=== PATIENT | male | born 1950 ===

== ENCOUNTER 2022-11-12 15:10 | Inpatient (IN) | payer MEDICARE, BC, SELFPAY ==
--- NOTE | ~2022-11-12 | CT_ITS ---
EXAMINATION: CT HEAD WITHOUT CONTRAST CLINICAL INFORMATION: Fall. Head injury. Patient on aspirin. COMPARISON: 11/12/2022 TECHNIQUE: Contiguous axial imaging was performed from the skull base to vertex without intravenous administration of contrast. This CT examination was performed using dose optimization techniques as appropriate, variously including the following: *Automated exposure control *Adjustment of mA and/or kV according to patient size (this includes techniques or standardized protocols for targeted exams where dose is matched to indication/reason for exam; i.e. extremities or head) *Use of iterative reconstruction technique DLP: 768 mGy-cm FINDINGS: There is cerebral atrophy with enlargement of the lateral and third ventricles. There is mild cerebellar atrophy with mild enlargement of the 4th ventricle. The cortical sulci and cerebellar folia are widened appropriately. There is mild bilateral periventricular and central white matter diminished attenuation. Left temporal encephalomalacia is again seen. There is no acute territorial defect, hemorrhage or midline shift. The extra-axial spaces are unremarkable. The extra-axial spaces are unremarkable. Calvarium: Intact. Maxillofacial Sinuses and Mastoids: Clear as visualized. There is cerumen within the ear canals. CT/CT head/brain wo IV con IMPRESSION: Cerebral atrophy and mild periventricular and central white matter diminished attenuation which is nonspecific but likely represent microvascular disease. No acute intracranial abnormality.
--- NOTE | ~2022-11-12 | XR_ITS ---
EXAMINATION: XR CHEST CLINICAL INFORMATION: Reason for Exam intermittent hypoxia, abn mediastinum on prior cxr COMPARISON: Chest radiograph 12/31/2022 TECHNIQUE: One view of the chest FINDINGS: Lines and tubes: None. Clear lungs. No pleural effusion. No pneumothorax. Ectatic thoracic aorta. Normal cardiac silhouette. XR/XR chest 1V IMPRESSION: 1. Ectatic thoracic aorta. 2. Clear lungs.
--- NOTE | ~2022-11-12 | MR_ITS ---
MRI OF THE BRAIN WITHOUT IV CONTRAST INDICATION: Question normal pressure hydrocephalus. Fall. COMPARISON: Head CT 11/12/2022. TECHNIQUE: Multiplanar multisequence MR imaging of the brain was obtained without IV contrast. FINDINGS: There is severe lateral and third ventriculomegaly that is disproportionate to sulcal prominence with an associated narrowed callosal angle of 48 degrees, findings highly suggestive of normal pressure hydrocephalus. There is no extra-axial surface collection, or herniation. The major flow voids at the skull base are preserved. There is global cerebral volume loss and there is a chronic infarct within the left temporal lobe. Background chronic microangiopathy. There is no acute infarct on diffusion-weighted imaging. There is no intracranial hemorrhage on the gradient recalled echo acquisition. There is chronic siderosis within the right frontal lobe and the left temporal lobe. The midline structures are normal. The cerebellar tonsils are normally positioned. The cerebellum and brainstem are normal. The craniocervical junction is normal. Osseous marrow signal intensity is homogenous. The visualized soft tissues are unremarkable. 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 Background chronic microangiopathy. 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
--- NOTE | ~2022-11-12 | XR_ITS ---
EXAMINATION: XR ABDOMEN KUB CLINICAL INDICATION: Constipation COMPARISON: None available. TECHNIQUE: AP view of the abdomen. FINDINGS: The bowel gas pattern is unremarkable with no evidence of ileus or obstruction. Gas and stool seen throughout the colon. There is some air in nondilated small bowel. No unusual soft tissue calcifications are noted. The spine shows degenerative changes.. XR/XR KUB IMPRESSION: Unremarkable examination. No evidence of bowel obstruction.
--- NOTE | ~2022-11-12 | XR_ITS ---
EXAMINATION: XR ABDOMEN KUB CLINICAL INDICATION: Rule out foreign bodies or MRI. COMPARISON: None available. TECHNIQUE: AP view of the abdomen. FINDINGS: The bowel gas pattern is normal with no evidence of ileus or obstruction. No unusual soft tissue calcifications are noted. There is degenerative marginal spurring seen at multiple levels within the lumbar spine. Sacroiliac joints unremarkable. No metallic radiopaque foreign bodies identified. Degenerative spurring about the greater trochanters seen bilaterally. XR/XR KUB IMPRESSION: No metallic radiopaque foreign bodies identified within the abdomen.
--- NOTE | ~2022-11-12 | CT_ITS ---
EXAMINATION: CT ANGIOGRAM CHEST CLINICAL INFORMATION: Chest x-ray with ectatic thoracic aorta COMPARISON: Previous chest x-ray December 31 and 01/01/2023 TECHNIQUE: Multiple axial images were obtained through the chest after the administration of 70 mL of Omnipaque 350 intravenous contrast. Extensive vascular post-processing including two-dimensional and three-dimensional reformatted images were created and reviewed on an independent workstation. This CT examination was performed using dose optimization techniques as appropriate, variously including the following: *Automated exposure control *Adjustment of mA and/or kV according to patient size (this includes techniques or standardized protocols for targeted exams where dose is matched to indication/reason for exam; i.e. extremities or head) *Use of iterative reconstruction technique DLP: 219 mGy-cm FINDINGS: The thoracic aorta is upper normal in size. The ascending thoracic aorta measures 4 cm. Aortic arch measures 3 cm. The descending thoracic aorta measures 2.7 centimeters. No evidence of aneurysm or dissection. The great vessel origins are patent and normal in caliber. Normal heart size. No pericardial effusion. Very mild coronary artery calcification. Small mediastinal lymph nodes. Largest lymph node is a right paratracheal lymph node measuring 1 cm in short axis that is upper normal in size. No hilar adenopathy. Visualized thyroid gland is normal. Heterogeneous mosaic attenuation the lungs probably representing hypoventilatory changes or air-trapping. The lungs are otherwise clear. No endobronchial or endotracheal lesion. No chest wall mass or enlarged axillary lymph nodes. Images through the upper abdomen are unremarkable. Degenerative changes of the spine. CT/CT angio chest aorta IMPRESSION: Upper normal-size thoracic aorta. No aneurysm or dissection. Fleischner guidelines were followed.
--- NOTE | ~2022-11-12 | US_ITS ---
EXAMINATION: US VENOUS ULTRASOUND WITH DOPPLER LOWER EXTREMITY, BILATERAL CLINICAL INFORMATION: Hypoxia COMPARISON: None available. TECHNIQUE: Ultrasound of the deep veins is performed from the hip to the calf with compression sonography and color and pulse Doppler assessment. Spectral analysis with color-flow imaging is performed. Exam is limited due to uncooperative patient. FINDINGS: RIGHT: There is normal venous compression and respiratory variation and augmented flow. The visualized common femoral vein, superficial femoral vein, profunda femoral vein, popliteal vein and anterior tibial veins shows no evidence of deep venous thrombosis. Hernial veins not well visualized. There is no significant popliteal fossa cyst. LEFT: There is normal venous compression and respiratory variation and augmented flow. The visualized common femoral vein, superficial femoral vein, and profunda femoral vein shows no evidence of deep venous thrombosis. Popliteal vein not well visualized. Calf veins not well visualized. There is no significant popliteal fossa cyst. US/US venous duplex LE BI IMPRESSION: Limited exam. No DVT demonstrated in the bilateral lower extremity. Calf veins and left popliteal vein not well visualized.
--- NOTE | ~2022-11-12 | XR_ITS ---
EXAMINATION: XR CHEST CLINICAL INFORMATION: Rule out foreign body for MRI. COMPARISON: None available. TECHNIQUE: 2 views of the chest were obtained. FINDINGS: No significant abnormality is noted involving the heart, lungs, mediastinum, bony thorax or soft tissues. No metallic radiopaque foreign bodies identified. XR/XR chest 2V IMPRESSION: No acute parenchymal disease. No radiopaque foreign bodies.
--- NOTE | ~2022-11-12 | CT_ITS ---
EXAMINATION: CT HEAD WITHOUT CONTRAST CLINICAL INFORMATION: Headache status-post fall. COMPARISON: None available. TECHNIQUE: Contiguous axial imaging was performed from the skull base to vertex without intravenous administration of contrast. Multiplanar reformatted images are submitted. This CT examination was performed using dose optimization techniques as appropriate, variously including the following: *Automated exposure control *Adjustment of mA and/or kV according to patient size (this includes techniques or standardized protocols for targeted exams where dose is matched to indication/reason for exam; i.e. extremities or head) *Use of iterative reconstruction technique DLP: 770 mGy-cm FINDINGS: There is no acute intracranial hemorrhage or evidence of territorial infarction. No abnormal mass effect or midline shift is seen. Melo to white matter differentiation is well preserved. There is no abnormal attenuation within the brain parenchyma. There is moderate ventriculomegaly, somewhat disproportionate to the mild extent of sulcal widening. The Marvin index is 0.45. The third and fourth ventricles appear patent. No extra-axial fluid collections are identified. The calvarium and scalp soft tissues are normal. The middle ear cavity and mastoid air cells are clear. The visualized paranasal sinuses are clear. CT/CT head/brain wo IV con IMPRESSION: 1. No acute intracranial pathology. 2. There is ventriculomegaly disproportionate to the extent of sulcal widening. This can be seen in the setting of normal pressure hydrocephalus. Recommend clinical correlation. Consider MRI evaluation if clinically appropriate.
--- NOTE | ~2022-11-12 | XR_ITS ---
EXAMINATION: XR CHEST CLINICAL INFORMATION: Reason for Exam intermittent hypoxia COMPARISON: Chest radiograph 11/13/2022 TECHNIQUE: One view of the chest FINDINGS: Lines and tubes: None. Low lung volumes with streaky bibasilar opacities which may reflect atelectasis. No pleural effusion. No pneumothorax. Superior mediastinum appears widened new from recent prior however this may be exaggerated by technique. XR/XR chest 1V IMPRESSION: * Superior mediastinum appears widened new from recent prior however this may be exaggerated by technique. Recommend repeat PA and lateral radiographs however if there is there is clinical concern for emergent mediastinal pathology, CT chest could be obtained. * Low lung volumes with streaky bibasilar opacities which may reflect atelectasis.
[2022-11-12 16:42] VITALS: BMI 30.2
[2022-11-12 16:45] VITALS: BP 137/79; PULSE 78; RESP 18; TEMP 36.7; O2SAT 97
[2022-11-12 17:27] VITALS: BP 119/71; PULSE 106; RESP 18; TEMP 36.5; O2SAT 96
[2022-11-12 18:00] VITALS: BP 125/67; PULSE 76; RESP 16; TEMP 36.3; O2SAT 97
--- NOTE | 2022-11-12 18:00 | PC.NURSE ---
At 1726 it was reported to this technical writer that Polo stood up and lost his balance and stumbled backwards onto his buttocks and hit his head on the closed kitchenette door. This incident was witnessed by several staff members but not this technical writer. There was no LOC and Polo is baseline alert and oriented to self; no other mental status changes noted. VSS, see vital signs section. I'm fine, I just fell yesterday! Polo was assessed by JONATHAN Reyes and Laura Lou NP notified via [facility] at 1728. Sales Estimator Brooke notified by charge nurse Leona at 1807 of fall. Will follow post fall protocol per hospital policy.
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
[2022-11-12 18:35] VITALS: BP 125/67; PULSE 76
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
[2022-11-12] MEDS: Atorvastatin Calcium 40 MG TABLET PO (21:33)
[2022-11-12] MEDS: hydrOXYzine HCL 25 MG TABLET PO (21:33)
[2022-11-12] MEDS: lamoTRIgine 100 MG TABLET PO (21:34)
[2022-11-12] MEDS: Tamsulosin HCL 0.4 MG CAPSULE PO (21:35)
[2022-11-12] MEDS: traZODone HCL 50 MG TABLET PO (21:35)
[2022-11-12] MEDS: QUEtiapine Fumarate 100 MG TABLET PO (21:35)
[2022-11-13 08:34] LABS: Alanine Aminotransferase 20 U/L (0-40); Albumin Level 3.2 g/dL (3.5-5.0); Alkaline Phosphatase 59 U/L (39-117); Anion Gap 14 (12-20); Aspartate Amino Transferase 20 U/L (5-37); Bilirubin Total 0.7 mg/dL (0.0-1.0); Blood Urea Nitrogen 14 mg/dL (9-16); Calcium 8.4 mg/dL (8.4-10.2); Carbon Dioxide 22 mmol/L (22-29); Chloride 107 mmol/L (96-108); Cholesterol 129 mg/dL; Creatinine Clr Calc Pharmacy 102.6; Estimated Glomerular Filt Rate > 60; Glucose Fasting 86 mg/dL (60-99); HDL Cholesterol 42 mg/dL; LDL Cholesterol Calculated 74 mg/dl; Sodium 139 mmol/L (135-145); Total Protein 5.6 g/dL (6.5-8.0); Triglycerides 65 mg/dL
[2022-11-13 09:44] VITALS: BP 82/52; PULSE 84; RESP 16; TEMP 36.8; O2SAT 97
[2022-11-13] MEDS: Divalproex Sodium ER 500 MG TAB.ER.24H 1500 MG PO (09:49)
[2022-11-13] MEDS: Thiamine HCL 100 MG TABLET PO (09:49)
[2022-11-13] MEDS: lamoTRIgine 100 MG TABLET PO ×2 (09:49→20:35)
[2022-11-13] MEDS: Escitalopram Oxalate 5 MG TABLET PO (09:49)
[2022-11-13 10:58] VITALS: BP 106/70
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
[2022-11-13 15:55] VITALS: BMI 31.0
[2022-11-13 18:00] VITALS: BP 121/62; PULSE 84; RESP 16; TEMP 36.1; O2SAT 98
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
[2022-11-13] MEDS: Atorvastatin Calcium 40 MG TABLET PO (20:34)
[2022-11-13] MEDS: hydrOXYzine HCL 25 MG TABLET PO (20:34)
[2022-11-13] MEDS: Tamsulosin HCL 0.4 MG CAPSULE PO (20:35)
[2022-11-13] MEDS: QUEtiapine Fumarate 100 MG TABLET PO (20:35)
[2022-11-13] MEDS: traZODone HCL 50 MG TABLET PO (20:36)
[2022-11-14 10:01] VITALS: BP 126/59; PULSE 84; RESP 16; TEMP 36.3; O2SAT 96
[2022-11-14] MEDS: Escitalopram Oxalate 5 MG TABLET PO (10:02)
[2022-11-14] MEDS: Aspirin Enteric Coated 81 MG TABLET.DR PO (10:02)
[2022-11-14] MEDS: Divalproex Sodium ER 500 MG TAB.ER.24H 1500 MG PO (10:02)
[2022-11-14] MEDS: Thiamine HCL 100 MG TABLET PO (10:02)
[2022-11-14] MEDS: lamoTRIgine 100 MG TABLET PO ×2 (10:02→20:18)
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
[2022-11-14 18:00] VITALS: BP 109/61; PULSE 77; RESP 18; TEMP 36.1; O2SAT 96
[2022-11-14] MEDS: QUEtiapine Fumarate 100 MG TABLET PO (20:18)
[2022-11-14] MEDS: Atorvastatin Calcium 40 MG TABLET PO (20:18)
[2022-11-14] MEDS: traZODone HCL 50 MG TABLET PO (20:18)
[2022-11-14] MEDS: Tamsulosin HCL 0.4 MG CAPSULE PO (20:18)
[2022-11-15 06:00] VITALS: BP 110/62; PULSE 69; RESP 16; TEMP 36.6; O2SAT 96
[2022-11-15] MEDS: Divalproex Sodium ER 500 MG TAB.ER.24H 1500 MG PO (09:00)
[2022-11-15] MEDS: Thiamine HCL 100 MG TABLET PO (09:01)
[2022-11-15] MEDS: lamoTRIgine 100 MG TABLET PO ×2 (09:01→20:02)
[2022-11-15] MEDS: Aspirin Enteric Coated 81 MG TABLET.DR PO (09:01)
[2022-11-15] MEDS: Escitalopram Oxalate 5 MG TABLET PO (09:01)
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
[2022-11-15 19:35] VITALS: BP 127/77; PULSE 61; RESP 16; TEMP 36.2; O2SAT 99
[2022-11-15] MEDS: QUEtiapine Fumarate 100 MG TABLET PO (20:02)
[2022-11-15] MEDS: Tamsulosin HCL 0.4 MG CAPSULE PO (20:02)
[2022-11-15] MEDS: Atorvastatin Calcium 40 MG TABLET PO (20:02)
[2022-11-15] MEDS: traZODone HCL 50 MG TABLET PO (20:02)
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
[2022-11-16 08:10] VITALS: BP 118/62; PULSE 68; RESP 16; TEMP 36.4; O2SAT 97
[2022-11-16] MEDS: Escitalopram Oxalate 5 MG TABLET PO (08:11)
[2022-11-16] MEDS: lamoTRIgine 100 MG TABLET PO ×2 (08:12→20:36)
[2022-11-16] MEDS: Aspirin Enteric Coated 81 MG TABLET.DR PO (08:12)
[2022-11-16] MEDS: Divalproex Sodium ER 500 MG TAB.ER.24H 1500 MG PO (08:12)
[2022-11-16] MEDS: Thiamine HCL 100 MG TABLET PO (08:12)
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
[2022-11-16 18:00] VITALS: BP 126/70; PULSE 64; RESP 16; TEMP 36.6; O2SAT 96
[2022-11-16] MEDS: Tamsulosin HCL 0.4 MG CAPSULE PO (20:35)
[2022-11-16] MEDS: hydrOXYzine HCL 25 MG TABLET PO (20:35)
[2022-11-16] MEDS: QUEtiapine Fumarate 100 MG TABLET PO (20:36)
[2022-11-16] MEDS: Atorvastatin Calcium 40 MG TABLET PO (20:36)
[2022-11-16] MEDS: traZODone HCL 50 MG TABLET PO (20:44)
[2022-11-17 06:00] VITALS: BP 103/57; PULSE 80; RESP 16; O2SAT 98
[2022-11-17] MEDS: Thiamine HCL 100 MG TABLET PO (09:09)
[2022-11-17] MEDS: Escitalopram Oxalate 5 MG TABLET PO (09:09)
[2022-11-17] MEDS: Aspirin Enteric Coated 81 MG TABLET.DR PO (09:09)
[2022-11-17] MEDS: lamoTRIgine 100 MG TABLET PO ×2 (09:09→20:45)
[2022-11-17] MEDS: Divalproex Sodium ER 500 MG TAB.ER.24H 1500 MG PO (09:09)
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
--- NOTE | 2022-11-17 13:08 | PM.NEUROCN ---
History of Present Illness Data of Consult Service Date: 11/17/22 Primary Care Provider: Unknown Physician HPI Reason for consult: Dementia 71 years old man [place] [facility] was brought to emergency room with significant mental symptoms including agitation hallucinations and confusion. He had a CT scan of brain and MRI done, both revealing abnormalities prompting this consultation. When I saw him he was in a lock-down unit asking me to let him go. He said that he was from [place] and wanted to go back. Review of Systems Review of Systems: No evidence of any seizure-like episode. [facility] Social History Social History Household Members: None Housing: [facility] Do you presently have visiting nurse or other home services: No Unable to assess alcohol history related to: Unable to respond Patient Tobacco Use Status: Former Tobacco user Quit Date: unable to answer due to mental status Tobacco use type: Cigarette Smoked in Last 30 Days: No Use of substances other than those prescribed or required for medical reasons: No Currently Displaying Signs/Symptoms of Drug Intoxication Withdrawal: No Have you been hit, kicked, punched, or otherwise hurt by someone within the past year? If so, by whom?: No Do you feel safe in your current relationship?: No Current Relationship Is there a partner from a previous relationship who is making you feel unsafe now?: No Are you made to feel afraid or neglected: No Spiritual Healthcare Practices: n/a [employer] Healthcare Practices: Islam Cultural Healthcare Practices: n/a Advance Directives: No Advance Directives Information Provided: No Current/Past Psychiatric Disorders: Conduct disorder, Mood disorder and Substance abuse Qiu Symptoms: Anxiety and Impulsivity Change in Treatment: Discharged from [facility] Access to Firearms: No Do you have thoughts of harming others: None Do you have a plan to hurt others: No Plan Recently lost weight without trying: No Eating poorly because of decreased appetite: No Nutrition Risks: Dental problems Poor oral hygiene: No service: Yes Sexual orientation: Straight/Heterosexual Meds Allergies Allergy/AdvReac Type Severity Reaction Status Date / Time No Known Allergies Allergy Verified 11/12/22 15:27 Active Medications: Current Medications Acetaminophen (Acetaminophen 325 Mg Tablet) 650 mg PO Q6H PRN PRN Reason: Headache/Pain Mild Scale (1-3) Al Hydroxide/Mg Hydroxide (Magnesium Hydrox/Alum Hydrox 30 Ml Oral.Susp) 30 ml PO Q6H PRN PRN Reason: Heartburn/Nausea Aspirin (Aspirin Enteric Coated 81 Mg Tablet.Dr) 81 mg PO DAILY [facility] Last Admin: 11/17/22 09:09 Dose: 81 mg Atorvastatin Calcium (Atorvastatin Calcium 40 Mg Tablet) 40 mg PO BEDTIME [facility] Last Admin: 11/16/22 20:36 Dose: 40 mg Divalproex Sodium (Divalproex Sodium Er 500 Mg Tab.Er.24h) 1,500 mg PO DAILY [facility] Last Admin: 11/17/22 09:09 Dose: 1,500 mg Escitalopram Oxalate (Escitalopram Oxalate 5 Mg Tablet) 5 mg PO DAILY [facility] Last Admin: 11/17/22 09:09 Dose: 5 mg Hydroxyzine HCl (Hydroxyzine Hcl 25 Mg Tablet) 25 mg PO Q6H PRN PRN Reason: Anxiety Last Admin: 11/16/22 20:35 Dose: 25 mg Lamotrigine (Lamotrigine 100 Mg Tablet) 100 mg PO BID [facility] Last Admin: 11/17/22 09:09 Dose: 100 mg Magnesium Hydroxide (Milk Of Magnesia 30 Ml Oral.Susp) 30 ml PO DAILY PRN PRN Reason: Constipation Quetiapine Fumarate (Quetiapine Fumarate 100 Mg Tablet) 100 mg PO BEDTIME [facility] Last Admin: 11/16/22 20:36 Dose: 100 mg Tamsulosin HCl (Tamsulosin Hcl 0.4 Mg Capsule) 0.4 mg PO BEDTIME [facility] Last Admin: 11/16/22 20:35 Dose: 0.4 mg Thiamine HCl (Thiamine Hcl 100 Mg Tablet) 100 mg PO DAILY [facility] Last Admin: 11/17/22 09:09 Dose: 100 mg Trazodone HCl (Trazodone Hcl 50 Mg Tablet) 50 mg PO BEDTIME PRN PRN Reason: Insomnia Last Admin: 11/16/22 20:44 Dose: 50 mg Home Medications Medication Instructions Recorded Confirmed Last Taken Type aspirin 81 mg capsule,delayed 81 mg PO DAILY 11/12/22 11/12/22 Unknown History release atorvastatin 40 mg tablet 40 mg PO BEDTIME 11/12/22 11/12/22 Unknown History divalproex 500 mg tablet,extended 1,500 mg PO DAILY 11/12/22 11/12/22 Unknown History release 24 hr escitalopram oxalate 5 mg tablet 5 mg PO DAILY 11/12/22 11/12/22 Unknown History lamotrigine 100 mg tablet 100 mg PO BID 11/12/22 11/12/22 Unknown History (Lamictal) quetiapine 100 mg tablet 100 mg PO BEDTIME 11/12/22 11/12/22 Unknown History tamsulosin 0.4 mg capsule 0.4 mg PO BEDTIME 11/12/22 11/12/22 Unknown History thiamine HCl (vitamin B1) 100 mg 100 mg PO DAILY 11/12/22 11/12/22 Unknown History tablet Physical Exam Vital Signs: Vital Signs: Last Vital Signs Temp 97.8 F 11/16/22 18:00 Pulse 80 11/17/22 06:00 Resp 16 11/17/22 06:00 BP 103/57 L 11/17/22 06:00 Pulse Ox 98 11/17/22 06:00 O2 Del Method Room Air 11/17/22 06:00 BMI result Body Mass Index 31.0 Neuro: Other: He is alert and awake with normal spontaneity of speech fluency comprehension and anxious affect. He knew that he was in a hospital but could not name it. He was not in any distress. He was following simple commands. Face was symmetrical. Visual kwon are full. Gaze was full. There was no significant bradykinesia or tremor. Deep tendon reflexes were trace to absent. Holding my hands he was able to get up and walked in a cautious gait with no sign of magnet is a more parkinsonism. Speech was normal. Results Labs 11/13/22 07:52 Labs: CT scan of brain and MRI of brain were reviewed. Both reveals significant cerebral atrophy, central more than peripheral, with somewhat suggestion of ventriculomegaly and a chronic left insular infarct. Assessment and Plan (1) Neurodegenerative cognitive impairment: Status: Acute 71 years old man who probably has degenerative dementia, moderate to severe, with significant behavioral component. Precise previous history is not available. 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 This type of infarct could be cardioembolic or from carotid artery. Because of significant underlying dementia, he would not be a candidate for any surgical intervention and for that reason I do not think exploring carotid artery stenosis is a reasonable idea. Continue his baseline medications. His examination is not suggestive of normal-pressure hydrocephalus despite his imaging revealing some ventriculomegaly. This type of patient typically require combination of medicines including some antipsychotics and mood stabilizers to manage day behavioral symptoms. He is also at relatively high risk for seizure disorder but also has been taking lamotrigine 100 mg twice a day, which would cover this condition even if he suffered from it. Now that his mental status has improved compared to his emergency room arrival, I do not think an EEG would be useful. Time Spent With Patient Time: Total time managing care of this patient today ____ minutes. Procedures Date of Service Date of Service: 11/17/22
[2022-11-17 18:00] VITALS: BP 112/59; PULSE 59; RESP 18; TEMP 36.6; O2SAT 94
[2022-11-17] MEDS: Tamsulosin HCL 0.4 MG CAPSULE PO (20:45)
[2022-11-17] MEDS: QUEtiapine Fumarate 100 MG TABLET PO (20:45)
[2022-11-17] MEDS: traZODone HCL 50 MG TABLET PO (20:46)
[2022-11-17] MEDS: Atorvastatin Calcium 40 MG TABLET PO (20:46)
[2022-11-18 08:10] LABS: MANUAL DIFF FLAG NO
[2022-11-18 08:16] LABS: Basophils Percent Auto 0.8 % (0-2); Eosinophils Absolute Auto 0.2 X10*3/uL (0.0-0.4); Eosinophils Percent Auto 4.4 % (0-4); Hematocrit 39.9 % (42.0-52.0); Hemoglobin 13.4 g/dl (14.0-18.0); Imm Gran Abs Auto 0.06 X10*3/uL (0.00-0.03); Imm Gran Pct Auto 1.2 % (0.0-0.4); Lymphocytes Absolute Auto 1.4 X10*3/uL (1.2-4.9); Lymphocytes Percent Auto 28.1 % (20-40); Mean Corpuscular HGB Conc 33.6 g/dl (31.0-36.0); Mean Corpuscular Hemoglobin 32.4 pg (27.0-33.0); Mean Corpuscular Volume 96.4 fL (80.0-98.0); Mean Platelet Volume 9.6 fL (9.4-12.4); Monocytes Absolute Auto 0.7 X10*3/uL (0.1-1.2); Monocytes Percent Auto 12.9 % (2-11); Neutrophils Absolute Auto 2.7 x10*3/uL (2.0-8.3); Neutrophils Percent Auto 52.6 % (45-73); Platelet Count 193 X10*3/uL (160-400); Red Blood Count 4.14 X10*6/uL (4.60-5.80); Red Cell Distribution Width 14.5 % (11.0-16.0); White Blood Count 5.1 X10*3/uL (4.8-10.8)
[2022-11-18 08:31] LABS: Valproate 44.3 mcg/mL (50.0-100.0)
[2022-11-18 09:21] VITALS: BP 112/64; PULSE 75; RESP 16; TEMP 36.1; O2SAT 98
[2022-11-18] MEDS: Aspirin Enteric Coated 81 MG TABLET.DR PO (09:22)
[2022-11-18] MEDS: Divalproex Sodium ER 500 MG TAB.ER.24H 1500 MG PO (09:22)
[2022-11-18] MEDS: Thiamine HCL 100 MG TABLET PO (09:22)
[2022-11-18] MEDS: Escitalopram Oxalate 5 MG TABLET PO (09:22)
[2022-11-18] MEDS: lamoTRIgine 100 MG TABLET PO ×2 (09:22→20:50)
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
[2022-11-18] MEDS: QUEtiapine Fumarate 50 MG TABLET PO (17:44)
[2022-11-18 18:00] VITALS: BP 149/80; PULSE 59; RESP 18; TEMP 36.3; O2SAT 100
[2022-11-18] MEDS: Tamsulosin HCL 0.4 MG CAPSULE PO (20:49)
[2022-11-18] MEDS: QUEtiapine Fumarate 100 MG TABLET PO (20:49)
[2022-11-18] MEDS: traZODone HCL 50 MG TABLET PO (20:50)
[2022-11-18] MEDS: Atorvastatin Calcium 40 MG TABLET PO (20:50)
[2022-11-18] MEDS: hydrOXYzine HCL 25 MG TABLET PO (20:50)
[2022-11-19 08:30] VITALS: BP 106/76; PULSE 89; RESP 18; TEMP 36.1; O2SAT 97
[2022-11-19] MEDS: QUEtiapine Fumarate 50 MG TABLET PO ×2 (08:57→17:28)
[2022-11-19] MEDS: Thiamine HCL 100 MG TABLET PO (08:58)
[2022-11-19] MEDS: Escitalopram Oxalate 5 MG TABLET PO (08:58)
[2022-11-19] MEDS: Aspirin Enteric Coated 81 MG TABLET.DR PO (08:58)
[2022-11-19] MEDS: Divalproex Sodium ER 500 MG TAB.ER.24H 1500 MG PO (08:58)
[2022-11-19] MEDS: lamoTRIgine 100 MG TABLET PO ×2 (08:58→20:13)
--- NOTE | 2022-11-19 13:38 | P.PNPSI_ITS ---
Subjective Subjective Date of Service: 11/19/22 Reason For Visit: DEMENTIA Subjective Notes: Conditional Voluntary Interim History: The nursing staff reported the patient is on one-to-one for safety. He had been medication and meal compliant he had been freed in the morning but in the evening he is a little agitated. On interview the patient remains pleasantly confused nonsensical at times but easily redirectable. Mental Status Exam Mental Status Exam Patient Appearance: Well Grooomed and Appropriate Patient Orientation: Person and Situation Level of Consciousness: Awake and Appropriate Patient Behavior: Guarded and Passive Mood Description: Calm Affect Description: Constricted Patient Cognition Impaired: Yes Ability to Follow Directions: Good Speech Pattern: Clear Hallucinations: None Delusions: Not Present Thought Process: Linear Thought Content: positive for [place]um[place] Judgement: Fair Diagnostics Vital Signs (24Hr): Vital Signs - 24 hr 11/18/22 18:00 Temperature 97.4 F Pulse Rate 59 Respiratory Rate 18 Blood Pressure 149/80 H Pulse Oximetry 100 Oxygen Delivery Method Room Air BMI result Body Mass Index 31.0 Labs 11/18/22 08:03 11/13/22 07:52 Labs: Laboratory Results - last 48 hr 11/18/22 11/18/22 11/18/22 08:03 08:03 08:03 WBC 5.1 RBC 4.14 L Hgb 13.4 L Hct 39.9 L MCV 96.4 MCH 32.4 MCHC 33.6 RDW 14.5 Plt Count 193 MPV 9.6 Immature Gran % (Auto) 1.2 H Neut % (Auto) 52.6 Lymph % (Auto) 28.1 [place] % (Auto) 12.9 H Eos % (Auto) 4.4 H Baso % (Auto) 0.8 Lymph # (Auto) 1.4 [place] # (Auto) 0.7 Eos # (Auto) 0.2 Baso # (Auto) 0.0 Abs Immat Gran (auto) 0.06 H Absolute Neuts (auto) 2.7 Absolute Nucleated RBC 0.000 Nucleated RBC % (auto) 0.0 Valproic Acid 44.3 L Lamotrigine Cancelled Imaging Radiology Impressions: ITS Impressions Head CT 11/12/22 19:17 IMPRESSION: 1. No acute intracranial pathology. 2. There is ventriculomegaly disproportionate to the extent of sulcal widening. This can be seen in the setting of normal pressure hydrocephalus. Recommend clinical correlation. Consider MRI evaluation if clinically appropriate. Chest X-Ray 11/13/22 14:13 IMPRESSION: No acute parenchymal disease. No radiopaque foreign bodies. KUB X-Ray 11/13/22 14:13 IMPRESSION: No metallic radiopaque foreign bodies identified within the abdomen. 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 Background chronic microangiopathy. 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 Medications Medications Current Medications Acetaminophen (Acetaminophen 325 Mg Tablet) 650 mg PO Q6H PRN PRN Reason: Headache/Pain Mild Scale (1-3) Al Hydroxide/Mg Hydroxide (Magnesium Hydrox/Alum Hydrox 30 Ml Oral.Susp) 30 ml PO Q6H PRN PRN Reason: Heartburn/Nausea Aspirin (Aspirin Enteric Coated 81 Mg Tablet.Dr) 81 mg PO DAILY [facility] Last Admin: 11/19/22 08:58 Dose: 81 mg Atorvastatin Calcium (Atorvastatin Calcium 40 Mg Tablet) 40 mg PO BEDTIME [facility] Last Admin: 11/18/22 20:50 Dose: 40 mg Divalproex Sodium (Divalproex Sodium Er 500 Mg Tab.Er.24h) 1,500 mg PO DAILY [facility] Last Admin: 11/19/22 08:58 Dose: 1,500 mg Escitalopram Oxalate (Escitalopram Oxalate 5 Mg Tablet) 5 mg PO DAILY [facility] Last Admin: 11/19/22 08:58 Dose: 5 mg Hydroxyzine HCl (Hydroxyzine Hcl 25 Mg Tablet) 25 mg PO Q6H PRN PRN Reason: Anxiety Last Admin: 11/18/22 20:50 Dose: 25 mg Lamotrigine (Lamotrigine 100 Mg Tablet) 100 mg PO BID [facility] Last Admin: 11/19/22 08:58 Dose: 100 mg Magnesium Hydroxide (Milk Of Magnesia 30 Ml Oral.Susp) 30 ml PO DAILY PRN PRN Reason: Constipation Quetiapine Fumarate (Quetiapine Fumarate 100 Mg Tablet) 100 mg PO BEDTIME [facility] Last Admin: 11/18/22 20:49 Dose: 100 mg Quetiapine Fumarate (Quetiapine Fumarate 50 Mg Tablet) 50 mg PO BID@0800,1700 [facility] Last Admin: 11/19/22 08:57 Dose: 50 mg Tamsulosin HCl (Tamsulosin Hcl 0.4 Mg Capsule) 0.4 mg PO BEDTIME [facility] Last Admin: 11/18/22 20:49 Dose: 0.4 mg Thiamine HCl (Thiamine Hcl 100 Mg Tablet) 100 mg PO DAILY [facility] Last Admin: 11/19/22 08:58 Dose: 100 mg Trazodone HCl (Trazodone Hcl 50 Mg Tablet) 50 mg PO BEDTIME PRN PRN Reason: Insomnia Last Admin: 11/18/22 20:50 Dose: 50 mg Allergies Allergies Allergy/AdvReac Type Severity Reaction Status Date / Time No Known Allergies Allergy Verified 11/12/22 15:27 Assessment & Plan Assessment & Plan (1) Neurodegenerative cognitive impairment: Status: Acute Code(s): G31.9 - Degenerative disease of nervous system, unspecified Assessment and Plan: 71 years old man who probably has degenerative dementia, moderate to severe, with significant behavioral component. Precise previous history is not availa ble. 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 This type of infarct could be cardioembolic or from carotid artery. Because of significant underlying dementia, he would not be a candidate for any surgical intervention and for that reason I do not think exploring carotid artery stenosis is a reasonable idea. Continue his baseline medications. His examination is not suggestive of normal-pressure hydrocephalus despite his imaging revealing some ventriculomegaly. This type of patient typically require combination of medicines including some antipsychotics and mood stabilizers to manage day behavioral symptoms. He is also at relatively high risk for seizure disorder but also has been taking lamotrigine 100 mg twice a day, which would cover this condition even if he suffered from it. Now that his mental status has improved compared to his emergency room arrival, I do not think an EEG would be useful. Plan Plan 1. Continue with regular medications. 2. Neurologist reported that at this moment he does not have normal-pressure hydrocephalus. 3. Since the patient had being more irritable and labile we are increasing Seroquel up to 50 mg p.o. b.i.d. and 100 mg p.o. q.h.s.. 4. Reassessment with results. 5. Depakote level and comprehensive metabolic panel for November 20 a.m. Reason for continued inpatient stay Substantial Risk for: inability to function, rapid decompensation and med/psych decompensation Time Spent With Patient Time: Total time managing care of this patient today __20__ minutes.
[2022-11-19 18:00] VITALS: BP 111/73; PULSE 78; RESP 18; TEMP 36; O2SAT 95
[2022-11-19] MEDS: QUEtiapine Fumarate 100 MG TABLET PO (20:13)
[2022-11-19] MEDS: Tamsulosin HCL 0.4 MG CAPSULE PO (20:13)
[2022-11-19] MEDS: Atorvastatin Calcium 40 MG TABLET PO (20:13)
[2022-11-20 05:13] LABS: Alanine Aminotransferase 16 U/L (0-40); Albumin Level 3.2 g/dL (3.5-5.0); Alkaline Phosphatase 68 U/L (39-117); Anion Gap 16 (12-20); Aspartate Amino Transferase 15 U/L (5-37); Bilirubin Total 0.6 mg/dL (0.0-1.0); Blood Urea Nitrogen 20 mg/dL (9-16); Calcium 8.7 mg/dL (8.4-10.2); Carbon Dioxide 22 mmol/L (22-29); Chloride 108 mmol/L (96-108); Creatinine Clr Calc Pharmacy 101.5; Estimated Glomerular Filt Rate > 60; Glucose Fasting 85 mg/dL (60-99); Potassium 4.4 mmol/L (3.3-5.1); Sodium 142 mmol/L (135-145); Total Protein 5.7 g/dL (6.5-8.0)
[2022-11-20 09:05] VITALS: BP 108/60; PULSE 85; RESP 18; TEMP 36.3; O2SAT 95
[2022-11-20] MEDS: Divalproex Sodium ER 500 MG TAB.ER.24H 1500 MG PO (09:09)
[2022-11-20] MEDS: Aspirin Enteric Coated 81 MG TABLET.DR PO (09:10)
[2022-11-20] MEDS: Escitalopram Oxalate 5 MG TABLET PO (09:10)
[2022-11-20] MEDS: Thiamine HCL 100 MG TABLET PO (09:10)
[2022-11-20] MEDS: lamoTRIgine 100 MG TABLET PO ×2 (09:10→20:07)
[2022-11-20] MEDS: QUEtiapine Fumarate 50 MG TABLET PO ×2 (09:10→17:23)
--- NOTE | 2022-11-20 12:51 | HO.PSYCHPN ---
Subjective Subjective Date of Service: 11/20/22 Reason For Visit: DEMENTIA Subjective Notes: Conditional Voluntary Interim History: The nursing staff reported that sometimes his inappropriate and irritable but easily redirectable. He slept well last night. Today his Depakote level came back on 50 and all his other blood per came without major changes. The criminal justice social worker reported that apparently his family meeting cleared the financial problems with the halfway and they are not holding a bed. On interview the patient is pleasantly confused easily redirectable. Mental Status Exam Mental Status Exam Patient Appearance: Appropriate Patient Orientation: Person and Situation Level of Consciousness: Awake and Appropriate Patient Behavior: Guarded and Passive Mood Description: Withdrawn Affect Description: Constricted Patient Cognition Impaired: Yes Ability to Follow Directions: Good Speech Pattern: Clear Hallucinations: None Delusions: Not Present Thought Process: Linear Thought Content: positive for [place] and positive for Circumstantial Judgement: Fair Diagnostics Vital Signs (24Hr): Vital Signs - 24 hr 11/19/22 18:00 11/20/22 09:05 Temperature 96.8 F 97.3 F Pulse Rate 78 85 Respiratory Rate 18 18 Blood Pressure 111/73 108/60 Pulse Oximetry 95 95 Oxygen Delivery Method Room Air Room Air BMI result Body Mass Index 31.0 Labs 11/18/22 08:03 11/20/22 04:51 Labs: Laboratory Results - last 48 hr 11/20/22 11/20/22 04:51 04:51 Sodium 142 Potassium 4.4 Chloride 108 Carbon Dioxide 22 Anion Gap 16 BUN 20 H Creatinine 0.88 Estim Creat Clear Calc 101.5 Estimated GFR > 60 Fasting Glucose 85 Calcium 8.7 Total Bilirubin 0.6 AST 15 ALT 16 Alkaline Phosphatase 68 Total Protein 5.7 L Albumin 3.2 L Valproic Acid 50.0 Imaging Radiology Impressions: ITS Impressions Head CT 11/12/22 19:17 IMPRESSION: 1. No acute intracranial pathology. 2. There is ventriculomegaly disproportionate to the extent of sulcal widening. This can be seen in the setting of normal pressure hydrocephalus. Recommend clinical correlation. Consider MRI evaluation if clinically appropriate. Chest X-Ray 11/13/22 14:13 IMPRESSION: No acute parenchymal disease. No radiopaque foreign bodies. KUB X-Ray 11/13/22 14:13 IMPRESSION: No metallic radiopaque foreign bodies identified within the abdomen. 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 Background chronic microangiopathy. 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 Medications Medications Current Medications Acetaminophen (Acetaminophen 325 Mg Tablet) 650 mg PO Q6H PRN PRN Reason: Headache/Pain Mild Scale (1-3) Al Hydroxide/Mg Hydroxide (Magnesium Hydrox/Alum Hydrox 30 Ml Oral.Susp) 30 ml PO Q6H PRN PRN Reason: Heartburn/Nausea Aspirin (Aspirin Enteric Coated 81 Mg Tablet.Dr) 81 mg PO DAILY [facility] Last Admin: 11/20/22 09:10 Dose: 81 mg Atorvastatin Calcium (Atorvastatin Calcium 40 Mg Tablet) 40 mg PO BEDTIME [facility] Last Admin: 11/19/22 20:13 Dose: 40 mg Divalproex Sodium (Divalproex Sodium Er 500 Mg Tab.Er.24h) 1,500 mg PO DAILY [facility] Last Admin: 11/20/22 09:09 Dose: 1,500 mg Escitalopram Oxalate (Escitalopram Oxalate 5 Mg Tablet) 5 mg PO DAILY [facility] Last Admin: 11/20/22 09:10 Dose: 5 mg Hydroxyzine HCl (Hydroxyzine Hcl 25 Mg Tablet) 25 mg PO Q6H PRN PRN Reason: Anxiety Last Admin: 11/18/22 20:50 Dose: 25 mg Lamotrigine (Lamotrigine 100 Mg Tablet) 100 mg PO BID [facility] Last Admin: 11/20/22 09:10 Dose: 100 mg Magnesium Hydroxide (Milk Of Magnesia 30 Ml Oral.Susp) 30 ml PO DAILY PRN PRN Reason: Constipation Quetiapine Fumarate (Quetiapine Fumarate 100 Mg Tablet) 100 mg PO BEDTIME [facility] Last Admin: 11/19/22 20:13 Dose: 100 mg Quetiapine Fumarate (Quetiapine Fumarate 50 Mg Tablet) 50 mg PO BID@0800,1700 [facility] Last Admin: 11/20/22 09:10 Dose: 50 mg Tamsulosin HCl (Tamsulosin Hcl 0.4 Mg Capsule) 0.4 mg PO BEDTIME [facility] Last Admin: 11/19/22 20:13 Dose: 0.4 mg Thiamine HCl (Thiamine Hcl 100 Mg Tablet) 100 mg PO DAILY [facility] Last Admin: 11/20/22 09:10 Dose: 100 mg Trazodone HCl (Trazodone Hcl 50 Mg Tablet) 50 mg PO BEDTIME PRN PRN Reason: Insomnia Last Admin: 11/18/22 20:50 Dose: 50 mg Allergies Allergies Allergy/AdvReac Type Severity Reaction Status Date / Time No Known Allergies Allergy Verified 11/12/22 15:27 Assessment & Plan Assessment & Plan (1) Neurodegenerative cognitive impairment: Status: Acute Code(s): G31.9 - Degenerative disease of nervous system, unspecified Assessment and Plan: 71 years old man who probably has degenerative dementia, moderate to severe, with significant behavioral component. Precise previous history is not available. 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 This type of infarct could be cardioembolic or from carotid artery. Because of significant underlying dementia, he would not be a candidate for any surgical intervention and for that reason I do not think exploring carotid artery stenosis is a reasonable idea. Continue his baseline medications. His examination is not suggestive of normal-pressure hydrocephalus despite his imaging revealing some ventriculomegaly. This type of patient typically require combination of medicines including some antipsychotics and mood stabilizers to manage day behavioral symptoms. He is also at relatively high risk for seizure disorder but also has been taking lamotrigine 100 mg twice a day, which would cover this condition even if he suffered from it. Now that his mental status has improved compared to his emergency room arrival, I do not think an EEG would be useful. Plan Plan 1. Continue with regular medications. 2. Neurologist reported that at this moment he does not have normal-pressure hydrocephalus. 3. Since the patient had being more irritable and labile we are increasing Seroquel up to 50 mg p.o. b.i.d. and 100 mg p.o. q.h.s.. 4. Reassessment with results. 5. Depakote level and comprehensive metabolic panel for November 20 a.m. the blood work came back within normal limits and a therapeutic level of Depakote. Reason for continued inpatient stay Substantial Risk for: inability to function, rapid decompensation and med/psych decompensation Time Spent With Patient Time: Total time managing care of this patient today __20__ minutes.
[2022-11-20 18:00] VITALS: BP 102/65; PULSE 65; RESP 18; TEMP 36; O2SAT 96
[2022-11-20] MEDS: Tamsulosin HCL 0.4 MG CAPSULE PO (20:06)
[2022-11-20] MEDS: Atorvastatin Calcium 40 MG TABLET PO (20:06)
[2022-11-20] MEDS: QUEtiapine Fumarate 100 MG TABLET PO (20:07)
[2022-11-20] MEDS: traZODone HCL 50 MG TABLET PO (20:07)
[2022-11-21 09:30] VITALS: BP 133/76; PULSE 64; RESP 18; TEMP 36.1; O2SAT 96
[2022-11-21] MEDS: Escitalopram Oxalate 5 MG TABLET PO (09:34)
[2022-11-21] MEDS: lamoTRIgine 100 MG TABLET PO ×2 (09:34→20:15)
[2022-11-21] MEDS: Thiamine HCL 100 MG TABLET PO (09:34)
[2022-11-21] MEDS: QUEtiapine Fumarate 50 MG TABLET PO ×2 (09:34→17:04)
[2022-11-21] MEDS: Divalproex Sodium ER 500 MG TAB.ER.24H 1500 MG PO (09:35)
[2022-11-21] MEDS: Aspirin Enteric Coated 81 MG TABLET.DR PO (09:35)
--- NOTE | 2022-11-21 13:12 | P.PNPSI_ITS ---
Subjective Subjective Date of Service: 11/21/22 Reason For Visit: DEMENTIA Subjective Notes: Conditional Voluntary Interim History: The nursing staff reported the patient had been compliant with medications pleasant on approach. The social service liaison reported the company dancer is working on his state so he can not cover the cost of the halfway facility. On interview the patient denies new symptoms, waiting for placement. Mental Status Exam Mental Status Exam Patient Appearance: Well Grooomed and Appropriate Patient Orientation: Person and Situation Level of Consciousness: Awake and Appropriate Patient Behavior: Guarded and Passive Mood Description: Withdrawn Affect Description: Calm Patient Cognition Impaired: Yes Ability to Follow Directions: Good Speech Pattern: Clear Hallucinations: None Delusions: Not Present Thought Process: Distracted and Slowed Thinking Thought Content: positive for [place] and positive for Circumstantial Judgement: Fair Diagnostics Vital Signs (24Hr): Vital Signs - 24 hr 11/20/22 18:00 11/21/22 09:30 Temperature 96.8 F 97 F Pulse Rate 65 64 Respiratory Rate 18 18 Blood Pressure 102/65 133/76 Pulse Oximetry 96 96 Oxygen Delivery Method Room Air Room Air BMI result Body Mass Index 31.0 Labs 11/18/22 08:03 11/20/22 04:51 Labs: Laboratory Results - last 48 hr 11/20/22 11/20/22 04:51 04:51 Sodium 142 Potassium 4.4 Chloride 108 Carbon Dioxide 22 Anion Gap 16 BUN 20 H Creatinine 0.88 Estim Creat Clear Calc 101.5 Estimated GFR > 60 Fasting Glucose 85 Calcium 8.7 Total Bilirubin 0.6 AST 15 ALT 16 Alkaline Phosphatase 68 Total Protein 5.7 L Albumin 3.2 L Valproic Acid 50.0 Imaging Radiology Impressions: ITS Impressions Head CT 11/12/22 19:17 IMPRESSION: 1. No acute intracranial pathology. 2. There is ventriculomegaly disproportionate to the extent of sulcal widening. This can be seen in the setting of normal pressure hydrocephalus. Recommend clinical correlation. Consider MRI evaluation if clinically appropriate. Chest X-Ray 11/13/22 14:13 IMPRESSION: No acute parenchymal disease. No radiopaque foreign bodies. KUB X-Ray 11/13/22 14:13 IMPRESSION: No metallic radiopaque foreign bodies identified within the abdomen. 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 Background chronic microangiopathy. 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 Medications Medications Current Medications Acetaminophen (Acetaminophen 325 Mg Tablet) 650 mg PO Q6H PRN PRN Reason: Headache/Pain Mild Scale (1-3) Al Hydroxide/Mg Hydroxide (Magnesium Hydrox/Alum Hydrox 30 Ml Oral.Susp) 30 ml PO Q6H PRN PRN Reason: Heartburn/Nausea Aspirin (Aspirin Enteric Coated 81 Mg Tablet.Dr) 81 mg PO DAILY [facility] Last Admin: 11/21/22 09:35 Dose: 81 mg Atorvastatin Calcium (Atorvastatin Calcium 40 Mg Tablet) 40 mg PO BEDTIME [facility] Last Admin: 11/20/22 20:06 Dose: 40 mg Divalproex Sodium (Divalproex Sodium Er 500 Mg Tab.Er.24h) 1,500 mg PO DAILY [facility] Last Admin: 11/21/22 09:35 Dose: 1,500 mg Escitalopram Oxalate (Escitalopram Oxalate 5 Mg Tablet) 5 mg PO DAILY [facility] Last Admin: 11/21/22 09:34 Dose: 5 mg Hydroxyzine HCl (Hydroxyzine Hcl 25 Mg Tablet) 25 mg PO Q6H PRN PRN Reason: Anxiety Last Admin: 11/18/22 20:50 Dose: 25 mg Lamotrigine (Lamotrigine 100 Mg Tablet) 100 mg PO BID [facility] Last Admin: 11/21/22 09:34 Dose: 100 mg Magnesium Hydroxide (Milk Of Magnesia 30 Ml Oral.Susp) 30 ml PO DAILY PRN PRN Reason: Constipation Quetiapine Fumarate (Quetiapine Fumarate 100 Mg Tablet) 100 mg PO BEDTIME [facility] Last Admin: 11/20/22 20:07 Dose: 100 mg Quetiapine Fumarate (Quetiapine Fumarate 50 Mg Tablet) 50 mg PO BID@0800,1700 [facility] Last Admin: 11/21/22 09:34 Dose: 50 mg Tamsulosin HCl (Tamsulosin Hcl 0.4 Mg Capsule) 0.4 mg PO BEDTIME [facility] Last Admin: 11/20/22 20:06 Dose: 0.4 mg Thiamine HCl (Thiamine Hcl 100 Mg Tablet) 100 mg PO DAILY [facility] Last Admin: 11/21/22 09:34 Dose: 100 mg Trazodone HCl (Trazodone Hcl 50 Mg Tablet) 50 mg PO BEDTIME PRN PRN Reason: Insomnia Last Admin: 11/20/22 20:07 Dose: 50 mg Allergies Allergies Allergy/AdvReac Type Severity Reaction Status Date / Time No Known Allergies Allergy Verified 11/12/22 15:27 Assessment & Plan Assessment & Plan (1) Neurodegenerative cognitive impairment: Status: Acute Code(s): G31.9 - Degenerative disease of nervous system, unspecified Assessment and Plan: 71 years old man who probably has degenerative dementia, moderate to severe, with significant behavioral component. Precise previous history is not available. 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 This type of infarct could be cardioembolic or from carotid artery. Because of significant underlying dementia, he would not be a candidate for any surgical intervention and for that reason I do not think exploring carotid artery stenosis is a reasonable idea. Continue his baseline medications. His examination is not suggestive of normal-pressure hydrocephalus despite his imaging revealing some ventriculomegaly. This type of patient typically require combination of medicines including some antipsychotics and mood stabilizers to manage day behavioral symptoms. He is also at relatively high risk for seizure disorder but also has been taking lamotrigine 100 mg twice a day, which would cover this condition even if he suffered from it. Now that his mental status has improved compared to his emergency room arrival, I do not think an EEG would be useful. Plan Plan 1. Continue with regular medications. 2. Neurologist reported that at this moment he does not have normal-pressure hydrocephalus. 3. Since the patient had being more irritable and labile we are increasing Seroquel up to 50 mg p.o. b.i.d. and 100 mg p.o. q.h.s.. 4. Reassessment with results. 5. Depakote level and comprehensive metabolic panel for November 20 a.m. the blood work came back within normal limits and a therapeutic level of Depakote. Reason for continued inpatient stay Substantial Risk for: inability to function, rapid decompensation and med/psych decompensation Time Spent With Patient Time: Total time managing care of this patient today __20__ minutes.
[2022-11-21 18:00] VITALS: BP 106/57; PULSE 59; RESP 16; TEMP 36.2; O2SAT 95
[2022-11-21] MEDS: hydrOXYzine HCL 25 MG TABLET PO (20:14)
[2022-11-21] MEDS: QUEtiapine Fumarate 100 MG TABLET PO (20:14)
[2022-11-21] MEDS: Atorvastatin Calcium 40 MG TABLET PO (20:14)
[2022-11-21] MEDS: traZODone HCL 50 MG TABLET PO (20:15)
[2022-11-21] MEDS: Tamsulosin HCL 0.4 MG CAPSULE PO (20:15)
[2022-11-22 08:15] VITALS: BP 113/56; PULSE 77; RESP 20; TEMP 36.2; O2SAT 97
[2022-11-22] MEDS: Aspirin Enteric Coated 81 MG TABLET.DR PO (08:18)
[2022-11-22] MEDS: Divalproex Sodium ER 500 MG TAB.ER.24H 1500 MG PO (08:18)
[2022-11-22] MEDS: QUEtiapine Fumarate 50 MG TABLET PO ×2 (08:19→17:12)
[2022-11-22] MEDS: Thiamine HCL 100 MG TABLET PO (08:19)
[2022-11-22] MEDS: lamoTRIgine 100 MG TABLET PO ×2 (08:19→20:11)
[2022-11-22] MEDS: Escitalopram Oxalate 5 MG TABLET PO (08:19)
[2022-11-22 18:00] VITALS: BP 104/64; PULSE 62; RESP 18; TEMP 36.1; O2SAT 96
--- NOTE | 2022-11-22 18:12 | P.PNPSI_ITS ---
Subjective Subjective Date of Service: 11/22/22 Reason For Visit: DEMENTIA Interim History: Pt seen,discussed with the team. One to one remains in place. No current reports of chest wall discomfort, which team report pt identified on 11/21 as a sx. Pt is calm, alert, attentive to environment, spontaneously responds, denies current distress. Team observing falls precautions with pt as well. Medication Compliance: Yes Side effects from medications: No Attending Groups: Intermittent Review of Systems Acute medical concerns: No Medical Review of Systems: unchanged Mental Status Exam Mental Status Exam Narrative: Alert, calm, attentive to milieu, responsive. No current distress noted. Patient Appearance: Appropriate Patient Orientation: Person Level of Consciousness: Alert Patient Behavior: Appropriate, Talkative and Good Eye Contact Mood Description: Calm Affect Description: Calm Patient Cognition Impaired: Yes Ability to Follow Directions: Fair Speech Pattern: Spontaneous Speech and Long Pauses Memory Description: Remote Impaired, Immediate Impaired, Episodic Impaired and Recent Impaired Hallucinations: None Delusions: Not Present Thought Process: Confusion Thought Content: positive for Slowed Thinking Judgement: Poor Diagnostics Vital Signs (24Hr): Vital Signs - 24 hr 11/22/22 08:15 Temperature 97.2 F Pulse Rate 77 Respiratory Rate 20 Blood Pressure 113/56 L Pulse Oximetry 97 Oxygen Delivery Method Room Air BMI result Body Mass Index 31.0 Labs 11/18/22 08:03 11/20/22 04:51 Imaging Radiology Impressions: ITS Impressions Head CT 11/12/22 19:17 IMPRESSION: 1. No acute intracranial pathology. 2. There is ventriculomegaly disproportionate to the extent of sulcal widening. This can be seen in the setting of normal pressure hydrocephalus. Recommend clinical correlation. Consider MRI evaluation if clinically appropriate. Chest X-Ray 11/13/22 14:13 IMPRESSION: No acute parenchymal disease. No radiopaque foreign bodies. KUB X-Ray 11/13/22 14:13 IMPRESSION: No metallic radiopaque foreign bodies identified within the abdomen. 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 Background chronic microangiopathy. 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 Medications Medications Current Medications Acetaminophen (Acetaminophen 325 Mg Tablet) 650 mg PO Q6H PRN PRN Reason: Headache/Pain Mild Scale (1-3) Al Hydroxide/Mg Hydroxide (Magnesium Hydrox/Alum Hydrox 30 Ml Oral.Susp) 30 ml PO Q6H PRN PRN Reason: Heartburn/Nausea Aspirin (Aspirin Enteric Coated 81 Mg Tablet.Dr) 81 mg PO DAILY [facility] Last Admin: 11/22/22 08:18 Dose: 81 mg Atorvastatin Calcium (Atorvastatin Calcium 40 Mg Tablet) 40 mg PO BEDTIME [facility] Last Admin: 11/21/22 20:14 Dose: 40 mg Divalproex Sodium (Divalproex Sodium Er 500 Mg Tab.Er.24h) 1,500 mg PO DAILY [facility] Last Admin: 11/22/22 08:18 Dose: 1,500 mg Escitalopram Oxalate (Escitalopram Oxalate 5 Mg Tablet) 5 mg PO DAILY [facility] Last Admin: 11/22/22 08:19 Dose: 5 mg Hydroxyzine HCl (Hydroxyzine Hcl 25 Mg Tablet) 25 mg PO Q6H PRN PRN Reason: Anxiety Last Admin: 11/21/22 20:14 Dose: 25 mg Lamotrigine (Lamotrigine 100 Mg Tablet) 100 mg PO BID [facility] Last Admin: 11/22/22 08:19 Dose: 100 mg Magnesium Hydroxide (Milk Of Magnesia 30 Ml Oral.Susp) 30 ml PO DAILY PRN PRN Reason: Constipation Quetiapine Fumarate (Quetiapine Fumarate 100 Mg Tablet) 100 mg PO BEDTIME [facility] Last Admin: 11/21/22 20:14 Dose: 100 mg Quetiapine Fumarate (Quetiapine Fumarate 50 Mg Tablet) 50 mg PO BID@0800,1700 [facility] Last Admin: 11/22/22 17:12 Dose: 50 mg Tamsulosin HCl (Tamsulosin Hcl 0.4 Mg Capsule) 0.4 mg PO BEDTIME [facility] Last Admin: 11/21/22 20:15 Dose: 0.4 mg Thiamine HCl (Thiamine Hcl 100 Mg Tablet) 100 mg PO DAILY [facility] Last Admin: 11/22/22 08:19 Dose: 100 mg Trazodone HCl (Trazodone Hcl 50 Mg Tablet) 50 mg PO BEDTIME PRN PRN Reason: Insomnia Last Admin: 11/21/22 20:15 Dose: 50 mg Allergies Allergies Allergy/AdvReac Type Severity Reaction Status Date / Time No Known Allergies Allergy Verified 11/12/22 15:27 Assessment & Plan Assessment & Plan (1) Neurodegenerative cognitive impairment: Status: Acute Code(s): G31.9 - Degenerative disease of nervous system, unspecified Assessment and Plan: 71 years old man who probably has degenerative dementia, moderate to severe, with significant behavioral component. Precise previous history is not available. 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 This type of infarct could be cardioembolic or from carotid artery. Because of significant underlying dementia, he would not be a candidate for any surgical intervention and for that reason I do not think exploring carotid artery stenosis is a reasonable idea. Continue his baseline medications. His examination is not suggestive of normal-pressure hydrocephalus despite his imaging revealing some ventriculomegaly. This type of patient typically require combination of medicines including some antipsychotics and mood stabilizers to manage day behavioral symptoms. He is also at relatively high risk for seizure disorder but also has been taking lamotrigine 100 mg twice a day, which would cover this condition even if he suffered from it. Now that his mental status has improved compared to his emergency room arrival, I do not think an EEG would be useful. Plan Plan 1. Continue with regular medications. 2. Neurologist reported that at this moment he does not have normal-pressure hydrocephalus. 3. Since the patient had being more irritable and labile we are increasing Seroquel up to 50 mg p.o. b.i.d. and 100 mg p.o. q.h.s.. 4. Reassessment with results. 5. Depakote level and comprehensive metabolic panel for November 20 a.m. the blood work came back within normal limits and a therapeutic level of Depakote. 11/22/22 Continue current regime and plan of care Informed Consent: does not understand Reason for continued inpatient stay Substantial Risk for: rapid decompensation Time Spent With Patient Time: Total time managing care of this patient today ____ minutes.
[2022-11-22] MEDS: traZODone HCL 50 MG TABLET PO (20:11)
[2022-11-22] MEDS: Tamsulosin HCL 0.4 MG CAPSULE PO (20:11)
[2022-11-22] MEDS: Atorvastatin Calcium 40 MG TABLET PO (20:11)
[2022-11-22] MEDS: QUEtiapine Fumarate 100 MG TABLET PO (20:11)
[2022-11-22] MEDS: hydrOXYzine HCL 25 MG TABLET PO (20:12)
[2022-11-23 08:20] VITALS: BP 120/71; PULSE 77; RESP 20; TEMP 35.8; O2SAT 95
[2022-11-23] MEDS: Divalproex Sodium ER 500 MG TAB.ER.24H 1500 MG PO (08:21)
[2022-11-23] MEDS: Escitalopram Oxalate 5 MG TABLET PO (08:22)
[2022-11-23] MEDS: Aspirin Enteric Coated 81 MG TABLET.DR PO (08:24)
[2022-11-23] MEDS: QUEtiapine Fumarate 50 MG TABLET PO ×2 (08:25→17:28)
[2022-11-23] MEDS: lamoTRIgine 100 MG TABLET PO ×2 (08:26→20:37)
[2022-11-23] MEDS: Thiamine HCL 100 MG TABLET PO (08:26)
--- NOTE | 2022-11-23 13:48 | P.PNPSI_ITS ---
Subjective Subjective Date of Service: 11/23/22 Reason For Visit: DEMENTIA Interim History: Pt seen, review with team who report pt is sleeping and eating adequately and taking medications. He remains on one to one. He is pleasant, offers no symptoms of concern and demonstrates STM impairment when meeting. Team reports no seizure activity noted. Medication Compliance: Yes Side effects from medications: No Attending Groups: Yes Review of Systems Acute medical concerns: No Medical Review of Systems: unchanged Mental Status Exam Mental Status Exam Narrative: Alert, calm, attentive to milieu, responsive. No current distress noted. Patient Appearance: Appropriate Patient Orientation: Person Level of Consciousness: Alert Patient Behavior: Appropriate, Talkative and Good Eye Contact Mood Description: Calm Affect Description: Calm Patient Cognition Impaired: Yes Ability to Follow Directions: Fair Speech Pattern: Spontaneous Speech and Long Pauses Memory Description: Remote Impaired, Immediate Impaired, Episodic Impaired and Recent Impaired Hallucinations: None Delusions: Not Present Thought Process: Confusion Thought Content: positive for Slowed Thinking Judgement: Poor Diagnostics Vital Signs (24Hr): Vital Signs - 24 hr 11/22/22 18:00 11/23/22 08:20 Temperature 96.9 F 96.5 F L Pulse Rate 62 77 Respiratory Rate 18 20 Blood Pressure 104/64 120/71 Pulse Oximetry 96 95 Oxygen Delivery Method Room Air Room Air BMI result Body Mass Index 31.0 Labs 11/18/22 08:03 11/20/22 04:51 Imaging Radiology Impressions: ITS Impressions Head CT 11/12/22 19:17 IMPRESSION: 1. No acute intracranial pathology. 2. There is ventriculomegaly disproportionate to the extent of sulcal widening. This can be seen in the setting of normal pressure hydrocephalus. Recommend clinical correlation. Consider MRI evaluation if clinically appropriate. Chest X-Ray 11/13/22 14:13 IMPRESSION: No acute parenchymal disease. No radiopaque foreign bodies. KUB X-Ray 11/13/22 14:13 IMPRESSION: No metallic radiopaque foreign bodies identified within the abdomen. 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 Background chronic microangiopathy. 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 Medications Medications Current Medications Acetaminophen (Acetaminophen 325 Mg Tablet) 650 mg PO Q6H PRN PRN Reason: Headache/Pain Mild Scale (1-3) Al Hydroxide/Mg Hydroxide (Magnesium Hydrox/Alum Hydrox 30 Ml Oral.Susp) 30 ml PO Q6H PRN PRN Reason: Heartburn/Nausea Aspirin (Aspirin Enteric Coated 81 Mg Tablet.Dr) 81 mg PO DAILY [facility] Last Admin: 11/23/22 08:24 Dose: 81 mg Atorvastatin Calcium (Atorvastatin Calcium 40 Mg Tablet) 40 mg PO BEDTIME [facility] Last Admin: 11/22/22 20:11 Dose: 40 mg Divalproex Sodium (Divalproex Sodium Er 500 Mg Tab.Er.24h) 1,500 mg PO DAILY [facility] Last Admin: 11/23/22 08:21 Dose: 1,500 mg Escitalopram Oxalate (Escitalopram Oxalate 5 Mg Tablet) 5 mg PO DAILY [facility] Last Admin: 11/23/22 08:22 Dose: 5 mg Hydroxyzine HCl (Hydroxyzine Hcl 25 Mg Tablet) 25 mg PO Q6H PRN PRN Reason: Anxiety Last Admin: 11/22/22 20:12 Dose: 25 mg Lamotrigine (Lamotrigine 100 Mg Tablet) 100 mg PO BID [facility] Last Admin: 11/23/22 08:26 Dose: 100 mg Magnesium Hydroxide (Milk Of Magnesia 30 Ml Oral.Susp) 30 ml PO DAILY PRN PRN Reason: Constipation Quetiapine Fumarate (Quetiapine Fumarate 100 Mg Tablet) 100 mg PO BEDTIME [facility] Last Admin: 11/22/22 20:11 Dose: 100 mg Quetiapine Fumarate (Quetiapine Fumarate 50 Mg Tablet) 50 mg PO BID@0800,1700 [facility] Last Admin: 11/23/22 08:25 Dose: 50 mg Tamsulosin HCl (Tamsulosin Hcl 0.4 Mg Capsule) 0.4 mg PO BEDTIME [facility] Last Admin: 11/22/22 20:11 Dose: 0.4 mg Thiamine HCl (Thiamine Hcl 100 Mg Tablet) 100 mg PO DAILY [facility] Last Admin: 11/23/22 08:26 Dose: 100 mg Trazodone HCl (Trazodone Hcl 50 Mg Tablet) 50 mg PO BEDTIME PRN PRN Reason: Insomnia Last Admin: 11/22/22 20:11 Dose: 50 mg Allergies Allergies Allergy/AdvReac Type Severity Reaction Status Date / Time No Known Allergies Allergy Verified 11/12/22 15:27 Assessment & Plan Assessment & Plan (1) Neurodegenerative cognitive impairment: Status: Acute Code(s): G31.9 - Degenerative disease of nervous system, unspecified Assessment and Plan: 71 years old man who probably has degenerative dementia, moderate to severe, with significant behavioral component. Precise previous history is not available. 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 This type of infarct could be cardioembolic or from carotid artery. Because of significant underlying dementia, he would not be a candidate for any surgical intervention and for that reason I do not think exploring carotid artery stenosis is a reasonable idea. Continue his baseline medications. His examination is not suggestive of normal-pressure hydrocephalus despite his imaging revealing some ventriculomegaly. This type of patient typically require combination of medicines including some antipsychotics and mood stabilizers to manage day behavioral symptoms. He is also at relatively high risk for seizure disorder but also has been taking lamotrigine 100 mg twice a day, which would cover this condition even if he suffered from it. Now that his mental status has improved compared to his emergency room arrival, I do not think an EEG would be useful. Plan Plan 1. Continue with regular medications. 2. Neurologist reported that at this moment he does not have normal-pressure hyd rocephalus. 3. Since the patient had being more irritable and labile we are increasing Seroquel up to 50 mg p.o. b.i.d. and 100 mg p.o. q.h.s.. 4. Reassessment with results. 5. Depakote level and comprehensive metabolic panel for November 20 a.m. the blood work came back within normal limits and a therapeutic level of Depakote. 11/22/22 Continue current regime and plan of care 11/23/22 Continue current regime and plan of care. Informed Consent: does not understand Reason for continued inpatient stay Substantial Risk for: rapid decompensation Time Spent With Patient Time: Total time managing care of this patient today ____ minutes.
[2022-11-23 18:00] VITALS: BP 104/58; PULSE 64; RESP 16; TEMP 35.9; O2SAT 93
[2022-11-23] MEDS: Atorvastatin Calcium 40 MG TABLET PO (20:37)
[2022-11-23] MEDS: Tamsulosin HCL 0.4 MG CAPSULE PO (20:37)
[2022-11-23] MEDS: traZODone HCL 50 MG TABLET PO (20:37)
[2022-11-23] MEDS: QUEtiapine Fumarate 100 MG TABLET PO (20:37)
[2022-11-24 07:59] VITALS: BP 114/70; PULSE 69; RESP 18; TEMP 36.3; O2SAT 97
[2022-11-24] MEDS: Aspirin Enteric Coated 81 MG TABLET.DR PO (08:03)
[2022-11-24] MEDS: lamoTRIgine 100 MG TABLET PO ×2 (08:03→20:36)
[2022-11-24] MEDS: Escitalopram Oxalate 5 MG TABLET PO (08:03)
[2022-11-24] MEDS: Thiamine HCL 100 MG TABLET PO (08:03)
[2022-11-24] MEDS: QUEtiapine Fumarate 50 MG TABLET PO ×2 (08:03→18:10)
[2022-11-24] MEDS: Divalproex Sodium ER 500 MG TAB.ER.24H 1500 MG PO (08:03)
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
[2022-11-24 18:00] VITALS: BP 117/70; PULSE 77; RESP 16; TEMP 35.8; O2SAT 97
[2022-11-24] MEDS: Atorvastatin Calcium 40 MG TABLET PO (20:35)
[2022-11-24] MEDS: traZODone HCL 50 MG TABLET PO (20:36)
[2022-11-24] MEDS: Tamsulosin HCL 0.4 MG CAPSULE PO (20:36)
[2022-11-24] MEDS: QUEtiapine Fumarate 100 MG TABLET PO (20:36)
[2022-11-25 08:22] VITALS: BP 107/69; PULSE 71; RESP 18; TEMP 36.2; O2SAT 97
[2022-11-25] MEDS: QUEtiapine Fumarate 50 MG TABLET PO ×2 (08:25→16:54)
[2022-11-25] MEDS: Aspirin Enteric Coated 81 MG TABLET.DR PO (08:25)
[2022-11-25] MEDS: Divalproex Sodium ER 500 MG TAB.ER.24H 1500 MG PO (08:25)
[2022-11-25] MEDS: Thiamine HCL 100 MG TABLET PO (08:25)
[2022-11-25] MEDS: lamoTRIgine 100 MG TABLET PO ×2 (08:25→21:19)
[2022-11-25] MEDS: Escitalopram Oxalate 5 MG TABLET PO (08:25)
--- NOTE | 2022-11-25 13:47 | HO.PSYCHPN ---
Subjective Subjective Date of Service: 11/25/22 Reason For Visit: DEMENTIA Subjective Notes: Conditional Voluntary Interim History: The nursing staff reported the patient slept most of the night he had been pleasant and cooperative. The day before yesterday he was agitated and push the staff member but he cannot remember. On interview the patient is pleasantly confused easily redirectable. Mental Status Exam Mental Status Exam Patient Appearance: Appropriate Patient Orientation: Person and Situation Level of Consciousness: Awake and Appropriate Patient Behavior: Guarded and Passive Mood Description: Calm Affect Description: Constricted Patient Cognition Impaired: Yes Ability to Follow Directions: Good Speech Pattern: Clear Hallucinations: None Delusions: Not Present Thought Process: Slowed Thinking Thought Content: positive for [place], positive for Poverty of Content and positive for Thought Blocking Judgement: Fair Diagnostics Vital Signs (24Hr): Vital Signs - 24 hr 11/24/22 18:00 11/25/22 08:22 Temperature 96.5 F L 97.1 F Pulse Rate 77 71 Respiratory Rate 16 18 Blood Pressure 117/70 107/69 Pulse Oximetry 97 97 Oxygen Delivery Method Room Air Room Air BMI result Body Mass Index 31.0 Labs 11/18/22 08:03 11/20/22 04:51 Imaging Radiology Impressions: ITS Impressions Head CT 11/12/22 19:17 IMPRESSION: 1. No acute intracranial pathology. 2. There is ventriculomegaly disproportionate to the extent of sulcal widening. This can be seen in the setting of normal pressure hydrocephalus. Recommend clinical correlation. Consider MRI evaluation if clinically appropriate. Chest X-Ray 11/13/22 14:13 IMPRESSION: No acute parenchymal disease. No radiopaque foreign bodies. KUB X-Ray 11/13/22 14:13 IMPRESSION: No metallic radiopaque foreign bodies identified within the abdomen. 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 Background chronic microangiopathy. 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 Medications Medications Current Medications Acetaminophen (Acetaminophen 325 Mg Tablet) 650 mg PO Q6H PRN PRN Reason: Headache/Pain Mild Scale (1-3) Al Hydroxide/Mg Hydroxide (Magnesium Hydrox/Alum Hydrox 30 Ml Oral.Susp) 30 ml PO Q6H PRN PRN Reason: Heartburn/Nausea Aspirin (Aspirin Enteric Coated 81 Mg Tablet.Dr) 81 mg PO DAILY [facility] Last Admin: 11/25/22 08:25 Dose: 81 mg Atorvastatin Calcium (Atorvastatin Calcium 40 Mg Tablet) 40 mg PO BEDTIME [facility] Last Admin: 11/24/22 20:35 Dose: 40 mg Divalproex Sodium (Divalproex Sodium Er 500 Mg Tab.Er.24h) 1,500 mg PO DAILY [facility] Last Admin: 11/25/22 08:25 Dose: 1,500 mg Escitalopram Oxalate (Escitalopram Oxalate 5 Mg Tablet) 5 mg PO DAILY [facility] Last Admin: 11/25/22 08:25 Dose: 5 mg Hydroxyzine HCl (Hydroxyzine Hcl 25 Mg Tablet) 25 mg PO Q6H PRN PRN Reason: Anxiety Last Admin: 11/22/22 20:12 Dose: 25 mg Lamotrigine (Lamotrigine 100 Mg Tablet) 100 mg PO BID [facility] Last Admin: 11/25/22 08:25 Dose: 100 mg Magnesium Hydroxide (Milk Of Magnesia 30 Ml Oral.Susp) 30 ml PO DAILY PRN PRN Reason: Constipation Quetiapine Fumarate (Quetiapine Fumarate 100 Mg Tablet) 100 mg PO BEDTIME [facility] Last Admin: 11/24/22 20:36 Dose: 100 mg Quetiapine Fumarate (Quetiapine Fumarate 50 Mg Tablet) 50 mg PO BID@0800,1700 [facility] Last Admin: 11/25/22 08:25 Dose: 50 mg Tamsulosin HCl (Tamsulosin Hcl 0.4 Mg Capsule) 0.4 mg PO BEDTIME [facility] Last Admin: 11/24/22 20:36 Dose: 0.4 mg Thiamine HCl (Thiamine Hcl 100 Mg Tablet) 100 mg PO DAILY [facility] Last Admin: 11/25/22 08:25 Dose: 100 mg Trazodone HCl (Trazodone Hcl 50 Mg Tablet) 50 mg PO BEDTIME PRN PRN Reason: Insomnia Last Admin: 11/24/22 20:36 Dose: 50 mg Allergies Allergies Allergy/AdvReac Type Severity Reaction Status Date / Time No Known Allergies Allergy Verified 11/12/22 15:27 Assessment & Plan Assessment & Plan (1) Neurodegenerative cognitive impairment: Status: Acute Code(s): G31.9 - Degenerative disease of nervous system, unspecified Assessment and Plan: 71 years old man who probably has degenerative dementia, moderate to severe, with significant behavioral component. Precise previous history is not available. 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 This type of infarct could be cardioembolic or from carotid artery. Because of significant underlying dementia, he would not be a candidate for any surgical intervention and for that reason I do not think exploring carotid artery stenosis is a reasonable idea. Continue his baseline medications. His examination is not suggestive of normal-pressure hydrocephalus despite his imaging revealing some ventriculomegaly. This type of patient typically require combination of medicines including some antipsychotics and mood stabilizers to manage day behavioral symptoms. He is also at relatively high risk for seizure disorder but also has been taking lamotrigine 100 mg twice a day, which would cover this condition even if he suffered from it. Now that his mental status has improved compared to his emergency room arrival, I do not think an EEG would be useful. Plan Plan 1. Continue with regular medications. 2. Neurologist reported that at this moment he does not have normal-pressure hydrocephalus. 3. Since the patient had being more irritable and labile we are increasing Seroquel up to 50 mg p.o. b.i.d. and 100 mg p.o. q.h.s.. 4. Reassessment with results. 5. Depakote level and comprehensive metabolic panel for November 20 a.m. the blood work came back within normal limits and a therapeutic level of Depakote. 6. Waiting for placement Reason for continued inpatient stay Substantial Risk for: inability to function, rapid decompensation and med/psych decompensation Time Spent With Patient Time: Total time managing care of this patient today __20__ minutes.
[2022-11-25 18:00] VITALS: BP 98/59; PULSE 78; TEMP 36; O2SAT 94
[2022-11-25] MEDS: Tamsulosin HCL 0.4 MG CAPSULE PO (21:19)
[2022-11-25] MEDS: Atorvastatin Calcium 40 MG TABLET PO (21:19)
[2022-11-25] MEDS: QUEtiapine Fumarate 100 MG TABLET PO (21:19)
[2022-11-26 07:30] VITALS: BP 108/68; PULSE 69; RESP 16; TEMP 36.5; O2SAT 97
[2022-11-26] MEDS: Aspirin Enteric Coated 81 MG TABLET.DR PO (09:04)
[2022-11-26] MEDS: Divalproex Sodium ER 500 MG TAB.ER.24H 1500 MG PO (09:04)
[2022-11-26] MEDS: Thiamine HCL 100 MG TABLET PO (09:04)
[2022-11-26] MEDS: QUEtiapine Fumarate 50 MG TABLET PO ×2 (09:04→16:35)
[2022-11-26] MEDS: lamoTRIgine 100 MG TABLET PO ×2 (09:04→21:28)
[2022-11-26] MEDS: Escitalopram Oxalate 5 MG TABLET PO (09:04)
--- NOTE | 2022-11-26 11:22 | P.PNPSI_ITS ---
Subjective Subjective Date of Service: 11/26/22 Reason For Visit: DEMENTIA Subjective Notes: Conditional Voluntary Interim History: The nursing staff reported the patient had been medication compliant visible in the unit and less agitated. He slept well last night. The director social service reported that they were trying to apply for fci facility in the [facility] area. On interview the patient denies new symptoms pleasantly confused and easily redirectable at this moment. Mental Status Exam Mental Status Exam Patient Appearance: Appropriate Patient Orientation: Person and Situation Level of Consciousness: Awake and Appropriate Patient Behavior: Passive Mood Description: Calm Affect Description: Constricted Patient Cognition Impaired: Yes Ability to Follow Directions: Good Speech Pattern: Clear Hallucinations: None Delusions: Not Present Thought Process: Evasive Thought Content: positive for [place] Judgement: Fair Diagnostics Vital Signs (24Hr): Vital Signs - 24 hr 11/25/22 18:00 11/26/22 07:30 Temperature 96.8 F 97.7 F Pulse Rate 78 69 Respiratory Rate 16 Blood Pressure 98/59 L 108/68 Pulse Oximetry 94 97 Oxygen Delivery Method Room Air Room Air BMI result Body Mass Index 31.0 Labs 11/18/22 08:03 11/20/22 04:51 Imaging Radiology Impressions: ITS Impressions Head CT 11/12/22 19:17 IMPRESSION: 1. No acute intracranial pathology. 2. There is ventriculomegaly disproportionate to the extent of sulcal widening. This can be seen in the setting of normal pressure hydrocephalus. Recommend clinical correlation. Consider MRI evaluation if clinically appropriate. Chest X-Ray 11/13/22 14:13 IMPRESSION: No acute parenchymal disease. No radiopaque foreign bodies. KUB X-Ray 11/13/22 14:13 IMPRESSION: No metallic radiopaque foreign bodies identified within the abdomen. 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 Background chronic microangiopathy. 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 Medications Medications Current Medications Acetaminophen (Acetaminophen 325 Mg Tablet) 650 mg PO Q6H PRN PRN Reason: Headache/Pain Mild Scale (1-3) Al Hydroxide/Mg Hydroxide (Magnesium Hydrox/Alum Hydrox 30 Ml Oral.Susp) 30 ml PO Q6H PRN PRN Reason: Heartburn/Nausea Aspirin (Aspirin Enteric Coated 81 Mg Tablet.Dr) 81 mg PO DAILY [facility] Last Admin: 11/26/22 09:04 Dose: 81 mg Atorvastatin Calcium (Atorvastatin Calcium 40 Mg Tablet) 40 mg PO BEDTIME [facility] Last Admin: 11/25/22 21:19 Dose: 40 mg Divalproex Sodium (Divalproex Sodium Er 500 Mg Tab.Er.24h) 1,500 mg PO DAILY [facility] Last Admin: 11/26/22 09:04 Dose: 1,500 mg Escitalopram Oxalate (Escitalopram Oxalate 5 Mg Tablet) 5 mg PO DAILY [facility] Last Admin: 11/26/22 09:04 Dose: 5 mg Hydroxyzine HCl (Hydroxyzine Hcl 25 Mg Tablet) 25 mg PO Q6H PRN PRN Reason: Anxiety Last Admin: 11/22/22 20:12 Dose: 25 mg Lamotrigine (Lamotrigine 100 Mg Tablet) 100 mg PO BID [facility] Last Admin: 11/26/22 09:04 Dose: 100 mg Magnesium Hydroxide (Milk Of Magnesia 30 Ml Oral.Susp) 30 ml PO DAILY PRN PRN Reason: Constipation Quetiapine Fumarate (Quetiapine Fumarate 100 Mg Tablet) 100 mg PO BEDTIME [facility] Last Admin: 11/25/22 21:19 Dose: 100 mg Quetiapine Fumarate (Quetiapine Fumarate 50 Mg Tablet) 50 mg PO BID@0800,1700 [facility] Last Admin: 11/26/22 09:04 Dose: 50 mg Tamsulosin HCl (Tamsulosin Hcl 0.4 Mg Capsule) 0.4 mg PO BEDTIME [facility] Last Admin: 11/25/22 21:19 Dose: 0.4 mg Thiamine HCl (Thiamine Hcl 100 Mg Tablet) 100 mg PO DAILY [facility] Last Admin: 11/26/22 09:04 Dose: 100 mg Trazodone HCl (Trazodone Hcl 50 Mg Tablet) 50 mg PO BEDTIME PRN PRN Reason: Insomnia Last Admin: 11/24/22 20:36 Dose: 50 mg Allergies Allergies Allergy/AdvReac Type Severity Reaction Status Date / Time No Known Allergies Allergy Verified 11/12/22 15:27 Assessment & Plan Assessment & Plan (1) Neurodegenerative cognitive impairment: Status: Acute Code(s): G31.9 - Degenerative disease of nervous system, unspecified Assessment and Plan: 71 years old man who probably has degenerative dementia, moderate to severe, with significant behavioral component. Precise previous history is not available. He also has a left middle cerebral artery area embolic looking i nfarct. This type of infarct could be cardioembolic or from carotid artery. Because of significant underlying dementia, he would not be a candidate for any surgical intervention and for that reason I do not think exploring carotid artery stenosis is a reasonable idea. Continue his baseline medications. His examination is not suggestive of normal-pressure hydrocephalus despite his imaging revealing some ventriculomegaly. This type of patient typically require combination of medicines including some antipsychotics and mood stabilizers to manage day behavioral symptoms. He is also at relatively high risk for seizure disorder but also has been taking lamotrigine 100 mg twice a day, which would cover this condition even if he suffered from it. Now that his mental status has improved compared to his emergency room arrival, I do not think an EEG would be useful. Plan Plan 1. Continue with regular medications. 2. Neurologist reported that at this moment he does not have normal-pressure hydrocephalus. 3. Since the patient had being more irritable and labile we are increasing Seroquel up to 50 mg p.o. b.i.d. and 100 mg p.o. q.h.s.. 4. Reassessment with results. 5. Depakote level and comprehensive metabolic panel for November 20 a.m. the blood work came back within normal limits and a therapeutic level of Depakote. 6. Waiting for placement Reason for continued inpatient stay Substantial Risk for: inability to function, rapid decompensation and med/psych decompensation Time Spent With Patient Time: Total time managing care of this patient today __20__ minutes.
[2022-11-26 21:25] VITALS: BP 133/97; PULSE 63; RESP 16; TEMP 36.6; O2SAT 99
[2022-11-26] MEDS: Tamsulosin HCL 0.4 MG CAPSULE PO (21:28)
[2022-11-26] MEDS: QUEtiapine Fumarate 100 MG TABLET PO (21:28)
[2022-11-26] MEDS: Atorvastatin Calcium 40 MG TABLET PO (21:28)
[2022-11-27 07:00] VITALS: BMI 31.5
[2022-11-27 08:25] VITALS: BP 116/72; PULSE 88; RESP 16; TEMP 36.4; O2SAT 97
[2022-11-27] MEDS: Aspirin Enteric Coated 81 MG TABLET.DR PO (08:26)
[2022-11-27] MEDS: Thiamine HCL 100 MG TABLET PO (08:26)
[2022-11-27] MEDS: Escitalopram Oxalate 5 MG TABLET PO (08:26)
[2022-11-27] MEDS: Divalproex Sodium ER 500 MG TAB.ER.24H 1500 MG PO (08:26)
[2022-11-27] MEDS: QUEtiapine Fumarate 50 MG TABLET PO ×2 (08:26→17:47)
[2022-11-27] MEDS: lamoTRIgine 100 MG TABLET PO ×2 (08:26→20:34)
--- NOTE | 2022-11-27 13:18 | HO.PSYCHPN ---
Subjective Subjective Date of Service: 11/27/22 Reason For Visit: DEMENTIA Subjective Notes: Conditional Voluntary Interim History: The nursing staff reported the patient had been common, cooperative pleasant compliant with medications and meals. Later on in the evening he was a little frustrated that he reported he was feeling suicidal. The social science manager reported that the [facility] facility has review his application. Today on interview the patient cannot remember that he reported suicidal ideation but he agreed to increase Lexapro to 10 mg p.o. to target dysphoria. Mental Status Exam Mental Status Exam Patient Appearance: Well Grooomed and Appropriate Patient Orientation: Person and Situation Level of Consciousness: Awake and Appropriate Patient Behavior: Guarded and Passive Mood Description: Calm Affect Description: Constricted Patient Cognition Impaired: Yes Ability to Follow Directions: Good Speech Pattern: Clear Hallucinations: None Delusions: Not Present Thought Process: Illogical, Distracted and Slowed Thinking Thought Content: positive for [place] and positive for Circumstantial Judgement: Fair Diagnostics Vital Signs (24Hr): Vital Signs - 24 hr 11/26/22 21:25 11/27/22 08:25 Temperature 97.8 F 97.5 F Pulse Rate 63 88 Respiratory Rate 16 16 Blood Pressure 133/97 H 116/72 Pulse Oximetry 99 97 Oxygen Delivery Method Room Air Room Air BMI result Body Mass Index 31.0 Labs 11/18/22 08:03 11/20/22 04:51 Imaging Radiology Impressions: ITS Impressions Head CT 11/12/22 19:17 IMPRESSION: 1. No acute intracranial pathology. 2. There is ventriculomegaly disproportionate to the extent of sulcal widening. This can be seen in the setting of normal pressure hydrocephalus. Recommend clinical correlation. Consider MRI evaluation if clinically appropriate. Chest X-Ray 11/13/22 14:13 IMPRESSION: No acute parenchymal disease. No radiopaque foreign bodies. KUB X-Ray 11/13/22 14:13 IMPRESSION: No metallic radiopaque foreign bodies identified within the abdomen. 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 Background chronic microangiopathy. 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 Medications Medications Current Medications Acetaminophen (Acetaminophen 325 Mg Tablet) 650 mg PO Q6H PRN PRN Reason: Headache/Pain Mild Scale (1-3) Al Hydroxide/Mg Hydroxide (Magnesium Hydrox/Alum Hydrox 30 Ml Oral.Susp) 30 ml PO Q6H PRN PRN Reason: Heartburn/Nausea Aspirin (Aspirin Enteric Coated 81 Mg Tablet.Dr) 81 mg PO DAILY [facility] Last Admin: 11/27/22 08:26 Dose: 81 mg Atorvastatin Calcium (Atorvastatin Calcium 40 Mg Tablet) 40 mg PO BEDTIME [facility] Last Admin: 11/26/22 21:28 Dose: 40 mg Divalproex Sodium (Divalproex Sodium Er 500 Mg Tab.Er.24h) 1,500 mg PO DAILY [facility] Last Admin: 11/27/22 08:26 Dose: 1,500 mg Escitalopram Oxalate (Escitalopram Oxalate 10 Mg Tablet) 10 mg PO DAILY [facility] Hydroxyzine HCl (Hydroxyzine Hcl 25 Mg Tablet) 25 mg PO Q6H PRN PRN Reason: Anxiety Last Admin: 11/22/22 20:12 Dose: 25 mg Lamotrigine (Lamotrigine 100 Mg Tablet) 100 mg PO BID [facility] Last Admin: 11/27/22 08:26 Dose: 100 mg Magnesium Hydroxide (Milk Of Magnesia 30 Ml Oral.Susp) 30 ml PO DAILY PRN PRN Reason: Constipation Quetiapine Fumarate (Quetiapine Fumarate 100 Mg Tablet) 100 mg PO BEDTIME [facility] Last Admin: 11/26/22 21:28 Dose: 100 mg Quetiapine Fumarate (Quetiapine Fumarate 50 Mg Tablet) 50 mg PO BID@0800,1700 [facility] Last Admin: 11/27/22 08:26 Dose: 50 mg Tamsulosin HCl (Tamsulosin Hcl 0.4 Mg Capsule) 0.4 mg PO BEDTIME [facility] Last Admin: 11/26/22 21:28 Dose: 0.4 mg Thiamine HCl (Thiamine Hcl 100 Mg Tablet) 100 mg PO DAILY [facility] Last Admin: 11/27/22 08:26 Dose: 100 mg Trazodone HCl (Trazodone Hcl 50 Mg Tablet) 50 mg PO BEDTIME PRN PRN Reason: Insomnia Last Admin: 11/24/22 20:36 Dose: 50 mg Allergies Allergies Allergy/AdvReac Type Severity Reaction Status Date / Time No Known Allergies Allergy Verified 11/12/22 15:27 Assessment & Plan Assessment & Plan (1) Neurodegenerative cognitive impairment: Status: Acute Code(s): G31.9 - Degenerative disease of nervous system, unspecified Assessment and Plan: 71 years old man who probably has degenerative dementia, moderate to severe, with significant behavioral component. Precise previous history is not available. 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 This type of infarct could be cardioembolic or from carotid artery. Because of significant underlying dementia, he would not be a candidate for any surgical intervention and for that reason I do not think exploring carotid artery stenosis is a reasonable idea. Continue his baseline medications. His examination is not suggestive of normal-pressure hydrocephalus despite his imaging revealing some ventriculomegaly. This type of patient typically require combination of medicines including some antipsychotics and mood stabilizers to manage day behavioral symptoms. He is also at relatively high risk for seizure disorder but also has been taking lamotrigine 100 mg twice a day, which would cover this condition even if he suffered from it. Now that his mental status has improved compared to his emergency room arrival, I do not think an EEG would be useful. Plan Plan 1. Continue with regular medications. 2. Neurologist reported that at this moment he does not have normal-pressure hydrocephalus. 3. Since the patient had being more irritable and labile we are increasing Seroquel up to 50 mg p.o. b.i.d. and 100 mg p.o. q.h.s.. 4. Reassessment with results. 5. Depakote level and comprehensive metabolic panel for November 20 a.m. the blood work came back within normal limits and a therapeutic level of Depakote. 6. Waiting for placement 7. Lexapro increased up to 10 mg p.o. on November 27. Reason for continued inpatient stay Substantial Risk for: inability to function, rapid decompensation and med/psych decompensation Time Spent With Patient Time: Total time managing care of this patient today __20__ minutes.
[2022-11-27] MEDS: hydrOXYzine HCL 25 MG TABLET PO (17:47)
[2022-11-27 19:35] VITALS: BP 109/62; PULSE 68; RESP 16; TEMP 36; O2SAT 94
[2022-11-27] MEDS: traZODone HCL 50 MG TABLET PO (20:34)
[2022-11-27] MEDS: Tamsulosin HCL 0.4 MG CAPSULE PO (20:34)
[2022-11-27] MEDS: Atorvastatin Calcium 40 MG TABLET PO (20:34)
[2022-11-27] MEDS: QUEtiapine Fumarate 100 MG TABLET PO (20:34)
[2022-11-28 08:05] VITALS: BP 101/61; PULSE 75; RESP 18; TEMP 36.2; O2SAT 95
[2022-11-28] MEDS: Divalproex Sodium ER 500 MG TAB.ER.24H 1500 MG PO (08:26)
[2022-11-28] MEDS: Escitalopram Oxalate 10 MG TABLET PO (08:27)
[2022-11-28] MEDS: Thiamine HCL 100 MG TABLET PO (08:27)
[2022-11-28] MEDS: QUEtiapine Fumarate 50 MG TABLET PO ×2 (08:27→17:12)
[2022-11-28] MEDS: lamoTRIgine 100 MG TABLET PO ×2 (08:27→20:55)
[2022-11-28] MEDS: Aspirin Enteric Coated 81 MG TABLET.DR PO (08:28)
--- NOTE | 2022-11-28 13:25 | HO.PSYCHPN ---
Subjective Subjective Date of Service: 11/28/22 Reason For Visit: DEMENTIA Subjective Notes: Conditional Voluntary Interim History: The nursing staff reported the patient slept well, we change his level of observation from one-to-one to [place]. The social services manager reported that the staff of senior care facility in his [place] reported that he will not have enough funds for transfer over there. On interview the patient is pleasantly confused Mental Status Exam Mental Status Exam Patient Appearance: Well Grooomed and Appropriate Patient Orientation: Person and Situation Level of Consciousness: Awake and Appropriate Patient Behavior: Guarded and Passive Mood Description: Withdrawn Affect Description: Constricted Patient Cognition Impaired: Yes Ability to Follow Directions: Good Speech Pattern: Clear Hallucinations: None Delusions: Not Present Thought Process: Illogical, Distracted and Slowed Thinking Thought Content: positive for [place], positive for [place] and positive for Thought Blocking Judgement: Fair Diagnostics Vital Signs (24Hr): Vital Signs - 24 hr 11/27/22 19:35 11/28/22 08:05 Temperature 96.8 F 97.1 F Pulse Rate 68 75 Respiratory Rate 16 18 Blood Pressure 109/62 101/61 Pulse Oximetry 94 95 Oxygen Delivery Method Room Air Room Air BMI result Body Mass Index 31.5 Labs 11/18/22 08:03 11/20/22 04:51 Imaging Radiology Impressions: ITS Impressions Head CT 11/12/22 19:17 IMPRESSION: 1. No acute intracranial pathology. 2. There is ventriculomegaly disproportionate to the extent of sulcal widening. This can be seen in the setting of normal pressure hydrocephalus. Recommend clinical correlation. Consider MRI evaluation if clinically appropriate. Chest X-Ray 11/13/22 14:13 IMPRESSION: No acute parenchymal disease. No radiopaque foreign bodies. KUB X-Ray 11/13/22 14:13 IMPRESSION: No metallic radiopaque foreign bodies identified within the abdomen. 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 Background chronic microangiopathy. 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 Medications Medications Current Medications Acetaminophen (Acetaminophen 325 Mg Tablet) 650 mg PO Q6H PRN PRN Reason: Headache/Pain Mild Scale (1-3) Al Hydroxide/Mg Hydroxide (Magnesium Hydrox/Alum Hydrox 30 Ml Oral.Susp) 30 ml PO Q6H PRN PRN Reason: Heartburn/Nausea Aspirin (Aspirin Enteric Coated 81 Mg Tablet.Dr) 81 mg PO DAILY [facility] Last Admin: 11/28/22 08:28 Dose: 81 mg Atorvastatin Calcium (Atorvastatin Calcium 40 Mg Tablet) 40 mg PO BEDTIME [facility] Last Admin: 11/27/22 20:34 Dose: 40 mg Divalproex Sodium (Divalproex Sodium Er 500 Mg Tab.Er.24h) 1,500 mg PO DAILY [facility] Last Admin: 11/28/22 08:26 Dose: 1,500 mg Escitalopram Oxalate (Escitalopram Oxalate 10 Mg Tablet) 10 mg PO DAILY [facility] Last Admin: 11/28/22 08:27 Dose: 10 mg Hydroxyzine HCl (Hydroxyzine Hcl 25 Mg Tablet) 25 mg PO Q6H PRN PRN Reason: Anxiety Last Admin: 11/27/22 17:47 Dose: 25 mg Lamotrigine (Lamotrigine 100 Mg Tablet) 100 mg PO BID [facility] Last Admin: 11/28/22 08:27 Dose: 100 mg Magnesium Hydroxide (Milk Of Magnesia 30 Ml Oral.Susp) 30 ml PO DAILY PRN PRN Reason: Constipation Quetiapine Fumarate (Quetiapine Fumarate 100 Mg Tablet) 100 mg PO BEDTIME [facility] Last Admin: 11/27/22 20:34 Dose: 100 mg Quetiapine Fumarate (Quetiapine Fumarate 50 Mg Tablet) 50 mg PO BID@0800,1700 [facility] Last Admin: 11/28/22 08:27 Dose: 50 mg Tamsulosin HCl (Tamsulosin Hcl 0.4 Mg Capsule) 0.4 mg PO BEDTIME [facility] Last Admin: 11/27/22 20:34 Dose: 0.4 mg Thiamine HCl (Thiamine Hcl 100 Mg Tablet) 100 mg PO DAILY [facility] Last Admin: 11/28/22 08:27 Dose: 100 mg Trazodone HCl (Trazodone Hcl 50 Mg Tablet) 50 mg PO BEDTIME PRN PRN Reason: Insomnia Last Admin: 11/27/22 20:34 Dose: 50 mg Allergies Allergies Allergy/AdvReac Type Severity Reaction Status Date / Time No Known Allergies Allergy Verified 11/12/22 15:27 Assessment & Plan Assessment & Plan (1) Neurodegenerative cognitive impairment: Status: Acute Code(s): G31.9 - Degenerative disease of nervous system, unspecified Assessment and Plan: 71 years old man who probably has degenerative dementia, moderate to severe, with significant behavioral component. Precise previous history is not available. 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 This type of infarct could be cardioembolic or from carotid artery. Because of significant underlying dementia, he would not be a candidate for any surgical intervention and for that reason I do not think exploring carotid artery stenosis is a reasonable idea. Continue his baseline medications. His examination is not suggestive of normal-pressure hydrocephalus despite his imaging revealing some ventriculomegaly. This type of patient typically require combination of medicines including some antipsychotics and mood stabilizers to manage day behavioral symptoms. He is also at relatively high risk for seizure disorder but also has been taking lamotrigine 100 mg twice a day, which would cover this condition even if he suffered from it. Now that his mental status has improved compared to his emergency room arrival, I do not think an EEG would be useful. Plan Plan 1. Continue with regular medications. 2. Neurologist reported that at this moment he does not have normal-pressure hydrocephalus. 3. Since the patient had being more irritable and labile we are increasing Seroquel up to 50 mg p.o. b.i.d. and 100 mg p.o. q.h.s.. 4. Reassessment with results. 5. Depakote level and comprehensive metabolic panel for November 20 a.m. the blood work came back within normal limits and a therapeutic level of Depakote. 6. Waiting for placement 7. Lexapro increased up to 10 mg p.o. on November 27. Reason for continued inpatient stay Substantial Risk for: inability to function, rapid decompensation and med/psych decompensation Time Spent With Patient Time: Total time managing care of this patient today __20__ minutes.
[2022-11-28] MEDS: hydrOXYzine HCL 25 MG TABLET PO (14:29)
--- NOTE | 2022-11-28 14:37 | PC.NURSE ---
Patient was trying to get up out of his wheelchair, when 1:1 tried to redirect him to sit for safety patient became dysregulated and upset. Patient pushed at clinical coordinator and stated loudly, Im leaving or i'm going to kill someone . Patient was able to be de-escalated verbally by staff, provider at patient side, pt medicated with PRN for anxiety per provider.
[2022-11-28 18:00] VITALS: BP 120/63; PULSE 68; RESP 16; TEMP 35.7; O2SAT 96
[2022-11-28] MEDS: QUEtiapine Fumarate 100 MG TABLET PO (20:54)
[2022-11-28] MEDS: Tamsulosin HCL 0.4 MG CAPSULE PO (20:55)
[2022-11-28] MEDS: traZODone HCL 50 MG TABLET PO (20:55)
[2022-11-28] MEDS: Atorvastatin Calcium 40 MG TABLET PO (20:55)
[2022-11-29 08:03] VITALS: BP 109/59; PULSE 75; RESP 20; TEMP 36.1; O2SAT 96
[2022-11-29] MEDS: Divalproex Sodium ER 500 MG TAB.ER.24H 1500 MG PO (08:05)
[2022-11-29] MEDS: Thiamine HCL 100 MG TABLET PO (08:05)
[2022-11-29] MEDS: QUEtiapine Fumarate 50 MG TABLET PO ×2 (08:05→15:56)
[2022-11-29] MEDS: cloNIDine HCL 0.1 MG TABLET PO ×3 (08:05→20:04)
[2022-11-29] MEDS: Escitalopram Oxalate 10 MG TABLET PO (08:05)
[2022-11-29] MEDS: Aspirin Enteric Coated 81 MG TABLET.DR PO (08:06)
[2022-11-29] MEDS: lamoTRIgine 100 MG TABLET PO ×2 (08:06→20:06)
--- NOTE | 2022-11-29 08:18 | HO.PSYCHPN ---
Subjective Subjective Date of Service: 11/29/22 Reason For Visit: DEMENTIA Subjective Notes: Conditional Voluntary Interim History: The nursing staff reported that yesterday afternoon when he was in the PACU he become very abusive and threatening. We need to removed all the patient's and later on he apologized. He slept well last night. On interview the patient is pleasantly confused, we decided to add a low dose of clonidine to target impulsivity. Mental Status Exam Mental Status Exam Patient Appearance: Well Grooomed and Appropriate Patient Orientation: Person Level of Consciousness: Awake Patient Behavior: Guarded and Passive Mood Description: Withdrawn Affect Description: Constricted Patient Cognition Impaired: Yes Ability to Follow Directions: Good Speech Pattern: Clear Hallucinations: None Delusions: Not Present Thought Process: Distracted and Slowed Thinking Thought Content: positive for [place] and positive for Circumstantial Judgement: Fair Diagnostics Vital Signs (24Hr): Vital Signs - 24 hr 11/28/22 18:00 11/29/22 08:03 Temperature 96.3 F L 96.9 F Pulse Rate 68 75 Respiratory Rate 16 20 Blood Pressure 120/63 109/59 L Pulse Oximetry 96 96 Oxygen Delivery Method Room Air Room Air BMI result Body Mass Index 31.5 Labs 11/18/22 08:03 11/20/22 04:51 Imaging Radiology Impressions: ITS Impressions Head CT 11/12/22 19:17 IMPRESSION: 1. No acute intracranial pathology. 2. There is ventriculomegaly disproportionate to the extent of sulcal widening. This can be seen in the setting of normal pressure hydrocephalus. Recommend clinical correlation. Consider MRI evaluation if clinically appropriate. Chest X-Ray 11/13/22 14:13 IMPRESSION: No acute parenchymal disease. No radiopaque foreign bodies. KUB X-Ray 11/13/22 14:13 IMPRESSION: No metallic radiopaque foreign bodies identified within the abdomen. 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 Background chronic microangiopathy. 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 Medications Medications Current Medications Acetaminophen (Acetaminophen 325 Mg Tablet) 650 mg PO Q6H PRN PRN Reason: Headache/Pain Mild Scale (1-3) Al Hydroxide/Mg Hydroxide (Magnesium Hydrox/Alum Hydrox 30 Ml Oral.Susp) 30 ml PO Q6H PRN PRN Reason: Heartburn/Nausea Aspirin (Aspirin Enteric Coated 81 Mg Tablet.Dr) 81 mg PO DAILY [facility] Last Admin: 11/29/22 08:06 Dose: 81 mg Atorvastatin Calcium (Atorvastatin Calcium 40 Mg Tablet) 40 mg PO BEDTIME [facility] Last Admin: 11/28/22 20:55 Dose: 40 mg Clonidine HCl (Clonidine Hcl 0.1 Mg Tablet) 0.1 mg PO TID [facility]; Protocol Last Admin: 11/29/22 08:05 Dose: 0.1 mg Divalproex Sodium (Divalproex Sodium Er 500 Mg Tab.Er.24h) 1,500 mg PO DAILY [facility] Last Admin: 11/29/22 08:05 Dose: 1,500 mg Escitalopram Oxalate (Escitalopram Oxalate 10 Mg Tablet) 10 mg PO DAILY [facility] Last Admin: 11/29/22 08:05 Dose: 10 mg Hydroxyzine HCl (Hydroxyzine Hcl 25 Mg Tablet) 25 mg PO Q6H PRN PRN Reason: Anxiety Last Admin: 11/28/22 14:29 Dose: 25 mg Lamotrigine (Lamotrigine 100 Mg Tablet) 100 mg PO BID [facility] Last Admin: 11/29/22 08:06 Dose: 100 mg Magnesium Hydroxide (Milk Of Magnesia 30 Ml Oral.Susp) 30 ml PO DAILY PRN PRN Reason: Constipation Quetiapine Fumarate (Quetiapine Fumarate 100 Mg Tablet) 100 mg PO BEDTIME [facility] Last Admin: 11/28/22 20:54 Dose: 100 mg Quetiapine Fumarate (Quetiapine Fumarate 50 Mg Tablet) 50 mg PO BID@0800,1700 [facility] Last Admin: 11/29/22 08:05 Dose: 50 mg Tamsulosin HCl (Tamsulosin Hcl 0.4 Mg Capsule) 0.4 mg PO BEDTIME [facility] Last Admin: 11/28/22 20:55 Dose: 0.4 mg Thiamine HCl (Thiamine Hcl 100 Mg Tablet) 100 mg PO DAILY [facility] Last Admin: 11/29/22 08:05 Dose: 100 mg Trazodone HCl (Trazodone Hcl 50 Mg Tablet) 50 mg PO BEDTIME PRN PRN Reason: Insomnia Last Admin: 08/11/23 20:55 Dose: 50 mg Allergies Allergies Allergy/AdvReac Type Severity Reaction Status Date / Time No Known Allergies Allergy Verified 11/12/22 15:27 Assessment & Plan Assessment & Plan (1) Neurodegenerative cognitive impairment: Status: Acute Code(s): G31.9 - Degenerative disease of nervous system, unspecified Assessment and Plan: 71 years old man who probably has degenerative dementia, moderate to severe, with significant behavioral component. Precise previous history is not available. 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 This type of infarct could be cardioembolic or from carotid artery. Because of significant underlying dementia, he would not be a candidate for any surgical intervention and for that reason I do not think exploring carotid artery stenosis is a reasonable idea. Continue his baseline medications. His examination is not suggestive of normal-pressure hydrocephalus despite his imaging revealing some ventriculomegaly. This type of patient typically require combination of medicines including some antipsychotics and mood stabilizers to manage day behavioral symptoms. He is also at relatively high risk for seizure disorder but also has been taking lamotrigine 100 mg twice a day, which would cover this condition even if he suffered from it. Now that his mental status has improved compared to his emergency room arrival, I do not think an EEG would be useful. Plan Plan 1. Continue with regular medications. 2. Neurologist reported that at this moment he does not have normal-pressure hydrocephalus. 3. Since the patient had being more irritable and labile we are increasing Seroquel up to 50 mg p.o. b.i.d. and 100 mg p.o. q.h.s.. 4. Reassessment with results. 5. Depakote level and comprehensive metabolic panel for November 20 a.m. the blood work came back within normal limits and a therapeutic level of Depakote. 6. Waiting for placement 7. Lexapro increased up to 10 mg p.o. on November 27. 8. Start clonidine 0.1 p.o. t.i.d. to target impulsivity. Reason for continued inpatient stay Substantial Risk for: inability to function, rapid decompensation and med/psych decompensation Time Spent With Patient Time: Total time managing care of this patient today __20__ minutes.
[2022-11-29 15:55] VITALS: BP 116/57; PULSE 69
[2022-11-29 18:00] VITALS: BP 116/59; PULSE 65; RESP 16; TEMP 35.8; O2SAT 98
[2022-11-29] MEDS: Tamsulosin HCL 0.4 MG CAPSULE PO (20:05)
[2022-11-29] MEDS: traZODone HCL 50 MG TABLET PO (20:05)
[2022-11-29] MEDS: Atorvastatin Calcium 40 MG TABLET PO (20:05)
[2022-11-29] MEDS: QUEtiapine Fumarate 100 MG TABLET PO (20:06)
[2022-11-30 07:49] VITALS: BP 111/56; PULSE 89; RESP 18; TEMP 36.4; O2SAT 96
[2022-11-30] MEDS: cloNIDine HCL 0.1 MG TABLET PO ×2 (07:53→20:31)
[2022-11-30] MEDS: Divalproex Sodium ER 500 MG TAB.ER.24H 1500 MG PO (07:53)
[2022-11-30] MEDS: QUEtiapine Fumarate 50 MG TABLET PO ×2 (07:53→15:52)
[2022-11-30] MEDS: Escitalopram Oxalate 10 MG TABLET PO (07:53)
[2022-11-30] MEDS: Aspirin Enteric Coated 81 MG TABLET.DR PO (07:53)
[2022-11-30] MEDS: lamoTRIgine 100 MG TABLET PO ×2 (07:53→20:24)
[2022-11-30] MEDS: Thiamine HCL 100 MG TABLET PO (07:54)
--- NOTE | 2022-11-30 10:05 | P.PNPSI_ITS ---
Subjective Subjective Date of Service: 11/30/22 Reason For Visit: DEMENTIA Subjective Notes: Conditional Voluntary Interim History: The nursing staff reported the patient had been compliant with medications he took p.r.n. trazodone at night. Still impulsive on one-to-one for safety. On interview the patient denies new symptoms pleasant, cooperative but unpredi ctable, no over-sedation with clonidine 0.1 p.o. t.i.d. Mental Status Exam Mental Status Exam Patient Appearance: Well Grooomed and Appropriate Patient Orientation: Person and Situation Level of Consciousness: Awake and Appropriate Patient Behavior: Guarded and Passive Mood Description: Withdrawn Affect Description: Constricted Patient Cognition Impaired: Yes Ability to Follow Directions: Good Speech Pattern: Clear Hallucinations: None Delusions: Not Present Thought Process: Linear Thought Content: positive for Circum[place] Judgement: Fair Diagnostics Vital Signs (24Hr): Vital Signs - 24 hr 11/29/22 15:55 11/29/22 18:00 11/30/22 07:49 Temperature 96.4 F L 97.5 F Pulse Rate 69 65 89 Respiratory Rate 16 18 Blood Pressure 116/57 L 116/59 L 111/56 L Pulse Oximetry 98 96 Oxygen Delivery Method Room Air Room Air BMI result Body Mass Index 31.5 Labs 11/18/22 08:03 11/20/22 04:51 Imaging Radiology Impressions: ITS Impressions Head CT 11/12/22 19:17 IMPRESSION: 1. No acute intracranial pathology. 2. There is ventriculomegaly disproportionate to the extent of sulcal widening. This can be seen in the setting of normal pressure hydrocephalus. Recommend clinical correlation. Consider MRI evaluation if clinically appropriate. Chest X-Ray 11/13/22 14:13 IMPRESSION: No acute parenchymal disease. No radiopaque foreign bodies. KUB X-Ray 11/13/22 14:13 IMPRESSION: No metallic radiopaque foreign bodies identified within the abdomen. 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 Background chronic microangiopathy. 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 Medications Medications Current Medications Acetaminophen (Acetaminophen 325 Mg Tablet) 650 mg PO Q6H PRN PRN Reason: Headache/Pain Mild Scale (1-3) Al Hydroxide/Mg Hydroxide (Magnesium Hydrox/Alum Hydrox 30 Ml Oral.Susp) 30 ml PO Q6H PRN PRN Reason: Heartburn/Nausea Aspirin (Aspirin Enteric Coated 81 Mg Tablet.) 81 mg PO DAILY [facility] Last Admin: 11/30/22 07:53 Dose: 81 mg Atorvastatin Calcium (Atorvastatin Calcium 40 Mg Tablet) 40 mg PO BEDTIME [facility] Last Admin: 11/29/22 20:05 Dose: 40 mg Clonidine HCl (Clonidine Hcl 0.1 Mg Tablet) 0.1 mg PO TID [facility]; Protocol Last Admin: 11/30/22 07:53 Dose: 0.1 mg Divalproex Sodium (Divalproex Sodium Er 500 Mg Tab.Er.24h) 1,500 mg PO DAILY [facility] Last Admin: 11/30/22 07:53 Dose: 1,500 mg Escitalopram Oxalate (Escitalopram Oxalate 10 Mg Tablet) 10 mg PO DAILY [facility] Last Admin: 11/30/22 07:53 Dose: 10 mg Hydroxyzine HCl (Hydroxyzine Hcl 25 Mg Tablet) 25 mg PO Q6H PRN PRN Reason: Anxiety Last Admin: 11/28/22 14:29 Dose: 25 mg Lamotrigine (Lamotrigine 100 Mg Tablet) 100 mg PO BID [facility] Last Admin: 11/30/22 07:53 Dose: 100 mg Magnesium Hydroxide (Milk Of Magnesia 30 Ml Oral.Susp) 30 ml PO DAILY PRN PRN Reason: Constipation Quetiapine Fumarate (Quetiapine Fumarate 100 Mg Tablet) 100 mg PO BEDTIME [facility] Last Admin: 11/29/22 20:06 Dose: 100 mg Quetiapine Fumarate (Quetiapine Fumarate 50 Mg Tablet) 50 mg PO BID@0800,1700 [facility] Last Admin: 11/30/22 07:53 Dose: 50 mg Tamsulosin HCl (Tamsulosin Hcl 0.4 Mg Capsule) 0.4 mg PO BEDTIME [facility] Last Admin: 11/29/22 20:05 Dose: 0.4 mg Thiamine HCl (Thiamine Hcl 100 Mg Tablet) 100 mg PO DAILY [facility] Last Admin: 11/30/22 07:54 Dose: 100 mg Trazodone HCl (Trazodone Hcl 50 Mg Tablet) 50 mg PO BEDTIME PRN PRN Reason: Insomnia Last Admin: 11/29/22 20:05 Dose: 50 mg Allergies Allergies Allergy/AdvReac Type Severity Reaction Status Date / Time No Known Allergies Allergy Verified 11/12/22 15:27 Assessment & Plan Assessment & Plan (1) Neurodegenerative cognitive impairment: Status: Acute Code(s): G31.9 - Degenerative disease of nervous system, unspecified Assessment and Plan: 71 years old man who probably has degenerative dementia, moderate to severe, with significant behavioral component. Precise previous history is not available. 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 This type of infarct could be cardioembolic or from carotid artery. Because of significant underlying dementia, he would not be a candidate for any surgical intervention and for that reason I do not think exploring carotid artery stenosis is a reasonable idea. Continue his baseline medications. His examination is not suggestive of normal-pressure hydrocephalus despite his imaging revealing some ventriculomegaly. This type of patient typically require combination of medicines including some antipsychotics and mood stabilizers to manage day behavioral symptoms. He is also at relatively high risk for seizure disorder but also has been taking lamotrigine 100 mg twice a day, which would cover this condition even if he suffered from it. Now that his mental status has improved compared to his emergency room arrival, I do not think an EEG would be useful. Plan Plan 1. Continue with regular medications. 2. Neurologist reported that at this moment he does not have normal-pressure hydrocephalus. 3. Since the patient had being more irritable and labile we are increasing Seroquel up to 50 mg p.o. b.i.d. and 100 mg p.o. q.h.s.. 4. Reassessment with results. 5. Depakote level and comprehensive metabolic panel for November 20 a.m. the blood work came back within normal limits and a therapeutic level of Depakote. 6. Waiting for placement 7. Lexapro increased up to 10 mg p.o. on November 27. 8. Start clonidine 0.1 p.o. t.i.d. to target impulsivity. Reason for continued inpatient stay Substantial Risk for: inability to function, rapid decompensation and med/psych decompensation Time Spent With Patient Time: Total time managing care of this patient today __20__ minutes.
[2022-11-30 14:54] VITALS: BP 90/58; PULSE 60
[2022-11-30 18:00] VITALS: BP 97/57; PULSE 66; RESP 18; TEMP 36.6; O2SAT 95
[2022-11-30] MEDS: Tamsulosin HCL 0.4 MG CAPSULE PO (20:24)
[2022-11-30] MEDS: hydrOXYzine HCL 25 MG TABLET PO (20:24)
[2022-11-30] MEDS: traZODone HCL 50 MG TABLET PO (20:24)
[2022-11-30] MEDS: QUEtiapine Fumarate 100 MG TABLET PO (20:24)
[2022-11-30] MEDS: Atorvastatin Calcium 40 MG TABLET PO (20:25)
[2022-11-30 22:00] VITALS: BP 121/71; PULSE 65
[2022-12-01 08:32] VITALS: BP 99/58; PULSE 62; RESP 16; TEMP 36.3; O2SAT 93
[2022-12-01] MEDS: lamoTRIgine 100 MG TABLET PO ×2 (08:35→20:13)
[2022-12-01] MEDS: Divalproex Sodium ER 500 MG TAB.ER.24H 1500 MG PO (08:35)
[2022-12-01] MEDS: Aspirin Enteric Coated 81 MG TABLET.DR PO (08:35)
[2022-12-01] MEDS: Escitalopram Oxalate 10 MG TABLET PO (08:35)
[2022-12-01] MEDS: Thiamine HCL 100 MG TABLET PO (08:35)
[2022-12-01] MEDS: QUEtiapine Fumarate 50 MG TABLET PO ×2 (08:35→16:35)
--- NOTE | 2022-12-01 14:19 | P.PNPSI_ITS ---
Subjective Subjective Date of Service: 12/01/22 Reason For Visit: DEMENTIA Subjective Notes: Conditional Voluntary Interim History: The nursing staff reported the patient had been confused impulsive but appropriate. His blood pressure has dropped since clonidine was started. The social media intern reported that we have trying to get a bed search and so far has been unsuccessful. On interview the patient denies new symptoms I explained him that his blood pressure was down so we are going to discontinue clonidine. Mental Status Exam Mental Status Exam Patient Appearance: Appropriate Patient Orientation: Person and Situation Level of Consciousness: Awake and Appropriate Patient Behavior: Guarded and Passive Mood Description: Calm Affect Description: Constricted Patient Cognition Impaired: Yes Ability to Follow Directions: Good Speech Pattern: Clear Hallucinations: None Delusions: Not Present Thought Process: Distracted and Slowed Thinking Thought Content: positive for [place] and positive for Perseveration Judgement: Fair Diagnostics Vital Signs (24Hr): Vital Signs - 24 hr 11/30/22 14:54 11/30/22 18:00 11/30/22 22:00 Temperature 97.9 F Pulse Rate 60 66 65 Respiratory Rate 18 Blood Pressure 90/58 L 97/57 L 121/71 Pulse Oximetry 95 Oxygen Delivery Method Room Air 12/01/22 08:32 Temperature 97.3 F Pulse Rate 62 Respiratory Rate 16 Blood Pressure 99/58 L Pulse Oximetry 93 Oxygen Delivery Method Room Air BMI result Body Mass Index 31.5 Labs 11/18/22 08:03 11/20/22 04:51 Imaging Radiology Impressions: ITS Impressions Head CT 11/12/22 19:17 IMPRESSION: 1. No acute intracranial pathology. 2. There is ventriculomegaly disproportionate to the extent of sulcal widening. This can be seen in the setting of normal pressure hydrocephalus. Recommend clinical correlation. Consider MRI evaluation if clinically appropriate. Chest X-Ray 11/13/22 14:13 IMPRESSION: No acute parenchymal disease. No radiopaque foreign bodies. KUB X-Ray 11/13/22 14:13 IMPRESSION: No metallic radiopaque foreign bodies identified within the abdomen. 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 Background chronic microangiopathy. 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 Medications Medications Current Medications Acetaminophen (Acetaminophen 325 Mg Tablet) 650 mg PO Q6H PRN PRN Reason: Headache/Pain Mild Scale (1-3) Al Hydroxide/Mg Hydroxide (Magnesium Hydrox/Alum Hydrox 30 Ml Oral.Susp) 30 ml PO Q6H PRN PRN Reason: Heartburn/Nausea Aspirin (Aspirin Enteric Coated 81 Mg Tablet.Dr) 81 mg PO DAILY [facility] Last Admin: 12/01/22 08:35 Dose: 81 mg Atorvastatin Calcium (Atorvastatin Calcium 40 Mg Tablet) 40 mg PO BEDTIME [facility] Last Admin: 11/30/22 20:25 Dose: 40 mg Divalproex Sodium (Divalproex Sodium Er 500 Mg Tab.Er.24h) 1,500 mg PO DAILY [facility] Last Admin: 12/01/22 08:35 Dose: 1,500 mg Escitalopram Oxalate (Escitalopram Oxalate 10 Mg Tablet) 10 mg PO DAILY [facility] Last Admin: 12/01/22 08:35 Dose: 10 mg Hydroxyzine HCl (Hydroxyzine Hcl 25 Mg Tablet) 25 mg PO Q6H PRN PRN Reason: Anxiety Last Admin: 11/30/22 20:24 Dose: 25 mg Lamotrigine (Lamotrigine 100 Mg Tablet) 100 mg PO BID [facility] Last Admin: 12/01/22 08:35 Dose: 100 mg Magnesium Hydroxide (Milk Of Magnesia 30 Ml Oral.Susp) 30 ml PO DAILY PRN PRN Reason: Constipation Quetiapine Fumarate (Quetiapine Fumarate 100 Mg Tablet) 100 mg PO BEDTIME [facility] Last Admin: 11/30/22 20:24 Dose: 100 mg Quetiapine Fumarate (Quetiapine Fumarate 50 Mg Tablet) 50 mg PO BID@0800,1700 [facility] Last Admin: 12/01/22 08:35 Dose: 50 mg Tamsulosin HCl (Tamsulosin Hcl 0.4 Mg Capsule) 0.4 mg PO BEDTIME [facility] Last Admin: 11/30/22 20:24 Dose: 0.4 mg Thiamine HCl (Thiamine Hcl 100 Mg Tablet) 100 mg PO DAILY [facility] Last Admin: 12/01/22 08:35 Dose: 100 mg Trazodone HCl (Trazodone Hcl 50 Mg Tablet) 50 mg PO BEDTIME PRN PRN Reason: Insomnia Last Admin: 11/30/22 20:24 Dose: 50 mg Allergies Allergies Allergy/AdvReac Type Severity Reaction Status Date / Time No Known Allergies Allergy Verified 11/12/22 15:27 Assessment & Plan Assessment & Plan (1) Neurodegenerative cognitive impairment: Status: Acute Code(s): G31.9 - Degenerative disease of nervous system, unspecified Assessment and Plan: 71 years old man who probably has degenerative dementia, moderate to severe, with significant behavioral component. Precise previous history is not available. 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 This type of infarct could be cardioembolic or from carotid artery. Because of significant underlying dementia, he would not be a candidate for any surgical intervention and for that reason I do not think exploring carotid artery stenosis is a reasonable idea. Continue his baseline medications. His examination is not suggestive of normal-pressure hydrocephalus despite his imaging revealing some ventriculomegaly. This type of patient typically require combination of medicines including some antipsychotics and mood stabilizers to manage day behavioral symptoms. He is also at relatively high risk for seizure disorder but also has been taking lamotrigine 100 mg twice a day, which would cover this condition even if he suffered from it. Now that his mental status has improved compared to his emergency room arrival, I do not think an EEG would be useful. Plan Plan 1. Continue with regular medications. 2. Neurologist reported that at this moment he does not have normal-pressure hydrocephalus. 3. Since the patient had being more irritable and labile we are increasing Seroquel up to 50 mg p.o. b.i.d. and 100 mg p.o. q.h.s.. 4. Reassessment with results. 5. Depakote level and comprehensive metabolic panel for November 20 [address] bl ood work came back within normal limits and a therapeutic level of Depakote. 6. Waiting for placement 7. Lexapro increased up to 10 mg p.o. on November 27. 8. Start clonidine 0.1 p.o. t.i.d. to target impulsivity. We have to discontinue that on December 01 due to hypotension. Reason for continued inpatient stay Substantial Risk for: inability to function, rapid decompensation and med/psych decompensation Time Spent With Patient Time: Total time managing care of this patient today _20___ minutes.
[2022-12-01 18:00] VITALS: BP 119/65; PULSE 64; RESP 18; TEMP 36.1; O2SAT 94
[2022-12-01] MEDS: traZODone HCL 50 MG TABLET PO (20:13)
[2022-12-01] MEDS: QUEtiapine Fumarate 100 MG TABLET PO (20:14)
[2022-12-01] MEDS: Atorvastatin Calcium 40 MG TABLET PO (20:14)
[2022-12-01] MEDS: Tamsulosin HCL 0.4 MG CAPSULE PO (20:14)
[2022-12-01] MEDS: hydrOXYzine HCL 25 MG TABLET PO (20:14)
[2022-12-02 07:50] VITALS: BP 126/70; PULSE 72; RESP 16; TEMP 36.9; O2SAT 94
[2022-12-02] MEDS: Aspirin Enteric Coated 81 MG TABLET.DR PO (07:51)
[2022-12-02] MEDS: Thiamine HCL 100 MG TABLET PO (07:52)
[2022-12-02] MEDS: Escitalopram Oxalate 10 MG TABLET PO (07:52)
[2022-12-02] MEDS: lamoTRIgine 100 MG TABLET PO (07:52)
[2022-12-02] MEDS: Divalproex Sodium ER 500 MG TAB.ER.24H 1500 MG PO (07:52)
[2022-12-02] MEDS: QUEtiapine Fumarate 50 MG TABLET PO ×2 (07:52→18:39)
--- NOTE | 2022-12-02 12:49 | P.PNPSI_ITS ---
Subjective Subjective Date of Service: 12/02/22 Reason For Visit: DEMENTIA Subjective Notes: Conditional Voluntary Interim History: The nursing staff reported the patient has complained of depression. He has been pleasant and cooperative but sexually inappropriate at times in the evening and he was redirected. The social group worker reported that a detention facility in [place] is willing to take him and they are following. On interview the patient reports depression, he agreed increase Lamictal up to 150 mg p.o. b.i.d.. We discussed with the team and we decided to restart the clonidine at a lower dose. He had been more irritable than usual. Mental Status Exam Mental Status Exam Patient Appearance: Appropriate Patient Orientation: Person and Situation Level of Consciousness: Awake and Appropriate Patient Behavior: Guarded and Passive Mood Description: Withdrawn Affect Description: Labile Patient Cognition Impaired: Yes Ability to Follow Directions: Good Speech Pattern: Clear Hallucinations: None Delusions: Not Present Thought Process: Distracted and Evasive Thought Content: positive for [place] and positive for Perseveration Judgement: Poor Diagnostics Vital Signs (24Hr): Vital Signs - 24 hr 12/01/22 18:00 12/02/22 07:50 Temperature 97 F 98.4 F Pulse Rate 64 72 Respiratory Rate 18 16 Blood Pressure 119/65 126/70 Pulse Oximetry 94 94 Oxygen Delivery Method Room Air Room Air BMI result Body Mass Index 31.5 Labs 11/18/22 08:03 11/20/22 04:51 Imaging Radiology Impressions: ITS Impressions Head CT 11/12/22 19:17 IMPRESSION: 1. No acute intracranial pathology. 2. There is ventriculomegaly disproportionate to the extent of sulcal widening. This can be seen in the setting of normal pressure hydrocephalus. Recommend clinical correlation. Consider MRI evaluation if clinically appropriate. Chest X-Ray 11/13/22 14:13 IMPRESSION: No acute parenchymal disease. No radiopaque foreign bodies. KUB X-Ray 11/13/22 14:13 IMPRESSION: No metallic radiopaque foreign bodies identified within the abdomen. 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 Background chronic microangiopathy. 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 Medications Medications Current Medications Acetaminophen (Acetaminophen 325 Mg Tablet) 650 mg PO Q6H PRN PRN Reason: Headache/Pain Mild Scale (1-3) Al Hydroxide/Mg Hydroxide (Magnesium Hydrox/Alum Hydrox 30 Ml Oral.Susp) 30 ml PO Q6H PRN PRN Reason: Heartburn/Nausea Aspirin (Aspirin Enteric Coated 81 Mg Tablet.Dr) 81 mg PO DAILY [facility] Last Admin: 12/02/22 07:51 Dose: 81 mg Atorvastatin Calcium (Atorvastatin Calcium 40 Mg Tablet) 40 mg PO BEDTIME [facility] Last Admin: 12/01/22 20:14 Dose: 40 mg Divalproex Sodium (Divalproex Sodium Er 500 Mg Tab.Er.24h) 1,500 mg PO DAILY [facility] Last Admin: 12/02/22 07:52 Dose: 1,500 mg Escitalopram Oxalate (Escitalopram Oxalate 10 Mg Tablet) 10 mg PO DAILY [facility] Last Admin: 12/02/22 07:52 Dose: 10 mg Hydroxyzine HCl (Hydroxyzine Hcl 25 Mg Tablet) 25 mg PO Q6H PRN PRN Reason: Anxiety Last Admin: 12/01/22 20:14 Dose: 25 mg Lamotrigine (Lamotrigine 25 Mg Tablet) 150 mg PO BID [facility] Magnesium Hydroxide (Milk Of Magnesia 30 Ml Oral.Susp) 30 ml PO DAILY PRN PRN Reason: Constipation Quetiapine Fumarate (Quetiapine Fumarate 100 Mg Tablet) 100 mg PO BEDTIME [facility] Last Admin: 12/01/22 20:14 Dose: 100 mg Quetiapine Fumarate (Quetiapine Fumarate 50 Mg Tablet) 50 mg PO BID@0800,1700 [facility] Last Admin: 12/02/22 07:52 Dose: 50 mg Tamsulosin HCl (Tamsulosin Hcl 0.4 Mg Capsule) 0.4 mg PO BEDTIME [facility] Last Admin: 12/01/22 20:14 Dose: 0.4 mg Thiamine HCl (Thiamine Hcl 100 Mg Tablet) 100 mg PO DAILY [facility] Last Admin: 12/02/22 07:52 Dose: 100 mg Trazodone HCl (Trazodone Hcl 50 Mg Tablet) 50 mg PO BEDTIME PRN PRN Reason: Insomnia Last Admin: 12/01/22 20:13 Dose: 50 mg Allergies Allergies Allergy/AdvReac Type Severity Reaction Status Date / Time No Known Allergies Allergy Verified 07/26/23 15:27 Assessment & Plan Assessment & Plan (1) Neurodegenerative cognitive impairment: Status: Acute Code(s): G31.9 - Degenerative disease of nervous system, unspecified Assessment and Plan: 71 years old man who probably has degenerative dementia, moderate to severe, with significant behavioral component. Precise previous history is not available. 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 This type of infarct could be cardioembolic or from carotid artery. Because of significant underlying dementia, he would not be a candidate for any surgical intervention and for that reason I do not think exploring carotid artery stenosis is a reasonable idea. Continue his baseline medications. His examination is not suggestive of normal-pressure hydrocephalus despite his imaging revealing some ventriculomegaly. This type of patient typically require combination of medicines including some antipsychotics and mood stabilizers to manage day behavioral symptoms. He is also at relatively high risk for seizure disorder but also has been taking lamotrigine 100 mg twice a day, which would co nhi this condition even if he suffered from it. Now that his mental status has improved compared to his emergency room arrival, I do not think an EEG would be useful. Plan Plan 1. Continue with regular medications. 2. Neurologist reported that at this moment he does not have normal-pressure hydrocephalus. 3. Since the patient had being more irritable and labile we are increasing Seroquel up to 50 mg p.o. b.i.d. and 100 mg p.o. q.h.s.. 4. Reassessment with results. 5. Depakote level and comprehensive metabolic panel for November 20 a.m. the blood work came back within normal limits and a therapeutic level of Depakote. 6. Waiting for placement 7. Lexapro increased up to 10 mg p.o. on November 27. 8. Start clonidine 0.1 p.o. t.i.d. to target impulsivity. We have to discontinue that on December 01 due to hypotension. Due to increased agitation we restarted clonidine 0.05 p.o. t.i.d. on December 02. 9. Lamictal was increased up to 150 mg p.o. b.i.d.. 10. Adding p.r.n. Zyprexa. Reason for continued inpatient stay Substantial Risk for: inability to function, rapid decompensation and med/psych decompensation Time Spent With Patient Time: Total time managing care of this patient today _20___ minutes.
[2022-12-02] MEDS: hydrOXYzine HCL 25 MG TABLET PO (13:49)
[2022-12-02] MEDS: OLANZapine 5 MG TABLET PO ×2 (14:49→18:39)
[2022-12-02 19:40] VITALS: BP 108/64; PULSE 68; RESP 17; TEMP 36; O2SAT 95
[2022-12-02] MEDS: Atorvastatin Calcium 40 MG TABLET PO (20:08)
[2022-12-02] MEDS: QUEtiapine Fumarate 100 MG TABLET PO (20:08)
[2022-12-02] MEDS: cloNIDine HCL 0.1 MG TABLET 0.05 MG PO (20:08)
[2022-12-02] MEDS: lamoTRIgine 25 MG TABLET 150 MG PO (20:08)
[2022-12-02] MEDS: Tamsulosin HCL 0.4 MG CAPSULE PO (20:08)
[2022-12-03 08:00] VITALS: BP 122/80; PULSE 62; RESP 18; TEMP 35.9; O2SAT 98
[2022-12-03] MEDS: Divalproex Sodium ER 500 MG TAB.ER.24H 1500 MG PO (08:48)
[2022-12-03] MEDS: lamoTRIgine 25 MG TABLET 150 MG PO ×2 (08:49→20:22)
[2022-12-03] MEDS: QUEtiapine Fumarate 50 MG TABLET PO ×2 (08:50→17:14)
[2022-12-03] MEDS: Thiamine HCL 100 MG TABLET PO (08:50)
[2022-12-03] MEDS: cloNIDine HCL 0.1 MG TABLET 0.05 MG PO ×3 (08:50→20:27)
[2022-12-03] MEDS: Escitalopram Oxalate 10 MG TABLET PO (08:50)
[2022-12-03] MEDS: Aspirin Enteric Coated 81 MG TABLET.DR PO (08:52)
--- NOTE | 2022-12-03 14:07 | HO.PSYCHPN ---
Subjective Subjective Date of Service: 12/03/22 Reason For Visit: DEMENTIA Subjective Notes: Conditional Voluntary Interim History: The nursing staff reported the patient was agitated twice and he reported feeling suicidal. He is on one-to-one for safety. The social insurance specialist reported that he has been review by to prison facilities at this moment. On interview the patient is pleasantly confused states that he is depressed but easily redirectable. Mental Status Exam Mental Status Exam Patient Appearance: Appropriate Patient Orientation: Person and Situation Level of Consciousness: Awake and Appropriate Patient Behavior: Guarded and Passive Mood Description: Withdrawn and Constricted Affect Description: Constricted Patient Cognition Impaired: Yes Ability to Follow Directions: Good Speech Pattern: Clear Hallucinations: None Delusions: Not Present Thought Process: Linear Thought Content: positive for [place] and positive for Circumstantial Judgement: Fair Diagnostics Vital Signs (24Hr): Vital Signs - 24 hr 12/02/22 19:40 12/03/22 08:00 Temperature 96.8 F 96.7 F L Pulse Rate 68 62 Respiratory Rate 17 18 Blood Pressure 108/64 122/80 Pulse Oximetry 95 98 Oxygen Delivery Method Room Air Room Air BMI result Body Mass Index 31.5 Labs 11/18/22 08:03 11/20/22 04:51 Imaging Radiology Impressions: ITS Impressions Head CT 11/12/22 19:17 IMPRESSION: 1. No acute intracranial pathology. 2. There is ventriculomegaly disproportionate to the extent of sulcal widening. This can be seen in the setting of normal pressure hydrocephalus. Recommend clinical correlation. Consider MRI evaluation if clinically appropriate. Chest X-Ray 11/13/22 14:13 IMPRESSION: No acute parenchymal disease. No radiopaque foreign bodies. KUB X-Ray 11/13/22 14:13 IMPRESSION: No metallic radiopaque foreign bodies identified within the abdomen. 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 Background chronic microangiopathy. 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 Medications Medications Current Medications Acetaminophen (Acetaminophen 325 Mg Tablet) 650 mg PO Q6H PRN PRN Reason: Headache/Pain Mild Scale (1-3) Al Hydroxide/Mg Hydroxide (Magnesium Hydrox/Alum Hydrox 30 Ml Oral.Susp) 30 ml PO Q6H PRN PRN Reason: Heartburn/Nausea Aspirin (Aspirin Enteric Coated 81 Mg Tablet.Dr) 81 mg PO DAILY [facility] Last Admin: 12/03/22 08:52 Dose: 81 mg Atorvastatin Calcium (Atorvastatin Calcium 40 Mg Tablet) 40 mg PO BEDTIME [facility] Last Admin: 12/02/22 20:08 Dose: 40 mg Clonidine HCl (Clonidine Hcl 0.1 Mg Tablet) 0.05 mg PO TID [facility]; Protocol Last Admin: 12/03/22 08:50 Dose: 0.05 mg Divalproex Sodium (Divalproex Sodium Er 500 Mg Tab.Er.24h) 1,500 mg PO DAILY [facility] Last Admin: 12/03/22 08:48 Dose: 1,500 mg Escitalopram Oxalate (Escitalopram Oxalate 10 Mg Tablet) 10 mg PO DAILY [facility] Last Admin: 12/03/22 08:50 Dose: 10 mg Hydroxyzine HCl (Hydroxyzine Hcl 25 Mg Tablet) 25 mg PO Q6H PRN PRN Reason: Anxiety Last Admin: 12/02/22 13:49 Dose: 25 mg Lamotrigine (Lamotrigine 25 Mg Tablet) 150 mg PO BID [facility] Last Admin: 12/03/22 08:49 Dose: 150 mg Magnesium Hydroxide (Milk Of Magnesia 30 Ml Oral.Susp) 30 ml PO DAILY PRN PRN Reason: Constipation Olanzapine (Olanzapine 5 Mg Tablet) 5 mg PO Q4H PRN PRN Reason: psychotic agitation Last Admin: 12/02/22 18:39 Dose: 5 mg Quetiapine Fumarate (Quetiapine Fumarate 100 Mg Tablet) 100 mg PO BEDTIME [facility] Last Admin: 12/02/22 20:08 Dose: 100 mg Quetiapine Fumarate (Quetiapine Fumarate 50 Mg Tablet) 50 mg PO BID@0800,1700 [facility] Last Admin: 12/03/22 08:50 Dose: 50 mg Tamsulosin HCl (Tamsulosin Hcl 0.4 Mg Capsule) 0.4 mg PO BEDTIME [facility] Last Admin: 12/02/22 20:08 Dose: 0.4 mg Thiamine HCl (Thiamine Hcl 100 Mg Tablet) 100 mg PO DAILY [facility] Last Admin: 12/03/22 08:50 Dose: 100 mg Trazodone HCl (Trazodone Hcl 50 Mg Tablet) 50 mg PO BEDTIME PRN PRN Reason: Insomnia Last Admin: 12/01/22 20:13 Dose: 50 mg Allergies Allergies Allergy/AdvReac Type Severity Reaction Status Date / Time No Known Allergies Allergy Verified 11/12/22 15:27 Assessment & Plan Assessment & Plan (1) Neurodegenerative cognitive impairment: Status: Acute Code(s): G31.9 - Degenerative disease of nervous system, unspecified Assessment and Plan: 71 years old man who probably has degenerative dementia, moderate to severe, with significant behavioral component. Precise previous history is not available. 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 This type of infarct could be cardioembolic or from carotid artery. Because of significant underlying dementia, he would not be a candidate for any surgical intervention and for that reason I do not think exploring carotid artery stenosis is a reasonable idea. Continue his baseline medications. His examination is not suggestive of normal-pressure hydrocephalus despite his imaging revealing some ventriculomegaly. This type of patient typically require combination of medicines including some antipsychotics and mood stabilizers to manage day behavioral symptoms. He is also at relatively high risk for seizure disorder but also has been taking lamotrigine 100 mg twice a day, which would cover this condition even if he suffered from it. Now that his mental status has improved compared to his emergency room arrival, I do not think an EEG would be useful. Plan Plan 1. Continue with regular medications. 2. Neurologist reported that at this moment he does not have normal-pressure hydrocephalus. 3. Since the patient had being more irritable and labile we are increasing Seroquel up to 50 mg p.o. b.i.d. and 100 mg p.o. q.h.s.. 4. Reassessment with results. 5. Depakote level and comprehensive metabolic panel for November 20 a.m. the blood work came back within normal limits and a therapeutic level of Depakote. 6. Waiting for placement 7. Lexapro increased up to 10 mg p.o. on November 27. 8. Start clonidine 0.1 p.o. t.i.d. to target impulsivity. We have to discontinue that on December 01 due to hypotension. Due to increased agitation we restarted clonidine 0.05 p.o. t.i.d. on December 02. 9. Lamictal was increased up to 150 mg p.o. b.i.d.. 10. Adding p.r.n. Zyprexa. Reason for continued inpatient stay Substantial Risk for: inability to function, rapid decompensation and med/psych decompensation Time Spent With Patient Time: Total time managing care of this patient today _20___ minutes.
[2022-12-03 14:36] VITALS: BP 92/56; PULSE 73
[2022-12-03 19:45] VITALS: BP 104/64; PULSE 64; RESP 18; TEMP 36; O2SAT 96
[2022-12-03] MEDS: Tamsulosin HCL 0.4 MG CAPSULE PO (20:23)
[2022-12-03] MEDS: Atorvastatin Calcium 40 MG TABLET PO (20:23)
[2022-12-03] MEDS: QUEtiapine Fumarate 100 MG TABLET PO (20:23)
[2022-12-04 07:00] VITALS: BMI 32.7
[2022-12-04 08:15] VITALS: BP 115/59; PULSE 78; RESP 16; TEMP 36.4; O2SAT 96
[2022-12-04] MEDS: Divalproex Sodium ER 500 MG TAB.ER.24H 1500 MG PO (08:17)
[2022-12-04] MEDS: Escitalopram Oxalate 10 MG TABLET PO (08:17)
[2022-12-04] MEDS: Thiamine HCL 100 MG TABLET PO (08:17)
[2022-12-04] MEDS: Aspirin Enteric Coated 81 MG TABLET.DR PO (08:17)
[2022-12-04] MEDS: lamoTRIgine 25 MG TABLET 150 MG PO ×2 (08:17→20:23)
[2022-12-04] MEDS: QUEtiapine Fumarate 50 MG TABLET PO ×2 (08:17→16:51)
[2022-12-04] MEDS: cloNIDine HCL 0.1 MG TABLET 0.05 MG PO ×3 (08:21→20:23)
--- NOTE | 2022-12-04 13:02 | P.PNPSI_ITS ---
Subjective Subjective Date of Service: 12/04/22 Reason For Visit: DEMENTIA Subjective Notes: Conditional Voluntary Interim History: Pt asks when is he leaving this place. He thinks he has been here for about 2 years. He does not know year. He thinks it is April. He reports he wants to live in [place] as this is where he reports he grew up. He denies any physical concerns. He denies SI/HI. No overt delusions. Per nursing, slept most of the night. His BP has been on the lower side 115/59, HR 78, not orthostatic. Pt incontinent and nursing reports foul smell- will order UA. Review of Systems Review of Systems No evidence of any seizure-like episode. Yes all other systems are reviewed and are negative Mental Status Exam Mental Status Exam Narrative: Alert, calm, attentive to milieu, responsive. No current distress noted. Patient Appearance: Appropriate Patient Orientation: Person and Situation Level of Consciousness: Awake and Appropriate Patient Behavior: Guarded and Passive Mood Description: Withdrawn and Constricted Affect Description: Constricted Patient Cognition Impaired: Yes Ability to Follow Directions: Good Speech Pattern: Clear Memory Description: Remote Impaired, Immediate Impaired, Episodic Impaired and Recent Impaired Diagnostics Vital Signs (24Hr): Vital Signs - 24 hr 12/03/22 14:36 12/03/22 19:45 12/04/22 08:15 Temperature 96.8 F 97.5 F Pulse Rate 73 64 78 Respiratory Rate 18 16 Blood Pressure 92/56 L 104/64 115/59 L Pulse Oximetry 96 96 Oxygen Delivery Method Room Air Room Air BMI result Body Mass Index 32.7 Labs 11/18/22 08:03 11/20/22 04:51 Imaging Radiology Impressions: ITS Impressions Head CT 11/12/22 19:17 IMPRESSION: 1. No acute intracranial pathology. 2. There is ventriculomegaly disproportionate to the extent of sulcal widening. This can be seen in the setting of normal pressure hydrocephalus. Recommend clinical correlation. Consider MRI evaluation if clinically appropriate. Chest X-Ray 11/13/22 14:13 IMPRESSION: No acute parenchymal disease. No radiopaque foreign bodies. KUB X-Ray 11/13/22 14:13 IMPRESSION: No metallic radiopaque foreign bodies identified within the abdomen. 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 Background chronic microangiopathy. 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 Medications Medications Current Medications Acetaminophen (Acetaminophen 325 Mg Tablet) 650 mg PO Q6H PRN PRN Reason: Headache/Pain Mild Scale (1-3) Al Hydroxide/Mg Hydroxide (Magnesium Hydrox/Alum Hydrox 30 Ml Oral.Susp) 30 ml PO Q6H PRN PRN Reason: Heartburn/Nausea Aspirin (Aspirin Enteric Coated 81 Mg Tablet.Dr) 81 mg PO DAILY [facility] Last Admin: 12/04/22 08:17 Dose: 81 mg Atorvastatin Calcium (Atorvastatin Calcium 40 Mg Tablet) 40 mg PO BEDTIME [facility] Last Admin: 12/03/22 20:23 Dose: 40 mg Clonidine HCl (Clonidine Hcl 0.1 Mg Tablet) 0.05 mg PO TID [facility]; Protocol Last Admin: 12/04/22 08:21 Dose: 0.05 mg Divalproex Sodium (Divalproex Sodium Er 500 Mg Tab.Er.24h) 1,500 mg PO DAILY [facility] Last Admin: 12/04/22 08:17 Dose: 1,500 mg Escitalopram Oxalate (Escitalopram Oxalate 10 Mg Tablet) 10 mg PO DAILY [facility] Last Admin: 12/04/22 08:17 Dose: 10 mg Hydroxyzine HCl (Hydroxyzine Hcl 25 Mg Tablet) 25 mg PO Q6H PRN PRN Reason: Anxiety Last Admin: 12/02/22 13:49 Dose: 25 mg Lamotrigine (Lamotrigine 25 Mg Tablet) 150 mg PO BID [facility] Last Admin: 12/04/22 08:17 Dose: 150 mg Magnesium Hydroxide (Milk Of Magnesia 30 Ml Oral.Susp) 30 ml PO DAILY PRN PRN Reason: Constipation Olanzapine (Olanzapine 5 Mg Tablet) 5 mg PO Q4H PRN PRN Reason: psychotic agitation Last Admin: 12/02/22 18:39 Dose: 5 mg Quetiapine Fumarate (Quetiapine Fumarate 100 Mg Tablet) 100 mg PO BEDTIME [facility] Last Admin: 12/03/22 20:23 Dose: 100 mg Quetiapine Fumarate (Quetiapine Fumarate 50 Mg Tablet) 50 mg PO BID@0800,1700 [facility] Last Admin: 12/04/22 08:17 Dose: 50 mg Tamsulosin HCl (Tamsulosin Hcl 0.4 Mg Capsule) 0.4 mg PO BEDTIME [facility] Last Admin: 12/03/22 20:23 Dose: 0.4 mg Thiamine HCl (Thiamine Hcl 100 Mg Tablet) 100 mg PO DAILY [facility] Last Admin: 12/04/22 08:17 Dose: 100 mg Trazodone HCl (Trazodone Hcl 50 Mg Tablet) 50 mg PO BEDTIME PRN PRN Reason: Insomnia Last Admin: 12/01/22 20:13 Dose: 50 mg Allergies Allergies Allergy/AdvReac Type Severity Reaction Status Date / Time No Known Allergies Allergy Verified 11/12/22 15:27 Assessment & Plan Assessment & Plan (1) Neurodegenerative cognitive impairment: Status: Acute Code(s): G31.9 - Degenerative disease of nervous system, unspecified Assessment and Plan: 71 years old man who probably has degenerative dementia, moderate to severe, with significant behavioral component. Precise previous history is not available. 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 This type of infarct could be cardioembolic or from carotid artery. Because of significant underlying dementia, he would not be a candidate for any surgical intervention and for that reason I do not think exploring carotid artery stenosis is a reasonable idea. Continue his baseline medications. His examination is not suggestive of normal-pressure hydrocephalus despite his imaging revealing some ventriculomegaly. This type of patient typically require combination of medicines including some antipsychotics and mood stabilizers to manage day behavioral symptoms. He is also at relatively high risk for seizure disorder but also has been taking lamotrigine 100 mg twice a day, which would cover this condition even if he suffered from it. Now that his mental status has improved compared to his emergency room arrival, I do not think an EEG would be useful. Plan Plan 1. Continue with regular medications. 2. Neurologist reported that at this moment he does not have normal-pressure hydrocephalus. 3. Since the patient had being more irritable and labile we are increasing Seroquel up to 50 mg p.o. b.i.d. and 100 mg p.o. q.h.s.. 4. Reassessment with results. 5. Depakote level and comprehensive metabolic panel for November 20 a.m. the blood work came back within normal limits and a therapeutic level of Depakote. 6. Waiting for placement 7. Lexapro increased up to 10 mg p.o. on November 27. 8. Start clonidine 0.1 p.o. t.i.d. to target impulsivity. We have to discontinue that on December 01 due to hypotension. Due to increased agitation we restarted clonidine 0.05 p.o. t.i.d. on December 02. 9. Lamictal was increased up to 150 mg p.o. b.i.d.. 10. Adding p.r.n. Zyprexa. 12/04 continue tx. order UA, foul smell although pt denies s/s but he is not reliable historian. Reason for continued inpatient stay Substantial Risk for: inability to function Time Spent With Patient Time: Total time managing care of this patient today ____ minutes.
[2022-12-04 13:56] LABS: Appearance Urine Clear; Color Urine Yellow; Glucose Urine UA Negative (Negative); Leukocyte Esterase Urine Negative (Negative); Nitrite Urine Negative (Negative); Urine Blood Negative (Negative); Urine Ketones Trace mg/dL (Negative); Urine Protein Negative (Neg-Trace)
[2022-12-04 16:55] VITALS: BP 110/67
[2022-12-04 18:00] VITALS: BP 96/56; PULSE 69; TEMP 35.9; O2SAT 96
[2022-12-04] MEDS: OLANZapine 5 MG TABLET PO (18:55)
[2022-12-04] MEDS: Tamsulosin HCL 0.4 MG CAPSULE PO (20:22)
[2022-12-04] MEDS: QUEtiapine Fumarate 100 MG TABLET PO (20:22)
[2022-12-04] MEDS: Atorvastatin Calcium 40 MG TABLET PO (20:23)
[2022-12-05 07:30] VITALS: BP 109/67; PULSE 95; RESP 18; TEMP 36.1; O2SAT 95
--- NOTE | 2022-12-05 08:16 | P.PNPSI_ITS ---
Subjective Subjective Date of Service: 12/05/22 Reason For Visit: DEMENTIA Subjective Notes: Conditional Voluntary Interim History: The nursing staff reported the patient slept well last night. Yesterday he was agitated dated and irritable at times sexually inappropriate with staff and security needed to be called but he was redirected. He took Zyprexa p.r.n. that help him. On interview the patient reports that he feels depressed, we are waiting for placement. I discussed the possibility of changing his antipsychotics. Mental Status Exam Mental Status Exam Patient Appearance: Well Grooomed and Appropriate Patient Orientation: Person and Situation Level of Consciousness: Awake and Appropriate Patient Behavior: Guarded and Passive Mood Description: Withdrawn Affect Description: Constricted Patient Cognition Impaired: Yes Ability to Follow Directions: Good Speech Pattern: Clear Hallucinations: None Delusions: Not Present Thought Process: Distracted and Slowed Thinking Thought Content: positive for [place] and positive for Poverty of Content Judgement: Poor Diagnostics Vital Signs (24Hr): Vital Signs - 24 hr 12/04/22 16:55 12/04/22 18:00 Temperature 96.7 F L Pulse Rate 69 Blood Pressure 110/67 96/56 L Pulse Oximetry 96 Oxygen Delivery Method Room Air BMI result Body Mass Index 32.7 Labs 11/18/22 08:03 11/20/22 04:51 Labs: Laboratory Results - last 48 hr 12/04/22 13:30 Urine Color Yellow Urine Appearance Clear Urine pH 7.0 Ur Specific [place] 1.020 Urine Protein Negative Urine Glucose (UA) Negative Urine Ketones Trace Urine Blood Negative Urine Nitrite Negative Ur Leukocyte Esterase Negative Imaging Radiology Impressions: ITS Impressions Head CT 11/12/22 19:17 IMPRESSION: 1. No acute intracranial pathology. 2. There is ventriculomegaly disproportionate to the extent of sulcal widening. This can be seen in the setting of normal pressure hydrocephalus. Recommend clinical correlation. Consider MRI evaluation if clinically appropriate. Chest X-Ray 11/13/22 14:13 IMPRESSION: No acute parenchymal disease. No radiopaque foreign bodies. KUB X-Ray 11/13/22 14:13 IMPRESSION: No metallic radiopaque foreign bodies identified within the abdomen. 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 Background chronic microangiopathy. 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 Medications Medications Current Medications Acetaminophen (Acetaminophen 325 Mg Tablet) 650 mg PO Q6H PRN PRN Reason: Headache/Pain Mild Scale (1-3) Al Hydroxide/Mg Hydroxide (Magnesium Hydrox/Alum Hydrox 30 Ml Oral.Susp) 30 ml PO Q6H PRN PRN Reason: Heartburn/Nausea Aspirin (Aspirin Enteric Coated 81 Mg Tablet.Dr) 81 mg PO DAILY [facility] Last Admin: 12/04/22 08:17 Dose: 81 mg Atorvastatin Calcium (Atorvastatin Calcium 40 Mg Tablet) 40 mg PO BEDTIME [facility] Last Admin: 12/04/22 20:23 Dose: 40 mg Clonidine HCl (Clonidine Hcl 0.1 Mg Tablet) 0.05 mg PO TID [facility]; Protocol Last Admin: 12/04/22 20:23 Dose: 0.05 mg Divalproex Sodium (Divalproex Sodium Er 500 Mg Tab.Er.24h) 1,500 mg PO DAILY [facility] Last Admin: 12/04/22 08:17 Dose: 1,500 mg Escitalopram Oxalate (Escitalopram Oxalate 10 Mg Tablet) 10 mg PO DAILY [facility] Last Admin: 12/04/22 08:17 Dose: 10 mg Hydroxyzine HCl (Hydroxyzine Hcl 25 Mg Tablet) 25 mg PO Q6H PRN PRN Reason: Anxiety Last Admin: 12/02/22 13:49 Dose: 25 mg Lamotrigine (Lamotrigine 25 Mg Tablet) 150 mg PO BID [facility] Last Admin: 12/04/22 20:23 Dose: 150 mg Magnesium Hydroxide (Milk Of Magnesia 30 Ml Oral.Susp) 30 ml PO DAILY PRN PRN Reason: Constipation Olanzapine (Olanzapine 5 Mg Tablet) 5 mg PO Q4H PRN PRN Reason: psychotic agitation Last Admin: 12/04/22 18:55 Dose: 5 mg Quetiapine Fumarate (Quetiapine Fumarate 100 Mg Tablet) 100 mg PO BEDTIME [facility] Last Admin: 12/04/22 20:22 Dose: 100 mg Quetiapine Fumarate (Quetiapine Fumarate 50 Mg Tablet) 50 mg PO BID@0800,1700 [facility] Last Admin: 12/04/22 16:51 Dose: 50 mg Tamsulosin HCl (Tamsulosin Hcl 0.4 Mg Capsule) 0.4 mg PO BEDTIME [facility] Last Admin: 12/04/22 20:22 Dose: 0.4 mg Thiamine HCl (Thiamine Hcl 100 Mg Tablet) 100 mg PO DAILY [facility] Last Admin: 12/04/22 08:17 Dose: 100 mg Trazodone HCl (Trazodone Hcl 50 Mg Tablet) 50 mg PO BEDTIME PRN PRN Reason: Insomnia Last Admin: 12/01/22 20:13 Dose: 50 mg Allergies Allergies Allergy/AdvReac Type Severity Reaction Status Date / Time No Known Allergies Allergy Verified 11/12/22 15:27 Assessment & Plan Assessment & Plan (1) Neurodegenerative cognitive impairment: Status: Acute Code(s): G31.9 - Degenerative disease of nervous system, unspecified Assessment and Plan: 71 years old man who probably has degenerative dementia, moderate to severe, with significant behavioral component. Precise previous history is not available. 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 This type of infarct could be cardioembolic or from carotid artery. Because of significant underlying dementia, he would not be a candidate for any surgical intervention and for that reason I do not think exploring carotid artery stenosis is a reasonable idea. Continue his baseline medications. His examination is not suggestive of normal-pressure hydrocephalus despite his imaging revealing some ventriculomegaly. This type of patient typically require combination of medicines including some antipsychotics and mood stabilizers to manage day behavioral symptoms. He is also at relatively high risk for seizure disorder but also has been taking lamotrigine 100 mg twice a day, which would cover this condition even if he suffered from it. Now that his mental status has improved compared to his emergency room arrival, I do not think an EEG would be useful. Plan Plan 1. Continue with regular medications. 2. Neurologist reported that at this moment he does not have normal-pressure hydrocephalus. 3. Since the patient had being more irritable and labile we are increasing Seroquel up to 50 mg p.o. b.i.d. and 100 mg p.o. q.h.s.. 4. Reassessment with results. 5. Depakote level and comprehensive metabolic panel for November 20 a.m. the blood work came back within normal limits and a therapeutic level of Depakote. 6. Waiting for placement 7. Lexapro increased up to 10 mg p.o. on November 27. 8. Start clonidine 0.1 p.o. t.i.d. to target impulsivity. We have to discont inue that on December 01 due to hypotension. Due to increased agitation we restarted clonidine 0.05 p.o. t.i.d. on December 02. 9. Lamictal was increased up to 150 mg p.o. b.i.d.. 10. Adding p.r.n. Zyprexa. 11. Follow-up with urinalysis ordered on December 04. Reason for continued inpatient stay Substantial Risk for: inability to function, rapid decompensation and med/psych decompensation Time Spent With Patient Time: Total time managing care of this patient today ____ minutes. 20
[2022-12-05] MEDS: lamoTRIgine 25 MG TABLET 150 MG PO ×2 (08:26→19:47)
[2022-12-05] MEDS: Aspirin Enteric Coated 81 MG TABLET.DR PO (08:27)
[2022-12-05] MEDS: cloNIDine HCL 0.1 MG TABLET 0.05 MG PO ×3 (08:27→19:47)
[2022-12-05] MEDS: Divalproex Sodium ER 500 MG TAB.ER.24H 1500 MG PO (08:28)
[2022-12-05] MEDS: Escitalopram Oxalate 10 MG TABLET PO (08:29)
[2022-12-05] MEDS: Thiamine HCL 100 MG TABLET PO (08:29)
[2022-12-05] MEDS: QUEtiapine Fumarate 50 MG TABLET PO ×2 (08:29→16:54)
[2022-12-05 18:00] VITALS: BP 113/55; PULSE 68; RESP 16; TEMP 36.9
[2022-12-05] MEDS: Tamsulosin HCL 0.4 MG CAPSULE PO (19:47)
[2022-12-05] MEDS: Atorvastatin Calcium 40 MG TABLET PO (19:47)
[2022-12-05] MEDS: QUEtiapine Fumarate 100 MG TABLET PO (19:47)
[2022-12-06 08:00] VITALS: BP 146/67; PULSE 79; RESP 16; TEMP 36.4; O2SAT 95
[2022-12-06] MEDS: Thiamine HCL 100 MG TABLET PO (08:46)
[2022-12-06] MEDS: cloNIDine HCL 0.1 MG TABLET 0.05 MG PO ×3 (08:46→20:43)
[2022-12-06] MEDS: lamoTRIgine 25 MG TABLET 150 MG PO ×2 (08:47→20:42)
[2022-12-06] MEDS: QUEtiapine Fumarate 50 MG TABLET PO ×2 (08:48→17:39)
[2022-12-06] MEDS: Escitalopram Oxalate 10 MG TABLET PO (08:48)
[2022-12-06] MEDS: Aspirin Enteric Coated 81 MG TABLET.DR PO (08:48)
[2022-12-06] MEDS: Divalproex Sodium ER 500 MG TAB.ER.24H 1500 MG PO (08:49)
--- NOTE | 2022-12-06 16:09 | P.PNPSI_ITS ---
Subjective Subjective Date of Service: 12/06/22 Reason For Visit: DEMENTIA Interim History: seated in wheelchair in milieu. pleasant, engaging. would like to discharge from the hospital, otherwise no questions or complaints. per staff, no issues. demented, sexually inappropriate. can lash out and attack sitters/staff. Mental Status Exam Mental Status Exam Patient Appearance: Well Grooomed and Appropriate Patient Orientation: Person and Situation Level of Consciousness: Awake and Appropriate Patient Behavior: Guarded and Passive Mood Description: Withdrawn Affect Description: Constricted Patient Cognition Impaired: Yes Ability to Follow Directions: Good Speech Pattern: Clear Hallucinations: None Delusions: Not Present Thought Process: Distracted and Slowed Thinking Thought Content: positive for [place] and positive for Poverty of Content Judgement: Poor Diagnostics Vital Signs (24Hr): Vital Signs - 24 hr 12/05/22 18:00 12/06/22 08:00 Temperature 98.4 F 97.6 F Pulse Rate 68 79 Respiratory Rate 16 16 Blood Pressure 113/55 L 146/67 H Pulse Oximetry 95 Oxygen Delivery Method Room Air Room Air BMI result Body Mass Index 32.7 Labs 11/18/22 08:03 11/20/22 04:51 Imaging Radiology Impressions: ITS Impressions Head CT 11/12/22 19:17 IMPRESSION: 1. No acute intracranial pathology. 2. There is ventriculomegaly disproportionate to the extent of sulcal widening. This can be seen in the setting of normal pressure hydrocephalus. Recommend clinical correlation. Consider MRI evaluation if clinically appropriate. Chest X-Ray 11/13/22 14:13 IMPRESSION: No acute parenchymal disease. No radiopaque foreign bodies. KUB X-Ray 11/13/22 14:13 IMPRESSION: No metallic radiopaque foreign bodies identified within the abdomen. 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 Background chronic microangiopathy. 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 Medications Medications Current Medications Acetaminophen (Acetaminophen 325 Mg Tablet) 650 mg PO Q6H PRN PRN Reason: Headache/Pain Mild Scale (1-3) Al Hydroxide/Mg Hydroxide (Magnesium Hydrox/Alum Hydrox 30 Ml Oral.Susp) 30 ml PO Q6H PRN PRN Reason: Heartburn/Nausea Aspirin (Aspirin Enteric Coated 81 Mg Tablet.Dr) 81 mg PO DAILY [facility] Last Admin: 12/06/22 08:48 Dose: 81 mg Atorvastatin Calcium (Atorvastatin Calcium 40 Mg Tablet) 40 mg PO BEDTIME [facility] Last Admin: 12/05/22 19:47 Dose: 40 mg Clonidine HCl (Clonidine Hcl 0.1 Mg Tablet) 0.05 mg PO TID [facility]; Protocol Last Admin: 12/06/22 15:06 Dose: 0.05 mg Divalproex Sodium (Divalproex Sodium Er 500 Mg Tab.Er.24h) 1,500 mg PO DAILY [facility] Last Admin: 12/06/22 08:49 Dose: 1,500 mg Escitalopram Oxalate (Escitalopram Oxalate 10 Mg Tablet) 10 mg PO DAILY [facility] Last Admin: 12/06/22 08:48 Dose: 10 mg Hydroxyzine HCl (Hydroxyzine Hcl 25 Mg Tablet) 25 mg PO Q6H PRN PRN Reason: Anxiety Last Admin: 12/02/22 13:49 Dose: 25 mg Lamotrigine (Lamotrigine 25 Mg Tablet) 150 mg PO BID [facility] Last Admin: 12/06/22 08:47 Dose: 150 mg Magnesium Hydroxide (Milk Of Magnesia 30 Ml Oral.Susp) 30 ml PO DAILY PRN PRN Reason: Constipation Olanzapine (Olanzapine 5 Mg Tablet) 5 mg PO Q4H PRN PRN Reason: psychotic agitation Last Admin: 12/04/22 18:55 Dose: 5 mg Quetiapine Fumarate (Quetiapine Fumarate 100 Mg Tablet) 100 mg PO BEDTIME [facility] Last Admin: 12/05/22 19:47 Dose: 100 mg Quetiapine Fumarate (Quetiapine Fumarate 50 Mg Tablet) 50 mg PO BID@0800,1700 [facility] Last Admin: 12/06/22 08:48 Dose: 50 mg Tamsulosin HCl (Tamsulosin Hcl 0.4 Mg Capsule) 0.4 mg PO BEDTIME [facility] Last Admin: 12/05/22 19:47 Dose: 0.4 mg Thiamine HCl (Thiamine Hcl 100 Mg Tablet) 100 mg PO DAILY [facility] Last Admin: 12/06/22 08:46 Dose: 100 mg Trazodone HCl (Trazodone Hcl 50 Mg Tablet) 50 mg PO BEDTIME PRN PRN Reason: Insomnia Last Admin: 12/01/22 20:13 Dose: 50 mg Allergies Allergies Allergy/AdvReac Type Severity Reaction Status Date / Time No Known Allergies Allergy Verified 11/12/22 15:27 Assessment & Plan Assessment & Plan (1) Neurodegenerative cognitive impairment: Status: Acute Code(s): G31.9 - Degenerative disease of nervous system, unspecified Assessment and Plan: 71 years old man who probably has degenerative dementia, moderate to severe, with significant behavioral component. Precise previous history is not available. 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 This type of infarct could be cardioembolic or from carotid artery. Because of significant underlying dementia, he would not be a candidate for any surgical intervention and for that reason I do not think exploring carotid artery stenosis is a reasonable idea. Continue his baseline medications. His e xamination is not suggestive of normal-pressure hydrocephalus despite his imaging revealing some ventriculomegaly. This type of patient typically require combination of medicines including some antipsychotics and mood stabilizers to manage day behavioral symptoms. He is also at relatively high risk for seizure disorder but also has been taking lamotrigine 100 mg twice a day, which would cover this condition even if he suffered from it. Now that his mental status has improved compared to his emergency room arrival, I do not think an EEG would be useful. Plan Plan 1. Continue with regular medications. 2. Neurologist reported that at this moment he does not have normal-pressure hydrocephalus. 3. Since the patient had being more irritable and labile we are increasing Seroquel up to 50 mg p.o. b.i.d. and 100 mg p.o. q.h.s.. 4. Reassessment with results. 5. Depakote level and comprehensive metabolic panel for November 20 a.m. the blood work came back within normal limits and a therapeutic level of Depakote. 6. Waiting for placement 7. Lexapro increased up to 10 mg p.o. on November 27. 8. Start clonidine 0.1 p.o. t.i.d. to target impulsivity. We have to discontinue that on December 01 due to hypotension. Due to increased agitation we restarted clonidine 0.05 p.o. t.i.d. on December 02. 9. Lamictal was increased up to 150 mg p.o. b.i.d.. 10. Adding p.r.n. Zyprexa. 11. Follow-up with urinalysis ordered on December 0412/06: stable, pleasant today. no requests or complaints. continue current mgmt. Reason for continued inpatient stay Substantial Risk for: inability to function and rapid decompensation Time Spent With Patient Time: Total time managing care of this patient today ____ minutes.
[2022-12-06] MEDS: OLANZapine 5 MG TABLET PO (16:14)
[2022-12-06] MEDS: hydrOXYzine HCL 25 MG TABLET PO (16:14)
[2022-12-06 18:00] VITALS: BP 112/65; PULSE 67; RESP 16; TEMP 36.1; O2SAT 97
[2022-12-06] MEDS: Atorvastatin Calcium 40 MG TABLET PO (20:42)
[2022-12-06] MEDS: Tamsulosin HCL 0.4 MG CAPSULE PO (20:42)
[2022-12-06] MEDS: QUEtiapine Fumarate 100 MG TABLET PO (20:42)
[2022-12-06] MEDS: traZODone HCL 50 MG TABLET PO (20:43)
--- NOTE | 2022-12-06 23:30 | PC.NURSE ---
Pt seen in [facility]. Assumed care 19:30. See assessments for full details. Handoff report given 23:00.
[2022-12-07 08:00] VITALS: BP 111/75; PULSE 77; RESP 18; TEMP 36.2; O2SAT 97
[2022-12-07] MEDS: QUEtiapine Fumarate 50 MG TABLET PO ×2 (08:39→16:54)
[2022-12-07] MEDS: Aspirin Enteric Coated 81 MG TABLET.DR PO (08:40)
[2022-12-07] MEDS: Escitalopram Oxalate 10 MG TABLET PO (08:40)
[2022-12-07] MEDS: cloNIDine HCL 0.1 MG TABLET 0.05 MG PO ×3 (08:40→20:34)
[2022-12-07] MEDS: Divalproex Sodium ER 500 MG TAB.ER.24H 1500 MG PO (08:40)
[2022-12-07] MEDS: Thiamine HCL 100 MG TABLET PO (08:41)
[2022-12-07] MEDS: lamoTRIgine 25 MG TABLET 150 MG PO ×2 (08:41→20:33)
--- NOTE | 2022-12-07 10:20 | HO.PSYCHPN ---
Subjective Subjective Date of Service: 12/07/22 Reason For Visit: DEMENTIA Interim History: seated in wheelchair in milieu watching gameshow on TV. calm, pleasant, cooperative. no requests or complaints. per staff, no issues overnight. slept well. Mental Status Exam Mental Status Exam Patient Appearance: Well Grooomed and Appropriate Patient Orientation: Person and Situation Level of Consciousness: Awake and Appropriate Patient Behavior: Guarded and Passive Mood Description: Withdrawn Affect Description: Constricted Patient Cognition Impaired: Yes Ability to Follow Directions: Good Speech Pattern: Clear Hallucinations: None Delusions: Not Present Thought Process: Distracted and Slowed Thinking Thought Content: positive for [place] and positive for Poverty of Content Judgement: Poor Diagnostics Vital Signs (24Hr): Vital Signs - 24 hr 12/06/22 18:00 12/07/22 08:00 Temperature 96.9 F 97.2 F Pulse Rate 67 77 Respiratory Rate 16 18 Blood Pressure 112/65 111/75 Pulse Oximetry 97 97 Oxygen Delivery Method Room Air Room Air BMI result Body Mass Index 32.7 Labs 11/18/22 08:03 11/20/22 04:51 Imaging Radiology Impressions: ITS Impressions Head CT 11/12/22 19:17 IMPRESSION: 1. No acute intracranial pathology. 2. There is ventriculomegaly disproportionate to the extent of sulcal widening. This can be seen in the setting of normal pressure hydrocephalus. Recommend clinical correlation. Consider MRI evaluation if clinically appropriate. Chest X-Ray 11/13/22 14:13 IMPRESSION: No acute parenchymal disease. No radiopaque foreign bodies. KUB X-Ray 11/13/22 14:13 IMPRESSION: No metallic radiopaque foreign bodies identified within the abdomen. 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 Background chronic microangiopathy. 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 Medications Medications Current Medications Acetaminophen (Acetaminophen 325 Mg Tablet) 650 mg PO Q6H PRN PRN Reason: Headache/Pain Mild Scale (1-3) Al Hydroxide/Mg Hydroxide (Magnesium Hydrox/Alum Hydrox 30 Ml Oral.Susp) 30 ml PO Q6H PRN PRN Reason: Heartburn/Nausea Aspirin (Aspirin Enteric Coated 81 Mg Tablet.Dr) 81 mg PO DAILY [facility] Last Admin: 12/07/22 08:40 Dose: 81 mg Atorvastatin Calcium (Atorvastatin Calcium 40 Mg Tablet) 40 mg PO BEDTIME [facility] Last Admin: 12/06/22 20:42 Dose: 40 mg Clonidine HCl (Clonidine Hcl 0.1 Mg Tablet) 0.05 mg PO TID [facility]; Protocol Last Admin: 12/07/22 08:40 Dose: 0.05 mg Divalproex Sodium (Divalproex Sodium Er 500 Mg Tab.Er.24h) 1,500 mg PO DAILY [facility] Last Admin: 12/07/22 08:40 Dose: 1,500 mg Escitalopram Oxalate (Escitalopram Oxalate 10 Mg Tablet) 10 mg PO DAILY [facility] Last Admin: 12/07/22 08:40 Dose: 10 mg Hydroxyzine HCl (Hydroxyzine Hcl 25 Mg Tablet) 25 mg PO Q6H PRN PRN Reason: Anxiety Last Admin: 12/06/22 16:14 Dose: 25 mg Lamotrigine (Lamotrigine 25 Mg Tablet) 150 mg PO BID [facility] Last Admin: 12/07/22 08:41 Dose: 150 mg Magnesium Hydroxide (Milk Of Magnesia 30 Ml Oral.Susp) 30 ml PO DAILY PRN PRN Reason: Constipation Olanzapine (Olanzapine 5 Mg Tablet) 5 mg PO Q4H PRN PRN Reason: psychotic agitation Last Admin: 12/06/22 16:14 Dose: 5 mg Quetiapine Fumarate (Quetiapine Fumarate 100 Mg Tablet) 100 mg PO BEDTIME [facility] Last Admin: 12/06/22 20:42 Dose: 100 mg Quetiapine Fumarate (Quetiapine Fumarate 50 Mg Tablet) 50 mg PO BID@0800,1700 [facility] Last Admin: 12/07/22 08:39 Dose: 50 mg Tamsulosin HCl (Tamsulosin Hcl 0.4 Mg Capsule) 0.4 mg PO BEDTIME [facility] Last Admin: 12/06/22 20:42 Dose: 0.4 mg Thiamine HCl (Thiamine Hcl 100 Mg Tablet) 100 mg PO DAILY [facility] Last Admin: 12/07/22 08:41 Dose: 100 mg Trazodone HCl (Trazodone Hcl 50 Mg Tablet) 50 mg PO BEDTIME PRN PRN Reason: Insomnia Last Admin: 12/06/22 20:43 Dose: 50 mg Allergies Allergies Allergy/AdvReac Type Severity Reaction Status Date / Time No Known Allergies Allergy Verified 11/12/22 15:27 Assessment & Plan Assessment & Plan (1) Neurodegenerative cognitive impairment: Status: Acute Code(s): G31.9 - Degenerative disease of nervous system, unspecified Assessment and Plan: 71 years old man who probably has degenerative dementia, moderate to severe, with significant behavioral component. Precise previous history is not available. 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 This type of infarct could be cardioembolic or from carotid artery. Because of significant underlying dementia, he would not be a candidate for any surgical intervention and for that reason I do not think exploring carotid artery stenosis is a reasonable idea. Continue his baseline medications. His examination is not suggestive of normal-pressure hydrocephalus despite his imaging revealing some ventriculomegaly. This type of patient typically require combination of medicines including some antipsychotics and mood stabilizers to manage day behavioral symptoms. He is also at relatively high risk for seizure disorder but also has been taking lamotrigine 100 mg twice a day, which would cover this condition even if he suffered from it. Now that his mental status has improved compared to his emergency room arrival, I do not think an EEG would be useful. Plan Plan 1. Continue with regular medications. 2. Neurologist reported that at this moment he does not have normal-pressure hydrocephalus. 3. Since the patient had being more irritable and labile we are increasing Seroquel up to 50 mg p.o. b.i.d. and 100 mg p.o. q.h.s.. 4. Reassessment with results. 5. Depakote level and comprehensive metabolic panel for November 20 a.m. the blood work came back within normal limits and a therapeutic level of Depakote. 6. Waiting for placement 7. Lexapro increased up to 10 mg p.o. on November 27. 8. Start clonidine 0.1 p.o. t.i.d. to target impulsivity. We have to discontinue that on December 01 due to hypotension. Due to increased agitation we restarted clonidine 0.05 p.o. t.i.d. on December 02. 9. Lamictal was increased up to 150 mg p.o. b.i.d.. 10. Adding p.r.n. Zyprexa. 11. Follow-up with urinalysis ordered on December 04. 12/06: stable, pleasant today. no requests or complaints. continue current mgmt. 12/07: as for yesterday. continue current mgmt. Reason for continued inpatient stay Substantial Risk for: inability to function and rapid decompensation Time Spent With Patient Time: Total time managing care of this patient today ____ minutes.
[2022-12-07 18:00] VITALS: BP 105/65; PULSE 62; RESP 16; TEMP 35.9; O2SAT 95
[2022-12-07] MEDS: Atorvastatin Calcium 40 MG TABLET PO (20:34)
[2022-12-07] MEDS: traZODone HCL 50 MG TABLET PO (20:34)
[2022-12-07] MEDS: QUEtiapine Fumarate 100 MG TABLET PO (20:36)
[2022-12-07] MEDS: Tamsulosin HCL 0.4 MG CAPSULE PO (20:36)
[2022-12-08 08:59] VITALS: BP 124/67; PULSE 80; RESP 16; TEMP 37; O2SAT 97
[2022-12-08] MEDS: lamoTRIgine 25 MG TABLET 150 MG PO ×2 (09:05→20:44)
[2022-12-08] MEDS: OLANZapine 5 MG TABLET PO ×2 (09:05→18:47)
[2022-12-08] MEDS: cloNIDine HCL 0.1 MG TABLET 0.05 MG PO ×3 (09:05→20:45)
[2022-12-08] MEDS: hydrOXYzine HCL 25 MG TABLET PO ×2 (09:05→15:38)
[2022-12-08] MEDS: Divalproex Sodium ER 500 MG TAB.ER.24H 1500 MG PO (09:06)
[2022-12-08] MEDS: Escitalopram Oxalate 10 MG TABLET PO (09:06)
[2022-12-08] MEDS: Thiamine HCL 100 MG TABLET PO (09:07)
[2022-12-08] MEDS: QUEtiapine Fumarate 50 MG TABLET PO ×2 (09:07→18:02)
[2022-12-08] MEDS: Aspirin Enteric Coated 81 MG TABLET.DR PO (09:07)
--- NOTE | 2022-12-08 11:44 | HO.PSYCHPN ---
Subjective Subjective Date of Service: 12/08/22 Reason For Visit: DEMENTIA Subjective Notes: Conditional Voluntary Interim History: The nursing staff reported the patient had been medication and meal compliant he had been on one-to-one due to his restlessness. We are changing today to constant observation. The psychotherapist social worker reported that their house is reviewing him but he needs to be financially cleared 1st. On interview the patient reported no new symptoms he wants to go to his home but he is very confused. Mental Status Exam Mental Status Exam Patient Appearance: Well Grooomed and Appropriate Patient Orientation: Person and Situation Level of Consciousness: Awake and Appropriate Patient Behavior: Guarded and Passive Mood Description: Withdrawn Affect Description: Constricted Patient Cognition Impaired: Yes Ability to Follow Directions: Good Speech Pattern: Clear Hallucinations: None Delusions: Not Present Thought Process: Linear Thought Content: positive for Circumstantial Judgement: Fair Diagnostics Vital Signs (24Hr): Vital Signs - 24 hr 12/07/22 18:00 12/08/22 08:59 Temperature 96.7 F L 98.6 F Pulse Rate 62 80 Respiratory Rate 16 16 Blood Pressure 105/65 124/67 Pulse Oximetry 95 97 Oxygen Delivery Method Room Air Room Air BMI result Body Mass Index 32.7 Labs 11/18/22 08:03 11/20/22 04:51 Imaging Radiology Impressions: ITS Impressions Head CT 11/12/22 19:17 IMPRESSION: 1. No acute intracranial pathology. 2. There is ventriculomegaly disproportionate to the extent of sulcal widening. This can be seen in the setting of normal pressure hydrocephalus. Recommend clinical correlation. Consider MRI evaluation if clinically appropriate. Chest X-Ray 11/13/22 14:13 IMPRESSION: No acute parenchymal disease. No radiopaque foreign bodies. KUB X-Ray 11/13/22 14:13 IMPRESSION: No metallic radiopaque foreign bodies identified within the abdomen. 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 Background chronic microangiopathy. 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 Medications Medications Current Medications Acetaminophen (Acetaminophen 325 Mg Tablet) 650 mg PO Q6H PRN PRN Reason: Headache/Pain Mild Scale (1-3) Al Hydroxide/Mg Hydroxide (Magnesium Hydrox/Alum Hydrox 30 Ml Oral.Susp) 30 ml PO Q6H PRN PRN Reason: Heartburn/Nausea Aspirin (Aspirin Enteric Coated 81 Mg Tablet.Dr) 81 mg PO DAILY [facility] Last Admin: 12/08/22 09:07 Dose: 81 mg Atorvastatin Calcium (Atorvastatin Calcium 40 Mg Tablet) 40 mg PO BEDTIME [facility] Last Admin: 12/07/22 20:34 Dose: 40 mg Clonidine HCl (Clonidine Hcl 0.1 Mg Tablet) 0.05 mg PO TID [facility]; Protocol Last Admin: 12/08/22 09:05 Dose: 0.05 mg Divalproex Sodium (Divalproex Sodium Er 500 Mg Tab.Er.24h) 1,500 mg PO DAILY [facility] Last Admin: 12/08/22 09:06 Dose: 1,500 mg Escitalopram Oxalate (Escitalopram Oxalate 10 Mg Tablet) 10 mg PO DAILY [facility] Last Admin: 12/08/22 09:06 Dose: 10 mg Hydroxyzine HCl (Hydroxyzine Hcl 25 Mg Tablet) 25 mg PO Q6H PRN PRN Reason: Anxiety Last Admin: 12/08/22 09:05 Dose: 25 mg Lamotrigine (Lamotrigine 25 Mg Tablet) 150 mg PO BID [facility] Last Admin: 12/08/22 09:05 Dose: 150 mg Magnesium Hydroxide (Milk Of Magnesia 30 Ml Oral.Susp) 30 ml PO DAILY PRN PRN Reason: Constipation Olanzapine (Olanzapine 5 Mg Tablet) 5 mg PO Q4H PRN PRN Reason: psychotic agitation Last Admin: 12/08/22 09:05 Dose: 5 mg Quetiapine Fumarate (Quetiapine Fumarate 100 Mg Tablet) 100 mg PO BEDTIME [facility] Last Admin: 12/07/22 20:36 Dose: 100 mg Quetiapine Fumarate (Quetiapine Fumarate 50 Mg Tablet) 50 mg PO BID@0800,1700 [facility] Last Admin: 12/08/22 09:07 Dose: 50 mg Tamsulosin HCl (Tamsulosin Hcl 0.4 Mg Capsule) 0.4 mg PO BEDTIME [facility] Last Admin: 12/07/22 20:36 Dose: 0.4 mg Thiamine HCl (Thiamine Hcl 100 Mg Tablet) 100 mg PO DAILY [facility] Last Admin: 12/08/22 09:07 Dose: 100 mg Trazodone HCl (Trazodone Hcl 50 Mg Tablet) 50 mg PO BEDTIME PRN PRN Reason: Insomnia Last Admin: 12/07/22 20:34 Dose: 50 mg Allergies Allergies Allergy/AdvReac Type Severity Reaction Status Date / Time No Known Allergies Allergy Verified 11/12/22 15:27 Assessment & Plan Assessment & Plan (1) Neurodegenerative cognitive impairment: Status: Acute Code(s): G31.9 - Degenerative disease of nervous system, unspecified Assessment and Plan: 71 years old man who probably has degenerative dementia, moderate to severe, with significant behavioral component. Precise previous history is not available. 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 This type of infarct could be cardioembolic or from carotid artery. Because of significant underlying dementia, he would not be a candidate for any surgical intervention and for that reason I do not think exploring carotid artery stenosis is a reasonable idea. Continue his baseline medications. His examination is not suggestive of normal-pressure hydrocephalus despite his imaging revealing some ventriculomegaly. This type of patient typically require combination of medicines including some antipsychotics and mood stabilizers to manage day behavioral symptoms. He is also at relatively high risk for seizure disorder but also has been taking lamotrigine 100 mg twice a day, which would cover this condition even if he suffered from it. Now that his mental status has improved compared to his emergency room arrival, I do not think an EEG would be useful. Plan Plan 1. Continue with regular medications. 2. Neurologist reported that at this moment he does not have normal-pressure hydrocephalus. 3. Since the patient had being more irritable and labile we are increasing Seroquel up to 50 mg p.o. b.i.d. and 100 mg p.o. q.h.s.. 4. Reassessment with results. 5. Depakote level and comprehensive metabolic panel for November 20 a.m. the blood work came back within normal limits and a therapeutic level of Depakote. 6. Waiting for placement 7. Lexapro increased up to 10 mg p.o. on November 27. 8. Start clonidine 0.1 p.o. t.i.d. to target impulsivity. We have to discontinue that on December 01 due to hypotension. Due to increased agitation we restarted clonidine 0.05 p.o. t.i.d. on December 02. 9. Lamictal was increased up to 150 mg p.o. b.i.d.. 10. Adding p.r.n. Zyprexa. 11. Follow-up with urinalysis ordered on December 04. No new symptoms Reason for continued inpatient stay Substantial Risk for: inability to function, rapid decompensation and med/psych decompensation Time Spent With Patient Time: Total time managing care of this patient today __20__ minutes.
[2022-12-08 18:00] VITALS: BP 101/56; PULSE 66; RESP 17; TEMP 36.3; O2SAT 95
[2022-12-08] MEDS: QUEtiapine Fumarate 100 MG TABLET PO (20:44)
[2022-12-08] MEDS: Tamsulosin HCL 0.4 MG CAPSULE PO (20:44)
[2022-12-08] MEDS: Atorvastatin Calcium 40 MG TABLET PO (20:45)
[2022-12-08] MEDS: traZODone HCL 50 MG TABLET PO (20:45)
[2022-12-09 08:00] VITALS: BP 118/82; PULSE 74; RESP 18; TEMP 36; O2SAT 96
[2022-12-09] MEDS: Thiamine HCL 100 MG TABLET PO (08:27)
[2022-12-09] MEDS: QUEtiapine Fumarate 50 MG TABLET PO ×2 (08:27→16:41)
[2022-12-09] MEDS: Divalproex Sodium ER 500 MG TAB.ER.24H 1500 MG PO (08:27)
[2022-12-09] MEDS: Aspirin Enteric Coated 81 MG TABLET.DR PO (08:27)
[2022-12-09] MEDS: Escitalopram Oxalate 10 MG TABLET PO (08:27)
[2022-12-09] MEDS: lamoTRIgine 25 MG TABLET 150 MG PO ×2 (08:27→20:48)
[2022-12-09] MEDS: cloNIDine HCL 0.1 MG TABLET 0.05 MG PO ×3 (08:28→20:49)
--- NOTE | 2022-12-09 13:30 | P.PNPSI_ITS ---
Subjective Subjective Date of Service: 12/09/22 Reason For Visit: DEMENTIA Subjective Notes: Conditional Voluntary Interim History: The nursing staff reported that yesterday he was intrusive in the morning but did receive p.r.n. with good results. Currently he is on constant observation he is doing fairly well. He is medication and meal compliant he went to sleep fairly last night. The forensic social worker reported that [facility] still wo rking on the financial clearance. On interview the patient denies new symptoms, pleasantly confused, easily redirectable. Waiting for placement. Mental Status Exam Mental Status Exam Patient Appearance: Well Grooomed and Appropriate Patient Orientation: Person and Situation Level of Consciousness: Awake and Appropriate Patient Behavior: Guarded and Passive Mood Description: Withdrawn Affect Description: Constricted Patient Cognition Impaired: Yes Ability to Follow Directions: Good Speech Pattern: Clear Hallucinations: None Delusions: Not Present Thought Process: Illogical and Distracted Thought Content: positive for [place] and positive for [place] Judgement: Fair Diagnostics Vital Signs (24Hr): Vital Signs - 24 hr 12/08/22 18:00 12/09/22 08:00 Temperature 97.3 F 96.8 F Pulse Rate 66 74 Respiratory Rate 17 18 Blood Pressure 101/56 L 118/82 Pulse Oximetry 95 96 Oxygen Delivery Method Room Air Room Air BMI result Body Mass Index 32.7 Labs 11/18/22 08:03 11/20/22 04:51 Imaging Radiology Impressions: ITS Impressions Head CT 11/12/22 19:17 IMPRESSION: 1. No acute intracranial pathology. 2. There is ventriculomegaly disproportionate to the extent of sulcal widening. This can be seen in the setting of normal pressure hydrocephalus. Recommend clinical correlation. Consider MRI evaluation if clinically appropriate. Chest X-Ray 11/13/22 14:13 IMPRESSION: No acute parenchymal disease. No radiopaque foreign bodies. KUB X-Ray 11/13/22 14:13 IMPRESSION: No metallic radiopaque foreign bodies identified within the abdomen. 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 Background chronic microangiopathy. 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 Medications Medications Current Medications Acetaminophen (Acetaminophen 325 Mg Tablet) 650 mg PO Q6H PRN PRN Reason: Headache/Pain Mild Scale (1-3) Al Hydroxide/Mg Hydroxide (Magnesium Hydrox/Alum Hydrox 30 Ml Oral.Susp) 30 ml PO Q6H PRN PRN Reason: Heartburn/Nausea Aspirin (Aspirin Enteric Coated 81 Mg Tablet.Dr) 81 mg PO DAILY [facility] Last Admin: 12/09/22 08:27 Dose: 81 mg Atorvastatin Calcium (Atorvastatin Calcium 40 Mg Tablet) 40 mg PO BEDTIME [facility] Last Admin: 12/08/22 20:45 Dose: 40 mg Clonidine HCl (Clonidine Hcl 0.1 Mg Tablet) 0.05 mg PO TID [facility]; Protocol Last Admin: 12/09/22 08:28 Dose: 0.05 mg Divalproex Sodium (Divalproex Sodium Er 500 Mg Tab.Er.24h) 1,500 mg PO DAILY [facility] Last Admin: 12/09/22 08:27 Dose: 1,500 mg Escitalopram Oxalate (Escitalopram Oxalate 10 Mg Tablet) 10 mg PO DAILY [facility] Last Admin: 12/09/22 08:27 Dose: 10 mg Hydroxyzine HCl (Hydroxyzine Hcl 25 Mg Tablet) 25 mg PO Q6H PRN PRN Reason: Anxiety Last Admin: 12/08/22 15:38 Dose: 25 mg Lamotrigine (Lamotrigine 25 Mg Tablet) 150 mg PO BID [facility] Last Admin: 12/09/22 08:27 Dose: 150 mg Magnesium Hydroxide (Milk Of Magnesia 30 Ml Oral.Susp) 30 ml PO DAILY PRN PRN Reason: Constipation Olanzapine (Olanzapine 5 Mg Tablet) 5 mg PO Q4H PRN PRN Reason: psychotic agitation Last Admin: 12/08/22 18:47 Dose: 5 mg Quetiapine Fumarate (Quetiapine Fumarate 100 Mg Tablet) 100 mg PO BEDTIME [facility] Last Admin: 12/08/22 20:44 Dose: 100 mg Quetiapine Fumarate (Quetiapine Fumarate 50 Mg Tablet) 50 mg PO BID@0800,1700 [facility] Last Admin: 12/09/22 08:27 Dose: 50 mg Tamsulosin HCl (Tamsulosin Hcl 0.4 Mg Capsule) 0.4 mg PO BEDTIME [facility] Last Admin: 12/08/22 20:44 Dose: 0.4 mg Thiamine HCl (Thiamine Hcl 100 Mg Tablet) 100 mg PO DAILY [facility] Last Admin: 12/09/22 08:27 Dose: 100 mg Trazodone HCl (Trazodone Hcl 50 Mg Tablet) 50 mg PO BEDTIME PRN PRN Reason: Insomnia Last Admin: 12/08/22 20:45 Dose: 50 mg Allergies Allergies Allergy/AdvReac Type Severity Reaction Status Date / Time No Known Allergies Allergy Verified 11/12/22 15:27 Assessment & Plan Assessment & Plan (1) Neurodegenerative cognitive impairment: Status: Acute Code(s): G31.9 - Degenerative disease of nervous system, unspecified Assessment and Plan: 71 years old man who probably has degenerative dementia, moderate to severe, with significant behavioral component. Precise previous history is not available. 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 This type of infarct could be cardioembolic or from carotid artery. Because of significant underlying dementia, he would not be a candidate for any surgical intervention and for that reason I do not think exploring carotid artery stenosis is a reasonable idea. Continue his baseline medications. His examination is not suggestive of normal-pressure hydrocephalus despite his imaging revealing some ventriculomegaly. This type of patient typically require combination of medicines including some antipsychotics and mood stabilizers to manage day behavioral symptoms. He is also at relatively high risk for seizure disorder but also has been taking lamotrigine 100 mg twice a day, which would cover this condition even if he suffered from it. Now that his mental status has improved compared to his emergency room arrival, I do not think an EEG would be useful. Plan Plan 1. Continue with regular medications. 2. Neurologist reported that at this moment he does not have normal-pressure hydrocephalus. 3. Since the patient had being more irritable and labile we are increasing Seroquel up to 50 mg p.o. b.i.d. and 100 mg p.o. q.h.s.. 4. Reassessment with results. 5. Depakote level and comprehensive metabolic panel for November 20 a.m. the blo od work came back within normal limits and a therapeutic level of Depakote. 6. Waiting for placement 7. Lexapro increased up to 10 mg p.o. on November 27. 8. Start clonidine 0.1 p.o. t.i.d. to target impulsivity. We have to discontinue that on December 01 due to hypotension. Due to increased agitation we restarted clonidine 0.05 p.o. t.i.d. on December 02. 9. Lamictal was increased up to 150 mg p.o. b.i.d.. 10. Adding p.r.n. Zyprexa. 11. Follow-up with urinalysis ordered on December 04. No new symptoms Reason for continued inpatient stay Substantial Risk for: inability to function, rapid decompensation and med/psych decompensation Time Spent With Patient Time: Total time managing care of this patient today __20__ minutes.
[2022-12-09 15:08] VITALS: BP 109/71; PULSE 65
[2022-12-09 16:21] VITALS: BP 131/66; PULSE 78; RESP 20; O2SAT 98
--- NOTE | 2022-12-09 16:29 | PM.EVENT ---
Event Note Date of Service: 12/09/22 Event Note: 71 year old male with history of CVA, subarachnoid hemorrhage, TBI, HLD, etoh dependence, and dementia [facility] with consult placed to hospitalist service for evaluation of fall. Per patient and nursing staff patient was in the bathroom holding on to the bar transferring from the toilet to wheelchair. He was being assisted by aid. Unfortuantely lost his footing, falling backward and hitting posterior scalp on the sink. There was no LOC. He is able to recall details of the fall and mentation is baseline per staff. He is alert and oriented to self and birthdate. He has no headache, visual changes, dizziness, unilateral weakness or paresthesias. There is no facial droop or slurred speech. Eyes are PERRLA and CN II-XII in tact. 5/5 strength BUE and BLE. No pronator drift. Given patient's age and aspirin use along with history of head trauma, will check Head ct. He other aburto not complaining of any pain and moving all extremities freely. Time Spent With Patient Time: Total time managing care of this patient today ____ minutes.
--- NOTE | 2022-12-09 17:03 | PC.NURSE ---
This insurance underwriter was alerted at 1609 that Polo fell. Upon assessment Polo was alert and oriented to self and place which is baseline. The 1:1 sitter explained that she was attempting to toilet Polo and he slipped and fell on his bottom and hit his head on the sink. There was no LOC or seizure activity observed. Vital signs were taken (78, 20, 131/66, 98%). Neuros intact. No observable sign of injury and Polo reported some pain to the back of his head; no observable injury to back of head. MD Ascencio notified and JONATHAN Myers came to assess. Polo was assisted onto the toilet by staff (2 rns) without incident. Stat head CT ordered and awaiting call from radiology. RN supervisor concrete pipe plant Brooke Knight notified via telephone at [phone]. Will continue post fall protocol per hospital policy.
[2022-12-09 18:00] VITALS: BP 127/73; PULSE 84; RESP 16; TEMP 36.3; O2SAT 97
[2022-12-09 20:00] VITALS: BP 104/56; PULSE 60; RESP 16; O2SAT 95
[2022-12-09] MEDS: hydrOXYzine HCL 25 MG TABLET PO (20:47)
[2022-12-09] MEDS: traZODone HCL 50 MG TABLET PO (20:48)
[2022-12-09] MEDS: Atorvastatin Calcium 40 MG TABLET PO (20:48)
[2022-12-09] MEDS: QUEtiapine Fumarate 100 MG TABLET PO (20:48)
[2022-12-09] MEDS: Tamsulosin HCL 0.4 MG CAPSULE PO (20:50)
[2022-12-10 08:45] VITALS: BP 113/60; PULSE 80; RESP 16; TEMP 36.6; O2SAT 95
[2022-12-10] MEDS: lamoTRIgine 25 MG TABLET 150 MG PO ×2 (08:56→20:58)
[2022-12-10] MEDS: Divalproex Sodium ER 500 MG TAB.ER.24H 1500 MG PO (08:56)
[2022-12-10] MEDS: cloNIDine HCL 0.1 MG TABLET 0.05 MG PO ×3 (08:57→20:57)
[2022-12-10] MEDS: QUEtiapine Fumarate 50 MG TABLET PO ×2 (08:57→16:44)
[2022-12-10] MEDS: Escitalopram Oxalate 10 MG TABLET PO (08:57)
[2022-12-10] MEDS: Aspirin Enteric Coated 81 MG TABLET.DR PO (08:58)
[2022-12-10] MEDS: Thiamine HCL 100 MG TABLET PO (08:59)
--- NOTE | 2022-12-10 14:45 | P.PNPSI_ITS ---
Subjective Subjective Date of Service: 12/10/22 Reason For Visit: DEMENTIA Subjective Notes: Conditional Voluntary Interim History: The nursing staff reported the patient fell in the bathroom yesterday afternoon and he had a CT scan and follow by Medicine. No changes in his mental status. The social director reported the [facility] is working on the findings part. On interview the patient denies new symptoms pleasantly confused easily redirectable. Mental Status Exam Mental Status Exam Patient Appearance: Well Grooomed and Appropriate Patient Orientation: Person and Situation Level of Consciousness: Awake and Appropriate Patient Behavior: Guarded and Passive Mood Description: Calm Affect Description: Constricted Patient Cognition Impaired: Yes Ability to Follow Directions: Good Speech Pattern: Clear Hallucinations: None Delusions: Not Present Thought Process: Distracted and Evasive Thought Content: positive for [place] and positive for [place] Content Judgement: Fair Diagnostics Vital Signs (24Hr): Vital Signs - 24 hr 12/09/22 15:08 12/09/22 16:21 12/09/22 18:00 Temperature 97.3 F Pulse Rate 65 78 84 Respiratory Rate 20 16 Blood Pressure 109/71 131/66 127/73 Pulse Oximetry 98 97 Oxygen Delivery Method Room Air Room Air 12/09/22 20:00 12/10/22 08:45 Temperature 97.8 F Pulse Rate 60 80 Respiratory Rate 16 16 Blood Pressure 104/56 L 113/60 Pulse Oximetry 95 95 Oxygen Delivery Method Room Air Room Air BMI result Body Mass Index 32.7 Labs 11/18/22 08:03 11/20/22 04:51 Imaging Radiology Impressions: ITS Impressions Head CT 11/12/22 19:17 IMPRESSION: 1. No acute intracranial pathology. 2. There is ventriculomegaly disproportionate to the extent of sulcal widening. This can be seen in the setting of normal pressure hydrocephalus. Recommend clinical correlation. Consider MRI evaluation if clinically appropriate. Chest X-Ray 11/13/22 14:13 IMPRESSION: No acute parenchymal disease. No radiopaque foreign bodies. KUB X-Ray 11/13/22 14:13 IMPRESSION: No metallic radiopaque foreign bodies identified within the abdomen. 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 Background chronic microangiopathy. 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 Head CT 12/09/22 17:32 IMPRESSION: Cerebral atrophy and mild periventricular and central white matter diminished attenuation which is nonspecific but likely represent microvascular disease. No acute intracranial abnormality. Medications Medications Current Medications Acetaminophen (Acetaminophen 325 Mg Tablet) 650 mg PO Q6H PRN PRN Reason: Headache/Pain Mild Scale (1-3) Al Hydroxide/Mg Hydroxide (Magnesium Hydrox/Alum Hydrox 30 Ml Oral.Susp) 30 ml PO Q6H PRN PRN Reason: Heartburn/Nausea Aspirin (Aspirin Enteric Coated 81 Mg Tablet.Dr) 81 mg PO DAILY [facility] Last Admin: 12/10/22 08:58 Dose: 81 mg Atorvastatin Calcium (Atorvastatin Calcium 40 Mg Tablet) 40 mg PO BEDTIME [facility] Last Admin: 12/09/22 20:48 Dose: 40 mg Clonidine HCl (Clonidine Hcl 0.1 Mg Tablet) 0.05 mg PO TID [facility]; Protocol Last Admin: 12/10/22 08:57 Dose: 0.05 mg Divalproex Sodium (Divalproex Sodium Er 500 Mg Tab.Er.24h) 1,500 mg PO DAILY [facility] Last Admin: 12/10/22 08:56 Dose: 1,500 mg Escitalopram Oxalate (Escitalopram Oxalate 10 Mg Tablet) 10 mg PO DAILY [facility] Last Admin: 12/10/22 08:57 Dose: 10 mg Hydroxyzine HCl (Hydroxyzine Hcl 25 Mg Tablet) 25 mg PO Q6H PRN PRN Reason: Anxiety Last Admin: 12/09/22 20:47 Dose: 25 mg Lamotrigine (Lamotrigine 25 Mg Tablet) 150 mg PO BID [facility] Last Admin: 12/10/22 08:56 Dose: 150 mg Magnesium Hydroxide (Milk Of Magnesia 30 Ml Oral.Susp) 30 ml PO DAILY PRN PRN Reason: Constipation Olanzapine (Olanzapine 5 Mg Tablet) 5 mg PO Q4H PRN PRN Reason: psychotic agitation Last Admin: 12/08/22 18:47 Dose: 5 mg Quetiapine Fumarate (Quetiapine Fumarate 100 Mg Tablet) 100 mg PO BEDTIME [facility] Last Admin: 12/09/22 20:48 Dose: 100 mg Quetiapine Fumarate (Quetiapine Fumarate 50 Mg Tablet) 50 mg PO BID@0800,1700 [facility] Last Admin: 12/10/22 08:57 Dose: 50 mg Tamsulosin HCl (Tamsulosin Hcl 0.4 Mg Capsule) 0.4 mg PO BEDTIME [facility] Last Admin: 12/09/22 20:50 Dose: 0.4 mg Thiamine HCl (Thiamine Hcl 100 Mg Tablet) 100 mg PO DAILY [facility] Last Admin: 12/10/22 08:59 Dose: 100 mg Trazodone HCl (Trazodone Hcl 50 Mg Tablet) 50 mg PO BEDTIME PRN PRN Reason: Insomnia Last Admin: 12/09/22 20:48 Dose: 50 mg Allergies Allergies Allergy/AdvReac Type Severity Reaction Status Date / Time No Known Allergies Allergy Verified 11/12/22 15:27 Assessment & Plan Assessment & Plan (1) Neurodegenerative cognitive impairment: Status: Acute Code(s): G31.9 - Degenerative disease of nervous system, unspecified Assessment and Plan: 71 years old man who probably has degenerative dementia, moderate to severe, with significant behavioral component. Precise previous history is not available. 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 This type of infarct could be cardioembolic or from carotid artery. Because of significant underlying dementia, he would not be a candidate for any surgical intervention and for that reason I do not think exploring carotid artery stenosis is a reasonable idea. Continue his baseline medications. His examination is not suggestive of normal-pressure hydrocephalus despite his imaging revealing some ventriculomegaly. This type of patient typically require combination of medicines including some antipsychotics and mood stabilizers to manage day behavioral symptoms. He is also at relatively high risk for seizure disorder but also has been taking lamotrigine 100 mg twice a day, which would cover this condition even if he suffered from it. Now that his mental status has improved compared to his emergency room arrival, I do not think an EEG would be useful. Plan Plan 1. Continue with regular medications. 2. Neurologist reported that at this moment he does not have normal-pressure hydrocephalus. 3. Since the patient had being more irritable and labile we are increasing Seroquel up to 50 mg p.o. b.i.d. and 100 mg p.o. q.h.s.. 4. Reassessment with results. 5. Depakote level and comprehensive metabolic panel for November 20 a.m. the blo od work came back within normal limits and a therapeutic level of Depakote. 6. Waiting for placement 7. Lexapro increased up to 10 mg p.o. on November 27. 8. Start clonidine 0.1 p.o. t.i.d. to target impulsivity. We have to discontinue that on December 01 due to hypotension. Due to increased agitation we restarted clonidine 0.05 p.o. t.i.d. on December 02. 9. Lamictal was increased up to 150 mg p.o. b.i.d.. 10. Adding p.r.n. Zyprexa. 11. Follow-up with urinalysis ordered on December 04. No new symptoms Reason for continued inpatient stay Substantial Risk for: inability to function, rapid decompensation and med/psych decompensation Time Spent With Patient Time: Total time managing care of this patient today _20___ minutes.
[2022-12-10 20:05] VITALS: BP 108/69; PULSE 62; RESP 16; TEMP 36.2; O2SAT 95
[2022-12-10] MEDS: QUEtiapine Fumarate 100 MG TABLET PO (20:57)
[2022-12-10] MEDS: Tamsulosin HCL 0.4 MG CAPSULE PO (20:58)
[2022-12-10] MEDS: Atorvastatin Calcium 40 MG TABLET PO (20:59)
[2022-12-10] MEDS: traZODone HCL 50 MG TABLET PO (20:59)
[2022-12-11 08:17] VITALS: BP 131/74; PULSE 84; RESP 16; TEMP 36.1; O2SAT 94
[2022-12-11] MEDS: Divalproex Sodium ER 500 MG TAB.ER.24H 1500 MG PO (08:18)
[2022-12-11] MEDS: Aspirin Enteric Coated 81 MG TABLET.DR PO (08:18)
[2022-12-11] MEDS: Escitalopram Oxalate 10 MG TABLET PO (08:18)
[2022-12-11] MEDS: QUEtiapine Fumarate 50 MG TABLET PO ×2 (08:18→17:25)
[2022-12-11] MEDS: cloNIDine HCL 0.1 MG TABLET 0.05 MG PO ×3 (08:18→21:15)
[2022-12-11] MEDS: Thiamine HCL 100 MG TABLET PO (08:18)
[2022-12-11] MEDS: lamoTRIgine 25 MG TABLET 150 MG PO ×2 (08:18→21:16)
--- NOTE | 2022-12-11 13:50 | HO.PSYCHPN ---
Subjective Subjective Date of Service: 12/11/22 Reason For Visit: DEMENTIA Subjective Notes: Conditional Voluntary Interim History: The nursing staff reported the patient had been medication and meal compliant appropriate at times. The professor of social work reported the [employer] has seen him apparently he can pay probably only for 2 months. The Medicaid application has been already started and we will follow. On interview the patient denies new symptoms, pleasantly confused easily redirectable. Mental Status Exam Mental Status Exam Patient Appearance: Well Grooomed and Appropriate Patient Orientation: Person Level of Consciousness: Awake and Appropriate Patient Behavior: Passive Mood Description: Calm Affect Description: Constricted Patient Cognition Impaired: Yes Ability to Follow Directions: Good Speech Pattern: Clear Hallucinations: None Delusions: Not Present Thought Process: Distracted and Evasive Thought Content: positive for [place] and positive for Circumstantial Judgement: Fair Diagnostics Vital Signs (24Hr): Vital Signs - 24 hr 12/10/22 20:05 12/11/22 08:17 Temperature 97.1 F 97 F Pulse Rate 62 84 Respiratory Rate 16 16 Blood Pressure 108/69 131/74 Pulse Oximetry 95 94 Oxygen Delivery Method Room Air Room Air BMI result Body Mass Index 32.7 Labs 11/18/22 08:03 11/20/22 04:51 Imaging Radiology Impressions: ITS Impressions Head CT 11/12/22 19:17 IMPRESSION: 1. No acute intracranial pathology. 2. There is ventriculomegaly disproportionate to the extent of sulcal widening. This can be seen in the setting of normal pressure hydrocephalus. Recommend clinical correlation. Consider MRI evaluation if clinically appropriate. Chest X-Ray 11/13/22 14:13 IMPRESSION: No acute parenchymal disease. No radiopaque foreign bodies. KUB X-Ray 11/13/22 14:13 IMPRESSION: No metallic radiopaque foreign bodies identified within the abdomen. 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 Background chronic microangiopathy. 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 Head CT 12/09/22 17:32 IMPRESSION: Cerebral atrophy and mild periventricular and central white matter diminished attenuation which is nonspecific but likely represent microvascular disease. No acute intracranial abnormality. Medications Medications Current Medications Acetaminophen (Acetaminophen 325 Mg Tablet) 650 mg PO Q6H PRN PRN Reason: Headache/Pain Mild Scale (1-3) Al Hydroxide/Mg Hydroxide (Magnesium Hydrox/Alum Hydrox 30 Ml Oral.Susp) 30 ml PO Q6H PRN PRN Reason: Heartburn/Nausea Aspirin (Aspirin Enteric Coated 81 Mg Tablet.Dr) 81 mg PO DAILY [facility] Last Admin: 12/11/22 08:18 Dose: 81 mg Atorvastatin Calcium (Atorvastatin Calcium 40 Mg Tablet) 40 mg PO BEDTIME [facility] Last Admin: 12/10/22 20:59 Dose: 40 mg Clonidine HCl (Clonidine Hcl 0.1 Mg Tablet) 0.05 mg PO TID [facility]; Protocol Last Admin: 12/11/22 08:18 Dose: 0.05 mg Divalproex Sodium (Divalproex Sodium Er 500 Mg Tab.Er.24h) 1,500 mg PO DAILY [facility] Last Admin: 12/11/22 08:18 Dose: 1,500 mg Escitalopram Oxalate (Escitalopram Oxalate 10 Mg Tablet) 10 mg PO DAILY [facility] Last Admin: 12/11/22 08:18 Dose: 10 mg Hydroxyzine HCl (Hydroxyzine Hcl 25 Mg Tablet) 25 mg PO Q6H PRN PRN Reason: Anxiety Last Admin: 12/09/22 20:47 Dose: 25 mg Lamotrigine (Lamotrigine 25 Mg Tablet) 150 mg PO BID [facility] Last Admin: 12/11/22 08:18 Dose: 150 mg Magnesium Hydroxide (Milk Of Magnesia 30 Ml Oral.Susp) 30 ml PO DAILY PRN PRN Reason: Constipation Olanzapine (Olanzapine 5 Mg Tablet) 5 mg PO Q4H PRN PRN Reason: psychotic agitation Last Admin: 12/08/22 18:47 Dose: 5 mg Quetiapine Fumarate (Quetiapine Fumarate 100 Mg Tablet) 100 mg PO BEDTIME [facility] Last Admin: 12/10/22 20:57 Dose: 100 mg Quetiapine Fumarate (Quetiapine Fumarate 50 Mg Tablet) 50 mg PO BID@0800,1700 [facility] Last Admin: 12/11/22 08:18 Dose: 50 mg Tamsulosin HCl (Tamsulosin Hcl 0.4 Mg Capsule) 0.4 mg PO BEDTIME [facility] Last Admin: 12/10/22 20:58 Dose: 0.4 mg Thiamine HCl (Thiamine Hcl 100 Mg Tablet) 100 mg PO DAILY [facility] Last Admin: 12/11/22 08:18 Dose: 100 mg Trazodone HCl (Trazodone Hcl 50 Mg Tablet) 50 mg PO BEDTIME PRN PRN Reason: Insomnia Last Admin: 12/10/22 20:59 Dose: 50 mg Allergies Allergies Allergy/AdvReac Type Severity Reaction Status Date / Time No Known Allergies Allergy Verified 11/12/22 15:27 Assessment & Plan Assessment & Plan (1) Neurodegenerative cognitive impairment: Status: Acute Code(s): G31.9 - Degenerative disease of nervous system, unspecified Assessment and Plan: 71 years old man who probably has degenerative dementia, moderate to severe, with significant behavioral component. Precise previous history is not available. 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 This type of infarct could be cardioembolic or from carotid artery. Because of significant underlying dementia, he would not be a candidate for any surgical intervention and for that reason I do not think exploring carotid artery stenosis is a reasonable idea. Continue his baseline medications. His examination is not suggestive of normal-pressure hydrocephalus despite his imaging revealing some ventriculomegaly. This type of patient typically require combination of medicines including some antipsychotics and mood stabilizers to manage day behavioral symptoms. He is also at relatively high risk for seizure disorder but also has been taking lamotrigine 100 mg twice a day, which would cover this condition even if he suffered from it. Now that his mental status has improved compared to his emergency room arrival, I do not think an EEG would be useful. Plan Plan 1. Continue with regular medications. 2. Neurologist reported that at this moment he does not have normal-pressure hydrocephalus. 3. Since the patient had being more irritable and labile we are increasing Seroquel up to 50 mg p.o. b.i.d. and 100 mg p.o. q.h.s.. 4. Reassessment with results. 5. Depakote level and comprehensive metabolic panel for November 20 a.m. the blood work came back within normal limits and a therapeutic level of Depakote. 6. Waiting for placement 7. Lexapro increased up to 10 mg p.o. on November 27. 8. Start clonidine 0.1 p.o. t.i.d. to target impulsivity. We have to discontinue that on December 01 due to hypotension. Due to increased agitation we restarted clonidine 0.05 p.o. t.i.d. on December 02. 9. Lamictal was increased up to 150 mg p.o. b.i.d.. 10. Adding p.r.n. Zyprexa. 11. Follow-up with urinalysis ordered on December 04. No new symptoms Reason for continued inpatient stay Substantial Risk for: inability to function, rapid decompensation and med/psych decompensation Time Spent With Patient Time: Total time managing care of this patient today __20__ minutes.
[2022-12-11 14:19] VITALS: BP 126/73; PULSE 76; O2SAT 95
[2022-12-11 18:00] VITALS: BP 135/72; PULSE 61; TEMP 35.7; O2SAT 95
[2022-12-11] MEDS: QUEtiapine Fumarate 100 MG TABLET PO (21:14)
[2022-12-11] MEDS: Atorvastatin Calcium 40 MG TABLET PO (21:14)
[2022-12-11] MEDS: Tamsulosin HCL 0.4 MG CAPSULE PO (21:14)
[2022-12-11] MEDS: traZODone HCL 50 MG TABLET PO (21:16)
[2022-12-12 07:44] VITALS: BP 123/62; PULSE 72; RESP 16; TEMP 36.3; O2SAT 95
[2022-12-12] MEDS: cloNIDine HCL 0.1 MG TABLET 0.05 MG PO ×3 (08:19→20:30)
[2022-12-12] MEDS: lamoTRIgine 25 MG TABLET 150 MG PO ×2 (08:20→20:29)
[2022-12-12] MEDS: Divalproex Sodium ER 500 MG TAB.ER.24H 1500 MG PO (08:20)
[2022-12-12] MEDS: QUEtiapine Fumarate 50 MG TABLET PO ×2 (08:20→16:34)
[2022-12-12] MEDS: Escitalopram Oxalate 10 MG TABLET PO (08:20)
[2022-12-12] MEDS: Thiamine HCL 100 MG TABLET PO (08:20)
[2022-12-12] MEDS: Aspirin Enteric Coated 81 MG TABLET.DR PO (08:20)
[2022-12-12] MEDS: Acetaminophen 325 MG TABLET 650 MG PO (08:30)
[2022-12-12] MEDS: OLANZapine 5 MG TABLET PO (09:33)
--- NOTE | 2022-12-12 13:19 | HO.PSYCHPN ---
Subjective Subjective Date of Service: 12/12/22 Reason For Visit: DEMENTIA Subjective Notes: Conditional Voluntary Interim History: The nursing staff reported the patient had being complaining of pain while urinating. I order UA. The social media campaign manager reported that Ok Goel is checking on his financial statements. On interview the patient denies new symptoms pleasantly confused. Mental Status Exam Mental Status Exam Patient Appearance: Well Grooomed and Appropriate Patient Orientation: Person and Situation Level of Consciousness: Awake and Appropriate Patient Behavior: Guarded and Passive Mood Description: Calm Affect Description: Constricted Patient Cognition Impaired: Yes Ability to Follow Directions: Good Speech Pattern: Clear Hallucinations: None Delusions: Not Present Thought Process: Distracted and Evasive Thought Content: positive for [place] and positive for Poverty of Content Judgement: Fair Diagnostics Vital Signs (24Hr): Vital Signs - 24 hr 12/11/22 14:19 12/11/22 18:00 12/12/22 07:44 Temperature 96.3 F L 97.4 F Pulse Rate 76 61 72 Respiratory Rate 16 Blood Pressure 126/73 135/72 123/62 Pulse Oximetry 95 95 95 Oxygen Delivery Method Room Air Room Air Room Air BMI result Body Mass Index 32.7 Labs 11/18/22 08:03 11/20/22 04:51 Imaging Radiology Impressions: ITS Impressions Head CT 11/12/22 19:17 IMPRESSION: 1. No acute intracranial pathology. 2. There is ventriculomegaly disproportionate to the extent of sulcal widening. This can be seen in the setting of normal pressure hydrocephalus. Recommend clinical correlation. Consider MRI evaluation if clinically appropriate. Chest X-Ray 11/13/22 14:13 IMPRESSION: No acute parenchymal disease. No radiopaque foreign bodies. KUB X-Ray 11/13/22 14:13 IMPRESSION: No metallic radiopaque foreign bodies identified within the abdomen. 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 Background chronic microangiopathy. 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 Head CT 12/09/22 17:32 IMPRESSION: Cerebral atrophy and mild periventricular and central white matter diminished attenuation which is nonspecific but likely represent microvascular disease. No acute intracranial abnormality. Medications Medications Current Medications Acetaminophen (Acetaminophen 325 Mg Tablet) 650 mg PO Q6H PRN PRN Reason: Headache/Pain Mild Scale (1-3) Last Admin: 12/12/22 08:30 Dose: 650 mg Al Hydroxide/Mg Hydroxide (Magnesium Hydrox/Alum Hydrox 30 Ml Oral.Susp) 30 ml PO Q6H PRN PRN Reason: Heartburn/Nausea Aspirin (Aspirin Enteric Coated 81 Mg Tablet.Dr) 81 mg PO DAILY [facility] Last Admin: 12/12/22 08:20 Dose: 81 mg Atorvastatin Calcium (Atorvastatin Calcium 40 Mg Tablet) 40 mg PO BEDTIME [facility] Last Admin: 12/11/22 21:14 Dose: 40 mg Clonidine HCl (Clonidine Hcl 0.1 Mg Tablet) 0.05 mg PO TID [facility]; Protocol Last Admin: 12/12/22 08:19 Dose: 0.05 mg Divalproex Sodium (Divalproex Sodium Er 500 Mg Tab.Er.24h) 1,500 mg PO DAILY [facility] Last Admin: 12/12/22 08:20 Dose: 1,500 mg Escitalopram Oxalate (Escitalopram Oxalate 10 Mg Tablet) 10 mg PO DAILY [facility] Last Admin: 12/12/22 08:20 Dose: 10 mg Hydroxyzine HCl (Hydroxyzine Hcl 25 Mg Tablet) 25 mg PO Q6H PRN PRN Reason: Anxiety Last Admin: 12/09/22 20:47 Dose: 25 mg Lamotrigine (Lamotrigine 25 Mg Tablet) 150 mg PO BID [facility] Last Admin: 12/12/22 08:20 Dose: 150 mg Magnesium Hydroxide (Milk Of Magnesia 30 Ml Oral.Susp) 30 ml PO DAILY PRN PRN Reason: Constipation Olanzapine (Olanzapine 5 Mg Tablet) 5 mg PO Q4H PRN PRN Reason: psychotic agitation Last Admin: 12/12/22 09:33 Dose: 5 mg Quetiapine Fumarate (Quetiapine Fumarate 100 Mg Tablet) 100 mg PO BEDTIME [facility] Last Admin: 12/11/22 21:14 Dose: 100 mg Quetiapine Fumarate (Quetiapine Fumarate 50 Mg Tablet) 50 mg PO BID@0800,1700 [facility] Last Admin: 12/12/22 08:20 Dose: 50 mg Tamsulosin HCl (Tamsulosin Hcl 0.4 Mg Capsule) 0.4 mg PO BEDTIME [facility] Last Admin: 12/11/22 21:14 Dose: 0.4 mg Thiamine HCl (Thiamine Hcl 100 Mg Tablet) 100 mg PO DAILY [facility] Last Admin: 12/12/22 08:20 Dose: 100 mg Trazodone HCl (Trazodone Hcl 50 Mg Tablet) 50 mg PO BEDTIME PRN PRN Reason: Insomnia Last Admin: 12/11/22 21:16 Dose: 50 mg Allergies Allergies Allergy/AdvReac Type Severity Reaction Status Date / Time No Known Allergies Allergy Verified 11/12/22 15:27 Assessment & Plan Assessment & Plan (1) Neurodegenerative cognitive impairment: Status: Acute Code(s): G31.9 - Degenerative disease of nervous system, unspecified Assessment and Plan: 71 years old man who probably has degenerative dementia, moderate to severe, with significant behavioral component. Precise previous history is not available. 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 This type of infarct could be cardioembolic or from carotid artery. Because of significant underlying dementia, he would not be a candidate for any surgical intervention and for that reason I do not think exploring carotid artery stenosis is a reasonable idea. Continue his baseline medications. His examination is not suggestive of normal-pressure hydrocephalus despite his imaging revealing some ventriculomegaly. This type of patient typically require combination of medicines including some antipsychotics and mood stabilizers to manage day behavioral symptoms. He is also at relatively high risk for seizure disorder but also has been taking lamotrigine 100 mg twice a day, which would cover this condition even if he suffered from it. Now that his mental status has improved compared to his emergency room arrival, I do not think an EEG would be useful. Plan Plan 1. Continue with regular medications. 2. Neurologist reported that at this moment he does not have normal-pressure hydrocephalus. 3. Since the patient had being more irritable and labile we are increasing Seroquel up to 50 mg p.o. b.i.d. and 100 mg p.o. q.h.s.. 4. Reassessment with results. 5. Depakote level and comprehensive metabolic panel for November 20 a.m. the blood work came back within normal limits and a therapeutic level of Depakote. 6. Waiting for placement 7. Lexapro increased up to 10 mg p.o. on November 27. 8. Start clonidine 0.1 p.o. t.i.d. to target impulsivity. We have to discontinue that on December 01 due to hypotension. Due to increased agitation we restarted clonidine 0.05 p.o. t.i.d. on December 02. 9. Lamictal was increased up to 150 mg p.o. b.i.d.. 10. Adding p.r.n. Zyprexa. 11. Follow-up with urinalysis ordered on December 04. No new symptoms, we reordered another urinalysis on August 12 for pain on urination but apparently came back negative again. Reason for continued inpatient stay Substantial Risk for: inability to function, rapid decompensation and med/psych decompensation Time Spent With Patient Time: Total time managing care of this patient today ___20_ minutes.
[2022-12-12 14:49] LABS: Appearance Urine Clear; Color Urine Yellow; Glucose Urine UA Negative (Negative); Leukocyte Esterase Urine Negative (Negative); Nitrite Urine Negative (Negative); Urine Blood Negative (Negative); Urine Ketones Trace mg/dL (Negative); Urine Protein Negative (Neg-Trace)
[2022-12-12 14:52] LABS: Bacteria Urine None Seen (None Seen); Hyaline Casts Urine 0-2 /LPF (0-2); RBC Urine 0-2 /HPF (0-2); Squamous Epithelial Cell Urine 0-2 /HPF (0-2); WBC Urine 0-5 /HPF (0-5)
[2022-12-12 18:00] VITALS: BP 122/78; PULSE 69; RESP 18; TEMP 35.8; O2SAT 96
[2022-12-12] MEDS: traZODone HCL 50 MG TABLET PO (20:30)
[2022-12-12] MEDS: Atorvastatin Calcium 40 MG TABLET PO (20:31)
[2022-12-12] MEDS: Tamsulosin HCL 0.4 MG CAPSULE PO (20:31)
[2022-12-12] MEDS: QUEtiapine Fumarate 100 MG TABLET PO (20:31)
[2022-12-13 08:00] VITALS: BP 112/66; PULSE 74; RESP 18; TEMP 36.3; O2SAT 94
[2022-12-13] MEDS: lamoTRIgine 25 MG TABLET 150 MG PO ×2 (09:27→20:16)
[2022-12-13] MEDS: QUEtiapine Fumarate 50 MG TABLET PO ×2 (09:27→15:57)
[2022-12-13] MEDS: cloNIDine HCL 0.1 MG TABLET 0.05 MG PO ×3 (09:28→20:18)
[2022-12-13] MEDS: Divalproex Sodium ER 500 MG TAB.ER.24H 1500 MG PO (09:29)
[2022-12-13] MEDS: Thiamine HCL 100 MG TABLET PO (09:29)
[2022-12-13] MEDS: Aspirin Enteric Coated 81 MG TABLET.DR PO (09:29)
--- NOTE | 2022-12-13 10:48 | P.PNPSI_ITS ---
Subjective Subjective Date of Service: 12/13/22 Reason For Visit: DEMENTIA Interim History: The nursing staff reported he is doing well. Some impulsivity but better since admission. the patient reports I feel 100% better. He offers no complaints of pain. He is 2:1 assist out of the wheelchair. On interview the patient denies new symptoms pleasantly confused. Review of Systems Review of Systems No evidence of any seizure-like episode. Yes all other systems are reviewed and are negative Mental Status Exam Mental Status Exam Narrative: Alert, calm, attentive to milieu, responsive. No current distress noted. Patient Appearance: Well Grooomed and Appropriate Patient Orientation: Person and Situation Level of Consciousness: Awake and Appropriate Patient Behavior: Guarded and Passive Mood Description: Calm Affect Description: Constricted Patient Cognition Impaired: Yes Ability to Follow Directions: Good Speech Pattern: Clear Memory Description: Remote Impaired, Immediate Impaired, Episodic Impaired and Recent Impaired Diagnostics Vital Signs (24Hr): Vital Signs - 24 hr 12/12/22 18:00 12/13/22 08:00 Temperature 96.5 F L Pulse Rate 69 74 Respiratory Rate 18 18 Blood Pressure 122/78 112/66 Pulse Oximetry 96 94 Oxygen Delivery Method Room Air Room Air BMI result Body Mass Index 32.7 Labs 11/18/22 08:03 11/20/22 04:51 Labs: Laboratory Results - last 48 hr 12/12/22 14:10 Urine Color Yellow Urine Appearance Clear Urine pH 6.0 Ur Specific Herman 1.020 Urine Protein Negative Urine Glucose (UA) Negative Urine Ketones Trace Urine Blood Negative Urine Nitrite Negative Ur Leukocyte Esterase Negative Urine RBC 0-2 Urine WBC 0-5 Ur Squamous Epith Cells 0-2 Urine Bacteria None Seen Hyaline Casts 0-2 Imaging Radiology Impressions: ITS Impressions Head CT 11/12/22 19:17 IMPRESSION: 1. No acute intracranial pathology. 2. There is ventriculomegaly disproportionate to the extent of sulcal widening. This can be seen in the setting of normal pressure hydrocephalus. Recommend clinical correlation. Consider MRI evaluation if clinically appropriate. Chest X-Ray 11/13/22 14:13 IMPRESSION: No acute parenchymal disease. No radiopaque foreign bodies. KUB X-Ray 11/13/22 14:13 IMPRESSION: No metallic radiopaque foreign bodies identified within the abdomen. 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 Background chronic microangiopathy. 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 Head CT 12/09/22 17:32 IMPRESSION: Cerebral atrophy and mild periventricular and central white matter diminished attenuation which is nonspecific but likely represent microvascular disease. No acute intracranial abnormality. Medications Medications Current Medications Acetaminophen (Acetaminophen 325 Mg Tablet) 650 mg PO Q6H PRN PRN Reason: Headache/Pain Mild Scale (1-3) Last Admin: 12/12/22 08:30 Dose: 650 mg Al Hydroxide/Mg Hydroxide (Magnesium Hydrox/Alum Hydrox 30 Ml Oral.Susp) 30 ml PO Q6H PRN PRN Reason: Heartburn/Nausea Aspirin (Aspirin Enteric Coated 81 Mg Tablet.Dr) 81 mg PO DAILY [facility] Last Admin: 12/13/22 09:29 Dose: 81 mg Atorvastatin Calcium (Atorvastatin Calcium 40 Mg Tablet) 40 mg PO BEDTIME [facility] Last Admin: 12/12/22 20:31 Dose: 40 mg Clonidine HCl (Clonidine Hcl 0.1 Mg Tablet) 0.05 mg PO TID [facility]; Protocol Last Admin: 12/13/22 09:28 Dose: 0.05 mg Divalproex Sodium (Divalproex Sodium Er 500 Mg Tab.Er.24h) 1,500 mg PO DAILY [facility] Last Admin: 12/13/22 09:29 Dose: 1,500 mg Escitalopram Oxalate (Escitalopram Oxalate 10 Mg Tablet) 10 mg PO DAILY [facility] Last Admin: 12/12/22 08:20 Dose: 10 mg Hydroxyzine HCl (Hydroxyzine Hcl 25 Mg Tablet) 25 mg PO Q6H PRN PRN Reason: Anxiety Last Admin: 12/09/22 20:47 Dose: 25 mg Lamotrigine (Lamotrigine 25 Mg Tablet) 150 mg PO BID [facility] Last Admin: 12/13/22 09:27 Dose: 150 mg Magnesium Hydroxide (Milk Of Magnesia 30 Ml Oral.Susp) 30 ml PO DAILY PRN PRN Reason: Constipation Olanzapine (Olanzapine 5 Mg Tablet) 5 mg PO Q4H PRN PRN Reason: psychotic agitation Last Admin: 12/12/22 09:33 Dose: 5 mg Quetiapine Fumarate (Quetiapine Fumarate 100 Mg Tablet) 100 mg PO BEDTIME [facility] Last Admin: 12/12/22 20:31 Dose: 100 mg Quetiapine Fumarate (Quetiapine Fumarate 50 Mg Tablet) 50 mg PO BID@0800,1700 [facility] Last Admin: 12/13/22 09:27 Dose: 50 mg Tamsulosin HCl (Tamsulosin Hcl 0.4 Mg Capsule) 0.4 mg PO BEDTIME [facility] Last Admin: 12/12/22 20:31 Dose: 0.4 mg Thiamine HCl (Thiamine Hcl 100 Mg Tablet) 100 mg PO DAILY [facility] Last Admin: 12/13/22 09:29 Dose: 100 mg Trazodone HCl (Trazodone Hcl 50 Mg Tablet) 50 mg PO BEDTIME PRN PRN Reason: Insomnia Last Admin: 12/12/22 20:30 Dose: 50 mg Allergies Allergies Allergy/AdvReac Type Severity Reaction Status Date / Time No Known Allergies Allergy Verified 11/12/22 15:27 Assessment & Plan Assessment & Plan (1) Neurodegenerative cognitive impairment: Status: Acute Code(s): G31.9 - Degenerative disease of nervous system, unspecified Assessment and Plan: 71 years old man who probably has degenerative dementia, moderate to severe, with significant behavioral component. Precise previous history is not available. 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 This type of infarct could be cardioembolic or from carotid artery. Because of significant underlying dementia, he would not be a candidate for any surgical intervention and for that reason I do not think exploring carotid artery stenosis is a reasonable idea. Continue his baseline medications. His examination is not suggestive of normal-pressure hydrocephalus despite his imaging revealing some ventriculomegaly. This type of patient typically require combination of medicines including some antipsychotics and mood stabilizers to manage day behavioral symptoms. He is also at relatively high risk for seizure disorder but also has been taking lamotrigine 100 mg twice a day, which would cover this condition even if he suffered from it. Now that his mental status has improved compared to his emergency room arrival, I do not think an EEG would be useful. Plan Plan 1. Continue with regular medications. 2. Neurologist reported that at this moment he does not have normal-pressure hydrocephalus. 3. Since the patient had being more irritable and labile we are increasing Seroquel up to 50 mg p.o. b.i.d. and 100 mg p.o. q.h.s.. 4. Reassessment with results. 5. Depakote level and comprehensive metabolic panel for November 20 a.m. the blood work came back within normal limits and a therapeutic level of Depakote. 6. Waiting for placement 7. Lexapro increased up to 10 mg p.o. on November 27. 8. Start clonidine 0.1 p.o. t.i.d. to target impulsivity. We have to discontinue that on December 01 due to hypotension. Due to increased agitation we restarted clonidine 0.05 p.o. t.i.d. on December 02. 9. Lamictal was increased up to 150 mg p.o. b.i.d.. 10. Adding p.r.n. Zyprexa. 11. Follow-up with urinalysis ordered on December 04. No new symptoms, we reordered another urinalysis on August 12 for pain on urination but apparently came back negative again. 12/13: Continue current treatment plan. Reason for continued inpatient stay Substantial Risk for: inability to function, rapid decompensation and med/psych decompensation Time Spent With Patient Time: Total time managing care of this patient today ____ minutes.
[2022-12-13] MEDS: Escitalopram Oxalate 10 MG TABLET PO (14:49)
[2022-12-13 14:51] VITALS: BP 106/65; PULSE 63
[2022-12-13 18:00] VITALS: BP 96/61; PULSE 65; RESP 18; TEMP 36.8; O2SAT 93
[2022-12-13] MEDS: Tamsulosin HCL 0.4 MG CAPSULE PO (20:16)
[2022-12-13] MEDS: traZODone HCL 50 MG TABLET PO (20:17)
[2022-12-13] MEDS: Atorvastatin Calcium 40 MG TABLET PO (20:17)
[2022-12-13] MEDS: QUEtiapine Fumarate 100 MG TABLET PO (20:17)
[2022-12-14 08:00] VITALS: BP 103/60; PULSE 91; RESP 16; TEMP 36.5; O2SAT 97
[2022-12-14] MEDS: lamoTRIgine 25 MG TABLET 150 MG PO ×2 (08:56→20:35)
[2022-12-14] MEDS: Aspirin Enteric Coated 81 MG TABLET.DR PO (08:56)
[2022-12-14] MEDS: QUEtiapine Fumarate 50 MG TABLET PO ×2 (08:56→17:11)
[2022-12-14] MEDS: Divalproex Sodium ER 500 MG TAB.ER.24H 1500 MG PO (08:57)
[2022-12-14] MEDS: cloNIDine HCL 0.1 MG TABLET 0.05 MG PO ×3 (08:57→20:36)
[2022-12-14] MEDS: Escitalopram Oxalate 10 MG TABLET PO (08:57)
[2022-12-14] MEDS: Thiamine HCL 100 MG TABLET PO (08:57)
[2022-12-14] MEDS: hydrOXYzine HCL 25 MG TABLET PO (10:29)
[2022-12-14] MEDS: OLANZapine 5 MG TABLET PO (10:29)
--- NOTE | 2022-12-14 13:58 | HO.PSYCHPN ---
Subjective Subjective Date of Service: 12/14/22 Reason For Visit: DEMENTIA Interim History: The nursing staff reported he is doing well. Some impulsivity but better since admission. the patient reports I feel fine. Nothing bothers me. I feel 100% fine. He offers no complaints of pain. He is 2:1 assist out of the wheelchair. On interview the patient denies new symptoms pleasantly confused. Review of Systems Review of Systems No evidence of any seizure-like episode. Yes all other systems are reviewed and are negative Mental Status Exam Mental Status Exam Narrative: Alert, calm, attentive to milieu, responsive. No current distress noted. Patient Appearance: Well Grooomed and Appropriate Patient Orientation: Person and Situation Level of Consciousness: Awake and Appropriate Patient Behavior: Guarded and Passive Mood Description: Calm Affect Description: Constricted Patient Cognition Impaired: Yes Ability to Follow Directions: Good Speech Pattern: Clear Memory Description: Remote Impaired, Immediate Impaired, Episodic Impaired and Recent Impaired Diagnostics Vital Signs (24Hr): Vital Signs - 24 hr 12/13/22 14:51 12/13/22 18:00 12/14/22 08:00 Temperature 98.2 F 97.7 F Pulse Rate 63 65 91 Respiratory Rate 18 16 Blood Pressure 106/65 96/61 103/60 Pulse Oximetry 93 97 Oxygen Delivery Method Room Air Room Air BMI result Body Mass Index 32.7 Labs 11/18/22 08:03 11/20/22 04:51 Labs: Laboratory Results - last 48 hr 12/12/22 14:10 Urine Color Yellow Urine Appearance Clear Urine pH 6.0 Ur Specific Ramsay 1.020 Urine Protein Negative Urine Glucose (UA) Negative Urine Ketones Trace Urine Blood Negative Urine Nitrite Negative Ur Leukocyte Esterase Negative Urine RBC 0-2 Urine WBC 0-5 Ur Squamous Epith Cells 0-2 Urine Bacteria None Seen Hyaline Casts 0-2 Imaging Radiology Impressions: ITS Impressions Head CT 11/12/22 19:17 IMPRESSION: 1. No acute intracranial pathology. 2. There is ventriculomegaly disproportionate to the extent of sulcal widening. This can be seen in the setting of normal pressure hydrocephalus. Recommend clinical correlation. Consider MRI evaluation if clinically appropriate. Chest X-Ray 11/13/22 14:13 IMPRESSION: No acute parenchymal disease. No radiopaque foreign bodies. KUB X-Ray 11/13/22 14:13 IMPRESSION: No metallic radiopaque foreign bodies identified within the abdomen. 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 Background chronic microangiopathy. 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 Head CT 12/09/22 17:32 IMPRESSION: Cerebral atrophy and mild periventricular and central white matter diminished attenuation which is nonspecific but likely represent microvascular disease. No acute intracranial abnormality. Medications Medications Current Medications Acetaminophen (Acetaminophen 325 Mg Tablet) 650 mg PO Q6H PRN PRN Reason: Headache/Pain Mild Scale (1-3) Last Admin: 12/12/22 08:30 Dose: 650 mg Al Hydroxide/Mg Hydroxide (Magnesium Hydrox/Alum Hydrox 30 Ml Oral.Susp) 30 ml PO Q6H PRN PRN Reason: Heartburn/Nausea Aspirin (Aspirin Enteric Coated 81 Mg Tablet.Dr) 81 mg PO DAILY [facility] Last Admin: 12/14/22 08:56 Dose: 81 mg Atorvastatin Calcium (Atorvastatin Calcium 40 Mg Tablet) 40 mg PO BEDTIME [facility] Last Admin: 12/13/22 20:17 Dose: 40 mg Clonidine HCl (Clonidine Hcl 0.1 Mg Tablet) 0.05 mg PO TID [facility]; Protocol Last Admin: 12/14/22 08:57 Dose: 0.05 mg Divalproex Sodium (Divalproex Sodium Er 500 Mg Tab.Er.24h) 1,500 mg PO DAILY [facility] Last Admin: 12/14/22 08:57 Dose: 1,500 mg Escitalopram Oxalate (Escitalopram Oxalate 10 Mg Tablet) 10 mg PO DAILY [facility] Last Admin: 12/14/22 08:57 Dose: 10 mg Hydroxyzine HCl (Hydroxyzine Hcl 25 Mg Tablet) 25 mg PO Q6H PRN PRN Reason: Anxiety Last Admin: 12/14/22 10:29 Dose: 25 mg Lamotrigine (Lamotrigine 25 Mg Tablet) 150 mg PO BID [facility] Last Admin: 12/14/22 08:56 Dose: 150 mg Magnesium Hydroxide (Milk Of Magnesia 30 Ml Oral.Susp) 30 ml PO DAILY PRN PRN Reason: Constipation Olanzapine (Olanzapine 5 Mg Tablet) 5 mg PO Q4H PRN PRN Reason: psychotic agitation Last Admin: 12/14/22 10:29 Dose: 5 mg Quetiapine Fumarate (Quetiapine Fumarate 100 Mg Tablet) 100 mg PO BEDTIME [facility] Last Admin: 12/13/22 20:17 Dose: 100 mg Quetiapine Fumarate (Quetiapine Fumarate 50 Mg Tablet) 50 mg PO BID@0800,1700 [facility] Last Admin: 12/14/22 08:56 Dose: 50 mg Tamsulosin HCl (Tamsulosin Hcl 0.4 Mg Capsule) 0.4 mg PO BEDTIME [facility] Last Admin: 12/13/22 20:16 Dose: 0.4 mg Thiamine HCl (Thiamine Hcl 100 Mg Tablet) 100 mg PO DAILY [facility] Last Admin: 12/14/22 08:57 Dose: 100 mg Trazodone HCl (Trazodone Hcl 50 Mg Tablet) 50 mg PO BEDTIME PRN PRN Reason: Insomnia Last Admin: 12/13/22 20:17 Dose: 50 mg Allergies Allergies Allergy/AdvReac Type Severity Reaction Status Date / Time No Known Allergies Allergy Verified 11/12/22 15:27 Assessment & Plan Assessment & Plan (1) Neurodegenerative cognitive impairment: Status: Acute Code(s): G31.9 - Degenerative disease of nervous system, unspecified Assessment and Plan: 71 years old man who probably has degenerative dementia, moderate to severe, with significant behavioral component. Precise previous history is not available. 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 This type of infarct could be cardioembolic or from carotid artery. Because of significant underlying dementia, he would not be a candidate for any surgical intervention and for that reason I do not think exploring carotid artery stenosis is a reasonable idea. Continue his baseline medications. His examination is not suggestive of normal-pressure hydrocephalus despite his imaging revealing some ventriculomegaly. This type of patient typically require combination of medicines including some antipsychotics and mood stabilizers to manage day behavioral symptoms. He is also at relatively high risk for seizure disorder but also has been taking lamotrigine 100 mg twice a day, which would cover this condition even if he suffered from it. Now that his mental status has improved compared to his emergency room arrival, I do not think an EEG would be useful. Plan Plan 1. Continue with regular medications. 2. Neurologist reported that at this moment he does not have normal-pressure hydrocephalus. 3. Since the patient had being more irritable and labile we are increasing Seroquel up to 50 mg p.o. b.i.d. and 100 mg p.o. q.h.s.. 4. Reassessment with results. 5. Depakote level and comprehensive metabolic panel for November 20 a.m. the blood work came back within normal limits and a therapeutic level of Depakote. 6. Waiting for placement 7. Lexapro increased up to 10 mg p.o. on November 27. 8. Start clonidine 0.1 p.o. t.i.d. to target impulsivity. We have to discontinue that on December 01 due to hypotension. Due to increased agitation we restarted clonidine 0.05 p.o. t.i.d. on December 02. 9. Lamictal was increased up to 150 mg p.o. b.i.d.. 10. Adding p.r.n. Zyprexa. 11. Follow-up with urinalysis ordered on December 04. No new symptoms, we reordered another urinalysis on August 12 for pain on urination but apparently came back negative again. 12/13: Continue current treatment plan. 12/14: Continue treatment plan. Reason for continued inpatient stay Substantial Risk for: inability to function, rapid decompensation and med/psych decompensation Time Spent With Patient Time: Total time managing care of this patient today ____ minutes.
[2022-12-14 17:22] VITALS: BP 121/64
[2022-12-14 19:40] VITALS: BP 124/71; PULSE 60; RESP 15; TEMP 36; O2SAT 97
[2022-12-14] MEDS: Tamsulosin HCL 0.4 MG CAPSULE PO (20:36)
[2022-12-14] MEDS: Atorvastatin Calcium 40 MG TABLET PO (20:36)
[2022-12-14] MEDS: traZODone HCL 50 MG TABLET PO (20:36)
[2022-12-14] MEDS: QUEtiapine Fumarate 100 MG TABLET PO (20:36)
[2022-12-15 08:15] VITALS: BP 109/63; PULSE 94; RESP 16; TEMP 36.2; O2SAT 96
[2022-12-15] MEDS: Escitalopram Oxalate 10 MG TABLET PO (08:17)
[2022-12-15] MEDS: Divalproex Sodium ER 500 MG TAB.ER.24H 1500 MG PO (08:17)
[2022-12-15] MEDS: lamoTRIgine 25 MG TABLET 150 MG PO ×2 (08:17→19:19)
[2022-12-15] MEDS: cloNIDine HCL 0.1 MG TABLET 0.05 MG PO ×2 (08:18→18:50)
[2022-12-15] MEDS: QUEtiapine Fumarate 50 MG TABLET PO ×2 (08:18→17:04)
[2022-12-15] MEDS: Aspirin Enteric Coated 81 MG TABLET.DR PO (08:18)
[2022-12-15] MEDS: Thiamine HCL 100 MG TABLET PO (08:18)
--- NOTE | 2022-12-15 16:27 | HO.PSYCHPN ---
Subjective Subjective Date of Service: 12/15/22 Reason For Visit: DEMENTIA Subjective Notes: Conditional Voluntary Interim History: Pt continues to present as not oriented to month, day or situation. He tells this chief writer he came to this unit this morming or last night, not sure. He reports awaiting placement- which is accurate. He denies SI/HI. No VH/AH. No overt delusional content noted or reported. Per nursing, pt slept 10hrs. His SBP on lower end 109. No physical concerns. Review of Systems Review of Systems No evidence of any seizure-like episode. Yes all other systems are reviewed and are negative Mental Status Exam Mental Status Exam Patient Appearance: Well Grooomed and Appropriate Patient Orientation: Person and Situation Level of Consciousness: Awake and Appropriate Patient Behavior: Guarded and Passive Mood Description: Calm Affect Description: Constricted Patient Cognition Impaired: Yes Ability to Follow Directions: Good Speech Pattern: Clear Memory Description: Remote Impaired, Immediate Impaired, Episodic Impaired and Recent Impaired Diagnostics Vital Signs (24Hr): Vital Signs - 24 hr 12/14/22 17:22 12/14/22 19:40 12/15/22 08:15 Temperature 96.8 F 97.1 F Pulse Rate 60 94 Respiratory Rate 15 16 Blood Pressure 121/64 124/71 109/63 Pulse Oximetry 97 96 Oxygen Delivery Method Room Air Room Air BMI result Body Mass Index 32.7 Labs 11/18/22 08:03 11/20/22 04:51 Imaging Radiology Impressions: ITS Impressions Head CT 11/12/22 19:17 IMPRESSION: 1. No acute intracranial pathology. 2. There is ventriculomegaly disproportionate to the extent of sulcal widening. This can be seen in the setting of normal pressure hydrocephalus. Recommend clinical correlation. Consider MRI evaluation if clinically appropriate. Chest X-Ray 11/13/22 14:13 IMPRESSION: No acute parenchymal disease. No radiopaque foreign bodies. KUB X-Ray 11/13/22 14:13 IMPRESSION: No metallic radiopaque foreign bodies identified within the abdomen. 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 Background chronic microangiopathy. 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 Head CT 12/09/22 17:32 IMPRESSION: Cerebral atrophy and mild periventricular and central white matter diminished attenuation which is nonspecific but likely represent microvascular disease. No acute intracranial abnormality. Medications Medications Current Medications Acetaminophen (Acetaminophen 325 Mg Tablet) 650 mg PO Q6H PRN PRN Reason: Headache/Pain Mild Scale (1-3) Last Admin: 12/12/22 08:30 Dose: 650 mg Al Hydroxide/Mg Hydroxide (Magnesium Hydrox/Alum Hydrox 30 Ml Oral.Susp) 30 ml PO Q6H PRN PRN Reason: Heartburn/Nausea Aspirin (Aspirin Enteric Coated 81 Mg Tablet.Dr) 81 mg PO DAILY [facility] Last Admin: 12/15/22 08:18 Dose: 81 mg Atorvastatin Calcium (Atorvastatin Calcium 40 Mg Tablet) 40 mg PO BEDTIME [facility] Last Admin: 12/14/22 20:36 Dose: 40 mg Clonidine HCl (Clonidine Hcl 0.1 Mg Tablet) 0.05 mg PO TID [facility]; Protocol Last Admin: 12/15/22 08:18 Dose: 0.05 mg Divalproex Sodium (Divalproex Sodium Er 500 Mg Tab.Er.24h) 1,500 mg PO DAILY [facility] Last Admin: 12/15/22 08:17 Dose: 1,500 mg Escitalopram Oxalate (Escitalopram Oxalate 10 Mg Tablet) 10 mg PO DAILY [facility] Last Admin: 12/15/22 08:17 Dose: 10 mg Hydroxyzine HCl (Hydroxyzine Hcl 25 Mg Tablet) 25 mg PO Q6H PRN PRN Reason: Anxiety Last Admin: 12/14/22 10:29 Dose: 25 mg Lamotrigine (Lamotrigine 25 Mg Tablet) 150 mg PO BID [facility] Last Admin: 12/15/22 08:17 Dose: 150 mg Magnesium Hydroxide (Milk Of Magnesia 30 Ml Oral.Susp) 30 ml PO DAILY PRN PRN Reason: Constipation Olanzapine (Olanzapine 5 Mg Tablet) 5 mg PO Q4H PRN PRN Reason: psychotic agitation Last Admin: 12/14/22 10:29 Dose: 5 mg Quetiapine Fumarate (Quetiapine Fumarate 100 Mg Tablet) 100 mg PO BEDTIME [facility] Last Admin: 12/14/22 20:36 Dose: 100 mg Quetiapine Fumarate (Quetiapine Fumarate 50 Mg Tablet) 50 mg PO BID@0800,1700 [facility] Last Admin: 12/15/22 08:18 Dose: 50 mg Tamsulosin HCl (Tamsulosin Hcl 0.4 Mg Capsule) 0.4 mg PO BEDTIME [facility] Last Admin: 12/14/22 20:36 Dose: 0.4 mg Thiamine HCl (Thiamine Hcl 100 Mg Tablet) 100 mg PO DAILY [facility] Last Admin: 12/15/22 08:18 Dose: 100 mg Trazodone HCl (Trazodone Hcl 50 Mg Tablet) 50 mg PO BEDTIME PRN PRN Reason: Insomnia Last Admin: 12/14/22 20:36 Dose: 50 mg Allergies Allergies Allergy/AdvReac Type Severity Reaction Status Date / Time No Known Allergies Allergy Verified 11/12/22 15:27 Assessment & Plan Assessment & Plan (1) Neurodegenerative cognitive impairment: Status: Acute Code(s): G31.9 - Degenerative disease of nervous system, unspecified Assessment and Plan: 71 years old man who probably has degenerative dementia, moderate to severe, with significant behavioral component. Precise previous history is not available. 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 This type of infarct could be cardioembolic or from carotid artery. Because of significant underlying dementia, he would not be a candidate for any surgical intervention and for that reason I do not think exploring carotid artery stenosis is a reasonable idea. Continue his baseline medications. His examination is not suggestive of normal-pressure hydrocephalus despite his imaging revealing some ventriculomegaly. This type of patient typically require combination of medicines including some antipsychotics and mood stabilizers to manage day behavioral symptoms. He is also at relatively high risk for seizure disorder but also has been taking lamotrigine 100 mg twice a day, which would cover this condition even if he suffered from it. Now that his mental status has improved compared to his emergency room arrival, I do not think an EEG would be useful. Plan Plan 1. Continue with regular medications. 2. Neurologist reported that at this moment he does not have normal-pressure hydrocephalus. 3. Since the patient had being more irritable and labile we are increasing Seroquel up to 50 mg p.o. b.i.d. and 100 mg p.o. q.h.s.. 4. Reassessment with results. 5. Depakote level and comprehensive metabolic panel for November 20 a.m. the blood work came back within normal limits and a therapeutic level of Depakote. 6. Waiting for placement 7. Lexapro increased up to 10 mg p.o. on November 27. 8. Start clonidine 0.1 p.o. t.i.d. to target impulsivity. We have to discontinue that on December 01 due to hypotension. Due to increased agitation we restarted clonidine 0.05 p.o. t.i.d. on December 02. 9. Lamictal was increased up to 150 mg p.o. b.i.d.. 10. Adding p.r.n. Zyprexa. 11. Follow-up with urinalysis ordered on December 04. No new symptoms, we reordered another urinalysis on August 12 for pain on urination but apparently came back negative again. 12/13: Continue current treatment plan. 12/14: Continue treatment plan. 12/15 continue tx. Reason for continued inpatient stay Substantial Risk for: inability to function Time Spent With Patient Time: Total time managing care of this patient today ____ minutes.
[2022-12-15] MEDS: OLANZapine 5 MG TABLET PO (17:56)
[2022-12-15 18:00] VITALS: BP 127/66; PULSE 77; TEMP 36.3; O2SAT 96
--- NOTE | 2022-12-15 18:05 | PC.NURSE ---
Refused 1500 Clonidine, slightly irritable.
[2022-12-15] MEDS: traZODone HCL 50 MG TABLET PO (18:50)
[2022-12-15] MEDS: QUEtiapine Fumarate 100 MG TABLET PO (19:26)
[2022-12-15] MEDS: Atorvastatin Calcium 40 MG TABLET PO (19:26)
[2022-12-15] MEDS: Tamsulosin HCL 0.4 MG CAPSULE PO (19:27)
[2022-12-16 08:06] VITALS: BP 126/58; PULSE 80; RESP 16; TEMP 36.8; O2SAT 95
[2022-12-16] MEDS: cloNIDine HCL 0.1 MG TABLET 0.05 MG PO ×3 (08:08→20:21)
[2022-12-16] MEDS: Thiamine HCL 100 MG TABLET PO (08:08)
[2022-12-16] MEDS: Escitalopram Oxalate 10 MG TABLET PO (08:08)
[2022-12-16] MEDS: QUEtiapine Fumarate 50 MG TABLET PO ×2 (08:08→16:49)
[2022-12-16] MEDS: lamoTRIgine 25 MG TABLET 150 MG PO ×2 (08:08→20:21)
[2022-12-16] MEDS: Aspirin Enteric Coated 81 MG TABLET.DR PO (08:08)
[2022-12-16] MEDS: Divalproex Sodium ER 500 MG TAB.ER.24H 1500 MG PO (08:08)
--- NOTE | 2022-12-16 16:32 | P.PNPSI_ITS ---
Subjective Subjective Date of Service: 12/16/22 Reason For Visit: DEMENTIA Interim History: Pt continues to present as pleasant. He tells this ticket writer he came today to the unit. He denies SI/HI. No overt hallucinations. At times poor boundaries with females but able to be redirected. Per nursing, pt slept 10hrs. His SBP on lower end 109. No physical concerns. Medication Compliance: Yes Review of Systems Review of Systems No evidence of any seizure-like episode. Yes all other systems are reviewed and are negative Mental Status Exam Mental Status Exam Patient Appearance: Well Grooomed and Appropriate Patient Orientation: Person and Situation Level of Consciousness: Awake and Appropriate Patient Behavior: Guarded and Passive Mood Description: Calm Affect Description: Constricted Patient Cognition Impaired: Yes Ability to Follow Directions: Good Speech Pattern: Clear Memory Description: Remote Impaired, Immediate Impaired, Episodic Impaired and Recent Impaired Diagnostics Vital Signs (24Hr): Vital Signs - 24 hr 12/15/22 18:00 12/16/22 08:06 Temperature 97.4 F 98.2 F Pulse Rate 77 80 Respiratory Rate 16 Blood Pressure 127/66 126/58 L Pulse Oximetry 96 95 Oxygen Delivery Method Room Air Room Air BMI result Body Mass Index 32.7 Labs 11/18/22 08:03 11/20/22 04:51 Imaging Radiology Impressions: ITS Impressions Head CT 11/12/22 19:17 IMPRESSION: 1. No acute intracranial pathology. 2. There is ventriculomegaly disproportionate to the extent of sulcal widening. This can be seen in the setting of normal pressure hydrocephalus. Recommend clinical correlation. Consider MRI evaluation if clinically appropriate. Chest X-Ray 11/13/22 14:13 IMPRESSION: No acute parenchymal disease. No radiopaque foreign bodies. KUB X-Ray 11/13/22 14:13 IMPRESSION: No metallic radiopaque foreign bodies identified within the abdomen. 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 Background chronic microangiopathy. 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 Head CT 12/09/22 17:32 IMPRESSION: Cerebral atrophy and mild periventricular and central white matter diminished attenuation which is nonspecific but likely represent microvascular disease. No acute intracranial abnormality. Medications Medications Current Medications Acetaminophen (Acetaminophen 325 Mg Tablet) 650 mg PO Q6H PRN PRN Reason: Headache/Pain Mild Scale (1-3) Last Admin: 12/12/22 08:30 Dose: 650 mg Al Hydroxide/Mg Hydroxide (Magnesium Hydrox/Alum Hydrox 30 Ml Oral.Susp) 30 ml PO Q6H PRN PRN Reason: Heartburn/Nausea Aspirin (Aspirin Enteric Coated 81 Mg Tablet.Dr) 81 mg PO DAILY [facility] Last Admin: 12/16/22 08:08 Dose: 81 mg Atorvastatin Calcium (Atorvastatin Calcium 40 Mg Tablet) 40 mg PO BEDTIME [facility] Last Admin: 12/15/22 19:26 Dose: 40 mg Clonidine HCl (Clonidine Hcl 0.1 Mg Tablet) 0.05 mg PO TID [facility]; Protocol Last Admin: 12/16/22 08:08 Dose: 0.05 mg Divalproex Sodium (Divalproex Sodium Er 500 Mg Tab.Er.24h) 1,500 mg PO DAILY [facility] Last Admin: 12/16/22 08:08 Dose: 1,500 mg Escitalopram Oxalate (Escitalopram Oxalate 10 Mg Tablet) 10 mg PO DAILY [facility] Last Admin: 12/16/22 08:08 Dose: 10 mg Hydroxyzine HCl (Hydroxyzine Hcl 25 Mg Tablet) 25 mg PO Q6H PRN PRN Reason: Anxiety Last Admin: 12/14/22 10:29 Dose: 25 mg Lamotrigine (Lamotrigine 25 Mg Tablet) 150 mg PO BID [facility] Last Admin: 12/16/22 08:08 Dose: 150 mg Magnesium Hydroxide (Milk Of Magnesia 30 Ml Oral.Susp) 30 ml PO DAILY PRN PRN Reason: Constipation Olanzapine (Olanzapine 5 Mg Tablet) 5 mg PO Q4H PRN PRN Reason: psychotic agitation Last Admin: 12/15/22 17:56 Dose: 5 mg Quetiapine Fumarate (Quetiapine Fumarate 100 Mg Tablet) 100 mg PO BEDTIME [facility] Last Admin: 12/15/22 19:26 Dose: 100 mg Quetiapine Fumarate (Quetiapine Fumarate 50 Mg Tablet) 50 mg PO BID@0800,1700 [facility] Last Admin: 12/16/22 08:08 Dose: 50 mg Tamsulosin HCl (Tamsulosin Hcl 0.4 Mg Capsule) 0.4 mg PO BEDTIME [facility] Last Admin: 12/15/22 19:27 Dose: 0.4 mg Thiamine HCl (Thiamine Hcl 100 Mg Tablet) 100 mg PO DAILY [facility] Last Admin: 12/16/22 08:08 Dose: 100 mg Trazodone HCl (Trazodone Hcl 50 Mg Tablet) 50 mg PO BEDTIME PRN PRN Reason: Insomnia Last Admin: 12/15/22 18:50 Dose: 50 mg Allergies Allergies Allergy/AdvReac Type Severity Reaction Status Date / Time No Known Allergies Allergy Verified 11/12/22 15:27 Assessment & Plan Assessment & Plan (1) Neurodegenerative cognitive impairment: Status: Acute Code(s): G31.9 - Degenerative disease of nervous system, unspecified Assessment and Plan: 71 years old man who probably has degenerative dementia, moderate to severe, with significant behavioral component. Precise previous history is not available. 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 This type of infarct could be cardioembolic or from carotid artery. Because of significant underlying dementia, he would not be a candidate for any surgical intervention and for that reason I do not think exploring carotid artery stenosis is a reasonable idea. Continue his baseline medications. His examination is not suggestive of normal-pressure hydrocephalus despite his imaging revealing some ventriculomegaly. This type of patient typically require combination of medicines including some antipsychotics and mood stabilizers to manage day behavioral symptoms. He is also at relatively high risk for seizure disorder but also has been taking lamotrigine 100 mg twice a day, which would cover this condition even if he suffered from it. Now that his mental status has improved compared to his emergency room arrival, I do not think an EEG would be useful. Plan Plan 1. Continue with regular medications. 2. Neurologist reported that at this moment he does not have normal-pressure hydrocephalus. 3. Since the patient had being more irritable and labile we are increasing Seroquel up to 50 mg p.o. b.i.d. and 100 mg p.o. q.h.s.. 4. Reassessment with results. 5. Depakote level and comprehensive metabolic panel for November 20 a.m. the blood work came back within normal limits and a therapeutic level of Depakote. 6. Waiting for placement 7. Lexapro increased up to 10 mg p.o. on November 27. 8. Start clonidine 0.1 p.o. t.i.d. to target impulsivity. We have to disconti nue that on December 01 due to hypotension. Due to increased agitation we restarted clonidine 0.05 p.o. t.i.d. on December 02. 9. Lamictal was increased up to 150 mg p.o. b.i.d.. 10. Adding p.r.n. Zyprexa. 11. Follow-up with urinalysis ordered on December 04. No new symptoms, we reordered another urinalysis on August 12 for pain on urination but apparently came back negative again. 12/13: Continue current treatment plan. 12/14: Continue treatment plan. 12/15 continue tx. 12/16 continue tx. Reason for continued inpatient stay Substantial Risk for: inability to function Time Spent With Patient Time: Total time managing care of this patient today ____ minutes.
[2022-12-16 16:42] VITALS: BP 128/77; PULSE 75
[2022-12-16 20:05] VITALS: BP 119/66; PULSE 73; RESP 18; TEMP 36.3; O2SAT 96
[2022-12-16] MEDS: Atorvastatin Calcium 40 MG TABLET PO (20:21)
[2022-12-16] MEDS: Tamsulosin HCL 0.4 MG CAPSULE PO (20:21)
[2022-12-16] MEDS: QUEtiapine Fumarate 100 MG TABLET PO (20:22)
[2022-12-17 08:09] VITALS: BP 120/73; PULSE 72; RESP 16; TEMP 37; O2SAT 96
[2022-12-17] MEDS: Divalproex Sodium ER 500 MG TAB.ER.24H 1500 MG PO (08:22)
[2022-12-17] MEDS: lamoTRIgine 25 MG TABLET 150 MG PO ×2 (08:22→21:11)
[2022-12-17] MEDS: Thiamine HCL 100 MG TABLET PO (08:23)
[2022-12-17] MEDS: QUEtiapine Fumarate 50 MG TABLET PO ×2 (08:23→18:07)
[2022-12-17] MEDS: cloNIDine HCL 0.1 MG TABLET 0.05 MG PO ×3 (08:23→21:10)
[2022-12-17] MEDS: Escitalopram Oxalate 10 MG TABLET PO (08:23)
[2022-12-17] MEDS: Aspirin Enteric Coated 81 MG TABLET.DR PO (08:23)
[2022-12-17] MEDS: hydrOXYzine HCL 25 MG TABLET PO ×2 (12:50→21:10)
[2022-12-17] MEDS: Milk of Magnesia 30 ML ORAL.SUSP PO (14:48)
[2022-12-17 18:00] VITALS: BP 118/61; PULSE 67; RESP 18; TEMP 36.3; O2SAT 95
[2022-12-17] MEDS: QUEtiapine Fumarate 100 MG TABLET PO (21:10)
[2022-12-17] MEDS: Tamsulosin HCL 0.4 MG CAPSULE PO (21:10)
[2022-12-17] MEDS: Atorvastatin Calcium 40 MG TABLET PO (21:10)
--- NOTE | 2022-12-17 21:41 | P.PNPSI_ITS ---
Subjective Subjective Date of Service: 12/17/22 Reason For Visit: DEMENTIA Subjective Notes: Conditional Voluntary Interim History: Pt with some increase hypersexualized behaviors and poor boundaries with females. He is pleasant on approach, does not remember meeting this repairer typewriter, does not know when he came here but relief to know that he is going to facility. Review of Systems Review of Systems No evidence of any seizure-like episode. Yes all other systems are reviewed and are negative Mental Status Exam Mental Status Exam Patient Appearance: Well Grooomed and Appropriate Patient Orientation: Person and Situation Level of Consciousness: Awake and Appropriate Patient Behavior: Guarded and Passive Mood Description: Calm Affect Description: Constricted Patient Cognition Impaired: Yes Ability to Follow Directions: Good Speech Pattern: Clear Memory Description: Remote Impaired, Immediate Impaired, Episodic Impaired and Recent Impaired Diagnostics Vital Signs (24Hr): Vital Signs - 24 hr 12/17/22 08:09 Temperature 98.6 F Pulse Rate 72 Respiratory Rate 16 Blood Pressure 120/73 Pulse Oximetry 96 Oxygen Delivery Method Room Air BMI result Body Mass Index 32.7 Labs 11/18/22 08:03 11/20/22 04:51 Imaging Radiology Impressions: ITS Impressions Head CT 11/12/22 19:17 IMPRESSION: 1. No acute intracranial pathology. 2. There is ventriculomegaly disproportionate to the extent of sulcal widening. This can be seen in the setting of normal pressure hydrocephalus. Recommend clinical correlation. Consider MRI evaluation if clinically appropriate. Chest X-Ray 11/13/22 14:13 IMPRESSION: No acute parenchymal disease. No radiopaque foreign bodies. KUB X-Ray 11/13/22 14:13 IMPRESSION: No metallic radiopaque foreign bodies identified within the abdomen. 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 Background chronic microangiopathy. 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 Head CT 12/09/22 17:32 IMPRESSION: Cerebral atrophy and mild periventricular and central white matter diminished attenuation which is nonspecific but likely represent microvascular disease. No acute intracranial abnormality. Medications Medications Current Medications Acetaminophen (Acetaminophen 325 Mg Tablet) 650 mg PO Q6H PRN PRN Reason: Headache/Pain Mild Scale (1-3) Last Admin: 12/12/22 08:30 Dose: 650 mg Al Hydroxide/Mg Hydroxide (Magnesium Hydrox/Alum Hydrox 30 Ml Oral.Susp) 30 ml PO Q6H PRN PRN Reason: Heartburn/Nausea Aspirin (Aspirin Enteric Coated 81 Mg Tablet.Dr) 81 mg PO DAILY [facility] Last Admin: 12/17/22 08:23 Dose: 81 mg Atorvastatin Calcium (Atorvastatin Calcium 40 Mg Tablet) 40 mg PO BEDTIME [facility] Last Admin: 12/17/22 21:10 Dose: 40 mg Clonidine HCl (Clonidine Hcl 0.1 Mg Tablet) 0.05 mg PO TID [facility]; Protocol Last Admin: 12/17/22 21:10 Dose: 0.05 mg Divalproex Sodium (Divalproex Sodium Er 500 Mg Tab.Er.24h) 1,500 mg PO DAILY [facility] Last Admin: 12/17/22 08:22 Dose: 1,500 mg Escitalopram Oxalate (Escitalopram Oxalate 10 Mg Tablet) 10 mg PO DAILY [facility] Last Admin: 12/17/22 08:23 Dose: 10 mg Hydroxyzine HCl (Hydroxyzine Hcl 25 Mg Tablet) 25 mg PO Q6H PRN PRN Reason: Anxiety Last Admin: 12/17/22 21:10 Dose: 25 mg Lamotrigine (Lamotrigine 25 Mg Tablet) 150 mg PO BID [facility] Last Admin: 12/17/22 21:11 Dose: 150 mg Magnesium Hydroxide (Milk Of Magnesia 30 Ml Oral.Susp) 30 ml PO DAILY PRN PRN Reason: Constipation Last Admin: 12/17/22 14:48 Dose: 30 ml Olanzapine (Olanzapine 5 Mg Tablet) 5 mg PO Q4H PRN PRN Reason: psychotic agitation Last Admin: 12/15/22 17:56 Dose: 5 mg Quetiapine Fumarate (Quetiapine Fumarate 100 Mg Tablet) 100 mg PO BEDTIME [facility] Last Admin: 12/17/22 21:10 Dose: 100 mg Quetiapine Fumarate (Quetiapine Fumarate 50 Mg Tablet) 50 mg PO BID@0800,1700 [facility] Last Admin: 12/17/22 18:07 Dose: 50 mg Tamsulosin HCl (Tamsulosin Hcl 0.4 Mg Capsule) 0.4 mg PO BEDTIME [facility] Last Admin: 12/17/22 21:10 Dose: 0.4 mg Thiamine HCl (Thiamine Hcl 100 Mg Tablet) 100 mg PO DAILY [facility] Last Admin: 12/17/22 08:23 Dose: 100 mg Trazodone HCl (Trazodone Hcl 50 Mg Tablet) 50 mg PO BEDTIME PRN PRN Reason: Insomnia Last Admin: 12/15/22 18:50 Dose: 50 mg Allergies Allergies Allergy/AdvReac Type Severity Reaction Status Date / Time No Known Allergies Allergy Verified 11/12/22 15:27 Assessment & Plan Assessment & Plan (1) Neurodegenerative cognitive impairment: Status: Acute Code(s): G31.9 - Degenerative disease of nervous system, unspecified Assessment and Plan: 71 years old man who probably has degenerative dementia, moderate to severe, with significant behavioral component. Precise previous history is not available. 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 This type of infarct could be cardioembolic or from carotid artery. Because of significant underlying dementia, he would not be a candidate for any surgical intervention and for that reason I do not think exploring carotid artery stenosis is a reasonable idea. Continue his baseline medications. His examination is not suggestive of normal-pressure hydrocephalus despite his imaging revealing some ventriculomegaly. This type of patient typically require combination of medicines including some antipsychotics and mood stabilizers to manage day behavioral symptoms. He is also at relatively high risk for seizure disorder but also has been taking lamotrigine 100 mg twice a day, which would cover this condition even if he suffered from it. Now that his mental status has improved compared to his emergency room arrival, I do not think an EEG would be useful. Plan Plan 1. Continue with regular medications. 2. Neurologist reported that at this moment he does not have normal-pressure hydrocephalus. 3. Since the patient had being more irritable and labile we are increasing Seroquel up to 50 mg p.o. b.i.d. and 100 mg p.o. q.h.s.. 4. Reassessment with results. 5. Depakote level and comprehensive metabolic panel for November 20 a.m. the blood work came back within normal limits and a therapeutic level of Depakote. 6. Waiting for placement 7. Lexapro increased up to 10 mg p.o. on November 27. 8. Start clonidine 0.1 p.o. t.i.d. to target impulsivity. We have to discontinue that on December 01 due to hypotension. Due to increased agitation we restarted clonidine 0.05 p.o. t.i.d. on December 02. 9. Lamictal was increased up to 150 mg p.o. b.i.d.. 10. Adding p.r.n. Zyprexa. 11. Follow-up with urinalysis ordered on December 04. No new symptoms, we reordered another urinalysis on August 12 for pain on urination but apparently came back negative again. 12/13: Continue current treatment plan. 12/14: Continue treatment plan. 12/15 continue tx. 12/16 continue tx. 12/17 will check depakote levels and adjust dose as needed due to ongoing sexualized behaviors. Reason for continued inpatient stay Substantial Risk for: inability to function Time Spent With Patient Time: Total time managing care of this patient today ____ minutes.
[2022-12-18 08:13] VITALS: BP 121/66; PULSE 90; RESP 18; TEMP 36.3; O2SAT 96
[2022-12-18] MEDS: Divalproex Sodium ER 500 MG TAB.ER.24H 1500 MG PO (08:30)
[2022-12-18] MEDS: cloNIDine HCL 0.1 MG TABLET 0.05 MG PO ×3 (08:30→20:39)
[2022-12-18] MEDS: Aspirin Enteric Coated 81 MG TABLET.DR PO (08:30)
[2022-12-18] MEDS: Escitalopram Oxalate 10 MG TABLET PO (08:30)
[2022-12-18] MEDS: lamoTRIgine 25 MG TABLET 150 MG PO ×2 (08:30→20:39)
[2022-12-18] MEDS: QUEtiapine Fumarate 50 MG TABLET PO ×2 (08:30→16:06)
[2022-12-18] MEDS: Thiamine HCL 100 MG TABLET PO (08:31)
[2022-12-18] MEDS: OLANZapine 5 MG TABLET PO (09:02)
[2022-12-18 11:12] VITALS: BMI 32.1
[2022-12-18 15:53] VITALS: BP 133/81; PULSE 68
[2022-12-18 18:00] VITALS: BP 125/80; PULSE 63; RESP 19; TEMP 35.7; O2SAT 97
--- NOTE | 2022-12-18 20:06 | P.PNPSI_ITS ---
Subjective Subjective Date of Service: 12/18/22 Reason For Visit: DEMENTIA Subjective Notes: Conditional Voluntary Interim History: Pt continues to present with some increase hypersexualized behaviors and poor boundaries with females but redirectable. He is pleasant on approach, does not remember meeting this keno writer/runner, does not know when he came here but relief to know that he is going to facility. Review of Systems Review of Systems No evidence of any seizure-like episode. Yes all other systems are reviewed and are negative Mental Status Exam Mental Status Exam Patient Appearance: Well Grooomed and Appropriate Patient Orientation: Person and Situation Level of Consciousness: Awake and Appropriate Patient Behavior: Guarded and Passive Mood Description: Calm Affect Description: Constricted Patient Cognition Impaired: Yes Ability to Follow Directions: Good Speech Pattern: Clear Memory Description: Remote Impaired, Immediate Impaired, Episodic Impaired and Recent Impaired Diagnostics Vital Signs (24Hr): Vital Signs - 24 hr 12/18/22 08:13 12/18/22 15:53 Temperature 97.4 F Pulse Rate 90 68 Respiratory Rate 18 Blood Pressure 121/66 133/81 Pulse Oximetry 96 Oxygen Delivery Method Room Air BMI result Body Mass Index 32.1 Labs 11/18/22 08:03 11/20/22 04:51 Imaging Radiology Impressions: ITS Impressions Head CT 11/12/22 19:17 IMPRESSION: 1. No acute intracranial pathology. 2. There is ventriculomegaly disproportionate to the extent of sulcal widening. This can be seen in the setting of normal pressure hydrocephalus. Recommend clinical correlation. Consider MRI evaluation if clinically appropriate. Chest X-Ray 11/13/22 14:13 IMPRESSION: No acute parenchymal disease. No radiopaque foreign bodies. KUB X-Ray 11/13/22 14:13 IMPRESSION: No metallic radiopaque foreign bodies identified within the abdomen. 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 Background chronic microangiopathy. 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 Head CT 12/09/22 17:32 IMPRESSION: Cerebral atrophy and mild periventricular and central white matter diminished attenuation which is nonspecific but likely represent microvascular disease. No acute intracranial abnormality. Medications Medications Current Medications Acetaminophen (Acetaminophen 325 Mg Tablet) 650 mg PO Q6H PRN PRN Reason: Headache/Pain Mild Scale (1-3) Last Admin: 12/12/22 08:30 Dose: 650 mg Al Hydroxide/Mg Hydroxide (Magnesium Hydrox/Alum Hydrox 30 Ml Oral.Susp) 30 ml PO Q6H PRN PRN Reason: Heartburn/Nausea Aspirin (Aspirin Enteric Coated 81 Mg Tablet.Dr) 81 mg PO DAILY [facility] Last Admin: 12/18/22 08:30 Dose: 81 mg Atorvastatin Calcium (Atorvastatin Calcium 40 Mg Tablet) 40 mg PO BEDTIME [facility] Last Admin: 12/17/22 21:10 Dose: 40 mg Clonidine HCl (Clonidine Hcl 0.1 Mg Tablet) 0.05 mg PO TID [facility]; Protocol Last Admin: 12/18/22 16:06 Dose: 0.05 mg Divalproex Sodium (Divalproex Sodium Er 500 Mg Tab.Er.24h) 1,500 mg PO DAILY [facility] Last Admin: 12/18/22 08:30 Dose: 1,500 mg Escitalopram Oxalate (Escitalopram Oxalate 10 Mg Tablet) 10 mg PO DAILY [facility] Last Admin: 12/18/22 08:30 Dose: 10 mg Hydroxyzine HCl (Hydroxyzine Hcl 25 Mg Tablet) 25 mg PO Q6H PRN PRN Reason: Anxiety Last Admin: 12/17/22 21:10 Dose: 25 mg Lamotrigine (Lamotrigine 25 Mg Tablet) 150 mg PO BID [facility] Last Admin: 12/18/22 08:30 Dose: 150 mg Magnesium Hydroxide (Milk Of Magnesia 30 Ml Oral.Susp) 30 ml PO DAILY PRN PRN Reason: Constipation Last Admin: 12/17/22 14:48 Dose: 30 ml Olanzapine (Olanzapine 5 Mg Tablet) 5 mg PO Q4H PRN PRN Reason: psychotic agitation Last Admin: 12/18/22 09:02 Dose: 5 mg Quetiapine Fumarate (Quetiapine Fumarate 100 Mg Tablet) 100 mg PO BEDTIME [facility] Last Admin: 12/17/22 21:10 Dose: 100 mg Quetiapine Fumarate (Quetiapine Fumarate 50 Mg Tablet) 50 mg PO BID@0800,1700 [facility] Last Admin: 12/18/22 16:06 Dose: 50 mg Tamsulosin HCl (Tamsulosin Hcl 0.4 Mg Capsule) 0.4 mg PO BEDTIME [facility] Last Admin: 12/17/22 21:10 Dose: 0.4 mg Thiamine HCl (Thiamine Hcl 100 Mg Tablet) 100 mg PO DAILY [facility] Last Admin: 12/18/22 08:31 Dose: 100 mg Trazodone HCl (Trazodone Hcl 50 Mg Tablet) 50 mg PO BEDTIME PRN PRN Reason: Insomnia Last Admin: 12/15/22 18:50 Dose: 50 mg Allergies Allergies Allergy/AdvReac Type Severity Reaction Status Date / Time No Known Allergies Allergy Verified 11/12/22 15:27 Assessment & Plan Assessment & Plan (1) Neurodegenerative cognitive impairment: Status: Acute Code(s): G31.9 - Degenerative disease of nervous system, unspecified Assessment and Plan: 71 years old man who probably has degenerative dementia, moderate to severe, with significant behavioral component. Precise previous history is not available. 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 This type of infarct could be cardioembolic or from carotid artery. Because of significant underlying dementia, he would not be a candidate for any surgical intervention and for that reason I do not think exploring carotid artery stenosis is a reasonable idea. Continue his baseline medications. His examination is not suggestive of normal-pressure hydrocephalus despite his imaging revealing some ventriculomegaly. This type of patient typically require combination of medicines including some antipsychotics and mood stabilizers to manage day behavioral symptoms. He is also at relatively high risk for seizure disorder but also has been taking lamotrigine 100 mg twice a day, which would cover this condition even if he suffered from it. Now that his mental status has improved compared to his emergency room arrival, I do not think an EEG would be useful. Plan Plan 1. Continue with regular medications. 2. Neurologist reported that at this moment he does not have normal-pressure hydrocephalus. 3. Since the patient had being more irritable and labile we are increasing Seroquel up to 50 mg p.o. b.i.d. and 100 mg p.o. q.h.s.. 4. Reassessment with results. 5. Depakote level and comprehensive metabolic panel for November 20 a.m. the blood work came back within normal limits and a therapeutic level of Depakote. 6. Waiting for placement 7. Lexapro increased up to 10 mg p.o. on November 27. 8. Start clonidine 0.1 p.o. t.i.d. to target impulsivity. We have to discontinue that on December 01 due to hypotension. Due to increased agitation we restarted clonidine 0.05 p.o. t.i.d. on December 02. 9. Lamictal was increased up to 150 mg p.o. b.i.d.. 10. Adding p.r.n. Zyprexa. 11. Follow-up with urinalysis ordered on December 04. No new symptoms, we reordered another urinalysis on August 12 for pain on urination but apparently came back negative again. 12/13: Continue current treatment plan. 12/14: Continue treatment plan. 12/15 continue tx. 12/16 continue tx. 12/17 will check depakote levels and adjust dose as needed due to ongoing sexualized behaviors. 12/18 continue tx. Reason for continued inpatient stay Substantial Risk for: inability to function Time Spent With Patient Time: Total time managing care of this patient today ____ minutes.
[2022-12-18] MEDS: traZODone HCL 50 MG TABLET PO (20:39)
[2022-12-18] MEDS: QUEtiapine Fumarate 100 MG TABLET PO (20:39)
[2022-12-18] MEDS: Atorvastatin Calcium 40 MG TABLET PO (20:39)
[2022-12-18] MEDS: Tamsulosin HCL 0.4 MG CAPSULE PO (20:40)
[2022-12-19 07:44] VITALS: BP 124/79; PULSE 74; RESP 18; TEMP 36.1; O2SAT 96
[2022-12-19] MEDS: Aspirin Enteric Coated 81 MG TABLET.DR PO (08:05)
[2022-12-19] MEDS: lamoTRIgine 25 MG TABLET 150 MG PO ×2 (08:08→20:09)
[2022-12-19] MEDS: QUEtiapine Fumarate 50 MG TABLET PO ×2 (08:09→16:41)
[2022-12-19] MEDS: Thiamine HCL 100 MG TABLET PO (08:09)
[2022-12-19] MEDS: OLANZapine 5 MG TABLET PO ×2 (08:09→15:03)
[2022-12-19] MEDS: Divalproex Sodium ER 500 MG TAB.ER.24H 1500 MG PO (08:09)
[2022-12-19] MEDS: Escitalopram Oxalate 10 MG TABLET PO (08:09)
[2022-12-19] MEDS: cloNIDine HCL 0.1 MG TABLET 0.05 MG PO ×3 (08:09→20:15)
[2022-12-19 14:59] VITALS: BP 119/68; PULSE 70
--- NOTE | 2022-12-19 15:23 | HO.PSYCHPN ---
Subjective Subjective Date of Service: 12/19/22 Reason For Visit: DEMENTIA Subjective Notes: Conditional Voluntary Healthcare Proxy: Yes Interim History: Pt calmer. He asks when is he leaving. He does not know month, date, not oriented to situation either. He denies SI/HI. No behavioral concerns. Takes medications as prescribed. Depakote level scheduled for 12/20. Pt slept through the night. VS stable. Medication Compliance: Yes Review of Systems Review of Systems No evidence of any seizure-like episode. Yes all other systems are reviewed and are negative Mental Status Exam Mental Status Exam Patient Appearance: Well Grooomed and Appropriate Patient Orientation: Person and Situation Level of Consciousness: Awake and Appropriate Patient Behavior: Guarded and Passive Mood Description: Calm Affect Description: Constricted Patient Cognition Impaired: Yes Ability to Follow Directions: Good Speech Pattern: Clear Memory Description: Remote Impaired, Immediate Impaired, Episodic Impaired and Recent Impaired Diagnostics Vital Signs (24Hr): Vital Signs - 24 hr 12/18/22 15:53 12/18/22 18:00 12/19/22 07:44 Temperature 96.3 F L 97.0 F Pulse Rate 68 63 74 Respiratory Rate 19 18 Blood Pressure 133/81 125/80 124/79 Pulse Oximetry 97 96 Oxygen Delivery Method Room Air Room Air 12/19/22 14:59 Temperature Pulse Rate 70 Respiratory Rate Blood Pressure 119/68 Pulse Oximetry Oxygen Delivery Method BMI result Body Mass Index 32.1 Labs 11/18/22 08:03 11/20/22 04:51 Imaging Radiology Impressions: ITS Impressions Head CT 11/12/22 19:17 IMPRESSION: 1. No acute intracranial pathology. 2. There is ventriculomegaly disproportionate to the extent of sulcal widening. This can be seen in the setting of normal pressure hydrocephalus. Recommend clinical correlation. Consider MRI evaluation if clinically appropriate. Chest X-Ray 11/13/22 14:13 IMPRESSION: No acute parenchymal disease. No radiopaque foreign bodies. KUB X-Ray 11/13/22 14:13 IMPRESSION: No metallic radiopaque foreign bodies identified within the abdomen. 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 Background chronic microangiopathy. 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 Head CT 12/09/22 17:32 IMPRESSION: Cerebral atrophy and mild periventricular and central white matter diminished attenuation which is nonspecific but likely represent microvascular disease. No acute intracranial abnormality. Medications Medications Current Medications Acetaminophen (Acetaminophen 325 Mg Tablet) 650 mg PO Q6H PRN PRN Reason: Headache/Pain Mild Scale (1-3) Last Admin: 12/12/22 08:30 Dose: 650 mg Al Hydroxide/Mg Hydroxide (Magnesium Hydrox/Alum Hydrox 30 Ml Oral.Susp) 30 ml PO Q6H PRN PRN Reason: Heartburn/Nausea Aspirin (Aspirin Enteric Coated 81 Mg Tablet.Dr) 81 mg PO DAILY [facility] Last Admin: 12/19/22 08:05 Dose: 81 mg Atorvastatin Calcium (Atorvastatin Calcium 40 Mg Tablet) 40 mg PO BEDTIME [facility] Last Admin: 12/18/22 20:39 Dose: 40 mg Clonidine HCl (Clonidine Hcl 0.1 Mg Tablet) 0.05 mg PO TID [facility]; Protocol Last Admin: 12/19/22 15:03 Dose: 0.05 mg Divalproex Sodium (Divalproex Sodium Er 500 Mg Tab.Er.24h) 1,500 mg PO DAILY [facility] Last Admin: 12/19/22 08:09 Dose: 1,500 mg Escitalopram Oxalate (Escitalopram Oxalate 10 Mg Tablet) 10 mg PO DAILY [facility] Last Admin: 12/19/22 08:09 Dose: 10 mg Hydroxyzine HCl (Hydroxyzine Hcl 25 Mg Tablet) 25 mg PO Q6H PRN PRN Reason: Anxiety Last Admin: 12/17/22 21:10 Dose: 25 mg Lamotrigine (Lamotrigine 25 Mg Tablet) 150 mg PO BID [facility] Last Admin: 12/19/22 08:08 Dose: 150 mg Magnesium Hydroxide (Milk Of Magnesia 30 Ml Oral.Susp) 30 ml PO DAILY PRN PRN Reason: Constipation Last Admin: 12/17/22 14:48 Dose: 30 ml Olanzapine (Olanzapine 5 Mg Tablet) 5 mg PO Q4H PRN PRN Reason: psychotic agitation Last Admin: 12/19/22 15:03 Dose: 5 mg Quetiapine Fumarate (Quetiapine Fumarate 100 Mg Tablet) 100 mg PO BEDTIME [facility] Last Admin: 08/31/23 20:39 Dose: 100 mg Quetiapine Fumarate (Quetiapine Fumarate 50 Mg Tablet) 50 mg PO BID@0800,1700 [facility] Last Admin: 12/19/22 08:09 Dose: 50 mg Tamsulosin HCl (Tamsulosin Hcl 0.4 Mg Capsule) 0.4 mg PO BEDTIME [facility] Last Admin: 12/18/22 20:40 Dose: 0.4 mg Thiamine HCl (Thiamine Hcl 100 Mg Tablet) 100 mg PO DAILY [facility] Last Admin: 12/19/22 08:09 Dose: 100 mg Trazodone HCl (Trazodone Hcl 50 Mg Tablet) 50 mg PO BEDTIME PRN PRN Reason: Insomnia Last Admin: 12/18/22 20:39 Dose: 50 mg Allergies Allergies Allergy/AdvReac Type Severity Reaction Status Date / Time No Known Allergies Allergy Verified 11/12/22 15:27 Assessment & Plan Assessment & Plan (1) Neurodegenerative cognitive impairment: Status: Acute Code(s): G31.9 - Degenerative disease of nervous system, unspecified Assessment and Plan: 71 years old man who probably has degenerative dementia, moderate to severe, with significant behavioral component. Precise previous history is not available. 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 This type of infarct could be cardioembolic or from carotid artery. Because of significant underlying dementia, he would not be a candidate for any surgical intervention and for that reason I do not think exploring carotid artery stenosis is a reasonable idea. Continue his baseline medications. His examination is not suggestive of normal-pressure hydrocephalus despite his imaging revealing some ventriculomegaly. This type of patient typically require combination of medicines including some antipsychotics and mood stabilizers to manage day behavioral symptoms. He is also at relatively high risk for seizure disorder but also has been taking lamotrigine 100 mg twice a day, which would cover this condition even if he suffered from it. Now that his mental status has improved compared to his emergency room arrival, I do not think an EEG would be useful. Plan Plan 1. Continue with regular medications. 2. Neurologist reported that at this moment he does not have normal-pressure hydrocephalus. 3. Since the patient had being more irritable and labile we are increasing Seroquel up to 50 mg p.o. b.i.d. and 100 mg p.o. q.h.s.. 4. Reassessment with results. 5. Depakote level and comprehensive metabolic panel for November 20 a.m. the blood work came back within normal limits and a therapeutic level of Depakote. 6. Waiting for placement 7. Lexapro increased up to 10 mg p.o. on November 27. 8. Start clonidine 0.1 p.o. t.i.d. to target impulsivity. We have to discontinue that on December 01 due to hypotension. Due to increased agitation we restarted clonidine 0.05 p.o. t.i.d. on December 02. 9. Lamictal was increased up to 150 mg p.o. b.i.d.. 10. Adding p.r.n. Zyprexa. 11. Follow-up with urinalysis ordered on December 04. No new symptoms, we reordered another urinalysis on August 12 for pain on urination but apparently came back negative again. 12/13: Continue current treatment plan. 12/14: Continue treatment plan. 12/15 continue tx. 12/16 continue tx. 12/17 will check depakote levels and adjust dose as needed due to ongoing sexualized behaviors. 12/18 continue tx. 12/19 continue tx. Reason for continued inpatient stay Substantial Risk for: inability to function Time Spent With Patient Time: Total time managing care of this patient today ____ minutes.
[2022-12-19 18:00] VITALS: BP 121/72; PULSE 74; RESP 16; TEMP 36.1; O2SAT 96
[2022-12-19] MEDS: traZODone HCL 50 MG TABLET PO (20:11)
[2022-12-19] MEDS: Tamsulosin HCL 0.4 MG CAPSULE PO (20:12)
[2022-12-19] MEDS: QUEtiapine Fumarate 100 MG TABLET PO (20:12)
[2022-12-19] MEDS: hydrOXYzine HCL 25 MG TABLET PO (20:12)
[2022-12-19] MEDS: Atorvastatin Calcium 40 MG TABLET PO (20:12)
[2022-12-20 08:05] VITALS: BP 134/66; PULSE 91; RESP 16; TEMP 36.8; O2SAT 98
[2022-12-20] MEDS: Thiamine HCL 100 MG TABLET PO (08:36)
[2022-12-20] MEDS: Aspirin Enteric Coated 81 MG TABLET.DR PO (08:36)
[2022-12-20] MEDS: lamoTRIgine 25 MG TABLET 150 MG PO ×2 (08:36→20:08)
[2022-12-20] MEDS: Divalproex Sodium ER 500 MG TAB.ER.24H 1500 MG PO (08:36)
[2022-12-20] MEDS: cloNIDine HCL 0.1 MG TABLET 0.05 MG PO ×3 (08:36→20:07)
[2022-12-20] MEDS: QUEtiapine Fumarate 50 MG TABLET PO ×2 (08:37→16:59)
[2022-12-20] MEDS: Escitalopram Oxalate 10 MG TABLET PO (08:37)
[2022-12-20 09:09] LABS: Valproate 41.2 mcg/mL (50.0-100.0)
--- NOTE | 2022-12-20 12:56 | HO.PSYCHPN ---
Subjective Subjective Date of Service: 12/20/22 Reason For Visit: DEMENTIA Subjective Notes: Conditional Voluntary Interim History: Patient was seen and discussed in rounds today. Records and plans were reviewed. He has been stable and is doing fairly well. Eating and sleeping adequately. He continues to be confused, at times derogatory toward staff. Some inappropriate sexual behaviors and comments. No complaints or side effects. No changes were made Review of Systems Review of Systems No evidence of any seizure-like episode. Yes all other systems are reviewed and are negative Mental Status Exam Mental Status Exam Patient Appearance: Well Grooomed and Appropriate Patient Orientation: Person and Situation Level of Consciousness: Awake and Appropriate Patient Behavior: Guarded and Passive Mood Description: Calm Affect Description: Constricted Patient Cognition Impaired: Yes Ability to Follow Directions: Good Speech Pattern: Clear Memory Description: Remote Impaired, Immediate Impaired, Episodic Impaired and Recent Impaired Diagnostics Vital Signs (24Hr): Vital Signs - 24 hr 12/19/22 14:59 12/19/22 18:00 12/20/22 08:05 Temperature 96.9 F 98.2 F Pulse Rate 70 74 91 Respiratory Rate 16 16 Blood Pressure 119/68 121/72 134/66 Pulse Oximetry 96 98 Oxygen Delivery Method Room Air Room Air BMI result Body Mass Index 32.1 Labs 11/18/22 08:03 11/20/22 04:51 Labs: Laboratory Results - last 48 hr 12/20/22 07:40 Valproic Acid 41.2 L Imaging Radiology Impressions: ITS Impressions Head CT 11/12/22 19:17 IMPRESSION: 1. No acute intracranial pathology. 2. There is ventriculomegaly disproportionate to the extent of sulcal widening. This can be seen in the setting of normal pressure hydrocephalus. Recommend clinical correlation. Consider MRI evaluation if clinically appropriate. Chest X-Ray 11/13/22 14:13 IMPRESSION: No acute parenchymal disease. No radiopaque foreign bodies. KUB X-Ray 11/13/22 14:13 IMPRESSION: No metallic radiopaque foreign bodies identified within the abdomen. 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 Background chronic microangiopathy. 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 Head CT 12/09/22 17:32 IMPRESSION: Cerebral atrophy and mild periventricular and central white matter diminished attenuation which is nonspecific but likely represent microvascular disease. No acute intracranial abnormality. Medications Medications Current Medications Acetaminophen (Acetaminophen 325 Mg Tablet) 650 mg PO Q6H PRN PRN Reason: Headache/Pain Mild Scale (1-3) Last Admin: 12/12/22 08:30 Dose: 650 mg Al Hydroxide/Mg Hydroxide (Magnesium Hydrox/Alum Hydrox 30 Ml Oral.Susp) 30 ml PO Q6H PRN PRN Reason: Heartburn/Nausea Aspirin (Aspirin Enteric Coated 81 Mg Tablet.Dr) [address] [facility] Last Admin: 12/20/22 08:36 Dose: 81 mg Atorvastatin Calcium (Atorvastatin Calcium 40 Mg Tablet) [address] [facility] Last Admin: 12/19/22 20:12 Dose: 40 mg Clonidine HCl (Clonidine Hcl 0.1 Mg Tablet) 0.[address] [facility]; Protocol Last Admin: 12/20/22 08:36 Dose: 0.05 mg Divalproex Sodium (Divalproex Sodium Er 500 Mg Tab.Er.24h) 1,[address] [facility] Last Admin: 12/20/22 08:36 Dose: 1,500 mg Escitalopram Oxalate (Escitalopram Oxalate 10 Mg Tablet) [address] [facility] Last Admin: 12/20/22 08:37 Dose: 10 mg Hydroxyzine HCl (Hydroxyzine Hcl 25 Mg Tablet) 25 mg PO Q6H PRN PRN Reason: Anxiety Last Admin: 12/19/22 20:12 Dose: 25 mg Lamotrigine (Lamotrigine 25 Mg Tablet) [address] [facility] Last Admin: 12/20/22 08:36 Dose: 150 mg Magnesium Hydroxide (Milk Of Magnesia 30 Ml Oral.Susp) 30 ml PO DAILY PRN PRN Reason: Constipation Last Admin: 12/17/22 14:48 Dose: 30 ml Olanzapine (Olanzapine 5 Mg Tablet) 5 mg PO Q4H PRN PRN Reason: psychotic agitation Last Admin: 12/19/22 15:03 Dose: 5 mg Quetiapine Fumarate (Quetiapine Fumarate 100 Mg Tablet) 100 mg PO BEDTIME [facility] Last Admin: 12/19/22 20:12 Dose: 100 mg Quetiapine Fumarate (Quetiapine Fumarate 50 Mg Tablet) 50 mg PO BID@0800,1700 [facility] Last Admin: 12/20/22 08:37 Dose: 50 mg Tamsulosin HCl (Tamsulosin Hcl 0.4 Mg Capsule) 0.[address] [facility] Last Admin: 12/19/22 20:12 Dose: 0.4 mg Thiamine HCl (Thiamine Hcl 100 Mg Tablet) [address] [facility] Last Admin: 12/20/22 08:36 Dose: 100 mg Trazodone HCl (Trazodone Hcl 50 Mg Tablet) 50 mg PO BEDTIME PRN PRN Reason: Insomnia Last Admin: 12/19/22 20:11 Dose: 50 mg Allergies Allergies Allergy/AdvReac Type Severity Reaction Status Date / Time No Known Allergies Allergy Verified 11/12/22 15:27 Assessment & Plan Assessment & Plan (1) Neurodegenerative cognitive impairment: Status: Acute Code(s): G31.9 - Degenerative disease of nervous system, unspecified Assessment and Plan: 71 years old man who probably has degenerative dementia, moderate to severe, with significant behavioral component. Precise previous history is not available. 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 This type of infarct could be cardioembolic or from carotid artery. Because of significant underlying dementia, he would not be a candidate for any surgical intervention and for that reason I do not think exploring carotid artery stenosis is a reasonable idea. Continue his baseline medications. His examination is not suggestive of normal-pressure hydrocephalus despite his imaging revealing some ventriculomegaly. This type of patient typically require combination of medicines including some antipsychotics and mood stabilizers to manage day behavioral symptoms. He is also at relatively high risk for seizure disorder but also has been taking lamotrigine 100 mg twice a day, which would cover this condition even if he suffered from it. Now that his mental status has improved compared to his emergency room arrival, I do not think an EEG would be useful. Plan Plan 1. Continue with regular medications. 2. Neurologist reported that at this moment he does not have normal-pressure hydrocephalus. 3. Since the patient had being more irritable and labile we are increasing Seroquel up to 50 mg p.o. b.i.d. and 100 mg p.o. q.h.s.. 4. Reassessment with results. 5. Depakote level and comprehensive metabolic panel for November 20 a.m. the blood work came back within normal limits and a therapeutic level of Depakote. 6. Waiting for placement 7. Lexapro increased up to 10 mg p.o. on November 27. 8. Start clonidine 0.1 p.o. t.i.d. to target impulsivity. We have to discontinue that on December 01 due to hypotension. Due to increased agitation we restarted clonidine 0.05 p.o. t.i.d. on December 02. 9. Lamictal was increased up to 150 mg p.o. b.i.d.. 10. Adding p.r.n. Zyprexa. 11. Follow-up with urinalysis ordered on December 04. No new symptoms, we reordered another urinalysis on August 12 for pain on urination but apparently came back negative again. 12/13: Continue current treatment plan. 12/14: Continue treatment plan. 12/15 continue tx. 12/16 continue tx. 12/17 will check depakote levels and adjust dose as needed due to ongoing sexualized behaviors. 12/18 continue tx. 12/19 continue tx. 12/20: Continue current plans and regimen Reason for continued inpatient stay Substantial Risk for: inability to function Time Spent With Patient Time: Total time managing care of this patient today ____ minutes.
[2022-12-20 18:00] VITALS: BP 106/58; PULSE 80; RESP 16; TEMP 36.1; O2SAT 92
--- NOTE | 2022-12-20 18:45 | PC.NURSE ---
pt agreed to take Zyprexa prn and accidently dropped it in the toilet,
[2022-12-20] MEDS: OLANZapine 5 MG TABLET PO (18:48)
[2022-12-20] MEDS: traZODone HCL 50 MG TABLET PO (20:09)
[2022-12-20] MEDS: QUEtiapine Fumarate 100 MG TABLET PO (20:09)
[2022-12-20] MEDS: Tamsulosin HCL 0.4 MG CAPSULE PO (20:09)
[2022-12-20] MEDS: hydrOXYzine HCL 25 MG TABLET PO (20:09)
[2022-12-20] MEDS: Atorvastatin Calcium 40 MG TABLET PO (20:10)
[2022-12-21 06:00] VITALS: BP 132/68; PULSE 94; RESP 18; TEMP 36.6; O2SAT 95
[2022-12-21] MEDS: Aspirin Enteric Coated 81 MG TABLET.DR PO (08:06)
[2022-12-21] MEDS: Escitalopram Oxalate 10 MG TABLET PO (08:07)
[2022-12-21] MEDS: cloNIDine HCL 0.1 MG TABLET 0.05 MG PO ×3 (08:07→20:20)
[2022-12-21] MEDS: Thiamine HCL 100 MG TABLET PO (08:07)
[2022-12-21] MEDS: lamoTRIgine 25 MG TABLET 150 MG PO ×2 (08:07→20:19)
[2022-12-21] MEDS: Divalproex Sodium ER 500 MG TAB.ER.24H 1500 MG PO (08:08)
[2022-12-21] MEDS: QUEtiapine Fumarate 50 MG TABLET PO ×2 (08:09→16:54)
--- NOTE | 2022-12-21 10:50 | HO.PSYCHPN ---
Subjective Subjective Date of Service: 12/21/22 Reason For Visit: DEMENTIA Subjective Notes: Conditional Voluntary Interim History: Patient was seen and discussed in rounds today. Records and plans were reviewed. He has been doing well and has been stable with continued disorganization and confusion. Compliant with treatment. No complaints or side effects. Eating and sleeping adequately. Made today Medication Compliance: Yes Side effects from medications: No Review of Systems Review of Systems No evidence of any seizure-like episode. Yes all other systems are reviewed and are negative Mental Status Exam Mental Status Exam Patient Appearance: Well Grooomed and Appropriate Patient Orientation: Person and Situation Level of Consciousness: Awake and Appropriate Patient Behavior: Guarded and Passive Mood Description: Calm Affect Description: Constricted Patient Cognition Impaired: Yes Ability to Follow Directions: Good Speech Pattern: Clear Memory Description: Remote Impaired, Immediate Impaired, Episodic Impaired and Recent Impaired Diagnostics Vital Signs (24Hr): Vital Signs - 24 hr 12/20/22 18:00 12/21/22 06:00 Temperature 97 F 97.9 F Pulse Rate 80 94 Respiratory Rate 16 18 Blood Pressure 106/58 L 132/68 Pulse Oximetry 92 95 Oxygen Delivery Method Room Air Room Air BMI result Body Mass Index 32.1 Labs 11/18/22 08:03 11/20/22 04:51 Labs: Laboratory Results - last 48 hr 12/20/22 07:40 Valproic Acid 41.2 L Imaging Radiology Impressions: ITS Impressions Head CT 11/12/22 19:17 IMPRESSION: 1. No acute intracranial pathology. 2. There is ventriculomegaly disproportionate to the extent of sulcal widening. This can be seen in the setting of normal pressure hydrocephalus. Recommend clinical correlation. Consider MRI evaluation if clinically appropriate. Chest X-Ray 11/13/22 14:13 IMPRESSION: No acute parenchymal disease. No radiopaque foreign bodies. KUB X-Ray 11/13/22 14:13 IMPRESSION: No metallic radiopaque foreign bodies identified within the abdomen. 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 Background chronic microangiopathy. 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 Head CT 12/09/22 17:32 IMPRESSION: Cerebral atrophy and mild periventricular and central white matter diminished attenuation which is nonspecific but likely represent microvascular disease. No acute intracranial abnormality. Medications Medications Current Medications Acetaminophen (Acetaminophen 325 Mg Tablet) 650 mg PO Q6H PRN PRN Reason: Headache/Pain Mild Scale (1-3) Last Admin: 12/12/22 08:30 Dose: 650 mg Al Hydroxide/Mg Hydroxide (Magnesium Hydrox/Alum Hydrox 30 Ml Oral.Susp) 30 ml PO Q6H PRN PRN Reason: Heartburn/Nausea Aspirin (Aspirin Enteric Coated 81 Mg Tablet.Dr) 81 mg PO DAILY [facility] Last Admin: 12/21/22 08:06 Dose: 81 mg Atorvastatin Calcium (Atorvastatin Calcium 40 Mg Tablet) 40 mg PO BEDTIME [facility] Last Admin: 12/20/22 20:10 Dose: 40 mg Clonidine HCl (Clonidine Hcl 0.1 Mg Tablet) 0.05 mg PO TID [facility]; Protocol Last Admin: 12/21/22 08:07 Dose: 0.05 mg Divalproex Sodium (Divalproex Sodium Er 500 Mg Tab.Er.24h) 1,500 mg PO DAILY [facility] Last Admin: 12/21/22 08:08 Dose: 1,500 mg Escitalopram Oxalate (Escitalopram Oxalate 10 Mg Tablet) 10 mg PO DAILY [facility] Last Admin: 12/21/22 08:07 Dose: 10 mg Hydroxyzine HCl (Hydroxyzine Hcl 25 Mg Tablet) 25 mg PO Q6H PRN PRN Reason: Anxiety Last Admin: 12/20/22 20:09 Dose: 25 mg Lamotrigine (Lamotrigine 25 Mg Tablet) 150 mg PO BID [facility] Last Admin: 12/21/22 08:07 Dose: 150 mg Magnesium Hydroxide (Milk Of Magnesia 30 Ml Oral.Susp) 30 ml PO DAILY PRN PRN Reason: Constipation Last Admin: 12/17/22 14:48 Dose: 30 ml Olanzapine (Olanzapine 5 Mg Tablet) 5 mg PO Q4H PRN PRN Reason: psychotic agitation Last Admin: 12/20/22 18:48 Dose: 5 mg Quetiapine Fumarate (Quetiapine Fumarate 100 Mg Tablet) 100 mg PO BEDTIME [facility] Last Admin: 12/20/22 20:09 Dose: 100 mg Quetiapine Fumarate (Quetiapine Fumarate 50 Mg Tablet) 50 mg PO BID@0800,1700 [facility] Last Admin: 12/21/22 08:09 Dose: 50 mg Tamsulosin HCl (Tamsulosin Hcl 0.4 Mg Capsule) 0.4 mg PO BEDTIME [facility] Last Admin: 12/20/22 20:09 Dose: 0.4 mg Thiamine HCl (Thiamine Hcl 100 Mg Tablet) 100 mg PO DAILY [facility] Last Admin: 12/21/22 08:07 Dose: 100 mg Trazodone HCl (Trazodone Hcl 50 Mg Tablet) 50 mg PO BEDTIME PRN PRN Reason: Insomnia Last Admin: 12/20/22 20:09 Dose: 50 mg Allergies Allergies Allergy/AdvReac Type Severity Reaction Status Date / Time No Known Allergies Allergy Verified 11/12/22 15:27 Assessment & Plan Assessment & Plan (1) Neurodegenerative cognitive impairment: Status: Acute Code(s): G31.9 - Degenerative disease of nervous system, unspecified Assessment and Plan: 71 years old man who probably has degenerative dementia, moderate to severe, with significant behavioral component. Precise previous history is not available. 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 This type of infarct could be cardioembolic or from carotid artery. Because of significant underlying dementia, he would not be a candidate for any surgical intervention and for that reason I do not think exploring carotid artery stenosis is a reasonable idea. Continue his baseline medications. His examination is not suggestive of normal-pressure hydrocephalus despite his imaging revealing some ventriculomegaly. This type of patient typically require combination of medicines including some antipsychotics and mood stabilizers to manage day behavioral symptoms. He is also at relatively high risk for seizure disorder but also has been taking lamotrigine 100 mg twice a day, which would cover this condition even if he suffered from it. Now that his mental status has improved compared to his emergency room arrival, I do not think an EEG would be useful. Plan Plan 1. Continue with regular medications. 2. Neurologist reported that at this moment he does not have normal-pressure hydrocephalus. 3. Since the patient had being more irritable and labile we are increasing Seroquel up to 50 mg p.o. b.i.d. and 100 mg p.o. q.h.s.. 4. Reassessment with results. 5. Depakote level and comprehensive metabolic panel for November 20 a.m. the blood work came back within normal limits and a therapeutic level of Depakote. 6. Waiting for placement 7. Lexapro increased up to 10 mg p.o. on November 27. 8. Start clonidine 0.1 p.o. t.i.d. to target impulsivity. We have to discontinue that on December 01 due to hypotension. Due to increased agitation we restarted clonidine 0.05 p.o. t.i.d. on December 02. 9. Lamictal was increased up to 150 mg p.o. b.i.d.. 10. Adding p.r.n. Zyprexa. 11. Follow-up with urinalysis ordered on December 04. No new symptoms, we reordered another urinalysis on August 12 for pain on urination but apparently came back negative again. 12/13: Continue current treatment plan. 12/14: Continue treatment plan. 12/15 continue tx. 12/16 continue tx. 12/17 will check depakote levels and adjust dose as needed due to ongoing sexualized behaviors. 12/18 continue tx. 12/19 continue tx. 12/20: Continue current plans and regimen 12/21: Continue current plans and regimen Reason for continued inpatient stay Substantial Risk for: inability to function Time Spent With Patient Time: Total time managing care of this patient today ____ minutes.
[2022-12-21] MEDS: OLANZapine 5 MG TABLET PO (12:39)
[2022-12-21 18:00] VITALS: BP 114/72; PULSE 64; RESP 16; TEMP 36.1; O2SAT 94
[2022-12-21] MEDS: Tamsulosin HCL 0.4 MG CAPSULE PO (20:19)
[2022-12-21] MEDS: Atorvastatin Calcium 40 MG TABLET PO (20:19)
[2022-12-21] MEDS: hydrOXYzine HCL 25 MG TABLET PO (20:19)
[2022-12-21] MEDS: traZODone HCL 50 MG TABLET PO (20:19)
[2022-12-21] MEDS: QUEtiapine Fumarate 100 MG TABLET PO (20:19)
[2022-12-22 08:00] VITALS: BP 117/68; PULSE 77; RESP 18; TEMP 36.8; O2SAT 96
[2022-12-22] MEDS: lamoTRIgine 25 MG TABLET 150 MG PO ×2 (08:11→20:11)
[2022-12-22] MEDS: Divalproex Sodium ER 500 MG TAB.ER.24H 1500 MG PO (08:12)
[2022-12-22] MEDS: Aspirin Enteric Coated 81 MG TABLET.DR PO (08:12)
[2022-12-22] MEDS: cloNIDine HCL 0.1 MG TABLET 0.05 MG PO ×3 (08:12→20:11)
[2022-12-22] MEDS: QUEtiapine Fumarate 50 MG TABLET PO ×2 (08:12→17:53)
[2022-12-22] MEDS: Escitalopram Oxalate 10 MG TABLET PO (08:12)
[2022-12-22] MEDS: Thiamine HCL 100 MG TABLET PO (08:12)
--- NOTE | 2022-12-22 09:53 | HO.PSYCHPN ---
Subjective Subjective Date of Service: 12/22/22 Reason For Visit: DEMENTIA Subjective Notes: Conditional Voluntary Interim History: Patient was seen and discussed in rounds today. Records and plans were reviewed. He has been confused and somewhat labile. Some impulsive behaviors reported. Still has 2+ pitting edema of lower extremities. For episodes of agitation p.r.n. Zyprexa continues to be very effective and helpful. No complaints or side effects. No changes were made Medication Compliance: Yes Side effects from medications: No Review of Systems Review of Systems Lower extremity edema Yes all other systems are reviewed and are negative Mental Status Exam Mental Status Exam Patient Appearance: Well Grooomed and Appropriate Patient Orientation: Person and Situation Level of Consciousness: Awake and Appropriate Patient Behavior: Guarded and Passive Mood Description: Calm Affect Description: Constricted Patient Cognition Impaired: Yes Ability to Follow Directions: Good Speech Pattern: Clear Memory Description: Remote Impaired, Immediate Impaired, Episodic Impaired and Recent Impaired Diagnostics Vital Signs (24Hr): Vital Signs - 24 hr 12/21/22 18:00 Temperature 97 F Pulse Rate 64 Respiratory Rate 16 Blood Pressure 114/72 Pulse Oximetry 94 Oxygen Delivery Method Room Air BMI result Body Mass Index 32.1 Labs 11/18/22 08:03 11/20/22 04:51 Imaging Radiology Impressions: ITS Impressions Head CT 11/12/22 19:17 IMPRESSION: 1. No acute intracranial pathology. 2. There is ventriculomegaly disproportionate to the extent of sulcal widening. This can be seen in the setting of normal pressure hydrocephalus. Recommend clinical correlation. Consider MRI evaluation if clinically appropriate. Chest X-Ray 11/13/22 14:13 IMPRESSION: No acute parenchymal disease. No radiopaque foreign bodies. KUB X-Ray 11/13/22 14:13 IMPRESSION: No metallic radiopaque foreign bodies identified within the abdomen. 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 Background chronic microangiopathy. 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 Head CT 12/09/22 17:32 IMPRESSION: Cerebral atrophy and mild periventricular and central white matter diminished attenuation which is nonspecific but likely represent microvascular disease. No acute intracranial abnormality. Medications Medications Current Medications Acetaminophen (Acetaminophen 325 Mg Tablet) 650 mg PO Q6H PRN PRN Reason: Headache/Pain Mild Scale (1-3) Last Admin: 12/12/22 08:30 Dose: 650 mg Al Hydroxide/Mg Hydroxide (Magnesium Hydrox/Alum Hydrox 30 Ml Oral.Susp) 30 ml PO Q6H PRN PRN Reason: Heartburn/Nausea Aspirin (Aspirin Enteric Coated 81 Mg Tablet.Dr) 81 mg PO DAILY [facility] Last Admin: 12/22/22 08:12 Dose: 81 mg Atorvastatin Calcium (Atorvastatin Calcium 40 Mg Tablet) 40 mg PO BEDTIME [facility] Last Admin: 12/21/22 20:19 Dose: 40 mg Clonidine HCl (Clonidine Hcl 0.1 Mg Tablet) 0.05 mg PO TID [facility]; Protocol Last Admin: 12/22/22 08:12 Dose: 0.05 mg Divalproex Sodium (Divalproex Sodium Er 500 Mg Tab.Er.24h) 1,500 mg PO DAILY [facility] Last Admin: 12/22/22 08:12 Dose: 1,500 mg Escitalopram Oxalate (Escitalopram Oxalate 10 Mg Tablet) 10 mg PO DAILY [facility] Last Admin: 12/22/22 08:12 Dose: 10 mg Hydroxyzine HCl (Hydroxyzine Hcl 25 Mg Tablet) 25 mg PO Q6H PRN PRN Reason: Anxiety Last Admin: 12/21/22 20:19 Dose: 25 mg Lamotrigine (Lamotrigine 25 Mg Tablet) 150 mg PO BID [facility] Last Admin: 12/22/22 08:11 Dose: 150 mg Magnesium Hydroxide (Milk Of Magnesia 30 Ml Oral.Susp) 30 ml PO DAILY PRN PRN Reason: Constipation Last Admin: 12/17/22 14:48 Dose: 30 ml Olanzapine (Olanzapine 5 Mg Tablet) 5 mg PO Q4H PRN PRN Reason: psychotic agitation Last Admin: 12/21/22 12:39 Dose: 5 mg Quetiapine Fumarate (Quetiapine Fumarate 100 Mg Tablet) 100 mg PO BEDTIME [facility] Last Admin: 12/21/22 20:19 Dose: 100 mg Quetiapine Fumarate (Quetiapine Fumarate 50 Mg Tablet) 50 mg PO BID@0800,1700 [facility] Last Admin: 12/22/22 08:12 Dose: 50 mg Tamsulosin HCl (Tamsulosin Hcl 0.4 Mg Capsule) 0.4 mg PO BEDTIME [facility] Last Admin: 12/21/22 20:19 Dose: 0.4 mg Thiamine HCl (Thiamine Hcl 100 Mg Tablet) 100 mg PO DAILY [facility] Last Admin: 12/22/22 08:12 Dose: 100 mg Trazodone HCl (Trazodone Hcl 50 Mg Tablet) 50 mg PO BEDTIME PRN PRN Reason: Insomnia Last Admin: 12/21/22 20:19 Dose: 50 mg Allergies Allergies Allergy/AdvReac Type Severity Reaction Status Date / Time No Known Allergies Allergy Verified 11/12/22 15:27 Assessment & Plan Assessment & Plan (1) Neurodegenerative cognitive impairment: Status: Acute Code(s): G31.9 - Degenerative disease of nervous system, unspecified Assessment and Plan: 71 years old man who probably has degenerative dementia, moderate to severe, with significant behavioral component. Precise previous history is not available. 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 This type of infarct could be cardioembolic or from carotid artery. Because of significant underlying dementia, he would not be a candidate for any surgical intervention and for that reason I do not think exploring carotid artery stenosis is a reasonable idea. Continue his baseline medications. His examination is not suggestive of normal-pressure hydrocephalus despite his imaging revealing some ventriculomegaly. This type of patient typically require combination of medicines including some antipsychotics and mood stabilizers to manage day behavioral symptoms. He is also at relatively high risk for seizure disorder but also has been taking lamotrigine 100 mg twice a day, which would cover this condition even if he suffered from it. Now that his mental status has improved compared to his emergency room arrival, I do not think an EEG would be useful. Plan Plan 1. Continue with regular medications. 2. Neurologist reported that at this moment he does not have normal-pressure hydrocephalus. 3. Since the patient had being more irritable and labile we are increasing Seroquel up to 50 mg p.o. b.i.d. and 100 mg p.o. q.h.s.. 4. Reassessment with results. 5. Depakote level and comprehensive metabolic panel for November 20 a.m. the blood work came back within normal limits and a therapeutic level of Depakote. 6. Waiting for placement 7. Lexapro increased up to 10 mg p.o. on November 27. 8. Start clonidine 0.1 p.o. t.i.d. to target impulsivity. We have to discontinue that on December 01 due to hypotension. Due to increased agitation we restarted clonidine 0.05 p.o. t.i.d. on December 02. 9. Lamictal was increased up to 150 mg p.o. b.i.d.. 10. Adding p.r.n. Zyprexa. 11. Follow-up with urinalysis ordered on December 04. No new symptoms, we reordered another urinalysis on August 12 for pain on urination but apparently came back negative again. 12/13: Continue current treatment plan. 12/14: Continue treatment plan. 12/15 continue tx. 12/16 continue tx. 12/17 will check depakote levels and adjust dose as needed due to ongoing sexualized behaviors. 12/18 continue tx. 12/19 continue tx. 12/20: Continue current plans and regimen 12/21: Continue current plans and regimen Reason for continued inpatient stay Substantial Risk for: inability to function Time Spent With Patient Time: Total time managing care of this patient today ____ minutes.
[2022-12-22] MEDS: OLANZapine 5 MG TABLET PO (13:31)
[2022-12-22 18:00] VITALS: BP 120/69; PULSE 70; RESP 18
[2022-12-22] MEDS: Atorvastatin Calcium 40 MG TABLET PO (20:11)
[2022-12-22] MEDS: QUEtiapine Fumarate 100 MG TABLET PO (20:11)
[2022-12-22] MEDS: Tamsulosin HCL 0.4 MG CAPSULE PO (20:11)
[2022-12-23 08:00] VITALS: BP 120/78; PULSE 88; RESP 18; TEMP 36.1; O2SAT 96
[2022-12-23] MEDS: Aspirin Enteric Coated 81 MG TABLET.DR PO (08:06)
[2022-12-23] MEDS: lamoTRIgine 25 MG TABLET 150 MG PO ×2 (08:06→20:39)
[2022-12-23] MEDS: Thiamine HCL 100 MG TABLET PO (08:06)
[2022-12-23] MEDS: Divalproex Sodium ER 500 MG TAB.ER.24H 1500 MG PO (08:07)
[2022-12-23] MEDS: Escitalopram Oxalate 10 MG TABLET PO (08:07)
[2022-12-23] MEDS: cloNIDine HCL 0.1 MG TABLET 0.05 MG PO ×3 (08:07→20:39)
[2022-12-23] MEDS: QUEtiapine Fumarate 50 MG TABLET PO ×2 (08:08→16:27)
--- NOTE | 2022-12-23 13:45 | HO.PSYCHPN ---
Subjective Subjective Date of Service: 12/23/22 Reason For Visit: DEMENTIA Subjective Notes: Conditional Voluntary Interim History: The nursing staff reported that sometimes he is agitated and sarcastic. He has been medication and meal compliant. The occupational therapist reported that there is problems trying to transferring from the wheelchair to his bed and sometimes he has poor self awareness of safety. On interview the patient denies new symptoms pleasantly confused, waiting for placement. Mental Status Exam Mental Status Exam Patient Appearance: Well Grooomed and Appropriate Patient Orientation: Person and Situation Level of Consciousness: Awake and Appropriate Patient Behavior: Guarded and Passive Mood Description: Withdrawn and Constricted Affect Description: Constricted Patient Cognition Impaired: Yes Ability to Follow Directions: Good Speech Pattern: Clear Hallucinations: None Delusions: Not Present Thought Process: Illogical, Distracted and Evasive Thought Content: positive for [place] and positive for Poverty of Content Judgement: Poor Diagnostics Vital Signs (24Hr): Vital Signs - 24 hr 12/22/22 18:00 12/23/22 08:00 Temperature 97.0 F Pulse Rate 70 88 Respiratory Rate 18 18 Blood Pressure 120/69 120/78 Pulse Oximetry 96 Oxygen Delivery Method Room Air Room Air BMI result Body Mass Index 32.1 Labs 11/18/22 08:03 11/20/22 04:51 Imaging Radiology Impressions: ITS Impressions Head CT 11/12/22 19:17 IMPRESSION: 1. No acute intracranial pathology. 2. There is ventriculomegaly disproportionate to the extent of sulcal widening. This can be seen in the setting of normal pressure hydrocephalus. Recommend clinical correlation. Consider MRI evaluation if clinically appropriate. Chest X-Ray 11/13/22 14:13 IMPRESSION: No acute parenchymal disease. No radiopaque foreign bodies. KUB X-Ray 11/13/22 14:13 IMPRESSION: No metallic radiopaque foreign bodies identified within the abdomen. 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 Background chronic microangiopathy. 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 Head CT 12/09/22 17:32 IMPRESSION: Cerebral atrophy and mild periventricular and central white matter diminished attenuation which is nonspecific but likely represent microvascular disease. No acute intracranial abnormality. Medications Medications Current Medications Acetaminophen (Acetaminophen 325 Mg Tablet) 650 mg PO Q6H PRN PRN Reason: Headache/Pain Mild Scale (1-3) Last Admin: 12/12/22 08:30 Dose: 650 mg Al Hydroxide/Mg Hydroxide (Magnesium Hydrox/Alum Hydrox 30 Ml Oral.Susp) 30 ml PO Q6H PRN PRN Reason: Heartburn/Nausea Aspirin (Aspirin Enteric Coated 81 Mg Tablet.Dr) 81 mg PO DAILY [facility] Last Admin: 12/23/22 08:06 Dose: 81 mg Atorvastatin Calcium (Atorvastatin Calcium 40 Mg Tablet) 40 mg PO BEDTIME [facility] Last Admin: 12/22/22 20:11 Dose: 40 mg Clonidine HCl (Clonidine Hcl 0.1 Mg Tablet) 0.05 mg PO TID [facility]; Protocol Last Admin: 12/23/22 08:07 Dose: 0.05 mg Divalproex Sodium (Divalproex Sodium Er 500 Mg Tab.Er.24h) 1,500 mg PO DAILY [facility] Last Admin: 12/23/22 08:07 Dose: 1,500 mg Escitalopram Oxalate (Escitalopram Oxalate 10 Mg Tablet) 10 mg PO DAILY [facility] Last Admin: 12/23/22 08:07 Dose: 10 mg Hydroxyzine HCl (Hydroxyzine Hcl 25 Mg Tablet) 25 mg PO Q6H PRN PRN Reason: Anxiety Last Admin: 12/21/22 20:19 Dose: 25 mg Lamotrigine (Lamotrigine 25 Mg Tablet) 150 mg PO BID [facility] Last Admin: 12/23/22 08:06 Dose: 150 mg Magnesium Hydroxide (Milk Of Magnesia 30 Ml Oral.Susp) 30 ml PO DAILY PRN PRN Reason: Constipation Last Admin: 12/17/22 14:48 Dose: 30 ml Olanzapine (Olanzapine 5 Mg Tablet) 5 mg PO Q4H PRN PRN Reason: psychotic agitation Last Admin: 12/22/22 13:31 Dose: 5 mg Quetiapine Fumarate (Quetiapine Fumarate 100 Mg Tablet) 100 mg PO BEDTIME [facility] Last Admin: 12/22/22 20:11 Dose: 100 mg Quetiapine Fumarate (Quetiapine Fumarate 50 Mg Tablet) 50 mg PO BID@0800,1700 [facility] Last Admin: 12/23/22 08:08 Dose: 50 mg Tamsulosin HCl (Tamsulosin Hcl 0.4 Mg Capsule) 0.4 mg PO BEDTIME [facility] Last Admin: 12/22/22 20:11 Dose: 0.4 mg Thiamine HCl (Thiamine Hcl 100 Mg Tablet) 100 mg PO DAILY [facility] Last Admin: 12/23/22 08:06 Dose: 100 mg Trazodone HCl (Trazodone Hcl 50 Mg Tablet) 50 mg PO BEDTIME PRN PRN Reason: Insomnia Last Admin: 12/21/22 20:19 Dose: 50 mg Allergies Allergies Allergy/AdvReac Type Severity Reaction Status Date / Time No Known Allergies Allergy Verified 11/12/22 15:27 Assessment & Plan Assessment & Plan (1) Neurodegenerative cognitive impairment: Status: Acute Code(s): G31.9 - Degenerative disease of nervous system, unspecified Assessment and Plan: 71 years old man who probably has degenerative dementia, moderate to severe, with significant behavioral component. Precise previous history is not available. 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 This type of infarct could be cardioembolic or from carotid artery. Because of significant underlying dementia, he would not be a candidate for any surgical intervention and for that reason I do not think exploring carotid artery stenosis is a reasonable idea. Continue his baseline medications. His examination is not suggestive of normal-pressure hydrocephalus despite his imaging revealing some ventriculomegaly. This type of patient typically require combination of medicines including some antipsychotics and mood stabilizers to manage day behavioral symptoms. He is also at relatively high risk for seizure disorder but also has been taking lamotrigine 100 mg twice a day, which would cover this condition even if he suffered from it. Now that his mental status has improved compared to his emergency room arrival, I do not think an EEG would be useful. Plan Plan 1. Continue with regular medications. 2. Neurologist reported that at this moment he does not have normal-pressure hydrocephalus. 3. Since the patient had being more irritable and labile we are increasing Seroquel up to 50 mg p.o. b.i.d. and 100 mg p.o. q.h.s.. 4. Reassessment with results. 5. Depakote level and comprehensive metabolic panel for November 20 a.m. the blood work came back within normal limits and a therapeutic level of Depakote. 6. Waiting for placement 7. Lexapro increased up to 10 mg p.o. on November 27. 8. Start clonidine 0.1 p.o. t.i.d. to target impulsivity. We have to discontinue that on December 01 due to hypotension. Due to increased agitation we restarted clonidine 0.05 p.o. t.i.d. on December 02. 9. Lamictal was increased up to 150 mg p.o. b.i.d.. 10. Adding p.r.n. Zyprexa. 11. Follow-up with urinalysis ordered on December 04. No new symptoms, we reordered another urinalysis on December 12 for pain on urination but apparently came back negative again. Reason for continued inpatient stay Substantial Risk for: inability to function, rapid decompensation and med/psych decompensation Time Spent With Patient Time: Total time managing care of this patient today __20__ minutes.
[2022-12-23] MEDS: OLANZapine 5 MG TABLET PO (15:41)
[2022-12-23 18:00] VITALS: BP 129/68; PULSE 67; RESP 16; TEMP 36.8; O2SAT 96
[2022-12-23] MEDS: hydrOXYzine HCL 25 MG TABLET PO (18:55)
[2022-12-23] MEDS: traZODone HCL 50 MG TABLET PO (20:39)
[2022-12-23] MEDS: Atorvastatin Calcium 40 MG TABLET PO (20:39)
[2022-12-23] MEDS: QUEtiapine Fumarate 100 MG TABLET PO (20:41)
[2022-12-23] MEDS: Tamsulosin HCL 0.4 MG CAPSULE PO (20:41)
[2022-12-24 06:00] VITALS: BP 155/116; PULSE 90; RESP 18; TEMP 36.2; O2SAT 96
[2022-12-24] MEDS: Aspirin Enteric Coated 81 MG TABLET.DR PO (08:14)
[2022-12-24] MEDS: Thiamine HCL 100 MG TABLET PO (08:14)
[2022-12-24] MEDS: Divalproex Sodium ER 500 MG TAB.ER.24H 1500 MG PO (08:14)
[2022-12-24] MEDS: cloNIDine HCL 0.1 MG TABLET 0.05 MG PO ×3 (08:14→20:16)
[2022-12-24] MEDS: QUEtiapine Fumarate 50 MG TABLET PO (08:15)
[2022-12-24] MEDS: Escitalopram Oxalate 10 MG TABLET PO (08:15)
[2022-12-24] MEDS: lamoTRIgine 100 MG TABLET 150 MG PO ×2 (08:38→20:15)
[2022-12-24 09:15] VITALS: BP 107/60; PULSE 95; RESP 18; TEMP 36.2; O2SAT 96
--- NOTE | 2022-12-24 11:15 | HO.PSYCHPN ---
Subjective Subjective Date of Service: 12/24/22 Reason For Visit: DEMENTIA Subjective Notes: Conditional Voluntary Interim History: The nursing staff reported that he was slightly agitated in the morning but in the afternoon he was aggressive towards staff. The social security specialist reported that the plication to [facility] has was already started. On interview the patient denies new symptoms but we discussed the possibility to increase Seroquel up to 75 p.o. b.i.d. and keep 100 mg p.o. q.h.s. for psychosis. Mental Status Exam Mental Status Exam Patient Appearance: Well Grooomed and Appropriate Patient Orientation: Person and Situation Level of Consciousness: Awake and Appropriate Patient Behavior: Guarded and Passive Mood Description: Withdrawn Affect Description: Constricted Patient Cognition Impaired: Yes Ability to Follow Directions: Good Speech Pattern: Clear Hallucinations: None Delusions: Paranoid Ideation Thought Process: Distracted and Evasive Thought Content: positive for [place] and positive for Poverty of Content Judgement: Fair Diagnostics Vital Signs (24Hr): Vital Signs - 24 hr 12/23/22 18:00 12/24/22 06:00 12/24/22 09:15 Temperature 98.3 F 97.2 F 97.2 F Pulse Rate 67 90 95 Respiratory Rate 16 18 18 Blood Pressure 129/68 155/116 H 107/60 Pulse Oximetry 96 96 96 Oxygen Delivery Method Room Air Room Air Room Air BMI result Body Mass Index 32.1 Labs 11/18/22 08:03 11/20/22 04:51 Imaging Radiology Impressions: ITS Impressions Head CT 11/12/22 19:17 IMPRESSION: 1. No acute intracranial pathology. 2. There is ventriculomegaly disproportionate to the extent of sulcal widening. This can be seen in the setting of normal pressure hydrocephalus. Recommend clinical correlation. Consider MRI evaluation if clinically appropriate. Chest X-Ray 11/13/22 14:13 IMPRESSION: No acute parenchymal disease. No radiopaque foreign bodies. KUB X-Ray 11/13/22 14:13 IMPRESSION: No metallic radiopaque foreign bodies identified within the abdomen. 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 Background chronic microangiopathy. 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 Head CT 12/09/22 17:32 IMPRESSION: Cerebral atrophy and mild periventricular and central white matter diminished attenuation which is nonspecific but likely represent microvascular disease. No acute intracranial abnormality. Medications Medications Current Medications Acetaminophen (Acetaminophen 325 Mg Tablet) 650 mg PO Q6H PRN PRN Reason: Headache/Pain Mild Scale (1-3) Last Admin: 12/12/22 08:30 Dose: 650 mg Al Hydroxide/Mg Hydroxide (Magnesium Hydrox/Alum Hydrox 30 Ml Oral.Susp) 30 ml PO Q6H PRN PRN Reason: Heartburn/Nausea Aspirin (Aspirin Enteric Coated 81 Mg Tablet.Dr) 81 mg PO DAILY [facility] Last Admin: 12/24/22 08:14 Dose: 81 mg Atorvastatin Calcium (Atorvastatin Calcium 40 Mg Tablet) 40 mg PO BEDTIME [facility] Last Admin: 12/23/22 20:39 Dose: 40 mg Clonidine HCl (Clonidine Hcl 0.1 Mg Tablet) 0.05 mg PO TID [facility]; Protocol Last Admin: 12/24/22 08:14 Dose: 0.05 mg Divalproex Sodium (Divalproex Sodium Er 500 Mg Tab.Er.24h) 1,500 mg PO DAILY [facility] Last Admin: 12/24/22 08:14 Dose: 1,500 mg Escitalopram Oxalate (Escitalopram Oxalate 10 Mg Tablet) 10 mg PO DAILY [facility] Last Admin: 12/24/22 08:15 Dose: 10 mg Hydroxyzine HCl (Hydroxyzine Hcl 25 Mg Tablet) 25 mg PO Q6H PRN PRN Reason: Anxiety Last Admin: 12/23/22 18:55 Dose: 25 mg Lamotrigine (Lamotrigine 100 Mg Tablet) 150 mg PO BID [facility] Last Admin: 12/24/22 08:38 Dose: 150 mg Magnesium Hydroxide (Milk Of Magnesia 30 Ml Oral.Susp) 30 ml PO DAILY PRN PRN Reason: Constipation Last Admin: 12/17/22 14:48 Dose: 30 ml Olanzapine (Olanzapine 5 Mg Tablet) 5 mg PO Q4H PRN PRN Reason: psychotic agitation Last Admin: 12/23/22 15:41 Dose: 5 mg Quetiapine Fumarate (Quetiapine Fumarate 100 Mg Tablet) 100 mg PO BEDTIME [facility] Last Admin: 12/23/22 20:41 Dose: 100 mg Quetiapine Fumarate (Quetiapine Fumarate 25 Mg Tablet) 75 mg PO BID@0800,1700 [facility] Tamsulosin HCl (Tamsulosin Hcl 0.4 Mg Capsule) 0.4 mg PO BEDTIME [facility] Last Admin: 12/23/22 20:41 Dose: 0.4 mg Thiamine HCl (Thiamine Hcl 100 Mg Tablet) 100 mg PO DAILY [facility] Last Admin: 12/24/22 08:14 Dose: 100 mg Trazodone HCl (Trazodone Hcl 50 Mg Tablet) 50 mg PO BEDTIME PRN PRN Reason: Insomnia Last Admin: 12/23/22 20:39 Dose: 50 mg Allergies Allergies Allergy/AdvReac Type Severity Reaction Status Date / Time No Known Allergies Allergy Verified 11/12/22 15:27 Assessment & Plan Assessment & Plan (1) Neurodegenerative cognitive impairment: Status: Acute Code(s): G31.9 - Degenerative disease of nervous system, unspecified Assessment and Plan: 71 years old man who probably has degenerative dementia, moderate to severe, with significant behavioral component. Precise previous history is not available. 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 This type of infarct could be cardioembolic or from carotid artery. Because of significant underlying dementia, he would not be a candidate for any surgical intervention and for that reason I do not think exploring carotid artery stenosis is a reasonable idea. Continue his baseline medications. His examination is not suggestive of normal-pressure hydrocephalus despite his imaging revealing some ventriculomegaly. This type of patient typically require combination of medicines including some antipsychotics and mood stabilizers to manage day behavioral symptoms. He is also at relatively high risk for seizure disorder but also has been taking lamotrigine 100 mg twice a day, which would cover this condition even if he suffered from it. Now that his mental status has improved compared to his emergency room arrival, I do not think an EEG would be useful. Plan Plan 1. Continue with regular medications. 2. Neurologist reported that at this moment he does not have normal-pressure hydrocephalus. 3. Since the patient had being more irritable and labile we are increasing Seroquel up to 50 mg p.o. b.i.d. and 100 mg p.o. q.h.s.. 4. Reassessment with results. 5. Depakote level and comprehensive metabolic panel for November 20 a.m. the blood work came back within normal limits and a therapeutic level of Depakote. 6. Waiting for placement 7. Lexapro increased up to 10 mg p.o. on November 27. 8. Start clonidine 0.1 p.o. t.i.d. to target impulsivity. We have to discontinue that on December 01 due to hypotension. Due to increased agitation we restarted clonidine 0.05 p.o. t.i.d. on December 02. 9. Lamictal was increased up to 150 mg p.o. b.i.d.. 10. Adding p.r.n. Zyprexa. 11. Follow-up with urinalysis ordered on December 04. No new symptoms, we reordered another urinalysis on December 12 for pain on urination but apparently came back negative again. Reason for continued inpatient stay Substantial Risk for: inability to function, rapid decompensation and med/psych decompensation Time Spent With Patient Time: Total time managing care of this patient today __20__ minutes.
[2022-12-24] MEDS: QUEtiapine Fumarate 25 MG TABLET 75 MG PO (16:19)
[2022-12-24 19:45] VITALS: BP 110/62; PULSE 71; RESP 16; TEMP 36.5; O2SAT 94
[2022-12-24] MEDS: Tamsulosin HCL 0.4 MG CAPSULE PO (20:16)
[2022-12-24] MEDS: QUEtiapine Fumarate 100 MG TABLET PO (20:16)
[2022-12-24] MEDS: traZODone HCL 50 MG TABLET PO (20:17)
[2022-12-24] MEDS: Atorvastatin Calcium 40 MG TABLET PO (20:17)
[2022-12-24] MEDS: hydrOXYzine HCL 25 MG TABLET PO (20:57)
[2022-12-24] MEDS: OLANZapine 5 MG TABLET PO (20:57)
[2022-12-25 08:04] VITALS: BP 118/67; PULSE 79; RESP 18; TEMP 36.4; O2SAT 95
[2022-12-25] MEDS: QUEtiapine Fumarate 25 MG TABLET 75 MG PO ×2 (08:08→16:39)
[2022-12-25] MEDS: cloNIDine HCL 0.1 MG TABLET 0.05 MG PO ×3 (08:09→21:05)
[2022-12-25] MEDS: Divalproex Sodium ER 500 MG TAB.ER.24H 1500 MG PO (08:11)
[2022-12-25] MEDS: Aspirin Enteric Coated 81 MG TABLET.DR PO (08:12)
[2022-12-25] MEDS: Escitalopram Oxalate 10 MG TABLET PO (08:12)
[2022-12-25] MEDS: Thiamine HCL 100 MG TABLET PO (08:12)
[2022-12-25] MEDS: lamoTRIgine 100 MG TABLET 150 MG PO ×2 (08:17→21:03)
[2022-12-25 09:40] VITALS: BP 108/67; PULSE 87; RESP 16; TEMP 36.4; O2SAT 97
[2022-12-25] MEDS: OLANZapine 10 MG VIAL IM (09:40)
[2022-12-25 10:00] VITALS: BP 110/65; PULSE 89; RESP 16; TEMP 36.6
[2022-12-25 10:15] VITALS: BP 93/60; PULSE 75; RESP 16; TEMP 36.6
[2022-12-25 10:30] VITALS: BP 107/58; PULSE 78; RESP 16; TEMP 36.4
--- NOTE | 2022-12-25 11:36 | PC.NURSE ---
Pt. upset because he is unable to safely stand to transfer and requires mechanical lift. Insisting he can walk to bathroom and became verbally aggressive to staff. Unable to understand explanations due to brain injury. Pt. offered diversional activities without effect. Pt. escorted to room for low stim and continued to verbally and physically escalate, striking at staff and throwing self out of WC. Dr. Ascencio ordered 10 mg olanzapine IM. Pt allowed administration and did not require to be restrained. Pt. vital signs remained stable. Within 15 minutes, pt. calm and relaxed. Lindsey Wade RN, Clinical Coordinater notified. Message left for sister/HCP Samantha Acosta to call unit for update.
--- NOTE | 2022-12-25 13:57 | HO.PSYCHPN ---
Subjective Subjective Date of Service: 12/25/22 Reason For Visit: DEMENTIA Subjective Notes: Conditional Voluntary Interim History: The nursing staff reported that yesterday the patient was less active in the afternoon but later on in the evening he was in appropriate angry frustrated with the need of transfer for safety with equipment. The social services aide reported the [facility] to has not cleared him financially yet. Today in the morning he was extremely agitated in the bathroom and he needed to be chemically restrain with Zyprexa 10 mg p.o. IM. He was sedated later on. Mental Status Exam Mental Status Exam Patient Appearance: Appropriate Patient Orientation: Person and Situation Level of Consciousness: Awake and Appropriate Patient Behavior: Guarded and Passive Mood Description: Withdrawn Affect Description: Constricted Patient Cognition Impaired: Yes Ability to Follow Directions: Fair Speech Pattern: Clear Hallucinations: None Delusions: Not Present Thought Process: Illogical and Distracted Thought Content: positive for [place], positive for [place] and positive for Poverty of Content Judgement: Poor Diagnostics Vital Signs (24Hr): Vital Signs - 24 hr 12/24/22 19:45 12/25/22 08:04 12/25/22 09:40 Temperature 97.7 F 97.5 F 97.6 F Pulse Rate 71 79 87 Respiratory Rate 16 18 16 Blood Pressure 110/62 118/67 108/67 Pulse Oximetry 94 95 97 Oxygen Delivery Method Room Air Room Air Room Air 12/25/22 10:00 12/25/22 10:15 12/25/22 10:30 Temperature 97.9 F 97.8 F 97.6 F Pulse Rate 89 75 78 Respiratory Rate 16 16 16 Blood Pressure 110/65 93/60 107/58 L Pulse Oximetry Oxygen Delivery Method BMI result Body Mass Index 32.1 Labs 11/18/22 08:03 11/20/22 04:51 Imaging Radiology Impressions: ITS Impressions Head CT 11/12/22 19:17 IMPRESSION: 1. No acute intracranial pathology. 2. There is ventriculomegaly disproportionate to the extent of sulcal widening. This can be seen in the setting of normal pressure hydrocephalus. Recommend clinical correlation. Consider MRI evaluation if clinically appropriate. Chest X-Ray 11/13/22 14:13 IMPRESSION: No acute parenchymal disease. No radiopaque foreign bodies. KUB X-Ray 11/13/22 14:13 IMPRESSION: No metallic radiopaque foreign bodies identified within the abdomen. 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 Background chronic microangiopathy. 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 Head CT 12/09/22 17:32 IMPRESSION: Cerebral atrophy and mild periventricular and central white matter diminished attenuation which is nonspecific but likely represent microvascular disease. No acute intracranial abnormality. Medications Medications Current Medications Acetaminophen (Acetaminophen 325 Mg Tablet) 650 mg PO Q6H PRN PRN Reason: Headache/Pain Mild Scale (1-3) Last Admin: 12/12/22 08:30 Dose: 650 mg Al Hydroxide/Mg Hydroxide (Magnesium Hydrox/Alum Hydrox 30 Ml Oral.Susp) 30 ml PO Q6H PRN PRN Reason: Heartburn/Nausea Aspirin (Aspirin Enteric Coated 81 Mg Tablet.Dr) 81 mg PO DAILY [facility] Last Admin: 12/25/22 08:12 Dose: 81 mg Atorvastatin Calcium (Atorvastatin Calcium 40 Mg Tablet) 40 mg PO BEDTIME [facility] Last Admin: 12/24/22 20:17 Dose: 40 mg Clonidine HCl (Clonidine Hcl 0.1 Mg Tablet) 0.05 mg PO TID [facility]; Protocol Last Admin: 12/25/22 08:09 Dose: 0.05 mg Divalproex Sodium (Divalproex Sodium Er 500 Mg Tab.Er.24h) 1,500 mg PO DAILY [facility] Last Admin: 12/25/22 08:11 Dose: 1,500 mg Escitalopram Oxalate (Escitalopram Oxalate 10 Mg Tablet) 10 mg PO DAILY [facility] Last Admin: 12/25/22 08:12 Dose: 10 mg Hydroxyzine HCl (Hydroxyzine Hcl 25 Mg Tablet) 25 mg PO Q6H PRN PRN Reason: Anxiety Last Admin: 12/24/22 20:57 Dose: 25 mg Lamotrigine (Lamotrigine 100 Mg Tablet) 150 mg PO BID [facility] Last Admin: 12/25/22 08:17 Dose: 150 mg Magnesium Hydroxide (Milk Of Magnesia 30 Ml Oral.Susp) 30 ml PO DAILY PRN PRN Reason: Constipation Last Admin: 12/17/22 14:48 Dose: 30 ml Olanzapine (Olanzapine 5 Mg Tablet) 5 mg PO Q4H PRN PRN Reason: psychotic agitation Last Admin: 12/24/22 20:57 Dose: 5 mg Quetiapine Fumarate (Quetiapine Fumarate 100 Mg Tablet) 100 mg PO BEDTIME [facility] Last Admin: 12/24/22 20:16 Dose: 100 mg Quetiapine Fumarate (Quetiapine Fumarate 25 Mg Tablet) 75 mg PO BID@0800,1700 [facility] Last Admin: 12/25/22 08:08 Dose: 75 mg Tamsulosin HCl (Tamsulosin Hcl 0.4 Mg Capsule) 0.4 mg PO BEDTIME [facility] Last Admin: 12/24/22 20:16 Dose: 0.4 mg Thiamine HCl (Thiamine Hcl 100 Mg Tablet) 100 mg PO DAILY [facility] Last Admin: 12/25/22 08:12 Dose: 100 mg Trazodone HCl (Trazodone Hcl 50 Mg Tablet) 50 mg PO BEDTIME PRN PRN Reason: Insomnia Last Admin: 12/24/22 20:17 Dose: 50 mg Allergies Allergies Allergy/AdvReac Type Severity Reaction Status Date / Time No Known Allergies Allergy Verified 11/12/22 15:27 Assessment & Plan Assessment & Plan (1) Neurodegenerative cognitive impairment: Status: Acute Code(s): G31.9 - Degenerative disease of nervous system, unspecified Assessment and Plan: 71 years old man who probably has degenerative dementia, moderate to severe, with significant behavioral component. Precise previous history is not available. 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 This type of infarct could be cardioembolic or from carotid artery. Because of significant underlying dementia, he would not be a candidate for any surgical intervention and for that reason I do not think exploring carotid artery stenosis is a reasonable idea. Continue his baseline medications. His examination is not suggestive of normal-pressure hydrocephalus despite his imaging revealing some ventriculomegaly. This type of patient typically require combination of medicines including some antipsychotics and mood stabilizers to manage day behavioral symptoms. He is also at relatively high risk for seizure disorder but also has been taking lamotrigine 100 mg twice a day, which would cover this condition even if he suffered from it. Now that his mental status has improved compared to his emergency room arrival, I do not think an EEG would be useful. Plan Plan 1. Continue with regular medications. 2. Neurologist reported that at this moment he does not have normal-pressure hydrocephalus. 3. Since the patient had being more irritable and labile we are increasing Seroquel up to 50 mg p.o. b.i.d. and 100 mg p.o. q.h.s.. 4. Reassessment with results. 5. Depakote level and comprehensive metabolic panel for November 20 a.m. the blood work came back within normal limits and a therapeutic level of Depakote. 6. Waiting for placement 7. Lexapro increased up to 10 mg p.o. on November 27. 8. Start clonidine 0.1 p.o. t.i.d. to target impulsivity. We have to discontinue that on December 01 due to hypotension. Due to increased agitation we restarted clonidine 0.05 p.o. t.i.d. on December 02. 9. Lamictal was increased up to 150 mg p.o. b.i.d.. 10. Adding p.r.n. Zyprexa. 11. Follow-up with urinalysis ordered on December 04. No new symptoms, we reordered another urinalysis on December 12 for pain on urination but apparently came back negative again. Reason for continued inpatient stay Substantial Risk for: inability to function, rapid decompensation and med/psych decompensation Time Spent With Patient Time: Total time managing care of this patient today ___20_ minutes.
--- NOTE | 2022-12-25 14:58 | PC.NURSE ---
Pt.'s sister, Samantha Acosta updated by phone about plan of care and medication restraint today when she called back at 1300.
[2022-12-25] MEDS: OLANZapine 5 MG TABLET PO (15:20)
[2022-12-25 18:00] VITALS: BP 118/76; PULSE 66; RESP 18; TEMP 36.2; O2SAT 95
[2022-12-25] MEDS: QUEtiapine Fumarate 100 MG TABLET PO (21:03)
[2022-12-25] MEDS: Atorvastatin Calcium 40 MG TABLET PO (21:03)
[2022-12-25] MEDS: Tamsulosin HCL 0.4 MG CAPSULE PO (21:04)
[2022-12-25] MEDS: traZODone HCL 50 MG TABLET PO (21:05)
[2022-12-25] MEDS: hydrOXYzine HCL 25 MG TABLET PO (21:05)
--- NOTE | 2022-12-26 07:22 | PC.NURSE ---
Skin abrasion 5 cm x 1 cm noted on patient L green during care, area cleansed with NS and covered with clean dressing. Will continue to monitor.
[2022-12-26 08:00] VITALS: BP 135/72; PULSE 69; RESP 16; TEMP 36.1; O2SAT 95
[2022-12-26] MEDS: OLANZapine 5 MG TABLET PO ×3 (08:04→20:59)
[2022-12-26] MEDS: Divalproex Sodium ER 500 MG TAB.ER.24H 1500 MG PO (08:04)
[2022-12-26] MEDS: Thiamine HCL 100 MG TABLET PO (08:04)
[2022-12-26] MEDS: QUEtiapine Fumarate 25 MG TABLET 75 MG PO ×2 (08:04→17:12)
[2022-12-26] MEDS: cloNIDine HCL 0.1 MG TABLET 0.05 MG PO ×3 (08:04→20:18)
[2022-12-26] MEDS: Aspirin Enteric Coated 81 MG TABLET.DR PO (08:04)
[2022-12-26] MEDS: lamoTRIgine 100 MG TABLET 150 MG PO ×2 (08:04→20:17)
[2022-12-26] MEDS: Escitalopram Oxalate 10 MG TABLET PO (08:04)
--- NOTE | 2022-12-26 10:36 | HO.PSYCHPN ---
Subjective Subjective Date of Service: 12/26/22 Reason For Visit: DEMENTIA Subjective Notes: Conditional Voluntary Interim History: The nursing staff reported that last night the patient was angry and irritable frustrated since he needs help to transferring from the wheelchair to his bed. The social services technician reported that her sister release and the documents to [facility]. On interview the patient denies new symptoms, pleasantly confused, waiting for placement. Mental Status Exam Mental Status Exam Patient Appearance: Well Grooomed and Appropriate Patient Orientation: Person and Situation Level of Consciousness: Awake and Appropriate Patient Behavior: Guarded and Passive Mood Description: Withdrawn Affect Description: Constricted Patient Cognition Impaired: Yes Ability to Follow Directions: Good Speech Pattern: Clear Hallucinations: None Thought Process: Distracted and Slowed Thinking Thought Content: positive for [place] and positive for Poverty of Content Judgement: Fair Diagnostics Vital Signs (24Hr): Vital Signs - 24 hr 12/25/22 18:00 12/26/22 08:00 Temperature 97.1 F 96.9 F Pulse Rate 66 69 Respiratory Rate 18 16 Blood Pressure 118/76 135/72 Pulse Oximetry 95 95 Oxygen Delivery Method Room Air Room Air BMI result Body Mass Index 32.1 Labs 11/18/22 08:03 11/20/22 04:51 Imaging Radiology Impressions: ITS Impressions Head CT 11/12/22 19:17 IMPRESSION: 1. No acute intracranial pathology. 2. There is ventriculomegaly disproportionate to the extent of sulcal widening. This can be seen in the setting of normal pressure hydrocephalus. Recommend clinical correlation. Consider MRI evaluation if clinically appropriate. Chest X-Ray 11/13/22 14:13 IMPRESSION: No acute parenchymal disease. No radiopaque foreign bodies. KUB X-Ray 11/13/22 14:13 IMPRESSION: No metallic radiopaque foreign bodies identified within the abdomen. 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 Background chronic microangiopathy. 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 Head CT 12/09/22 17:32 IMPRESSION: Cerebral atrophy and mild periventricular and central white matter diminished attenuation which is nonspecific but likely represent microvascular disease. No acute intracranial abnormality. Medications Medications Current Medications Acetaminophen (Acetaminophen 325 Mg Tablet) 650 mg PO Q6H PRN PRN Reason: Headache/Pain Mild Scale (1-3) Last Admin: 12/12/22 08:30 Dose: 650 mg Al Hydroxide/Mg Hydroxide (Magnesium Hydrox/Alum Hydrox 30 Ml Oral.Susp) 30 ml PO Q6H PRN PRN Reason: Heartburn/Nausea Aspirin (Aspirin Enteric Coated 81 Mg Tablet.Dr) 81 mg PO DAILY [facility] Last Admin: 12/26/22 08:04 Dose: 81 mg Atorvastatin Calcium (Atorvastatin Calcium 40 Mg Tablet) 40 mg PO BEDTIME [facility] Last Admin: 12/25/22 21:03 Dose: 40 mg Clonidine HCl (Clonidine Hcl 0.1 Mg Tablet) 0.05 mg PO TID [facility]; Protocol Last Admin: 12/26/22 08:04 Dose: 0.05 mg Divalproex Sodium (Divalproex Sodium Er 500 Mg Tab.Er.24h) 1,500 mg PO DAILY [facility] Last Admin: 12/26/22 08:04 Dose: 1,500 mg Escitalopram Oxalate (Escitalopram Oxalate 10 Mg Tablet) 10 mg PO DAILY [facility] Last Admin: 12/26/22 08:04 Dose: 10 mg Hydroxyzine HCl (Hydroxyzine Hcl 25 Mg Tablet) 25 mg PO Q6H PRN PRN Reason: Anxiety Last Admin: 12/25/22 21:05 Dose: 25 mg Lamotrigine (Lamotrigine 100 Mg Tablet) 150 mg PO BID [facility] Last Admin: 12/26/22 08:04 Dose: 150 mg Magnesium Hydroxide (Milk Of Magnesia 30 Ml Oral.Susp) 30 ml PO DAILY PRN PRN Reason: Constipation Last Admin: 12/17/22 14:48 Dose: 30 ml Olanzapine (Olanzapine 5 Mg Tablet) 5 mg PO Q4H PRN PRN Reason: psychotic agitation Last Admin: 12/26/22 08:04 Dose: 5 mg Quetiapine Fumarate (Quetiapine Fumarate 100 Mg Tablet) 100 mg PO BEDTIME [facility] Last Admin: 12/25/22 21:03 Dose: 100 mg Quetiapine Fumarate (Quetiapine Fumarate 25 Mg Tablet) 75 mg PO BID@0800,1700 [facility] Last Admin: 12/26/22 08:04 Dose: 75 mg Tamsulosin HCl (Tamsulosin Hcl 0.4 Mg Capsule) 0.4 mg PO BEDTIME [facility] Last Admin: 12/25/22 21:04 Dose: 0.4 mg Thiamine HCl (Thiamine Hcl 100 Mg Tablet) 100 mg PO DAILY [facility] Last Admin: 12/26/22 08:04 Dose: 100 mg Trazodone HCl (Trazodone Hcl 50 Mg Tablet) 50 mg PO BEDTIME PRN PRN Reason: Insomnia Last Admin: 12/25/22 21:05 Dose: 50 mg Allergies Allergies Allergy/AdvReac Type Severity Reaction Status Date / Time No Known Allergies Allergy Verified 11/12/22 15:27 Assessment & Plan Assessment & Plan (1) Neurodegenerative cognitive impairment: Status: Acute Code(s): G31.9 - Degenerative disease of nervous system, unspecified Assessment and Plan: 71 years old man who probably has degenerative dementia, moderate to severe, with significant behavioral component. Precise previous history is not available. 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 This type of infarct could be cardioembolic or from carotid artery. Because of significant underlying dementia, he would not be a candidate for any surgical intervention and for that reason I do not think exploring carotid artery stenosis is a reasonable idea. Continue his baseline medications. His examination is not suggestive of normal-pressure hydrocephalus despite his imaging revealing some ventriculomegaly. This type of patient typically require combination of medicines including some antipsychotics and mood stabilizers to manage day behavioral symptoms. He is also at relatively high risk for seizure disorder but also has been taking lamotrigine 100 mg twice a day, which would cover this condition even if he suffered from it. Now that his mental status has improved compared to his emergency room arrival, I do not think an EEG would be useful. Plan Plan 1. Continue with regular medications. 2. Neurologist reported that at this moment he does not have normal-pressure hydrocephalus. 3. Since the patient had being more irritable and labile we are increasing Seroquel up to 50 mg p.o. b.i.d. and 100 mg p.o. q.h.s.. 4. Reassessment with results. 5. Depakote level and comprehensive metabolic panel for November 20 a.m. the blood work came back within normal limits and a therapeutic level of Depakote. 6. Waiting for placement 7. Lexapro increased up to 10 mg p.o. on November 27. 8. Start clonidine 0.1 p.o. t.i.d. to target impulsivity. We have to discontinue that on December 01 due to hypotension. Due to increased agitation we restarted clonidine 0.05 p.o. t.i.d. on December 02. 9. Lamictal was increased up to 150 mg p.o. b.i.d.. 10. Adding p.r.n. Zyprexa. 11. Follow-up with urinalysis ordered on December 04. No new symptoms, we reordered another urinalysis on December 12 for pain on urination but apparently came back negative again. Reason for continued inpatient stay Substantial Risk for: inability to function, rapid decompensation and med/psych decompensation Time Spent With Patient Time: Total time managing care of this patient today __20__ minutes.
[2022-12-26 18:00] VITALS: BP 127/72; PULSE 81; RESP 18; TEMP 36.3; O2SAT 95
[2022-12-26] MEDS: hydrOXYzine HCL 25 MG TABLET PO (20:16)
[2022-12-26] MEDS: Atorvastatin Calcium 40 MG TABLET PO (20:16)
[2022-12-26] MEDS: QUEtiapine Fumarate 100 MG TABLET PO (20:16)
[2022-12-26] MEDS: traZODone HCL 50 MG TABLET PO (20:17)
[2022-12-26] MEDS: Tamsulosin HCL 0.4 MG CAPSULE PO (20:17)
[2022-12-27] MEDS: OLANZapine 5 MG TABLET PO ×3 (05:32→16:31)
[2022-12-27 07:58] VITALS: BP 130/64; PULSE 90; RESP 18; TEMP 36.2; O2SAT 93
[2022-12-27] MEDS: cloNIDine HCL 0.1 MG TABLET 0.05 MG PO ×3 (08:03→20:18)
[2022-12-27] MEDS: lamoTRIgine 100 MG TABLET 150 MG PO ×2 (08:04→20:17)
[2022-12-27] MEDS: Aspirin Enteric Coated 81 MG TABLET.DR PO (08:07)
[2022-12-27] MEDS: QUEtiapine Fumarate 25 MG TABLET 75 MG PO ×2 (08:07→16:31)
[2022-12-27] MEDS: Divalproex Sodium ER 500 MG TAB.ER.24H 1500 MG PO (08:08)
[2022-12-27] MEDS: Escitalopram Oxalate 10 MG TABLET PO (08:09)
[2022-12-27] MEDS: Thiamine HCL 100 MG TABLET PO (08:09)
--- NOTE | 2022-12-27 14:45 | P.PNPSI_ITS ---
Subjective Subjective Date of Service: 12/27/22 Reason For Visit: DEMENTIA Subjective Notes: Conditional Voluntary Interim History: Met with patient. Discussed with Nursing. Overall has had some agitation in the context of using mechanical lift or toileting. On close observation due to functional limitations high fall risk. 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 Pleasant and cooperative. 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 Reported feeling safe. Denies feeling depressed. Medication Compliance: Yes Side effects from medications: No Attending Groups: Yes Review of Systems Acute medical concerns: No Review of Systems Review of Systems unremarkable Mental Status Exam Mental Status Exam Narrative: pleasant. Engaged. In wheelchair has fall risk. Casually dressed. Fair hygiene. Cognition and speech consistent with establish dementia. No evidence of depression SI HI or psychosis. Diagnostics Vital Signs (24Hr): Vital Signs - 24 hr 12/26/22 18:00 12/27/22 07:58 Temperature 97.3 F 97.1 F Pulse Rate 81 90 Respiratory Rate 18 18 Blood Pressure 127/72 130/64 Pulse Oximetry 95 93 Oxygen Delivery Method Room Air Room Air BMI result Body Mass Index 32.1 Labs 11/18/22 08:03 11/20/22 04:51 Imaging Radiology Impressions: ITS Impressions Head CT 11/12/22 19:17 IMPRESSION: 1. No acute intracranial pathology. 2. There is ventriculomegaly disproportionate to the extent of sulcal widening. This can be seen in the setting of normal pressure hydrocephalus. Recommend clinical correlation. Consider MRI evaluation if clinically appropriate. Chest X-Ray 11/13/22 14:13 IMPRESSION: No acute parenchymal disease. No radiopaque foreign bodies. KUB X-Ray 11/13/22 14:13 IMPRESSION: No metallic radiopaque foreign bodies identified within the abdomen. 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 Background chronic microangiopathy. 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 Head CT 12/09/22 17:32 IMPRESSION: Cerebral atrophy and mild periventricular and central white matter diminished attenuation which is nonspecific but likely represent microvascular disease. No acute intracranial abnormality. Medications Medications Current Medications Acetaminophen (Acetaminophen 325 Mg Tablet) 650 mg PO Q6H PRN PRN Reason: Headache/Pain Mild Scale (1-3) Last Admin: 12/12/22 08:30 Dose: 650 mg Al Hydroxide/Mg Hydroxide (Magnesium Hydrox/Alum Hydrox 30 Ml Oral.Susp) 30 ml PO Q6H PRN PRN Reason: Heartburn/Nausea Aspirin (Aspirin Enteric Coated 81 Mg Tablet.Dr) 81 mg PO DAILY [facility] Last Admin: 12/27/22 08:07 Dose: 81 mg Atorvastatin Calcium (Atorvastatin Calcium 40 Mg Tablet) 40 mg PO BEDTIME [facility] Last Admin: 12/26/22 20:16 Dose: 40 mg Clonidine HCl (Clonidine Hcl 0.1 Mg Tablet) 0.05 mg PO TID [facility]; Protocol Last Admin: 12/27/22 08:03 Dose: 0.05 mg Divalproex Sodium (Divalproex Sodium Er 500 Mg Tab.Er.24h) 1,500 mg PO DAILY [facility] Last Admin: 12/27/22 08:08 Dose: 1,500 mg Escitalopram Oxalate (Escitalopram Oxalate 10 Mg Tablet) 10 mg PO DAILY [facility] Last Admin: 12/27/22 08:09 Dose: 10 mg Hydroxyzine HCl (Hydroxyzine Hcl 25 Mg Tablet) 25 mg PO Q6H PRN PRN Reason: Anxiety Last Admin: 12/26/22 20:16 Dose: 25 mg Lamotrigine (Lamotrigine 100 Mg Tablet) 150 mg PO BID [facility] Last Admin: 12/27/22 08:04 Dose: 150 mg Magnesium Hydroxide (Milk Of Magnesia 30 Ml Oral.Susp) 30 ml PO DAILY PRN PRN Reason: Constipation Last Admin: 12/17/22 14:48 Dose: 30 ml Olanzapine (Olanzapine 5 Mg Tablet) 5 mg PO Q4H PRN PRN Reason: psychotic agitation Last Admin: 12/27/22 11:03 Dose: 5 mg Quetiapine Fumarate (Quetiapine Fumarate 100 Mg Tablet) 100 mg PO BEDTIME [facility] Last Admin: 12/26/22 20:16 Dose: 100 mg Quetiapine Fumarate (Quetiapine Fumarate 25 Mg Tablet) 75 mg PO BID@0800,1700 [facility] Last Admin: 12/27/22 08:07 Dose: 75 mg Tamsulosin HCl (Tamsulosin Hcl 0.4 Mg Capsule) 0.4 mg PO BEDTIME [facility] Last Admin: 12/26/22 20:17 Dose: 0.4 mg Thiamine HCl (Thiamine Hcl 100 Mg Tablet) 100 mg PO DAILY [facility] Last Admin: 12/27/22 08:09 Dose: 100 mg Trazodone HCl (Trazodone Hcl 50 Mg Tablet) 50 mg PO BEDTIME PRN PRN Reason: Insomnia Last Admin: 12/26/22 20:17 Dose: 50 mg Allergies Allergies Allergy/AdvReac Type Severity Reaction Status Date / Time No Known Allergies Allergy Verified 11/12/22 15:27 Assessment & Plan Assessment & Plan (1) Neurodegenerative cognitive impairment: Status: Acute Code(s): G31.9 - Degenerative disease of nervous system, unspecified Assessment and Plan: 71 years old man who probably has degenerative dementia, moderate to severe, with significant behavioral component. Precise previous history is not available. 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 This type of infarct could be cardioembolic or from carotid artery. Because of significant underlying dementia, he would not be a candidate for any surgical intervention and for that reason I do not think exploring carotid artery stenosis is a reasonable idea. Continue his baseline medications. His examination is not suggestive of normal-pressure hydrocephalus despite his imaging revealing some ventriculomegaly. This type of patient typically require combination of medicines including some antipsychotics and mood stabilizers to manage day behavioral symptoms. He is also at relatively high risk for seizure disorder but also has been taking lamotrigine 100 mg twice a day, which would cover this condition even if he suffered from it. Now that his mental status has improved compared to his emergency room arrival, I do not think an EEG would be useful. Plan Plan 1. Continue with regular medications. 2. Neurologist reported that at this moment he does not have normal-pressure hydrocephalus. 3. Since the patient had being more irritable and labile we are increasing Seroquel up to 50 mg p.o. b.i.d. and 100 mg p.o. q.h.s.. 4. Reassessment with results. 5. Depakote level and comprehensive metabolic panel for [place] 3rd a.m. the blood work came back within normal limits and a therapeutic level of Depakote. 6. Waiting for placement 7. Lexapro increased up to 10 mg p.o. on November 27. 8. Start clonidine 0.1 p.o. t.i.d. to target impulsivity. We have to discontinue that on December 01 due to hypotension. Due to increased agitation we restarted clonidine 0.05 p.o. t.i.d. on December 02. 9. Lamictal was increased up to 150 mg p.o. b.i.d.. 10. Adding p.r.n. Zyprexa. 11. Follow-up with urinalysis ordered on December 04. No new symptoms, we reordered another urinalysis on December 12 for pain on urination but apparently came back negative again. 12/27/2022: No changes to current plan Reason for continued inpatient stay Substantial Risk for: inability to function Time Spent With Patient Time: Total time managing care of this patient today ____ minutes.
[2022-12-27 16:29] VITALS: BP 117/68
[2022-12-27 18:00] VITALS: BP 129/75; PULSE 81; RESP 18; TEMP 36.5; O2SAT 94
[2022-12-27] MEDS: traZODone HCL 50 MG TABLET PO (20:17)
[2022-12-27] MEDS: QUEtiapine Fumarate 200 MG TABLET PO (20:17)
[2022-12-27] MEDS: Tamsulosin HCL 0.4 MG CAPSULE PO (20:18)
[2022-12-27] MEDS: hydrOXYzine HCL 25 MG TABLET PO (20:18)
[2022-12-27] MEDS: Atorvastatin Calcium 40 MG TABLET PO (20:18)
[2022-12-28] MEDS: OLANZapine 5 MG TABLET PO ×3 (03:22→10:13)
[2022-12-28] MEDS: hydrOXYzine HCL 25 MG TABLET PO (03:23)
[2022-12-28 08:27] VITALS: BP 144/72; PULSE 102; RESP 16; TEMP 36.2; O2SAT 95
[2022-12-28] MEDS: Escitalopram Oxalate 10 MG TABLET PO (08:30)
[2022-12-28] MEDS: Divalproex Sodium ER 500 MG TAB.ER.24H 1500 MG PO (08:30)
[2022-12-28] MEDS: cloNIDine HCL 0.1 MG TABLET 0.05 MG PO ×3 (08:30→19:42)
[2022-12-28] MEDS: lamoTRIgine 100 MG TABLET 150 MG PO ×2 (08:31→19:40)
[2022-12-28] MEDS: Aspirin Enteric Coated 81 MG TABLET.DR PO (08:32)
[2022-12-28] MEDS: QUEtiapine Fumarate 100 MG TABLET PO ×2 (08:32→15:52)
[2022-12-28] MEDS: Thiamine HCL 100 MG TABLET PO (08:33)
--- NOTE | 2022-12-28 10:11 | P.PNPSI_ITS ---
Subjective Subjective Date of Service: 12/28/22 Reason For Visit: DEMENTIA Interim History: Met with patient. Discussed with Nursing. Overall has been very agitated. Required additional 1 time dose of olanzapine 10 mg last night which had minimal effect. This morning agitated and escalating verbally and also trying to hit staff. Unclear triggers. No longer appears related to simple toileting or self-care assistance. This morning continued to escalate, And gave Ativan 2 mg by mouth and total of olanzapine 10 mg by mouth. No benefit and continued to become aggressive and striking at staff, spitting, paranoid yelling for people to call the police. Also trying to get out of wheelchair and bed, despite being a very significant fall risk and no awareness of same. Medication restraint required and Thorazine IM 50 mg given. From an overall management perspective, we will discontinue trazodone and Lexapro in case they are causing more agitation and are clearly not benefiting. Depakote level on 12/20 was subtherapeutic with a dose of 1500 mg and will therefore increase total daily dose to 2000 mg and give 1 time dose of 500 mg today. Given p.r.n. needs of medications, will trial benzodiazepine for agitation. Will also increase Seroquel nighttime dose to 300 mg and hydroxyzine as needed to 50 mg. Medication Compliance: Yes Side effects from medications: No Attending Groups: No Review of Systems Acute medical concerns: No Review of Systems Review of Systems Yes Unobtainable due to mental status Mental Status Exam Mental Status Exam Narrative: yelling. Paranoid. Trying to hit staff. Diagnostics Vital Signs (24Hr): Vital Signs - 24 hr 12/27/22 16:29 12/27/22 18:00 12/28/22 08:27 Temperature 97.7 F 97.1 F Pulse Rate 81 102 H Respiratory Rate 18 16 Blood Pressure 117/68 129/75 144/72 H Pulse Oximetry 94 95 Oxygen Delivery Method Room Air Room Air BMI result Body Mass Index 32.1 Labs 11/18/22 08:03 11/20/22 04:51 Imaging Radiology Impressions: ITS Impressions Head CT 11/12/22 19:17 IMPRESSION: 1. No acute intracranial pathology. 2. There is ventriculomegaly disproportionate to the extent of sulcal widening. This can be seen in the setting of normal pressure hydrocephalus. Recommend clinical correlation. Consider MRI evaluation if clinically appropriate. Chest X-Ray 11/13/22 14:13 IMPRESSION: No acute parenchymal disease. No radiopaque foreign bodies. KUB X-Ray 11/13/22 14:13 IMPRESSION: No metallic radiopaque foreign bodies identified within the abdomen. 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 Background chronic microangiopathy. 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 Head CT 12/09/22 17:32 IMPRESSION: Cerebral atrophy and mild periventricular and central white matter diminished attenuation which is nonspecific but likely represent microvascular disease. No acute intracranial abnormality. Medications Medications Current Medications Acetaminophen (Acetaminophen 325 Mg Tablet) 650 mg PO Q6H PRN PRN Reason: Headache/Pain Mild Scale (1-3) Last Admin: 12/12/22 08:30 Dose: 650 mg Al Hydroxide/Mg Hydroxide (Magnesium Hydrox/Alum Hydrox 30 Ml Oral.Susp) 30 ml PO Q6H PRN PRN Reason: Heartburn/Nausea Aspirin (Aspirin Enteric Coated 81 Mg Tablet.Dr) 81 mg PO DAILY [facility] Last Admin: 12/28/22 08:32 Dose: 81 mg Atorvastatin Calcium (Atorvastatin Calcium 40 Mg Tablet) 40 mg PO BEDTIME [facility] Last Admin: 12/27/22 20:18 Dose: 40 mg Clonidine HCl (Clonidine Hcl 0.1 Mg Tablet) 0.05 mg PO TID [facility]; Protocol Last Admin: 12/28/22 08:30 Dose: 0.05 mg Divalproex Sodium (Divalproex Sodium Er 500 Mg Tab.Er.24h) 1,500 mg PO DAILY [facility] Last Admin: 12/28/22 08:30 Dose: 1,500 mg Hydroxyzine HCl (Hydroxyzine Hcl 50 Mg Tablet) 50 mg PO Q6H PRN PRN Reason: Anxiety Lamotrigine (Lamotrigine 100 Mg Tablet) 150 mg PO BID [facility] Last Admin: 12/28/22 08:31 Dose: 150 mg Lorazepam (Lorazepam 1 Mg Tablet) 2 mg PO ONCE ONE Stop: 12/28/22 10:08 Magnesium Hydroxide (Milk Of Magnesia 30 Ml Oral.Susp) 30 ml PO DAILY PRN PRN Reason: Constipation Last Admin: 12/17/22 14:48 Dose: 30 ml Olanzapine (Olanzapine 5 Mg Tablet) 5 mg PO Q4H PRN PRN Reason: psychotic agitation Last Admin: 12/28/22 09:11 Dose: 5 mg Olanzapine (Olanzapine 5 Mg Tablet) 5 mg PO ONCE ONE Stop: 12/28/22 10:08 Quetiapine Fumarate (Quetiapine Fumarate 100 Mg Tablet) 100 mg PO BID@0800,1700 [facility] Last Admin: 12/28/22 08:32 Dose: 100 mg Quetiapine Fumarate (Quetiapine Fumarate 300 Mg Tablet) 300 mg PO BEDTIME [facility] Tamsulosin HCl (Tamsulosin Hcl 0.4 Mg Capsule) 0.4 mg PO BEDTIME [facility] Last Admin: 12/27/22 20:18 Dose: 0.4 mg Thiamine HCl (Thiamine Hcl 100 Mg Tablet) 100 mg PO DAILY [facility] Last Admin: 12/28/22 08:33 Dose: 100 mg Allergies Allergies Allergy/AdvReac Type Severity Reaction Status Date / Time No Known Allergies Allergy Verified 11/12/22 15:27 Assessment & Plan Assessment & Plan (1) Neurodegenerative cognitive impairment: Status: Acute Code(s): G31.9 - Degenerative disease of nervous system, unspecified Assessment and Plan: 71 years old man who probably has degenerative dementia, moderate to severe, with significant behavioral component. Precise previous history is not available. 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 This type of infarct could be cardioembolic or from carotid artery. Because of significant underlying dementia, he would not be a candidate for any surgical intervention and for that reason I do not think exploring carotid artery stenosis is a reasonable idea. Continue his baseline medications. His examination is not suggestive of normal-pressure hydrocephalus despite his imaging revealing some ventriculomegaly. This type of patient typically require combination of medicines including some antipsychotics and mood stabilizers to manage day behavioral symptoms. He is also at relatively high risk for seizure disorder but also has been taking lamotrigine 100 mg twice a day, which would cover this condition even if he suffered from it. Now that his mental status has improved compared to his emergency room arrival, I do not think an EEG would be useful. Plan Plan 1. Continue with regular medications. 2. Neurologist reported that at this moment he does not have normal-pressure hydrocephalus. 3. Since the patient had being more irritable and labile we are increasing Seroquel up to 50 mg p.o. b.i.d. and 100 mg p.o. q.h.s.. 4. Reassessment with results. 5. Depakote level and comprehensive metabolic panel for November 20 a.m. the blood work came back within normal limits and a therapeutic level of Depakote. 6. Waiting for placement 7. Lexapro increased up to 10 mg p.o. on November 27. 8. Start clonidine 0.1 p.o. t.i.d. to target impulsivity. We have to discontinue that on December 01 due to hypotension. Due to increased agitation we restarted clonidine 0.05 p.o. t.i.d. on December 02. 9. Lamictal was increased up to 150 mg p.o. b.i.d.. 10. Adding p.r.n. Zyprexa. 11. Follow-up with urinalysis ordered on December 04. No new symptoms, we reordered another urinalysis on December 12 for pain on urination but apparently came back negative again. 12/27/2022: No changes to current plan 12/28/22: Medication restraint required and Thorazine IM 50 mg given. From an overall management perspective, we will discontinue trazodone and Lexapro in case they are causing more agitation and are clearly not benefiting. Depakote level on 12/20 was subtherapeutic with a dose of 1500 mg and will therefore increase total daily dose to 2000 mg and give 1 time dose of 500 mg today. Given p.r.n. needs of medications, will trial benzodiazepine for agitation. Will also increase Seroquel nighttime dose to 300 mg and hydroxyzine as needed to 50 mg. Reason for continued inpatient stay Substantial Risk for: harm to others and inability to function Time Spent With Patient Time: Total time managing care of this patient today ____ minutes.
[2022-12-28] MEDS: LORazepam 1 MG TABLET 2 MG PO (10:13)
--- NOTE | 2022-12-28 10:31 | PM.EVENT ---
Event Note Date of Service: 12/28/22 Event Note: Hitting and spitting. No response to Ativan and olanzapine PO and staff deescalation. Physical hold (1030am) IM meds (1040am) with security support. Released physical hold at 1045. Face to Face at 1047 and no evidence of physical injury. Time Spent With Patient Time: Total time managing care of this patient today ____ minutes.
--- NOTE | 2022-12-28 10:33 | MHC.PM.REST ---
Restraint Documentation Date of Service: 12/28/22 Time of Documentation: 10:54 Current Situation: After assessment of the patient, a review of the pertinent medical record and a discussion with nursing staff, I feel the patient requires a restrain intervention. Reaction To: physical aggression to staff Medical Condition: No evidence of injury or acute issues, examined at 1047 Behavioral State: agitated, trying to hit staff Continued Need: Physical hold (1030am) IM meds (1040am) with security support. Released physical hold at 1045. Face to Face at 1047 Time Spent With Patient Time: Total time managing care of this patient today ____ minutes.
[2022-12-28] MEDS: chlorproMAZINE HCl 25 MG/ML AMPUL 50 MG IM (10:40)
[2022-12-28] MEDS: Divalproex Sodium 500 MG TABLET.DR PO (10:43)
--- NOTE | 2022-12-28 12:27 | PC.NURSE ---
Pt. with escalating agitation shortly after breakfast, Calling his close observation staff derogatory names and striking at her. Given 5 mg olanzapine PO at 09:11 with no effect. Pt. offered food, drink, low stim in room, toileting, without effect. Attempting to stand from WC and striking out at staff attempting to steady him. MD on unit ordered one time lorazepam 2 mg, olanzapine 5 mg, and depakote 500 PO, which pt. accepted, but had no effect. Pt. continued to strike at staff attempting to keep him safe and placed himself on the floor. He asked for staff assist off of floor, and staff assisted him to roll onto a lift pad and began to mechanical lift him into bed. While being suspended in the lift, pt. began to thrash and shake the lift, yelling, I'm going to break this fucking thing! Lift to bed was completed as quickly as possible, and pt. continued to strike at any staff he could reach and began to spit at all staff present. ordered med restraint of 50 mg. thorazine IM. Pt. hold began with assist of security at 10:30 and spit mcmullen placed. IM thorazine administered R deltoid 10:40 and hold released at 10:45, at which time pt. was resting quietly. [employer] notified and message left for pt's sister/HCP to call unit for update.
--- NOTE | 2022-12-28 13:32 | PC.NURSE ---
Pt's sister/HCP Samantha Acosta returned call at 1300 and was provided update on med restraint.
--- NOTE | 2022-12-28 14:25 | PC.NURSE ---
Pt. with no recollection of earlier events. Unable to provide input for safety tool update.
[2022-12-28 18:00] VITALS: BP 141/80; PULSE 74; RESP 18; TEMP 36; O2SAT 96
[2022-12-28] MEDS: QUEtiapine Fumarate 300 MG TABLET PO (19:41)
[2022-12-28] MEDS: Tamsulosin HCL 0.4 MG CAPSULE PO (19:41)
[2022-12-28] MEDS: hydrOXYzine HCL 50 MG TABLET PO (19:42)
[2022-12-28] MEDS: Atorvastatin Calcium 40 MG TABLET PO (19:42)
[2022-12-29 09:00] VITALS: BP 136/82; PULSE 88; RESP 18; TEMP 36.6; O2SAT 96
[2022-12-29] MEDS: Divalproex Sodium ER 500 MG TAB.ER.24H 2000 MG PO (09:20)
[2022-12-29] MEDS: Aspirin Enteric Coated 81 MG TABLET.DR PO (09:21)
[2022-12-29] MEDS: Thiamine HCL 100 MG TABLET PO (09:21)
[2022-12-29] MEDS: lamoTRIgine 100 MG TABLET 150 MG PO ×2 (09:23→19:58)
[2022-12-29] MEDS: cloNIDine HCL 0.1 MG TABLET 0.05 MG PO ×3 (09:24→20:03)
[2022-12-29] MEDS: QUEtiapine Fumarate 100 MG TABLET PO (09:25)
--- NOTE | 2022-12-29 14:03 | HO.PSYCHPN ---
Subjective Subjective Date of Service: 12/29/22 Reason For Visit: DEMENTIA Subjective Notes: Conditional Voluntary Interim History: The nursing staff reported the patient had been very agitated he needed to be treated with an injectable last night. Over the weekend he Seroquel was increased up to 500 mg a day and his Depakote was increased. Yesterday he slept well last night and he was still sleeping early in the morning. The foster care social worker reported that he is going to be referred to [facility]. On interview the patient denies new symptoms he is pleasantly confused. Mental Status Exam Mental Status Exam Patient Appearance: Well Grooomed and Appropriate Patient Orientation: Person and Situation Level of Consciousness: Awake and Appropriate Patient Behavior: Guarded and Cooperative Mood Description: Withdrawn Affect Description: Constricted Patient Cognition Impaired: Yes Ability to Follow Directions: Good Speech Pattern: Clear Hallucinations: None Delusions: Not Present Thought Process: Linear Thought Content: positive for [place] and positive for Poverty of Content Judgement: Fair Diagnostics Vital Signs (24Hr): Vital Signs - 24 hr 12/28/22 18:00 12/29/22 09:00 Temperature 96.8 F 97.8 F Pulse Rate 74 88 Respiratory Rate 18 18 Blood Pressure 141/80 H 136/82 Pulse Oximetry 96 96 Oxygen Delivery Method Room Air Room Air BMI result Body Mass Index 32.1 Labs 11/18/22 08:03 11/20/22 04:51 Imaging Radiology Impressions: ITS Impressions Head CT 11/12/22 19:17 IMPRESSION: 1. No acute intracranial pathology. 2. There is ventriculomegaly disproportionate to the extent of sulcal widening. This can be seen in the setting of normal pressure hydrocephalus. Recommend clinical correlation. Consider MRI evaluation if clinically appropriate. Chest X-Ray 11/13/22 14:13 IMPRESSION: No acute parenchymal disease. No radiopaque foreign bodies. KUB X-Ray 11/13/22 14:13 IMPRESSION: No metallic radiopaque foreign bodies identified within the abdomen. 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 Background chronic microangiopathy. 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 Head CT 12/09/22 17:32 IMPRESSION: Cerebral atrophy and mild periventricular and central white matter diminished attenuation which is nonspecific but likely represent microvascular disease. No acute intracranial abnormality. Medications Medications Current Medications Acetaminophen (Acetaminophen 325 Mg Tablet) 650 mg PO Q6H PRN PRN Reason: Headache/Pain Mild Scale (1-3) Last Admin: 12/12/22 08:30 Dose: 650 mg Al Hydroxide/Mg Hydroxide (Magnesium Hydrox/Alum Hydrox 30 Ml Oral.Susp) 30 ml PO Q6H PRN PRN Reason: Heartburn/Nausea Aspirin (Aspirin Enteric Coated 81 Mg Tablet.Dr) 81 mg PO DAILY [facility] Last Admin: 12/29/22 09:21 Dose: 81 mg Atorvastatin Calcium (Atorvastatin Calcium 40 Mg Tablet) 40 mg PO BEDTIME [facility] Last Admin: 12/28/22 19:42 Dose: 40 mg Clonidine HCl (Clonidine Hcl 0.1 Mg Tablet) 0.05 mg PO TID [facility]; Protocol Last Admin: 12/29/22 09:24 Dose: 0.05 mg Divalproex Sodium (Divalproex Sodium Er 500 Mg Tab.Er.24h) 2,000 mg PO DAILY [facility] Last Admin: 12/29/22 09:20 Dose: 2,000 mg Hydroxyzine HCl (Hydroxyzine Hcl 50 Mg Tablet) 50 mg PO Q6H PRN PRN Reason: Anxiety Last Admin: 12/28/22 19:42 Dose: 50 mg Lamotrigine (Lamotrigine 100 Mg Tablet) 150 mg PO BID [facility] Last Admin: 12/29/22 09:23 Dose: 150 mg Magnesium Hydroxide (Milk Of Magnesia 30 Ml Oral.Susp) 30 ml PO DAILY PRN PRN Reason: Constipation Last Admin: 12/17/22 14:48 Dose: 30 ml Olanzapine (Olanzapine 5 Mg Tablet) 5 mg PO Q4H PRN PRN Reason: psychotic agitation Last Admin: 12/28/22 09:11 Dose: 5 mg Quetiapine Fumarate (Quetiapine Fumarate 100 Mg Tablet) 100 mg PO BID@0800,1700 [facility] Last Admin: 12/29/22 09:25 Dose: 100 mg Quetiapine Fumarate (Quetiapine Fumarate 300 Mg Tablet) 300 mg PO BEDTIME [facility] Last Admin: 12/28/22 19:41 Dose: 300 mg Tamsulosin HCl (Tamsulosin Hcl 0.4 Mg Capsule) 0.4 mg PO BEDTIME [facility] Last Admin: 12/28/22 19:41 Dose: 0.4 mg Thiamine HCl (Thiamine Hcl 100 Mg Tablet) 100 mg PO DAILY [facility] Last Admin: 12/29/22 09:21 Dose: 100 mg Allergies Allergies Allergy/AdvReac Type Severity Reaction Status Date / Time No Known Allergies Allergy Verified 11/12/22 15:27 Assessment & Plan Assessment & Plan (1) Neurodegenerative cognitive impairment: Status: Acute Code(s): G31.9 - Degenerative disease of nervous system, unspecified Assessment and Plan: 71 years old man who probably has degenerative dementia, moderate to severe, with significant behavioral component. Precise previous history is not available. 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 This type of infarct could be cardioembolic or from carotid artery. Because of significant underlying dementia, he would not be a candidate for any surgical intervention and for that reason I do not think exploring carotid artery stenosis is a reasonable idea. Continue his baseline medications. His examination is not suggestive of normal-pressure hydrocephalus despite his imaging revealing some ventriculomegaly. This type of patient typically require combination of medicines including some antipsychotics and mood stabilizers to manage day behavioral symptoms. He is also at relatively high risk for seizure disorder but also has been taking lamotrigine 100 mg twice a day, which would cover this condition even if he suffered from it. Now that his mental status has improved compared to his emergency room arrival, I do not think an EEG would be useful. Plan Plan 1. Continue with regular medications. 2. Neurologist reported that at this moment he does not have normal-pressure hydrocephalus. 3. Since the patient had being more irritable and labile we are increasing Seroquel up to 50 mg p.o. b.i.d. and 100 mg p.o. q.h.s.. 4. Reassessment with results. 5. Depakote level and comprehensive metabolic panel for November 20 a.m. the blood work came back within normal limits and a therapeutic level of Depakote. 6. Waiting for placement 7. Lexapro increased up to 10 mg p.o. on November 27. 8. Start clonidine 0.1 p.o. t.i.d. to target impulsivity. We have to discontinue that on December 01 due to hypotension. Due to increased agitation we restarted clonidine 0.05 p.o. t.i.d. on December 02. 9. Lamictal was increased up to 150 mg p.o. b.i.d.. 10. Adding p.r.n. Zyprexa. 11. Follow-up with urinalysis ordered on December 04. No new symptoms, we reordered another urinalysis on December 12 for pain on urination but apparently came back negative again. 12. Seroquel was increased up to 100 mg p.o. b.i.d. and 300 p.o. q.h.s. on 12 28 due to agitation. 13. Blood work for tomorrow December 30. We will recheck Depakote levels. Reason for continued inpatient stay Substantial Risk for: inability to function, rapid decompensation and med/psych decompensation Time Spent With Patient Time: Total time managing care of this patient today __20__ minutes.
[2022-12-29 18:00] VITALS: BP 148/71; PULSE 84; RESP 18; TEMP 36.6; O2SAT 96
[2022-12-29] MEDS: QUEtiapine Fumarate 300 MG TABLET PO (19:58)
[2022-12-29] MEDS: Atorvastatin Calcium 40 MG TABLET PO (20:01)
[2022-12-29] MEDS: Tamsulosin HCL 0.4 MG CAPSULE PO (20:01)
[2022-12-29 20:16] LABS: Appearance Urine Clear; Color Urine Yellow; Glucose Urine UA Negative (Negative); Leukocyte Esterase Urine Negative (Negative); Nitrite Urine Negative (Negative); PH 6.5 (5.0-9.0); Specific Gravity - Urine 1.025 (1.005-1.025); Urine Blood Negative (Negative); Urine Ketones Negative (Negative); Urine Protein Negative (Neg-Trace)
[2022-12-29 20:21] LABS: Bacteria Urine None Seen (None Seen); Hyaline Casts Urine 0-2 /LPF (0-2); Squamous Epithelial Cell Urine 0-2 /HPF (0-2); WBC Urine 0-5 /HPF (0-5)
[2022-12-29] MEDS: hydrOXYzine HCL 50 MG TABLET PO (22:44)
[2022-12-29] MEDS: OLANZapine 5 MG TABLET PO (22:44)
[2022-12-30 08:00] VITALS: BP 142/77; PULSE 88; RESP 18; TEMP 36.9; O2SAT 96
[2022-12-30 08:05] LABS: Estimated Average Glucose 100 mg/dL; Hemoglobin A1c % 5.1 % (<6.0)
[2022-12-30 08:07] LABS: Valproate 62.7 mcg/mL (50.0-100.0)
[2022-12-30 08:11] LABS: Alanine Aminotransferase 32 U/L (0-40); Albumin Level 3.7 g/dL (3.5-5.0); Alkaline Phosphatase 71 U/L (39-117); Anion Gap 12 (12-20); Aspartate Amino Transferase 41 U/L (5-37); Bilirubin Direct 0.3 mg/dL (0.0-0.5); Bilirubin Total 0.6 mg/dL (0.0-1.0); Blood Urea Nitrogen 18 mg/dL (9-16); Carbon Dioxide 27 mmol/L (22-29); Chloride 107 mmol/L (96-108); Cholesterol 141 mg/dL (<200); Creatinine Clr Calc Pharmacy 101.7; Estimated Glomerular Filt Rate > 60; Glucose Random 100 mg/dL (60-115); HDL Cholesterol 56 mg/dL (>40); LDL Cholesterol Calculated 75 mg/dL (<100); Potassium 4.2 mmol/L (3.3-5.1); Sodium 142 mmol/L (135-145); Total Protein 6.4 g/dL (6.5-8.0); Triglycerides 50 mg/dL (<150)
[2022-12-30] MEDS: Aspirin Enteric Coated 81 MG TABLET.DR PO (08:13)
[2022-12-30] MEDS: QUEtiapine Fumarate 100 MG TABLET PO ×2 (08:13→16:05)
[2022-12-30] MEDS: Thiamine HCL 100 MG TABLET PO (08:13)
[2022-12-30] MEDS: lamoTRIgine 100 MG TABLET 150 MG PO ×2 (08:13→19:38)
[2022-12-30] MEDS: Divalproex Sodium ER 500 MG TAB.ER.24H 2000 MG PO (08:13)
[2022-12-30] MEDS: cloNIDine HCL 0.1 MG TABLET 0.05 MG PO ×3 (08:14→19:40)
[2022-12-30 10:01] VITALS: BMI 31.6
--- NOTE | 2022-12-30 11:26 | P.PNPSI_ITS ---
Subjective Subjective Date of Service: 12/30/22 Reason For Visit: DEMENTIA Subjective Notes: Conditional Voluntary Interim History: The nursing staff reported the patient had been and coordinated with delayed responses confused and slightly age since Depakote and Seroquel were increased. He slept well most of the day. On interview the patient looks slightly sedated with mild tremors. We are going to lower Seroquel up to 200 mg p.o. q.h.s.. Mental Status Exam Mental Status Exam Patient Appearance: Appropriate Patient Orientation: Person and Situation Level of Consciousness: Awake and Restless Patient Behavior: Guarded and Passive Mood Description: Withdrawn Affect Description: Constricted Patient Cognition Impaired: Yes Ability to Follow Directions: Fair Speech Pattern: Slurred Hallucinations: None Delusions: Not Present Thought Process: Distracted and Evasive Thought Content: positive for [place] and positive for Circumstantial Judgement: Poor Diagnostics Vital Signs (24Hr): Vital Signs - 24 hr 12/29/22 18:00 12/30/22 08:00 Temperature 97.8 F 98.4 F Pulse Rate 84 88 Respiratory Rate 18 18 Blood Pressure 148/71 H 142/77 H Pulse Oximetry 96 96 Oxygen Delivery Method Room Air Room Air BMI result Body Mass Index 31.6 Labs 11/18/22 08:03 12/30/22 07:49 Labs: Laboratory Results - last 48 hr 12/29/22 12/30/22 19:45 07:49 Sodium 142 Potassium 4.2 Chloride 107 Carbon Dioxide 27 Anion Gap 12 BUN 18 H Creatinine 0.88 Estim Creat Clear Calc 101.7 Estimated GFR > 60 Random Glucose 100 Estimat Average Glucose 100 Hemoglobin A1c % 5.1 Calcium 9.0 Total Bilirubin 0.6 Direct Bilirubin 0.3 AST 41 H ALT 32 Alkaline Phosphatase 71 Total Protein 6.4 L Albumin 3.7 Triglycerides 50 Cholesterol 141 LDL Cholesterol, Calc 75 HDL Cholesterol 56 Urine Color Yellow Urine Appearance Clear Urine pH 6.5 Ur Specific [place] 1.025 Urine Protein Negative Urine Glucose (UA) Negative Urine Ketones Negative Urine Blood Negative Urine Nitrite Negative Ur Leukocyte Esterase Negative Urine RBC 3-5 H Urine WBC 0-5 Ur Squamous Epith Cells 0-2 Urine Bacteria None Seen Hyaline Casts 0-2 Valproic Acid 62.7 Imaging Radiology Impressions: ITS Impressions Head CT 11/12/22 19:17 IMPRESSION: 1. No acute intracranial pathology. 2. There is ventriculomegaly disproportionate to the extent of sulcal widening. This can be seen in the setting of normal pressure hydrocephalus. Recommend clinical correlation. Consider MRI evaluation if clinically appropriate. Chest X-Ray 11/13/22 14:13 IMPRESSION: No acute parenchymal disease. No radiopaque foreign bodies. KUB X-Ray 11/13/22 14:13 IMPRESSION: No metallic radiopaque foreign bodies identified within the abdomen. 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 Background chronic microangiopathy. 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 Head CT 12/09/22 17:32 IMPRESSION: Cerebral atrophy and mild periventricular and central white matter diminished attenuation which is nonspecific but likely represent microvascular disease. No acute intracranial abnormality. Medications Medications Current Medications Acetaminophen (Acetaminophen 325 Mg Tablet) 650 mg PO Q6H PRN PRN Reason: Headache/Pain Mild Scale (1-3) Last Admin: 12/12/22 08:30 Dose: 650 mg Al Hydroxide/Mg Hydroxide (Magnesium Hydrox/Alum Hydrox 30 Ml Oral.Susp) 30 ml PO Q6H PRN PRN Reason: Heartburn/Nausea Aspirin (Aspirin Enteric Coated 81 Mg Tablet.Dr) 81 mg PO DAILY [facility] Last Admin: 12/30/22 08:13 Dose: 81 mg Atorvastatin Calcium (Atorvastatin Calcium 40 Mg Tablet) 40 mg PO BEDTIME [facility] Last Admin: 12/29/22 20:01 Dose: 40 mg Clonidine HCl (Clonidine Hcl 0.1 Mg Tablet) 0.05 mg PO TID [facility]; Protocol Last Admin: 12/30/22 08:14 Dose: 0.05 mg Divalproex Sodium (Divalproex Sodium Er 500 Mg Tab.Er.24h) 2,000 mg PO DAILY [facility] Last Admin: 12/30/22 08:13 Dose: 2,000 mg Hydroxyzine HCl (Hydroxyzine Hcl 50 Mg Tablet) 50 mg PO Q6H PRN PRN Reason: Anxiety Last Admin: 12/29/22 22:44 Dose: 50 mg Lamotrigine (Lamotrigine 100 Mg Tablet) 150 mg PO BID [facility] Last Admin: 12/30/22 08:13 Dose: 150 mg Magnesium Hydroxide (Milk Of Magnesia 30 Ml Oral.Susp) 30 ml PO DAILY PRN PRN Reason: Constipation Last Admin: 12/17/22 14:48 Dose: 30 ml Olanzapine (Olanzapine 5 Mg Tablet) 5 mg PO Q4H PRN PRN Reason: psychotic agitation Last Admin: 12/29/22 22:44 Dose: 5 mg Quetiapine Fumarate (Quetiapine Fumarate 100 Mg Tablet) 100 mg PO BID@0800,1700 [facility] Last Admin: 12/30/22 08:13 Dose: 100 mg Quetiapine Fumarate (Quetiapine Fumarate 200 Mg Tablet) 200 mg PO BEDTIME [facility] Tamsulosin HCl (Tamsulosin Hcl 0.4 Mg Capsule) 0.4 mg PO BEDTIME [facility] Last Admin: 12/29/22 20:01 Dose: 0.4 mg Thiamine HCl (Thiamine Hcl 100 Mg Tablet) 100 mg PO DAILY [facility] Last Admin: 12/30/22 08:13 Dose: 100 mg Allergies Allergies Allergy/AdvReac Type Severity Reaction Status Date / Time No Known Allergies Allergy Verified 11/12/22 15:27 Assessment & Plan Assessment & Plan (1) Neurodegenerative cognitive impairment: Status: Acute Code(s): G31.9 - Degenerative disease of nervous system, unspecified Assessment and Plan: 71 years old man who probably has degenerative dementia, moderate to severe, with significant behavioral component. Precise previous history is not available. 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 This type of infarct could be cardioembolic or from carotid artery. Because of significant underlying dementia, he would not be a candidate for any surgical intervention and for that reason I do not think exploring carotid artery stenosis is a reasonable idea. Continue his baseline medications. His examination is not suggestive of normal-pressure hydrocephalus despite his imaging revealing some ventriculomegaly. This type of patient typically require combination of medicines including some antipsychotics and mood stabilizers to manage day behavioral symptoms. He is also at relatively high risk for seizure disorder but also has been taking lamotrigine 100 mg twice a day, which would cover this condition even if he suffered from it. Now that his mental status has improved compared to his emergency room arrival, I do not think an EEG would be useful. Plan Plan 1. Continue with regular medications. 2. Neurologist reported that at this moment he does not have normal-pressure hydrocephalus. 3. Since the patient had being more irritable and labile we are increasing Seroquel up to 50 mg p.o. b.i.d. and 100 mg p.o. q.h.s.. 4. Reassessment with results. 5. Depakote level and comprehensive metabolic panel for November 20 a.m. the blood work came back within normal limits and a therapeutic level of Depakote. 6. Waiting for placement 7. Lexapro increased up to 10 mg p.o. on November 27. 8. Start clonidine 0.1 p.o. t.i.d. to target impulsivity. We have to discontinue that on December 01 due to hypotension. Due to increased agitation we restarted clonidine 0.05 p.o. t.i.d. on December 02. 9. Lamictal was increased up to 150 mg p.o. b.i.d.. 10. Adding p.r.n. Zyprexa. 11. Follow-up with urinalysis ordered on December 04. No new symptoms, we reordered another urinalysis on December 12 for pain on urination but apparently came back negative again. 12. Seroquel was increased up to 100 mg p.o. b.i.d. and 300 p.o. q.h.s. on 12 28 due to agitation. We are lowering now Depakote up to 200 mg p.o. q.h.s. due to over-sedation on December 30. 13. Blood work for December 30 came back and Depakote now is on a therapeutic level. Reason for continued inpatient stay Substantial Risk for: inability to function, rapid decompensation and med/psych decompensation Time Spent With Patient Time: Total time managing care of this patient today __20__ minutes.
[2022-12-30 18:00] VITALS: BP 159/68; PULSE 95; RESP 18; TEMP 36.6; O2SAT 93
[2022-12-30] MEDS: OLANZapine 5 MG TABLET PO (18:56)
[2022-12-30] MEDS: Tamsulosin HCL 0.4 MG CAPSULE PO (19:38)
[2022-12-30] MEDS: Atorvastatin Calcium 40 MG TABLET PO (19:41)
[2022-12-30] MEDS: QUEtiapine Fumarate 200 MG TABLET PO (19:41)
[2022-12-30] MEDS: hydrOXYzine HCL 50 MG TABLET PO (19:41)
[2022-12-30] MEDS: LORazepam 1 MG TABLET 2 MG PO (21:30)
--- NOTE | 2022-12-31 00:46 | PC.NURSE ---
2114 Pt. awake and agitated. he is thrashing in the bed and flailing his arms about. he is yelling. his conversation is jumbled and difficult to discern. he is not re-directable and quite agitated. dr deleon contacted and the previous documentation reviewed. the pt is asking for medicine to help him calm down and is receptive to anxiolytic administration. plan- ativan 2 mg po now
[2022-12-31 08:30] VITALS: BP 136/68; PULSE 99; RESP 16; TEMP 36.3; O2SAT 91
--- NOTE | 2022-12-31 08:42 | PC.NURSE ---
Patients oxygen sat level currently 91%, Preceptor Vielka Thakur notified Dr. Ascencio via [employer]
[2022-12-31] MEDS: Aspirin Enteric Coated 81 MG TABLET.DR PO (08:48)
[2022-12-31] MEDS: cloNIDine HCL 0.1 MG TABLET 0.05 MG PO ×2 (08:49→20:44)
[2022-12-31] MEDS: Thiamine HCL 100 MG TABLET PO (08:49)
[2022-12-31] MEDS: lamoTRIgine 100 MG TABLET 150 MG PO ×2 (08:54→20:45)
[2022-12-31 10:44] VITALS: PULSE 94; O2SAT 94
--- NOTE | 2022-12-31 10:45 | PC.NURSE ---
Preceptor Vielka Thakur took patients oxygen sat which is now 94%, she reached back out to Dr. Ascencio via [employer] and was instructed to provide scheduled morning dose of Seroquel.
[2022-12-31] MEDS: QUEtiapine Fumarate 25 MG TABLET 75 MG PO (10:50)
[2022-12-31] MEDS: hydrOXYzine HCL 50 MG TABLET PO (10:51)
[2022-12-31] MEDS: OLANZapine ODT 10 MG TAB.RAPDIS TRANSLINGU (11:20)
[2022-12-31] MEDS: OLANZapine ODT 10 MG TAB.RAPDIS 20 MG TRANSLINGU (13:33)
--- NOTE | 2022-12-31 13:58 | HO.PSYCHPN ---
Subjective Subjective Date of Service: 12/31/22 Reason For Visit: DEMENTIA Subjective Notes: Conditional Voluntary Interim History: The nursing staff reported that he was over-sedated, he slept 6 hours last night and he needed to be fed. He was sluggish. Today in the morning later on he was very agitated and angry and we needed to giving Zydis 5 mg and later on another 10. The patient has episodes of agitation with disorganized behavior. We decided to lower his Seroquel to 75 p.o. b.i.d. and keep 200 at night Mental Status Exam Mental Status Exam Patient Appearance: Unkempt Patient Orientation: Person Level of Consciousness: Awake, Disoriented and Restless Patient Behavior: Guarded and Passive Mood Description: Hostile and Angry Affect Description: Labile Patient Cognition Impaired: Yes Ability to Follow Directions: Poor Speech Pattern: Stuttering and Loud Hallucinations: None Delusions: Paranoid Ideation and Ideas of Reference Thought Process: Incoherent, Illogical and Distracted Thought Content: positive for Thought Blocking, positive for Incoherent and positive for Disorganized Judgement: Poor Diagnostics Vital Signs (24Hr): Vital Signs - 24 hr 12/30/22 18:00 12/31/22 08:30 12/31/22 10:44 Temperature 97.9 F 97.3 F Pulse Rate 95 99 94 Respiratory Rate 18 16 Blood Pressure 159/68 H 136/68 Pulse Oximetry 93 91 L 94 Oxygen Delivery Method Room Air Room Air Room Air BMI result Body Mass Index 31.6 Labs 11/18/22 08:03 12/30/22 07:49 Labs: Laboratory Results - last 48 hr 12/29/22 12/30/22 19:45 07:49 Sodium 142 Potassium 4.2 Chloride 107 Carbon Dioxide 27 Anion Gap 12 BUN 18 H Creatinine 0.88 Estim Creat Clear Calc 101.7 Estimated GFR > 60 Random Glucose 100 Estimat Average Glucose 100 Hemoglobin A1c % 5.1 Calcium 9.0 Total Bilirubin 0.6 Direct Bilirubin 0.3 AST 41 H ALT 32 Alkaline Phosphatase 71 Total Protein 6.4 L Albumin 3.7 Triglycerides 50 Cholesterol 141 LDL Cholesterol, Calc 75 HDL Cholesterol 56 Urine Color Yellow Urine Appearance Clear Urine pH 6.5 Ur Specific [place] 1.025 Urine Protein Negative Urine Glucose (UA) Negative Urine Ketones Negative Urine Blood Negative Urine Nitrite Negative Ur Leukocyte Esterase Negative Urine RBC 3-5 H Urine WBC 0-5 Ur Squamous Epith Cells 0-2 Urine Bacteria None Seen Hyaline Casts 0-2 Valproic Acid 62.7 Imaging Radiology Impressions: ITS Impressions Head CT 11/12/22 19:17 IMPRESSION: 1. No acute intracranial pathology. 2. There is ventriculomegaly disproportionate to the extent of sulcal widening. This can be seen in the setting of normal pressure hydrocephalus. Recommend clinical correlation. Consider MRI evaluation if clinically appropriate. Chest X-Ray 11/13/22 14:13 IMPRESSION: No acute parenchymal disease. No radiopaque foreign bodies. KUB X-Ray 11/13/22 14:13 IMPRESSION: No metallic radiopaque foreign bodies identified within the abdomen. 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 Background chronic microangiopathy. 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 Head CT 12/09/22 17:32 IMPRESSION: Cerebral atrophy and mild periventricular and central white matter diminished attenuation which is nonspecific but likely represent microvascular disease. No acute intracranial abnormality. Medications Medications Current Medications Acetaminophen (Acetaminophen 325 Mg Tablet) 650 mg PO Q6H PRN PRN Reason: Headache/Pain Mild Scale (1-3) Last Admin: 12/12/22 08:30 Dose: 650 mg Al Hydroxide/Mg Hydroxide (Magnesium Hydrox/Alum Hydrox 30 Ml Oral.Susp) 30 ml PO Q6H PRN PRN Reason: Heartburn/Nausea Aspirin (Aspirin Enteric Coated 81 Mg Tablet.Dr) 81 mg PO DAILY [facility] Last Admin: 12/31/22 08:48 Dose: 81 mg Atorvastatin Calcium (Atorvastatin Calcium 40 Mg Tablet) 40 mg PO BEDTIME [facility] Last Admin: 12/30/22 19:41 Dose: 40 mg Clonidine HCl (Clonidine Hcl 0.1 Mg Tablet) 0.05 mg PO TID [facility]; Protocol Last Admin: 12/31/22 08:49 Dose: 0.05 mg Divalproex Sodium (Divalproex Sodium Er 500 Mg Tab.Er.24h) 2,000 mg PO BEDTIME [facility] Hydroxyzine HCl (Hydroxyzine Hcl 50 Mg Tablet) 50 mg PO Q6H PRN PRN Reason: Anxiety Last Admin: 12/31/22 10:51 Dose: 50 mg Lamotrigine (Lamotrigine 100 Mg Tablet) 150 mg PO BID [facility] Last Admin: 12/31/22 08:54 Dose: 150 mg Magnesium Hydroxide (Milk Of Magnesia 30 Ml Oral.Susp) 30 ml PO DAILY PRN PRN Reason: Constipation Last Admin: 12/17/22 14:48 Dose: 30 ml Olanzapine (Olanzapine 5 Mg Tablet) 5 mg PO Q4H PRN PRN Reason: psychotic agitation Last Admin: 12/30/22 18:56 Dose: 5 mg Quetiapine Fumarate (Quetiapine Fumarate 200 Mg Tablet) 200 mg PO BEDTIME [facility] Last Admin: 12/30/22 19:41 Dose: 200 mg Quetiapine Fumarate (Quetiapine Fumarate 25 Mg Tablet) 75 mg PO BID@0800,1700 [facility] Last Admin: 12/31/22 10:50 Dose: 75 mg Tamsulosin HCl (Tamsulosin Hcl 0.4 Mg Capsule) 0.4 mg PO BEDTIME [facility] Last Admin: 12/30/22 19:38 Dose: 0.4 mg Thiamine HCl (Thiamine Hcl 100 Mg Tablet) 100 mg PO DAILY [facility] Last Admin: 12/31/22 08:49 Dose: 100 mg Allergies Allergies Allergy/AdvReac Type Severity Reaction Status Date / Time No Known Allergies Allergy Verified 11/12/22 15:27 Assessment & Plan Assessment & Plan (1) Neurodegenerative cognitive impairment: Status: Acute Code(s): G31.9 - Degenerative disease of nervous system, unspecified Assessment and Plan: 71 years old man who probably has degenerative dementia, moderate to severe, with significant behavioral component. Precise previous history is not available. 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 This type of infarct could be cardioembolic or from carotid artery. Because of significant underlying dementia, he would not be a candidate for any surgical intervention and for that reason I do not think exploring carotid artery stenosis is a reasonable idea. Continue his baseline medications. His examination is not suggestive of normal-pressure hydrocephalus despite his imaging revealing some ventriculomegaly. This type of patient typically require combination of medicines including some antipsychotics and mood stabilizers to manage day behavioral symptoms. He is also at relatively high risk for seizure disorder but also has been taking lamotrigine 100 mg twice a day, which would cover this condition even if he suffered from it. Now that his mental status has improved compared to his emergency room arrival, I do not think an EEG would be useful. Plan Plan 1. Continue with regular medications. 2. Neurologist reported that at this moment he does not have normal-pressure hydrocephalus. 3. Since the patient had being more irritable and labile we are increasing Seroquel up to 50 mg p.o. b.i.d. and 100 mg p.o. q.h.s.. 4. Reassessment with results. 5. Depakote level and comprehensive metabolic panel for November 20 a.m. the blood work came back within normal limits and a therapeutic level of Depakote. 6. Waiting for placement 7. Lexapro increased up to 10 mg p.o. on November 27. 8. Start clonidine 0.1 p.o. t.i.d. to target impulsivity. We have to discontinue that on December 01 due to hypotension. Due to increased agitation we restarted clonidine 0.05 p.o. t.i.d. on December 02. 9. Lamictal was increased up to 150 mg p.o. b.i.d.. 10. Adding p.r.n. Zyprexa. 11. Follow-up with urinalysis ordered on December 04. No new symptoms, we reordered another urinalysis on December 12 for pain on urination but apparently came back negative again. 12. Seroquel was increased up to 100 mg p.o. b.i.d. and 300 p.o. q.h.s. on 12 28 due to agitation. We are lowering now Depakote up to 200 mg p.o. q.h.s. due to over-sedation on December 30. 13. Blood work for December 30 came back and Depakote now is on a therapeutic level. Reason for continued inpatient stay Substantial Risk for: harm to others, inability to function, rapid decompensation and med/psych decompensation Time Spent With Patient Time: Total time managing care of this patient today __20__ minutes.
[2022-12-31 14:33] VITALS: BP 145/80; PULSE 86; RESP 15; TEMP 36.2; O2SAT 95
[2022-12-31 14:41] LABS: Glucose, Whole Blood 85 mg/dL (60-115)
--- NOTE | 2022-12-31 15:38 | PC.NURSE ---
This nurse went assessed pt.'s O2 sat, which was fluctuating between 84%-95% at 1430. At that point a whole set of VS were taken which were as follows: 97.6, pulse 86, 145/80, 15. This nurse sent a tiger tecxt to Dr. Ascencio and requested a hospitalist consult due to O2 sat. A hospitalist consult was placed as routine. This nurse sent another tiger text to JONATHAN Myers-hospitalist, and requested that she come fabrice as the original consult was placed as routine. Corrie responded to my request and came at that point. She stated that she will be ordering a chest x-ray, after her assessment of the patient.
--- NOTE | 2022-12-31 16:01 | PM.EVENT ---
Event Note Date of Service: 12/31/22 Event Note: 72-year-old male with history of seizure disorder, TBI, neuro degenerative cognitive impairment admitted to geriatric psychiatry consult placed to hospital service due to intermittent hypoxia. Per nursing report, patient has been desatting to 84% intermittently, but quickly rebounds to 92-97% without intervention. She states multiple machines have been utilized with proper placement of oximeter on finger. He has been noted to have apneic episodes with some snoring respirations. No fevers, vitals otherwise stable. He has no upper respiratory complaints. Per nursing report, patient has been confused and aggitated since this weekend and has required the use of IM medications for aggitation. This morning seroquel and depakote held without improvement in mentation. As a result, seroquel was resumed, but depakote will now be scheduled pm. Due to ongoing agitation, was given 20 mg olanzapine and then an additional 10 mg of olanzapine. On exam, heart is regular rate rhythm, no murmurs, lungs clear to auscultation bilaterally with out any respiratory distress or increased work of breathing. Oximetry holding in the low 90s on my exam without any desaturation. Patient is confused oriented to self only but this has been his baseline for the last few days. Will check chest x-ray and p.r.n. order for oxygen to maintain oximetry greater than 92%. Advised to ensure that the probe is correctly on the finger and readjust if it is reading low to ensure accuracy. Given patient has been bed bound times several days without DVT prophylaxis, will check b/l venous duplex though suspicion for DVT is low given absence of calf tenderness or swelling and overall stability of vital signs. Will continue following for results Time Spent With Patient Time: Total time managing care of this patient today ____ minutes.
[2022-12-31] MEDS: LORazepam 1 MG TABLET 2 MG PO (16:46)
[2022-12-31 18:13] VITALS: O2SAT 94
[2022-12-31 19:46] VITALS: BP 137/74; PULSE 88; RESP 19; TEMP 36.3; O2SAT 94
[2022-12-31] MEDS: Tamsulosin HCL 0.4 MG CAPSULE PO (20:56)
[2022-12-31] MEDS: Divalproex Sodium ER 500 MG TAB.ER.24H 2000 MG PO (20:57)
[2022-12-31] MEDS: QUEtiapine Fumarate 200 MG TABLET PO (20:59)
[2022-12-31] MEDS: Atorvastatin Calcium 40 MG TABLET PO (21:00)
[2023-01-01 09:50] VITALS: BP 151/87; PULSE 94; RESP 16; TEMP 36.7; O2SAT 96
[2023-01-01] MEDS: lamoTRIgine 100 MG TABLET 150 MG PO ×2 (09:51→20:37)
[2023-01-01] MEDS: Aspirin Enteric Coated 81 MG TABLET.DR PO (09:51)
[2023-01-01] MEDS: Thiamine HCL 100 MG TABLET PO (09:53)
[2023-01-01 09:55] VITALS: BMI 29.0
[2023-01-01] MEDS: cloNIDine HCL 0.1 MG TABLET 0.05 MG PO ×3 (09:56→20:39)
[2023-01-01] MEDS: QUEtiapine Fumarate 25 MG TABLET 75 MG PO ×2 (09:57→17:39)
--- NOTE | 2023-01-01 10:33 | PC.NURSE ---
Upon waking, pt c/o superapubic discomfort. He also stated that he was unable to urinate. This nurse palpated suprapubic area and felt that the bladder was full. Straight cath order placed. The procedure was completed without issues or concerns and 500ml of urine was removed. During procedure, pt also urinated a small amount on his own.
--- NOTE | 2023-01-01 10:58 | HO.PSYCHPN ---
Subjective Subjective Date of Service: 01/01/23 Reason For Visit: DEMENTIA Subjective Notes: Conditional Voluntary Interim History: The nursing staff reported the patient had been episodes that he was extremely agitated and he needed several p.r.n. medication. The medical staff saw him and suggested a chest x-ray but still his for agitated to cooperate for a chest x-ray. On interview the patient was slightly sedated, heel walking with verbal stimulus stated that he was doing fine. We decided to change the Depakote spread during the day to lower impulsivity. Mental Status Exam Mental Status Exam Patient Appearance: Unkempt Patient Orientation: Person and Situation Level of Consciousness: Awake, Follows Commands and Lethargic Patient Behavior: Guarded Mood Description: Labile Affect Description: Constricted Patient Cognition Impaired: Yes Ability to Follow Directions: Fair Speech Pattern: Clear Hallucinations: None Delusions: Not Present Thought Process: Incoherent, Illogical and Distracted Thought Content: positive for [place] and positive for Perseveration Judgement: Poor Diagnostics Vital Signs (24Hr): Vital Signs - 24 hr 12/31/22 14:33 12/31/22 18:13 12/31/22 19:46 Temperature 97.2 F 97.4 F Pulse Rate 86 88 Respiratory Rate 15 19 Blood Pressure 145/80 H 137/74 Pulse Oximetry 95 94 94 Oxygen Delivery Method Room Air Room Air Room Air 01/01/23 09:50 Temperature 98.1 F Pulse Rate 94 Respiratory Rate 16 Blood Pressure 151/87 H Pulse Oximetry 96 Oxygen Delivery Method Room Air BMI result Body Mass Index 29.0 Labs 11/18/22 08:03 12/30/22 07:49 Labs: Laboratory Results - last 48 hr 12/31/22 14:37 POC Glucose 85 Imaging Radiology Impressions: ITS Impressions Head CT 11/12/22 19:17 IMPRESSION: 1. No acute intracranial pathology. 2. There is ventriculomegaly disproportionate to the extent of sulcal widening. This can be seen in the setting of normal pressure hydrocephalus. Recommend clinical correlation. Consider MRI evaluation if clinically appropriate. Chest X-Ray 11/13/22 14:13 IMPRESSION: No acute parenchymal disease. No radiopaque foreign bodies. KUB X-Ray 11/13/22 14:13 IMPRESSION: No metallic radiopaque foreign bodies identified within the abdomen. 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 Background chronic microangiopathy. 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 Head CT 12/09/22 17:32 IMPRESSION: Cerebral atrophy and mild periventricular and central white matter diminished attenuation which is nonspecific but likely represent microvascular disease. No acute intracranial abnormality. Chest X-Ray 12/31/22 16:47 IMPRESSION: * Superior mediastinum appears widened new from recent prior however this may be exaggerated by technique. Recommend repeat PA and lateral radiographs however if there is there is clinical concern for emergent mediastinal pathology, CT chest could be obtained. * Low lung volumes with streaky bibasilar opacities which may reflect atelectasis. Venous Duplex 12/31/22 17:15 IMPRESSION: Limited exam. No DVT demonstrated in the bilateral lower extremity. Calf veins and left popliteal vein not well visualized. Medications Medications Current Medications Acetaminophen (Acetaminophen 325 Mg Tablet) 650 mg PO Q6H PRN PRN Reason: Headache/Pain Mild Scale (1-3) Last Admin: 12/12/22 08:30 Dose: 650 mg Al Hydroxide/Mg Hydroxide (Magnesium Hydrox/Alum Hydrox 30 Ml Oral.Susp) 30 ml PO Q6H PRN PRN Reason: Heartburn/Nausea Aspirin (Aspirin Enteric Coated 81 Mg Tablet.) 81 mg PO DAILY [facility] Last Admin: 01/01/23 09:51 Dose: 81 mg Atorvastatin Calcium (Atorvastatin Calcium 40 Mg Tablet) 40 mg PO BEDTIME [facility] Last Admin: 12/31/22 21:00 Dose: 40 mg Clonidine HCl (Clonidine Hcl 0.1 Mg Tablet) 0.05 mg PO TID [facility]; Protocol Last Admin: 01/01/23 09:56 Dose: 0.05 mg Divalproex Sodium (Divalproex Sodium Sprinkles 125 Mg Cap.) 500 mg PO BID@0800,1500 [facility] Divalproex Sodium (Divalproex Sodium Sprinkles 125 Mg Cap.) 1,000 mg PO BEDTIME [facility] Hydroxyzine HCl (Hydroxyzine Hcl 50 Mg Tablet) 50 mg PO Q6H PRN PRN Reason: Anxiety Last Admin: 12/31/22 10:51 Dose: 50 mg Lamotrigine (Lamotrigine 100 Mg Tablet) 150 mg PO BID [facility] Last Admin: 01/01/23 09:51 Dose: 150 mg Magnesium Hydroxide (Milk Of Magnesia 30 Ml Oral.Susp) 30 ml PO DAILY PRN PRN Reason: Constipation Last Admin: 12/17/22 14:48 Dose: 30 ml Olanzapine (Olanzapine 5 Mg Tablet) 5 mg PO Q4H PRN PRN Reason: psychotic agitation Last Admin: 12/30/22 18:56 Dose: 5 mg Quetiapine Fumarate (Quetiapine Fumarate 200 Mg Tablet) 200 mg PO BEDTIME [facility] Last Admin: 12/31/22 20:59 Dose: 200 mg Quetiapine Fumarate (Quetiapine Fumarate 25 Mg Tablet) 75 mg PO BID@0800,1700 [facility] Last Admin: 01/01/23 09:57 Dose: 75 mg Tamsulosin HCl (Tamsulosin Hcl 0.4 Mg Capsule) 0.4 mg PO BEDTIME [facility] Last Admin: 12/31/22 20:56 Dose: 0.4 mg Thiamine HCl (Thiamine Hcl 100 Mg Tablet) 100 mg PO DAILY [facility] Last Admin: 01/01/23 09:53 Dose: 100 mg Allergies Allergies Allergy/AdvReac Type Severity Reaction Status Date / Time No Known Allergies Allergy Verified 11/12/22 15:27 Assessment & Plan Assessment & Plan (1) Neurodegenerative cognitive impairment: Status: Acute Code(s): G31.9 - Degenerative disease of nervous system, unspecified Assessment and Plan: 71 years old man who probably has degenerative dementia, moderate to severe, with significant behavioral component. Precise previous history is not available. 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 This type of infarct could be cardioembolic or from carotid artery. Because of significant underlying dementia, he would not be a candidate for any surgical intervention and for that reason I do not think exploring carotid artery stenosis is a reasonable idea. Continue his baseline medications. His examination is not suggestive of normal-pressure hydrocephalus despite his imaging revealing some ventriculomegaly. This type of patient typically require combination of medicines including some antipsychotics and mood stabilizers to manage day behavioral symptoms. He is also at relatively high risk for seizure disorder but also has been taking lamotrigine 100 mg twice a day, which would cover this condition even if he suffered from it. Now that his mental status has improved compared to his emergency room arrival, I do not think an EEG would be useful. Plan Plan 1. Continue with regular medications. 2. Neurologist reported that at this moment he does not have normal-pressure hydrocephalus. 3. Since the patient had being more irritable and labile we are increasing Seroquel up to 50 mg p.o. b.i.d. and 100 mg p.o. q.h.s.. 4. Reassessment with results. 5. Depakote level and comprehensive metabolic panel for November 20 a.m. the blood work came back within normal limits and a therapeutic level of Depakote. 6. Waiting for placement 7. Lexapro increased up to 10 mg p.o. on November 27. 8. Start clonidine 0.1 p.o. t.i.d. to target impulsivity. We have to discontinue that on December 01 due to hypotension. Due to increased agitation we restarted clonidine 0.05 p.o. t.i.d. on December 02. 9. Lamictal was increased up to 150 mg p.o. b.i.d.. 10. Adding p.r.n. Zyprexa. 11. Follow-up with urinalysis ordered on December 04. No new symptoms, we reordered another urinalysis on December 12 for pain on urination but apparently came back negative again. 12. Seroquel was increased up to 100 mg p.o. b.i.d. and 300 p.o. q.h.s. on 12 28 due to agitation. We are lowering now Depakote up to 200 mg p.o. q.h.s. due to over-sedation on December 30. 13. Blood work for December 30 came back and Depakote now is on a therapeutic level. 14. We called the medical team on December 31 because he was too agitated probably he was on delirium. It isn't clear why the change of mental status. We decided to spread out Depakote 500 mg p.o. b.i.d. and a 1000 p.o. q.h.s. to target impulsivity. Reason for continued inpatient stay Substantial Risk for: inability to function, rapid decompensation and med/psych decompensation Time Spent With Patient Time: Total time managing care of this patient today __20__ minutes.
[2023-01-01 15:20] VITALS: BP 141/78; PULSE 88
[2023-01-01] MEDS: Divalproex Sodium Sprinkles 125 MG CAP.DR.SPR 500 MG PO (15:35)
[2023-01-01 18:00] VITALS: BP 138/70; PULSE 88; RESP 18; TEMP 36.5; O2SAT 94
--- NOTE | 2023-01-01 18:07 | PC.NURSE ---
THIS NURSE BLADDER SCANNED THIS PT AT 1400 AND IT READ 311ML. PT ALSO HAD URINE IN HIS DIAPER. NO FURTHER STRAIGHT CATH NEEDED AT THIS TIME.
--- NOTE | 2023-01-01 18:32 | PM.EVENT ---
Documented by User: JONATHAN Majano 01/01/23 20:13 Event Note Date of Service: 01/01/23 Event Note: Follow-up for patient with altered mental status, increased agitation, and intermittent hypoxia for the past week. According nursing staff, patient has been agitated and confused since this past weekend, requiring use of IM medications for agitation. Patient also been found to have been intermittently hypoxic, desatting to 84% before rebounding to 92-97% without intervention. Apparently multiple different machines/oximeters have been used with similar results. Today patient remains asymptomatic: Denies chest pain/pressure, palpitations. No shortness of breath. Denies dyspnea. No lightheadedness, dizziness, nausea, vomiting, abdominal pain. Venous duplex of bilateral lower extremities was limited in scope, however found no evidence of DVT bilaterally in lower extremities, though calf veins in left popliteal vein were not well visualized. UA on 12/29/2022 negative for UTI. CXR on 12/31/2022 found superior mediastinum appearing widened from a recent prior, recommended repeat PA and lateral radiograph. Repeat CXR on 01/01/2023 found ectactic thoracic aorta and clear lungs. Will order CT angio of chest/aorta, and will consider vascular surgery consult depending on results. Time Spent With Patient Time: Total time managing care of this patient today ____ minutes. Documented by User: Jennifer Lama MD 01/01/23 20:57 Event Note Date of Service: 01/01/23
[2023-01-01] MEDS: Atorvastatin Calcium 40 MG TABLET PO (20:38)
[2023-01-01] MEDS: Acetaminophen 325 MG TABLET 650 MG PO (20:40)
[2023-01-01] MEDS: QUEtiapine Fumarate 200 MG TABLET PO (20:40)
[2023-01-01] MEDS: Tamsulosin HCL 0.4 MG CAPSULE PO (20:41)
[2023-01-01] MEDS: Divalproex Sodium Sprinkles 125 MG CAP.DR.SPR 1000 MG PO (20:41)
[2023-01-01] MEDS: hydrOXYzine HCL 50 MG TABLET PO (21:01)
[2023-01-01] MEDS: OLANZapine 5 MG TABLET PO (22:44)
[2023-01-02] MEDS: Acetaminophen 325 MG TABLET 650 MG PO ×2 (03:42→16:07)
[2023-01-02] MEDS: hydrOXYzine HCL 50 MG TABLET PO ×2 (03:43→18:34)
[2023-01-02] MEDS: OLANZapine 5 MG TABLET PO (03:43)
--- NOTE | 2023-01-02 06:52 | PC.NURSE ---
Patient was incontinent x 1 and continent of 400 ml clear concentrated urine, pvr 36 ml. 650 ml fluid given afterwards.
[2023-01-02 07:45] VITALS: BP 111/81; PULSE 101; RESP 18; TEMP 35.4; O2SAT 94
[2023-01-02] MEDS: QUEtiapine Fumarate 25 MG TABLET 75 MG PO ×2 (08:20→17:00)
[2023-01-02] MEDS: Aspirin Enteric Coated 81 MG TABLET.DR PO (08:20)
[2023-01-02] MEDS: cloNIDine HCL 0.1 MG TABLET 0.05 MG PO ×3 (08:20→20:51)
[2023-01-02] MEDS: Thiamine HCL 100 MG TABLET PO (08:20)
[2023-01-02] MEDS: lamoTRIgine 100 MG TABLET 150 MG PO ×2 (08:21→20:49)
[2023-01-02] MEDS: Divalproex Sodium Sprinkles 125 MG CAP.DR.SPR 500 MG PO ×2 (08:22→16:06)
[2023-01-02] MEDS: LORazepam 1 MG TABLET 2 MG PO (11:31)
[2023-01-02] MEDS: OLANZapine ODT 10 MG TAB.RAPDIS TRANSLINGU (11:33)
[2023-01-02] MEDS: iohexoL 350 MG/ML 100 ML INFUS..BTL 70 ML IV (13:43)
--- NOTE | 2023-01-02 13:52 | P.PNPSI_ITS ---
Subjective Subjective Date of Service: 01/02/23 Reason For Visit: DEMENTIA Subjective Notes: Conditional Voluntary Interim History: The patient was had been agitated in the last 2 or 3 days. He was later over- sedated early in the week. The patient has a chest x-ray and it showed an abnormal our take silhouette and the medical team has ordered a CT scan to rule out a thoracic aortic aneurysm. At this moment the patient is sedated since I needed to give him some p.r.n. medications before the CT scan. We will follow up with Medicine about the next steps. Mental Status Exam Mental Status Exam Patient Appearance: Appropriate Patient Orientation: Person Level of Consciousness: Drowsy, Sedated and Disoriented Patient Behavior: Guarded and Passive Mood Description: Calm Affect Description: Constricted Patient Cognition Impaired: Yes Ability to Follow Directions: Fair Speech Pattern: Clear Memory Description: Intact Hallucinations: None Delusions: Ideas of Reference Thought Process: Illogical and Distracted Judgement: Poor Diagnostics Vital Signs (24Hr): Vital Signs - 24 hr 01/01/23 15:20 01/01/23 18:00 01/02/23 07:45 Temperature 97.7 F 95.7 F L Pulse Rate 88 88 101 H Respiratory Rate 18 18 Blood Pressure 141/78 H 138/70 111/81 Pulse Oximetry 94 94 Oxygen Delivery Method Room Air Room Air BMI result Body Mass Index 29.0 Labs 11/18/22 08:03 12/30/22 07:49 Labs: Laboratory Results - last 48 hr 12/31/22 14:37 POC Glucose 85 Imaging Radiology Impressions: ITS Impressions Head CT 11/12/22 19:17 IMPRESSION: 1. No acute intracranial pathology. 2. There is ventriculomegaly disproportionate to the extent of sulcal widening. This can be seen in the setting of normal pressure hydrocephalus. Recommend clinical correlation. Consider MRI evaluation if clinically appropriate. Chest X-Ray 11/13/22 14:13 IMPRESSION: No acute parenchymal disease. No radiopaque foreign bodies. KUB X-Ray 11/13/22 14:13 IMPRESSION: No metallic radiopaque foreign bodies identified within the abdomen. 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 Background chronic microangiopathy. 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 Head CT 12/09/22 17:32 IMPRESSION: Cerebral atrophy and mild periventricular and central white matter diminished attenuation which is nonspecific but likely represent microvascular disease. No acute intracranial abnormality. Chest X-Ray 12/31/22 16:47 IMPRESSION: * Superior mediastinum appears widened new from recent prior however this may be exaggerated by technique. Recommend repeat PA and lateral radiographs however if there is there is clinical concern for emergent mediastinal pathology, CT chest could be obtained. * Low lung volumes with streaky bibasilar opacities which may reflect atelectasis. Venous Duplex 12/31/22 17:15 IMPRESSION: Limited exam. No DVT demonstrated in the bilateral lower extremity. Calf veins and left popliteal vein not well visualized. Chest X-Ray 01/01/23 12:27 IMPRESSION: 1. Ectatic thoracic aorta. 2. Clear lungs. Medications Medications Current Medications Acetaminophen (Acetaminophen 325 Mg Tablet) 650 mg PO Q6H PRN PRN Reason: Headache/Pain Mild Scale (1-3) Last Admin: 01/02/23 03:42 Dose: 650 mg Al Hydroxide/Mg Hydroxide (Magnesium Hydrox/Alum Hydrox 30 Ml Oral.Susp) 30 ml PO Q6H PRN PRN Reason: Heartburn/Nausea Aspirin (Aspirin Enteric Coated 81 Mg Tablet.) 81 mg PO DAILY [facility] Last Admin: 01/02/23 08:20 Dose: 81 mg Atorvastatin Calcium (Atorvastatin Calcium 40 Mg Tablet) 40 mg PO BEDTIME [facility] Last Admin: 01/01/23 20:38 Dose: 40 mg Clonidine HCl (Clonidine Hcl 0.1 Mg Tablet) 0.05 mg PO TID [facility]; Protocol Last Admin: 01/02/23 08:20 Dose: 0.05 mg Divalproex Sodium (Divalproex Sodium Sprinkles 125 Mg ) 500 mg PO BID@0800,1500 [facility] Last Admin: 01/02/23 08:22 Dose: 500 mg Divalproex Sodium (Divalproex Sodium Sprinkles 125 Mg ) 1,000 mg PO BEDTIME [facility] Last Admin: 01/01/23 20:41 Dose: 1,000 mg Hydroxyzine HCl (Hydroxyzine Hcl 50 Mg Tablet) 50 mg PO Q6H PRN PRN Reason: Anxiety Last Admin: 01/02/23 03:43 Dose: 50 mg Lamotrigine (Lamotrigine 100 Mg Tablet) 150 mg PO BID [facility] Last Admin: 01/02/23 08:21 Dose: 150 mg Magnesium Hydroxide (Milk Of Magnesia 30 Ml Oral.Susp) 30 ml PO DAILY PRN PRN Reason: Constipation Last Admin: 12/17/22 14:48 Dose: 30 ml Olanzapine (Olanzapine 5 Mg Tablet) 5 mg PO Q4H PRN PRN Reason: psychotic agitation Last Admin: 01/02/23 03:43 Dose: 5 mg Quetiapine Fumarate (Quetiapine Fumarate 200 Mg Tablet) 200 mg PO BEDTIME [facility] Last Admin: 01/01/23 20:40 Dose: 200 mg Quetiapine Fumarate (Quetiapine Fumarate 25 Mg Tablet) 75 mg PO BID@0800,1700 [facility] Last Admin: 01/02/23 08:20 Dose: 75 mg Tamsulosin HCl (Tamsulosin Hcl 0.4 Mg Capsule) 0.4 mg PO BEDTIME [facility] Last Admin: 01/01/23 20:41 Dose: 0.4 mg Thiamine HCl (Thiamine Hcl 100 Mg Tablet) 100 mg PO DAILY [facility] Last Admin: 01/02/23 08:20 Dose: 100 mg Allergies Allergies Allergy/AdvReac Type Severity Reaction Status Date / Time No Known Allergies Allergy Verified 11/12/22 15:27 Assessment & Plan Assessment & Plan (1) Neurodegenerative cognitive impairment: Status: Acute Code(s): G31.9 - Degenerative disease of nervous system, unspecified Assessment and Plan: 71 years old man who probably has degenerative dementia, moderate to severe, with significant behavioral component. Precise previous history is not available. 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 This type of infarct could be cardioembolic or from carotid artery. Because of significant underlying dementia, he would not be a candidate for any surgical intervention and for that reason I do not think exploring carotid artery stenosis is a reasonable idea. Continue his baseline medications. His examination is not suggestive of normal-pressure hydrocephalus despite his imaging revealing some ventriculomegaly. This type of patient typically require combination of medicines including some antipsychotics and mood stabilizers to manage day behavioral symptoms. He is also at relatively high risk for seizure disorder but also has been taking lamotrigine 100 mg twice a day, which would cover this condition even if he suffered from it. Now that his mental status has improved compared to his emergency room arrival, I do not think an EEG would be useful. Plan Plan 1. Continue with regular medications. 2. Neurologist reported that at this moment he does not have normal-pressure hydrocephalus. 3. Since the patient had being more irritable and labile we are increasing Seroquel up to 50 mg p.o. b.i.d. and 100 mg p.o. q.h.s.. 4. Reassessment with results. 5. Depakote level and comprehensive metabolic panel for November 20 a.m. the blood work came back within normal limits and a therapeutic level of Depakote. 6. Waiting for placement 7. Lexapro increased up to 10 mg p.o. on November 27. 8. Start clonidine 0.1 p.o. t.i.d. to target impulsivity. We have to discontinue that on December 01 due to hypotension. Due to increased agitation we restarted clonidine 0.05 p.o. t.i.d. on December 02. 9. Lamictal was increased up to 150 mg p.o. b.i.d.. 10. Adding p.r.n. Zyprexa. 11. Follow-up with urinalysis ordered on December 04. No new symptoms, we reordered another urinalysis on December 12 for pain on urination but apparently came back negative again. 12. Seroquel was increased up to 100 mg p.o. b.i.d. and 300 p.o. q.h.s. on 12 28 due to agitation. We are lowering now Depakote up to 200 mg p.o. q.h.s. due to over-sedation on December 30. 13. Blood work for December 30 came back and Depakote now is on a therapeutic level. 14. We called the medical team on December 31 because he was too agitated probably he was on delirium. It isn't clear why the change of mental status. We decided to spread out Depakote 500 mg p.o. b.i.d. and a 1000 p.o. q.h.s. to target impulsivity. 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 HE HAS BEEN FOLLOWED MEDICINE. WAITING FOR THE RESULTS OF THE CT SCAN THORAX. Reason for continued inpatient stay Substantial Risk for: inability to function, rapid decompensation and med/psych decompensation Time Spent With Patient Time: Total time managing care of this patient today _20___ minutes.
[2023-01-02 18:00] VITALS: BP 125/80; PULSE 88; RESP 16; TEMP 36.2; O2SAT 97
[2023-01-02] MEDS: Tamsulosin HCL 0.4 MG CAPSULE PO (20:48)
[2023-01-02] MEDS: QUEtiapine Fumarate 200 MG TABLET PO (20:50)
[2023-01-02] MEDS: Atorvastatin Calcium 40 MG TABLET PO (20:50)
[2023-01-03 02:33] VITALS: BP 127/84; PULSE 94; RESP 10; O2SAT 94
[2023-01-03 05:45] VITALS: BP 130/87; PULSE 80; RESP 12; TEMP 36.4; O2SAT 95
[2023-01-03] MEDS: Acetaminophen 325 MG TABLET 650 MG PO ×2 (06:21→20:11)
[2023-01-03 07:45] VITALS: BP 134/78; PULSE 96; RESP 18; TEMP 36.1; O2SAT 94
[2023-01-03] MEDS: lamoTRIgine 100 MG TABLET 150 MG PO ×2 (09:03→20:11)
[2023-01-03] MEDS: QUEtiapine Fumarate 25 MG TABLET 75 MG PO (09:03)
[2023-01-03] MEDS: cloNIDine HCL 0.1 MG TABLET 0.05 MG PO ×3 (09:05→20:10)
[2023-01-03] MEDS: Thiamine HCL 100 MG TABLET PO (09:08)
[2023-01-03] MEDS: Aspirin Enteric Coated 81 MG TABLET.DR PO (09:08)
[2023-01-03] MEDS: Divalproex Sodium Sprinkles 125 MG CAP.DR.SPR 500 MG PO ×2 (09:08→15:03)
--- NOTE | 2023-01-03 11:50 | PM.EVENT ---
Event Note Date of Service: 01/03/23 Event Note: 72-year-old male with history of seizure disorder, traumatic brain injury, neuro cognitive impairment admitted to Psychiatry consult placed to hospitalist service with concern over right hip pain. Per nursing, the patient's leg was externally rotated and fell his side of the bed and he was unable to pick this up. However patient has been bed-bound since admission and is not walking says limited strength in the like. On exam, there is no tenderness to palpation. He has full range of motion both with external and internal rotation, extension and flexion of the hip. There is no guarding. I do not feel that imaging is necessary at this time. However given patient is bedbound status, he should be on DVT prophylaxis and am initiating Lovenox 40 mg daily. He was evaluated for DVTs 3 days ago which were negative. In addition, he has been intermittently desaturating to 89% but corrects to 94% without intervention. CT of the chest showed slight enlargement of the ascending aorta but no acute pulmonary abnormality or PE. There is multiple areas of atelectasis likely contributing to this intermittent hypoxia. Would again encourage patient out of bed, consider physical therapy. Will sign off at this time. Time Spent With Patient Time: Total time managing care of this patient today ____ minutes.
[2023-01-03] MEDS: Enoxaparin Sodium 40 MG/0.4 ML SYRINGE SUBCUT (12:01)
[2023-01-03 14:39] LABS: MANUAL DIFF FLAG NO
[2023-01-03 14:49] LABS: Basophils Percent Auto 0.6 % (0-2); Eosinophils Absolute Auto 0.3 X10*3/uL (0.0-0.4); Eosinophils Percent Auto 6.3 % (0-4); Hematocrit 38.9 % (42.0-52.0); Hemoglobin 13.1 g/dl (14.0-18.0); Imm Gran Abs Auto 0.02 X10*3/uL (0.00-0.03); Imm Gran Pct Auto 0.4 % (0.0-0.4); Lymphocytes Absolute Auto 1.1 X10*3/uL (1.2-4.9); Mean Corpuscular HGB Conc 33.7 g/dl (31.0-36.0); Mean Corpuscular Hemoglobin 32.1 pg (27.0-33.0); Mean Corpuscular Volume 95.3 fL (80.0-98.0); Mean Platelet Volume 9.3 fL (9.4-12.4); Monocytes Percent Auto 18.8 % (2-11); Neutrophils Absolute Auto 2.9 x10*3/uL (2.0-8.3); Neutrophils Percent Auto 52.9 % (45-73); Platelet Count 198 X10*3/uL (160-400); Red Blood Count 4.08 X10*6/uL (4.60-5.80); Red Cell Distribution Width 13.9 % (11.0-16.0); White Blood Count 5.4 X10*3/uL (4.8-10.8)
[2023-01-03 14:53] LABS: Ammonia 19 umol/L (13-55)
[2023-01-03 14:54] VITALS: BP 128/81; PULSE 83
[2023-01-03 15:01] LABS: Alanine Aminotransferase 34 U/L (0-40); Albumin Level 3.8 g/dL (3.5-5.0); Alkaline Phosphatase 78 U/L (39-117); Anion Gap 13 (12-20); Aspartate Amino Transferase 37 U/L (5-37); Bilirubin Total 0.7 mg/dL (0.0-1.0); Blood Urea Nitrogen 21 mg/dL (9-16); Calcium 9.2 mg/dL (8.4-10.2); Carbon Dioxide 25 mmol/L (22-29); Chloride 104 mmol/L (96-108); Creatinine Clr Calc Pharmacy 94.8; Estimated Glomerular Filt Rate > 60; Glucose Fasting 95 mg/dL (60-99); Potassium 4.1 mmol/L (3.3-5.1); Sodium 138 mmol/L (135-145); Total Protein 6.8 g/dL (6.5-8.0)
[2023-01-03 19:30] VITALS: BP 162/87; PULSE 82; RESP 18; TEMP 36.6; O2SAT 97
--- NOTE | 2023-01-03 19:57 | P.PNPSI_ITS ---
Subjective Subjective Date of Service: 01/03/23 Reason For Visit: DEMENTIA Subjective Notes: Conditional Voluntary Interim History: Pt has presented with delirium superimposed on dementia for past week, medical work up unremarkable.Checked ammonia to r/o hyperammonemia s/s to depakote. However, it was normal. CBC and CMP. no signs of infection. pt yelling at times complains of pain. Hospitalist examined pt as he touch hip and reported hip pain (note that he has bilat degenerative changes to greater trocanter). However, he also intermittently reports pain when touching abdomen. KUB ordered which shows stool and gas. Suspect medication may also be contributing to delirium, especially anticholinergic ones. WIll d/c vistaril. start simmethicone, schedule tylenol for pain- at this point suspecting more chronic pain s/s to degenerative changes. Sister updated. Review of Systems Review of Systems unremarkable Yes all other systems are reviewed and are negative and Unobtainable due to mental status Mental Status Exam Mental Status Exam Patient Appearance: Appropriate Patient Orientation: Person Level of Consciousness: Drowsy, Sedated and Disoriented Patient Behavior: Guarded and Passive Mood Description: Calm Affect Description: Constricted Patient Cognition Impaired: Yes Ability to Follow Directions: Fair Speech Pattern: Clear Memory Description: Intact Diagnostics Vital Signs (24Hr): Vital Signs - 24 hr 01/03/23 02:33 01/03/23 05:45 01/03/23 07:45 Temperature 97.6 F 96.9 F Pulse Rate 94 80 96 Respiratory Rate 10 L 12 18 Blood Pressure 127/84 130/87 134/78 Pulse Oximetry 94 95 94 Oxygen Delivery Method Room Air Room Air Room Air 01/03/23 14:54 Temperature Pulse Rate 83 Respiratory Rate Blood Pressure 128/81 Pulse Oximetry Oxygen Delivery Method BMI result Body Mass Index 29.0 Labs 01/03/23 14:34 01/03/23 14:34 Labs: Laboratory Results - last 48 hr 01/03/23 14:34 WBC 5.4 RBC 4.08 L Hgb 13.1 L Hct 38.9 L MCV 95.3 MCH 32.1 MCHC 33.7 RDW 13.9 Plt Count 198 MPV 9.3 L Immature Gran % (Auto) 0.4 Neut % (Auto) 52.9 Lymph % (Auto) 21.0 [place] % (Auto) 18.8 H Eos % (Auto) 6.3 H Baso % (Auto) 0.6 Lymph # (Auto) 1.1 L [place] # (Auto) 1.0 Eos # (Auto) 0.3 Baso # (Auto) 0.0 Abs Immat Gran (auto) 0.02 Absolute Neuts (auto) 2.9 Absolute Nucleated RBC 0.000 Nucleated RBC % (auto) 0.0 Sodium 138 Potassium 4.1 Chloride 104 Carbon Dioxide 25 Anion Gap 13 BUN 21 H Creatinine 0.90 Estim Creat Clear Calc 94.8 Estimated GFR > 60 Fasting Glucose 95 Calcium 9.2 Total Bilirubin 0.7 AST 37 ALT 34 Alkaline Phosphatase 78 Ammonia 19 Total Protein 6.8 Albumin 3.8 Imaging Radiology Impressions: ITS Impressions Head CT 11/12/22 19:17 IMPRESSION: 1. No acute intracranial pathology. 2. There is ventriculomegaly disproportionate to the extent of sulcal widening. This can be seen in the setting of normal pressure hydrocephalus. Recommend clinical correlation. Consider MRI evaluation if clinically appropriate. Chest X-Ray 11/13/22 14:13 IMPRESSION: No acute parenchymal disease. No radiopaque foreign bodies. KUB X-Ray 11/13/22 14:13 IMPRESSION: No metallic radiopaque foreign bodies identified within the abdomen. 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 Background chronic microangiopathy. 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 Head CT 12/09/22 17:32 IMPRESSION: Cerebral atrophy and mild periventricular and central white matter diminished attenuation which is nonspecific but likely represent microvascular disease. No acute intracranial abnormality. Chest X-Ray 12/31/22 16:47 IMPRESSION: * Superior mediastinum appears widened new from recent prior however this may be exaggerated by technique. Recommend repeat PA and lateral radiographs however if there is there is clinical concern for emergent mediastinal pathology, CT chest could be obtained. * Low lung volumes with streaky bibasilar opacities which may reflect atelectasis. Venous Duplex 12/31/22 17:15 IMPRESSION: Limited exam. No DVT demonstrated in the bilateral lower extremity. Calf veins and left popliteal vein not well visualized. Chest X-Ray 01/01/23 12:27 IMPRESSION: 1. Ectatic thoracic aorta. 2. Clear lungs. Chest CTA 01/02/23 13:41 IMPRESSION: Upper normal-size thoracic aorta. No aneurysm or dissection. Fleischner guidelines were followed. Medications Medications Current Medications Acetaminophen (Acetaminophen 325 Mg Tablet) 650 mg PO Q6H PRN PRN Reason: Headache/Pain Mild Scale (1-3) Last Admin: 01/03/23 06:21 Dose: 650 mg Al Hydroxide/Mg Hydroxide (Magnesium Hydrox/Alum Hydrox 30 Ml Oral.Susp) 30 ml PO Q6H PRN PRN Reason: Heartburn/Nausea Aspirin (Aspirin Enteric Coated 81 Mg Tablet.) 81 mg PO DAILY [facility] Last Admin: 01/03/23 09:08 Dose: 81 mg Atorvastatin Calcium (Atorvastatin Calcium 40 Mg Tablet) 40 mg PO BEDTIME [facility] Last Admin: 01/02/23 20:50 Dose: 40 mg Clonidine HCl (Clonidine Hcl 0.1 Mg Tablet) 0.05 mg PO TID [facility]; Protocol Last Admin: 01/03/23 15:04 Dose: 0.05 mg Divalproex Sodium (Divalproex Sodium Sprinkles 125 Mg Cap.) 500 mg PO BID@0800,1500 [facility] Last Admin: 01/03/23 15:03 Dose: 500 mg Divalproex Sodium (Divalproex Sodium Sprinkles 125 Mg Cap.) 1,000 mg PO BEDTIME [facility] Last Admin: 01/02/23 21:09 Dose: Not Given Enoxaparin Sodium (Enoxaparin Sodium 40 Mg/0.4 Ml Syringe) 40 mg SUBCUT Q24H [facility] Last Admin: 01/03/23 12:01 Dose: 40 mg Lamotrigine (Lamotrigine 100 Mg Tablet) 150 mg PO BID [facility] Last Admin: 01/03/23 09:03 Dose: 150 mg Magnesium Hydroxide (Milk Of Magnesia 30 Ml Oral.Susp) 30 ml PO DAILY PRN PRN Reason: Constipation Last Admin: 12/17/22 14:48 Dose: 30 ml Olanzapine (Olanzapine 5 Mg Tablet) 5 mg PO Q4H PRN PRN Reason: psychotic agitation Last Admin: 01/02/23 03:43 Dose: 5 mg Quetiapine Fumarate (Quetiapine Fumarate 200 Mg Tablet) 200 mg PO BEDTIME [facility] Last Admin: 01/02/23 20:50 Dose: 200 mg Quetiapine Fumarate (Quetiapine Fumarate 25 Mg Tablet) 75 mg PO BID@0800,1700 [facility] Last Admin: 01/03/23 16:51 Dose: Not Given Tamsulosin HCl (Tamsulosin Hcl 0.4 Mg Capsule) 0.4 mg PO BEDTIME [facility] Last Admin: 01/02/23 20:48 Dose: 0.4 mg Thiamine HCl (Thiamine Hcl 100 Mg Tablet) 100 mg PO DAILY [facility] Last Admin: 01/03/23 09:08 Dose: 100 mg Allergies Allergies Allergy/AdvReac Type Severity Reaction Status Date / Time No Known Allergies Allergy Verified 11/12/22 15:27 Assessment & Plan Assessment & Plan (1) Neurodegenerative cognitive impairment: Status: Acute Code(s): G31.9 - Degenerative disease of nervous system, unspecified Assessment and Plan: 71 years old man who probably has degenerative dementia, moderate to severe, with significant behavioral component. Precise previous history is not available. 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 This type of infarct could be cardioembolic or from carotid artery. Because of significant underlying dementia, he would not be a candidate for any surgical intervention and for that reason I do not think exploring carotid artery stenosis is a reasonable idea. Continue his baseline medications. His examination is not suggestive of normal-pressure hydrocephalus despite his imaging revealing some ventriculomegaly. This type of patient typically require combination of medicines including some antipsychotics and mood stabilizers to manage day behavioral symptoms. He is also at relatively high risk for seizure disorder but also has been taking lamotrigine 100 mg twice a day, which would cover this condition even if he suffered from it. Now that his mental status has improved compared to his emergency room arrival, I do not think an EEG would be useful. Plan Plan 01/03- continues to present with delirum superimposed on dementia for past week or so. Medical work up reassuring in that is not showing acute infections, electrolyte imbalances, stable renal and liver function. No signs of GI bleeding. Ammonia level wnl. Pt complaint of pain- hip and also abdomen. He does have degenerative changes bilat on greater trocanter. Will schedule tylenol. KUB did show stool and gas- started on simethicome as he also appear to report pain when inspecting abdomen (in different quadrants and intermittent- possible bloating). Other sources of delirum include medication- especially those with anticholinergic s/s- will d/c vistaril. Reason for continued inpatient stay Substantial Risk for: inability to function Time Spent With Patient Time: Total time managing care of this patient today ____ minutes.
[2023-01-03] MEDS: Atorvastatin Calcium 40 MG TABLET PO (20:10)
[2023-01-03] MEDS: Divalproex Sodium Sprinkles 125 MG CAP.DR.SPR 1000 MG PO (20:10)
[2023-01-03] MEDS: QUEtiapine Fumarate 200 MG TABLET PO (20:11)
[2023-01-03] MEDS: Tamsulosin HCL 0.4 MG CAPSULE PO (20:11)
[2023-01-03] MEDS: OLANZapine 5 MG TABLET PO (20:11)
[2023-01-04] MEDS: OLANZapine 5 MG TABLET PO ×2 (03:08→20:39)
[2023-01-04] MEDS: Acetaminophen 325 MG TABLET 650 MG PO ×3 (03:08→20:42)
--- NOTE | 2023-01-04 03:54 | PC.NURSE ---
Patient attempting to void in the urinal without success. Bladder scanned for 469. call center support representative provider and hospitalist notified. Orders to straight cath obtained. While catheterizing patient he began to void a large amount. Straight cath for 350cc, and additional urine via natural void.
[2023-01-04 08:20] VITALS: BP 110/70; PULSE 96; RESP 18; TEMP 36.3; O2SAT 95
[2023-01-04] MEDS: Divalproex Sodium Sprinkles 125 MG CAP.DR.SPR 500 MG PO ×2 (08:36→14:07)
[2023-01-04] MEDS: QUEtiapine Fumarate 25 MG TABLET 75 MG PO ×2 (08:38→16:27)
[2023-01-04] MEDS: lamoTRIgine 100 MG TABLET 150 MG PO ×2 (08:39→20:35)
[2023-01-04] MEDS: Aspirin Enteric Coated 81 MG TABLET.DR PO (08:39)
[2023-01-04] MEDS: Thiamine HCL 100 MG TABLET PO (08:40)
[2023-01-04] MEDS: cloNIDine HCL 0.1 MG TABLET 0.05 MG PO ×3 (08:40→20:31)
[2023-01-04] MEDS: Enoxaparin Sodium 40 MG/0.4 ML SYRINGE SUBCUT (11:37)
[2023-01-04 14:04] VITALS: BP 109/76; PULSE 86
[2023-01-04] MEDS: Simethicone 80 MG TAB.CHEW PO ×2 (14:11→20:36)
[2023-01-04] MEDS: Sennosides/Docusate Sodium TABLET 1 TAB PO ×2 (14:12→20:36)
--- NOTE | 2023-01-04 16:06 | PC.NURSE ---
No complaints of pain this am. Patient incontinent of urine x2 with care and voided 200cc in the urinal after lunch while still in bed. Urine was clear dark yellow, no sediment. After lunch patient talking about suicide, All I have to do is lay down on the train tracks and get hit by the train. When asked if he had any plan to do that he said, No not now, but i think about it often. When patient was lifted up in the [place] today, he screamed, My hip and grabbed his right hip, It hurts! [facility] ROOM ATTENDANT updated about suicidal thoughts and pain today.
[2023-01-04 18:00] VITALS: BP 119/75; PULSE 83; RESP 17; TEMP 36.6; O2SAT 96
--- NOTE | 2023-01-04 20:03 | P.PNPSI_ITS ---
Subjective Subjective Date of Service: 01/04/23 Reason For Visit: DEMENTIA Subjective Notes: Conditional Voluntary Interim History: Pt presents as less disorganized. He has complaint of pain but less. He is seen smiling, no over agitation or combative behaviors. But he does have some sexualized behaviors- which are his baseline. He is eating. Pt slept through the night. Review of Systems Review of Systems unremarkable Yes all other systems are reviewed and are negative and Unobtainable due to mental status Mental Status Exam Mental Status Exam Patient Appearance: Appropriate Patient Orientation: Person Level of Consciousness: Drowsy, Sedated and Disoriented Patient Behavior: Guarded and Passive Mood Description: Calm Affect Description: Constricted Patient Cognition Impaired: Yes Ability to Follow Directions: Fair Speech Pattern: Clear Memory Description: Intact Diagnostics Vital Signs (24Hr): Vital Signs - 24 hr 01/04/23 08:20 01/04/23 14:04 Temperature 97.3 F Pulse Rate 96 86 Respiratory Rate 18 Blood Pressure 110/70 109/76 Pulse Oximetry 95 Oxygen Delivery Method Room Air BMI result Body Mass Index 29.0 Labs 01/03/23 14:34 01/03/23 14:34 Labs: Laboratory Results - last 48 hr 01/03/23 14:34 WBC 5.4 RBC 4.08 L Hgb 13.1 L Hct 38.9 L MCV 95.3 MCH 32.1 MCHC 33.7 RDW 13.9 Plt Count 198 MPV 9.3 L Immature Gran % (Auto) 0.4 Neut % (Auto) 52.9 Lymph % (Auto) 21.0 [place] % (Auto) 18.8 H Eos % (Auto) 6.3 H Baso % (Auto) 0.6 Lymph # (Auto) 1.1 L [place] # (Auto) 1.0 Eos # (Auto) 0.3 Baso # (Auto) 0.0 Abs Immat Gran (auto) 0.02 Absolute Neuts (auto) 2.9 Absolute Nucleated RBC 0.000 Nucleated RBC % (auto) 0.0 Sodium 138 Potassium 4.1 Chloride 104 Carbon Dioxide 25 Anion Gap 13 BUN 21 H Creatinine 0.90 Estim Creat Clear Calc 94.8 Estimated GFR > 60 Fasting Glucose 95 Calcium 9.2 Total Bilirubin 0.7 AST 37 ALT 34 Alkaline Phosphatase 78 Ammonia 19 Total Protein 6.8 Albumin 3.8 Imaging Radiology Impressions: ITS Impressions Head CT 11/12/22 19:17 IMPRESSION: 1. No acute intracranial pathology. 2. There is ventriculomegaly disproportionate to the extent of sulcal widening. This can be seen in the setting of normal pressure hydrocephalus. Recommend clinical correlation. Consider MRI evaluation if clinically appropriate. Chest X-Ray 11/13/22 14:13 IMPRESSION: No acute parenchymal disease. No radiopaque foreign bodies. KUB X-Ray 11/13/22 14:13 IMPRESSION: No metallic radiopaque foreign bodies identified within the abdomen. 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 Background chronic microangiopathy. 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 Head CT 12/09/22 17:32 IMPRESSION: Cerebral atrophy and mild periventricular and central white matter diminished attenuation which is nonspecific but likely represent microvascular disease. No acute intracranial abnormality. Chest X-Ray 12/31/22 16:47 IMPRESSION: * Superior mediastinum appears widened new from recent prior however this may be exaggerated by technique. Recommend repeat PA and lateral radiographs however if there is there is clinical concern for emergent mediastinal pathology, CT chest could be obtained. * Low lung volumes with streaky bibasilar opacities which may reflect atelectasis. Venous Duplex 12/31/22 17:15 IMPRESSION: Limited exam. No DVT demonstrated in the bilateral lower extremity. Calf veins and left popliteal vein not well visualized. Chest X-Ray 01/01/23 12:27 IMPRESSION: 1. Ectatic thoracic aorta. 2. Clear lungs. Chest CTA 01/02/23 13:41 IMPRESSION: Upper normal-size thoracic aorta. No aneurysm or dissection. Fleischner guidelines were followed. KUB X-Ray 01/03/23 18:50 IMPRESSION: Unremarkable examination. No evidence of bowel obstruction. Medications Medications Current Medications Acetaminophen (Acetaminophen 325 Mg Tablet) 650 mg PO TID [facility] Last Admin: 01/04/23 14:08 Dose: 650 mg Al Hydroxide/Mg Hydroxide (Magnesium Hydrox/Alum Hydrox 30 Ml Oral.Susp) 30 ml PO Q6H PRN PRN Reason: Heartburn/Nausea Aspirin (Aspirin Enteric Coated 81 Mg Tablet.) 81 mg PO DAILY [facility] Last Admin: 01/04/23 08:39 Dose: 81 mg Atorvastatin Calcium (Atorvastatin Calcium 40 Mg Tablet) 40 mg PO BEDTIME [facility] Last Admin: 01/03/23 20:10 Dose: 40 mg Clonidine HCl (Clonidine Hcl 0.1 Mg Tablet) 0.05 mg PO TID [facility]; Protocol Last Admin: 01/04/23 14:10 Dose: 0.05 mg Divalproex Sodium (Divalproex Sodium Sprinkles 125 Mg Cap) 500 mg PO BID@0800,1500 [facility] Last Admin: 01/04/23 14:07 Dose: 500 mg Divalproex Sodium (Divalproex Sodium Sprinkles 125 Mg ) 1,000 mg PO BEDTIME [facility] Last Admin: 01/03/23 20:10 Dose: 1,000 mg Enoxaparin Sodium (Enoxaparin Sodium 40 Mg/0.4 Ml Syringe) 40 mg SUBCUT Q24H [facility] Last Admin: 01/04/23 11:37 Dose: 40 mg Lamotrigine (Lamotrigine 100 Mg Tablet) 150 mg PO BID [facility] Last Admin: 01/04/23 08:39 Dose: 150 mg Magnesium Hydroxide (Milk Of Magnesia 30 Ml Oral.Susp) 30 ml PO DAILY PRN PRN Reason: Constipation Last Admin: 12/17/22 14:48 Dose: 30 ml Olanzapine (Olanzapine 5 Mg Tablet) 5 mg PO Q6H PRN PRN Reason: psychotic agitation Quetiapine Fumarate (Quetiapine Fumarate 200 Mg Tablet) 200 mg PO BEDTIME [facility] Last Admin: 01/03/23 20:11 Dose: 200 mg Quetiapine Fumarate (Quetiapine Fumarate 25 Mg Tablet) 75 mg PO BID@0800,1700 [facility] Last Admin: 01/04/23 16:27 Dose: 75 mg Senna/Docusate Sodium (Sennosides/Docusate Sodium Tablet) 1 tab PO BID [facility] Last Admin: 01/04/23 14:12 Dose: 1 tab Simethicone (Simethicone 80 Mg Tab.Chew) 80 mg PO TID [facility] Last Admin: 01/04/23 14:11 Dose: 80 mg Tamsulosin HCl (Tamsulosin Hcl 0.4 Mg Capsule) 0.4 mg PO BEDTIME [facility] Last Admin: 01/03/23 20:11 Dose: 0.4 mg Thiamine HCl (Thiamine Hcl 100 Mg Tablet) 100 mg PO DAILY [facility] Last Admin: 01/04/23 08:40 Dose: 100 mg Allergies Allergies Allergy/AdvReac Type Severity Reaction Status Date / Time No Known Allergies Allergy Verified 11/12/22 15:27 Assessment & Plan Assessment & Plan (1) Neurodegenerative cognitive impairment: Status: Acute Code(s): G31.9 - Degenerative disease of nervous system, unspecified Assessment and Plan: 71 years old man who probably has degenerative dementia, moderate to severe, with significant behavioral component. Precise previous history is not available. 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 This type of infarct could be cardioembolic or from carotid artery. Because of significant underlying dementia, he would not be a candidate for any surgical intervention and for that reason I do not think exploring carotid artery stenosis is a reasonable idea. Continue his baseline medications. His examination is not suggestive of normal-pressure hydrocephalus despite his imaging revealing some ventriculomegaly. This type of patient typically require combination of medicines including some antipsychotics and mood stabilizers to manage day behavioral symptoms. He is also at relatively high risk for seizure disorder but also has been taking lamotrigine 100 mg twice a day, which would cover this condition even if he suffered from it. Now that his mental status has improved compared to his emergency room arrival, I do not think an EEG would be useful. Plan Plan 01/03- continues to present with delirum superimposed on dementia for past week or so. Medical work up reassuring in that is not showing acute infections, electrolyte imbalances, stable renal and liver function. No signs of GI bleeding. Ammonia level wnl. Pt complaint of pain- hip and also abdomen. [facility] does have [facility] Will schedule tylenol. KUB did show stool and gas- started on simethicome as he also appear to report pain when inspecting abdomen (in different quadrants and intermittent- possible bloating). Other sources of delirum include medication- especially those with anticholinergic s/s- will d/c vistaril. 01/04 slightly more organized. less c/o of pain. He was straight cath, bladder scan 400 but this was not a PVR. Cr and BUn do not show s/s of hydronephrosis. continue monitor BM. pain. Reason for continued inpatient stay Substantial Risk for: inability to function Time Spent With Patient Time: Total time managing care of this patient today ____ minutes.
[2023-01-04] MEDS: Atorvastatin Calcium 40 MG TABLET PO (20:31)
[2023-01-04] MEDS: Divalproex Sodium Sprinkles 125 MG CAP.DR.SPR 1000 MG PO (20:34)
[2023-01-04] MEDS: Tamsulosin HCL 0.4 MG CAPSULE PO (20:36)
[2023-01-04] MEDS: QUEtiapine Fumarate 200 MG TABLET PO (20:36)
[2023-01-05] MEDS: OLANZapine 5 MG TABLET PO ×3 (03:41→17:53)
[2023-01-05] MEDS: Acetaminophen 325 MG TABLET 650 MG PO ×3 (06:26→21:07)
[2023-01-05 08:23] VITALS: BP 141/86; PULSE 77; RESP 18; TEMP 36.4; O2SAT 96
[2023-01-05] MEDS: QUEtiapine Fumarate 25 MG TABLET 75 MG PO ×2 (08:59→16:06)
[2023-01-05] MEDS: lamoTRIgine 100 MG TABLET 150 MG PO ×2 (09:00→21:08)
[2023-01-05] MEDS: Sennosides/Docusate Sodium TABLET 1 TAB PO ×2 (09:00→21:08)
[2023-01-05] MEDS: Thiamine HCL 100 MG TABLET PO (09:01)
[2023-01-05] MEDS: Divalproex Sodium Sprinkles 125 MG CAP.DR.SPR 500 MG PO ×2 (09:01→14:31)
[2023-01-05] MEDS: Simethicone 80 MG TAB.CHEW PO ×3 (09:02→21:08)
[2023-01-05] MEDS: cloNIDine HCL 0.1 MG TABLET 0.05 MG PO ×3 (09:02→21:08)
[2023-01-05] MEDS: Aspirin Enteric Coated 81 MG TABLET.DR PO (09:02)
[2023-01-05] MEDS: Enoxaparin Sodium 40 MG/0.4 ML SYRINGE SUBCUT (11:21)
--- NOTE | 2023-01-05 12:01 | PC.NURSE ---
Upon morning assessment Polo was sleeping and oxygen saturation 86%. He was noted to snore and appeared to have periods of apnea. He was aroused by touch and oxygen saturation increased to 96% and respirations free and unlabored. Dr. Ascencio notified as well as RN Clinical Coordinator Lindsey.
--- NOTE | 2023-01-05 12:04 | HO.PSYCHPN ---
Subjective Subjective Date of Service: 01/05/23 Reason For Visit: DEMENTIA Subjective Notes: Conditional Voluntary Interim History: The nursing staff reported the patient had been oriented to self, he had been medication compliant pleasant at times. He slept well last night. The oncology social work will contact the [facility] facility from nearly discharged as soon as a bed is available. On interview the patient is pleasantly confused no new symptoms. Mental Status Exam Mental Status Exam Patient Appearance: Appropriate Patient Orientation: Person Level of Consciousness: Awake and Appropriate Patient Behavior: Guarded and Passive Mood Description: Withdrawn Affect Description: Constricted Patient Cognition Impaired: Yes Ability to Follow Directions: Good Speech Pattern: Clear Hallucinations: None Delusions: Paranoid Ideation Thought Process: Distracted and Slowed Thinking Thought Content: positive for Poverty of Content, positive for Loose Associations and positive for Thought Blocking Judgement: Poor Diagnostics Vital Signs (24Hr): Vital Signs - 24 hr 01/04/23 14:04 01/04/23 18:00 01/05/23 08:23 Temperature 97.8 F 97.6 F Pulse Rate 86 83 77 Respiratory Rate 17 18 Blood Pressure 109/76 119/75 141/86 H Pulse Oximetry 96 96 Oxygen Delivery Method Room Air Room Air BMI result Body Mass Index 29.0 Labs 01/03/23 14:34 01/03/23 14:34 Labs: Laboratory Results - last 48 hr 01/03/23 14:34 WBC 5.4 RBC 4.08 L Hgb 13.1 L Hct 38.9 L MCV 95.3 MCH 32.1 MCHC 33.7 RDW 13.9 Plt Count 198 MPV 9.3 L Immature Gran % (Auto) 0.4 Neut % (Auto) 52.9 Lymph % (Auto) 21.0 [place] % (Auto) 18.8 H Eos % (Auto) 6.3 H Baso % (Auto) 0.6 Lymph # (Auto) 1.1 L [place] # (Auto) 1.0 Eos # (Auto) 0.3 Baso # (Auto) 0.0 Abs Immat Gran (auto) 0.02 Absolute Neuts (auto) 2.9 Absolute Nucleated RBC 0.000 Nucleated RBC % (auto) 0.0 Sodium 138 Potassium 4.1 Chloride 104 Carbon Dioxide 25 Anion Gap 13 BUN 21 H Creatinine 0.90 Estim Creat Clear Calc 94.8 Estimated GFR > 60 Fasting Glucose 95 Calcium 9.2 Total Bilirubin 0.7 AST 37 ALT 34 Alkaline Phosphatase 78 Ammonia 19 Total Protein 6.8 Albumin 3.8 Imaging Radiology Impressions: ITS Impressions Head CT 11/12/22 19:17 IMPRESSION: 1. No acute intracranial pathology. 2. There is ventriculomegaly disproportionate to the extent of sulcal widening. This can be seen in the setting of normal pressure hydrocephalus. Recommend clinical correlation. Consider MRI evaluation if clinically appropriate. Chest X-Ray 11/13/22 14:13 IMPRESSION: No acute parenchymal disease. No radiopaque foreign bodies. KUB X-Ray 11/13/22 14:13 IMPRESSION: No metallic radiopaque foreign bodies identified within the abdomen. 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 Background chronic microangiopathy. 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 Head CT 12/09/22 17:32 IMPRESSION: Cerebral atrophy and mild periventricular and central white matter diminished attenuation which is nonspecific but likely represent microvascular disease. No acute intracranial abnormality. Chest X-Ray 12/31/22 16:47 IMPRESSION: * Superior mediastinum appears widened new from recent prior however this may be exaggerated by technique. Recommend repeat PA and lateral radiographs however if there is there is clinical concern for emergent mediastinal pathology, CT chest could be obtained. * Low lung volumes with streaky bibasilar opacities which may reflect atelectasis. Venous Duplex 12/31/22 17:15 IMPRESSION: Limited exam. No DVT demonstrated in the bilateral lower extremity. Calf veins and left popliteal vein not well visualized. Chest X-Ray 01/01/23 12:27 IMPRESSION: 1. Ectatic thoracic aorta. 2. Clear lungs. Chest CTA 01/02/23 13:41 IMPRESSION: Upper normal-size thoracic aorta. No aneurysm or dissection. Fleischner guidelines were followed. KUB X-Ray 01/03/23 18:50 IMPRESSION: Unremarkable examination. No evidence of bowel obstruction. Medications Medications Current Medications Acetaminophen (Acetaminophen 325 Mg Tablet) 650 mg PO TID [facility] Last Admin: 01/05/23 09:10 Dose: Not Given Al Hydroxide/Mg Hydroxide (Magnesium Hydrox/Alum Hydrox 30 Ml Oral.Susp) 30 ml PO Q6H PRN PRN Reason: Heartburn/Nausea Aspirin (Aspirin Enteric Coated 81 Mg Tablet.) 81 mg PO DAILY [facility] Last Admin: 01/05/23 09:02 Dose: 81 mg Atorvastatin Calcium (Atorvastatin Calcium 40 Mg Tablet) 40 mg PO BEDTIME [facility] Last Admin: 01/04/23 20:31 Dose: 40 mg Clonidine HCl (Clonidine Hcl 0.1 Mg Tablet) 0.05 mg PO TID [facility]; Protocol Last Admin: 01/05/23 09:02 Dose: 0.05 mg Divalproex Sodium (Divalproex Sodium Sprinkles 125 Mg Rex.) 500 mg PO BID@0800,1500 [facility] Last Admin: 01/05/23 09:01 Dose: 500 mg Divalproex Sodium (Divalproex Sodium Sprinkles 125 Mg Cap.) 1,000 mg PO BEDTIME [facility] Last Admin: 01/04/23 20:34 Dose: 1,000 mg Enoxaparin Sodium (Enoxaparin Sodium 40 Mg/0.4 Ml Syringe) 40 mg SUBCUT Q24H [facility] Last Admin: 01/05/23 11:21 Dose: 40 mg Lamotrigine (Lamotrigine 100 Mg Tablet) 150 mg PO BID [facility] Last Admin: 01/05/23 09:00 Dose: 150 mg Magnesium Hydroxide (Milk Of Magnesia 30 Ml Oral.Susp) 30 ml PO DAILY PRN PRN Reason: Constipation Last Admin: 12/17/22 14:48 Dose: 30 ml Olanzapine (Olanzapine 5 Mg Tablet) 5 mg PO Q6H PRN PRN Reason: psychotic agitation Last Admin: 01/05/23 11:22 Dose: 5 mg Quetiapine Fumarate (Quetiapine Fumarate 200 Mg Tablet) 200 mg PO BEDTIME [facility] Last Admin: 01/04/23 20:36 Dose: 200 mg Quetiapine Fumarate (Quetiapine Fumarate 25 Mg Tablet) 75 mg PO BID@0800,1700 [facility] Last Admin: 01/05/23 08:59 Dose: 75 mg Senna/Docusate Sodium (Sennosides/Docusate Sodium Tablet) 1 tab PO BID [facility] Last Admin: 01/05/23 09:00 Dose: 1 tab Simethicone (Simethicone 80 Mg Tab.Chew) 80 mg PO TID [facility] Last Admin: 01/05/23 09:02 Dose: 80 mg Tamsulosin HCl (Tamsulosin Hcl 0.4 Mg Capsule) 0.4 mg PO BEDTIME [facility] Last Admin: 01/04/23 20:36 Dose: 0.4 mg Thiamine HCl (Thiamine Hcl 100 Mg Tablet) 100 mg PO DAILY [facility] Last Admin: 01/05/23 09:01 Dose: 100 mg Allergies Allergies Allergy/AdvReac Type Severity Reaction Status Date / Time No Known Allergies Allergy Verified 11/12/22 15:27 Assessment & Plan Assessment & Plan (1) Neurodegenerative cognitive impairment: Status: Acute Code(s): G31.9 - Degenerative disease of nervous system, unspecified Assessment and Plan: 71 years old man who probably has degenerative dementia, moderate to severe, with significant behavioral component. Precise previous history is not available. 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 This type of infarct could be cardioembolic or from carotid artery. Because of significant underlying dementia, he would not be a candidate for any surgical intervention and for that reason I do not think exploring carotid artery stenosis is a reasonable idea. Continue his baseline medications. His examination is not suggestive of normal-pressure hydrocephalus despite his imaging revealing some ventriculomegaly. This type of patient typically require combination of medicines including some antipsychotics and mood stabilizers to manage day behavioral symptoms. He is also at relatively high risk for seizure disorder but also has been taking lamotrigine 100 mg twice a day, which would cover this condition even if he suffered from it. Now that his mental status has improved compared to his emergency room arrival, I do not think an EEG would be useful. Plan Plan 01/03- continues to present with delirum superimposed on dementia for past week or so. Medical work up reassuring in that is not showing acute infections, electrolyte imbalances, stable renal and liver function. No signs of GI bleeding. Ammonia level wnl. Pt complaint of pain- hip and also abdomen. He does have degenerative changes bilat on greater tro[place]. Will schedule tylenol. KUB did show stool and gas- started on simethicome as he also appear to report pain when inspecting abdomen (in different quadrants and intermittent- possible bloating). Other sources of delirum include medication- especially those with anticholinergic s/s- will d/c vistaril. 01/04 slightly more organized. less c/o of pain. He was straight cath, bladder scan 400 but this was not a PVR. Cr and BUn do not show s/s of hydronephrosis. continue monitor BM. pain. 01/05 the patient's condition is going back to baseline, looking for an early discharge. Reason for continued inpatient stay Substantial Risk for: inability to function, rapid decompensation and med/psych decompensation Time Spent With Patient Time: Total time managing care of this patient today __20__ minutes.
[2023-01-05 14:22] VITALS: BP 132/69
[2023-01-05 18:00] VITALS: BP 124/69; PULSE 84; RESP 18; TEMP 36.3; O2SAT 96
[2023-01-05] MEDS: Divalproex Sodium Sprinkles 125 MG CAP.DR.SPR 1000 MG PO (21:07)
[2023-01-05] MEDS: Tamsulosin HCL 0.4 MG CAPSULE PO (21:08)
[2023-01-05] MEDS: Atorvastatin Calcium 40 MG TABLET PO (21:08)
[2023-01-05] MEDS: QUEtiapine Fumarate 200 MG TABLET PO (21:08)
--- NOTE | 2023-01-05 22:38 | PC.NURSE ---
Sister/hcp Samantha Mccray called to authorize release of health information to ozzie [place]; 2 nurses verified.
[2023-01-06] MEDS: OLANZapine 5 MG TABLET PO ×3 (04:53→21:05)
[2023-01-06 08:10] VITALS: BP 117/64; PULSE 97; RESP 18; TEMP 36.2; O2SAT 95
[2023-01-06] MEDS: Divalproex Sodium Sprinkles 125 MG CAP.DR.SPR 500 MG PO ×2 (08:38→15:29)
[2023-01-06] MEDS: Sennosides/Docusate Sodium TABLET 1 TAB PO ×2 (08:39→21:05)
[2023-01-06] MEDS: Simethicone 80 MG TAB.CHEW PO ×3 (08:39→21:04)
[2023-01-06] MEDS: Aspirin Enteric Coated 81 MG TABLET.DR PO (08:40)
[2023-01-06] MEDS: Acetaminophen 325 MG TABLET 650 MG PO ×3 (08:40→21:02)
[2023-01-06] MEDS: Thiamine HCL 100 MG TABLET PO (08:40)
[2023-01-06] MEDS: lamoTRIgine 100 MG TABLET 150 MG PO ×2 (08:41→21:03)
[2023-01-06] MEDS: cloNIDine HCL 0.1 MG TABLET 0.05 MG PO ×3 (08:42→21:04)
[2023-01-06] MEDS: QUEtiapine Fumarate 25 MG TABLET 75 MG PO ×2 (09:38→15:29)
[2023-01-06] MEDS: Enoxaparin Sodium 40 MG/0.4 ML SYRINGE SUBCUT (11:17)
--- NOTE | 2023-01-06 11:36 | PM.EVENT ---
Event Note Date of Service: 01/06/23 Event Note: Intermittent hypoxia appears to have resolved. Again I suspect this is related to obesity hypoventilation syndrome from his bedbound positioning. There was atelectasis noted on his CXR. Continue to encourage incentive spirometry which should help with lung expansion and resolution of atelectasis. Given bed bound status, would recommend continuing subcut lovenox for dvt prophylaxis. Encourage OOB whenever possible and consider physical therapy consult given patient previously ambulatory. KUB showed mild-moderate stool burden, continue bowel regimen to manage constipation. There is also gas so can continue using simethicone prn which should help with patient's abd discomfort. 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 Recommend conitnuing tylenol scheduled and added aspercreme prn. Thank you for allowing me to participate in this consult. Signing off at this time. Please do not hesitate to call for further questions. Time Spent With Patient Time: Total time managing care of this patient today ____ minutes.
--- NOTE | 2023-01-06 13:35 | P.PNPSI_ITS ---
Subjective Subjective Date of Service: 01/06/23 Reason For Visit: DEMENTIA Subjective Notes: Conditional Voluntary Interim History: The nursing staff reported the patient had been alert oriented to self. The staff has noticed that he is more lucid in the morning and evening he gets more agitated. On interview the patient remains pleasantly confused. We decided to change the scheduling of his medication and keep him on his regular medications but we change the of Seroquel at 19:00 not at bedtime. Mental Status Exam Mental Status Exam Patient Appearance: Appropriate Patient Orientation: Person Level of Consciousness: Awake Patient Behavior: Guarded and Passive Mood Description: Withdrawn Affect Description: Constricted Patient Cognition Impaired: Yes Ability to Follow Directions: Good Speech Pattern: Clear Hallucinations: None Delusions: Not Present Thought Process: Distracted and [place] Thought Content: positive for [place] and positive for [place] Judgement: Poor Diagnostics Vital Signs (24Hr): Vital Signs - 24 hr 01/05/23 14:22 01/05/23 18:00 01/06/23 08:10 Temperature 97.3 F 97.1 F Pulse Rate 84 97 Respiratory Rate 18 18 Blood Pressure 132/69 124/69 117/64 Pulse Oximetry 96 95 Oxygen Delivery Method Room Air Room Air BMI result Body Mass Index 29.0 Labs 01/03/23 14:34 01/03/23 14:34 Imaging Radiology Impressions: ITS Impressions Head CT 11/12/22 19:17 IMPRESSION: 1. No acute intracranial pathology. 2. There is ventriculomegaly disproportionate to the extent of sulcal widening. This can be seen in the setting of normal pressure hydrocephalus. Recommend clinical correlation. Consider MRI evaluation if clinically appropriate. Chest X-Ray 11/13/22 14:13 IMPRESSION: No acute parenchymal disease. No radiopaque foreign bodies. KUB X-Ray 11/13/22 14:13 IMPRESSION: No metallic radiopaque foreign bodies identified within the abdomen. 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 Background chronic microangiopathy. 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 Head CT 12/09/22 17:32 IMPRESSION: Cerebral atrophy and mild periventricular and central white matter diminished attenuation which is nonspecific but likely represent microvascular disease. No acute intracranial abnormality. Chest X-Ray 12/31/22 16:47 IMPRESSION: * Superior mediastinum appears widened new from recent prior however this may be exaggerated by technique. Recommend repeat PA and lateral radiographs however if there is there is clinical concern for emergent mediastinal pathology, CT chest could be obtained. * Low lung volumes with streaky bibasilar opacities which may reflect atelectasis. Venous Duplex 12/31/22 17:15 IMPRESSION: Limited exam. No DVT demonstrated in the bilateral lower extremity. Calf veins and left popliteal vein not well visualized. Chest X-Ray 01/01/23 12:27 IMPRESSION: 1. Ectatic thoracic aorta. 2. Clear lungs. Chest CTA 01/02/23 13:41 IMPRESSION: Upper normal-size thoracic aorta. No aneurysm or dissection. Fleischner guidelines were followed. KUB X-Ray 01/03/23 18:50 IMPRESSION: Unremarkable examination. No evidence of bowel obstruction. Medications Medications Current Medications Acetaminophen (Acetaminophen 325 Mg Tablet) 650 mg PO TID [facility] Last Admin: 01/06/23 08:40 Dose: 650 mg Al Hydroxide/Mg Hydroxide (Magnesium Hydrox/Alum Hydrox 30 Ml Oral.Susp) 30 ml PO Q6H PRN PRN Reason: Heartburn/Nausea Aspirin (Aspirin Enteric Coated 81 Mg Tablet.) 81 mg PO DAILY [facility] Last Admin: 01/06/23 08:40 Dose: 81 mg Atorvastatin Calcium (Atorvastatin Calcium 40 Mg Tablet) 40 mg PO BEDTIME [facility] Last Admin: 01/05/23 21:08 Dose: 40 mg Clonidine HCl (Clonidine Hcl 0.1 Mg Tablet) 0.05 mg PO TID [facility]; Protocol Last Admin: 01/06/23 08:42 Dose: 0.05 mg Divalproex Sodium (Divalproex Sodium Sprinkles 125 Mg Cap.) 500 mg PO BID@0800,1500 [facility] Last Admin: 01/06/23 08:38 Dose: 500 mg Divalproex Sodium (Divalproex Sodium Sprinkles 125 Mg ) 1,000 mg PO BEDTIME [facility] Last Admin: 01/05/23 21:07 Dose: 1,000 mg Enoxaparin Sodium (Enoxaparin Sodium 40 Mg/0.4 Ml Syringe) 40 mg SUBCUT Q24H [facility] Last Admin: 01/06/23 11:17 Dose: 40 mg Lamotrigine (Lamotrigine 100 Mg Tablet) 150 mg PO BID [facility] Last Admin: 01/06/23 08:41 Dose: 150 mg Magnesium Hydroxide (Milk Of Magnesia 30 Ml Oral.Susp) 30 ml PO DAILY PRN PRN Reason: Constipation Last Admin: 12/17/22 14:48 Dose: 30 ml Olanzapine (Olanzapine 5 Mg Tablet) 5 mg PO Q6H PRN PRN Reason: psychotic agitation Last Admin: 01/06/23 11:17 Dose: 5 mg Quetiapine Fumarate (Quetiapine Fumarate 25 Mg Tablet) 75 mg PO BID@0800,1500 [facility] Last Admin: 01/06/23 09:38 Dose: 75 mg Quetiapine Fumarate (Quetiapine Fumarate 200 Mg Tablet) 200 mg PO DAILY@1900 [facility] Senna/Docusate Sodium (Sennosides/Docusate Sodium Tablet) 1 tab PO BID [facility] Last Admin: 01/06/23 08:39 Dose: 1 tab Simethicone (Simethicone 80 Mg Tab.Chew) 80 mg PO TID [facility] Last Admin: 01/06/23 08:39 Dose: 80 mg Tamsulosin HCl (Tamsulosin Hcl 0.4 Mg Capsule) 0.4 mg PO BEDTIME [facility] Last Admin: 01/05/23 21:08 Dose: 0.4 mg Thiamine HCl (Thiamine Hcl 100 Mg Tablet) 100 mg PO DAILY [facility] Last Admin: 01/06/23 08:40 Dose: 100 mg Trolamine Salicylate (Trolamine Salicylate 10 % Cream 85 Gm Tube) 1 appl TOPICAL QID PRN; Protocol PRN Reason: hip pain Allergies Allergies Allergy/AdvReac Type Severity Reaction Status Date / Time No Known Allergies Allergy Verified 11/12/22 15:27 Assessment & Plan Assessment & Plan (1) Neurodegenerative cognitive impairment: Status: Acute Code(s): G31.9 - Degenerative disease of nervous system, unspecified Assessment and Plan: 71 years old man who probably has degenerative dementia, moderate to severe, with significant behavioral component. Precise previous history is not available. 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 This type of infarct could be cardioembolic or from carotid artery. Because of significant underlying dementia, he would not be a candidate for any surgical intervention and for that reason I do not think exploring carotid artery stenosis is a reasonable idea. Continue his baseline medications. His examination is not suggestive of normal-pressure hydrocephalus despite his imaging revealing some ventriculomegaly. This type of patient typically require combination of medicines including some antipsychotics and mood stabilizers to manage day behavioral symptoms. He is also at relatively high risk for seizure disorder but also has been taking lamotrigine 100 mg twice a day, which would cover this condition even if he suffered from it. Now that his mental status has improved compared to his emergency room arrival, I do not think an EEG would be useful. Plan Plan 01/03- continues to present with delirum superimposed on dementia for past week or so. Medical work up reassuring in that is not showing acute infections, electrolyte imbalances, stable renal and liver function. No signs of GI bleeding. Ammonia level wnl. Pt complaint of pain- hip and also abdomen. He does have degenerative changes bilat on greater trocanter. Will schedule tylenol. KUB did show stool and gas- started on simethicome as he also appear to report pain when inspecting abdomen (in different quadrants and intermittent- possible bloating). Other sources of delirum include medication- especially those with anticholinergic s/s- will d/c vistaril. 01/04 slightly more organized. less c/o of pain. He was straight cath, bladder scan 400 but this was not a PVR. Cr and BUn do not show s/s of hydronephrosis. continue monitor BM. pain. 01/05 the patient's condition is going back to baseline, looking for an early discharge. 01/06 were changing the Seroquel on a different schedule to avoid . Reason for continued inpatient stay Substantial Risk for: inability to function, rapid decompensation and med/psych decompensation Time Spent With Patient Time: Total time managing care of this patient today _20___ minutes.
[2023-01-06 15:28] VITALS: BP 116/74; PULSE 91
[2023-01-06 18:00] VITALS: BP 121/75; PULSE 69; RESP 18; TEMP 36.5; O2SAT 94
[2023-01-06] MEDS: QUEtiapine Fumarate 200 MG TABLET PO (18:44)
[2023-01-06] MEDS: Atorvastatin Calcium 40 MG TABLET PO (21:02)
[2023-01-06] MEDS: Tamsulosin HCL 0.4 MG CAPSULE PO (21:02)
[2023-01-06] MEDS: Divalproex Sodium Sprinkles 125 MG CAP.DR.SPR 1000 MG PO (21:38)
--- NOTE | 2023-01-07 00:04 | PC.RT ---
Home sleep study placed on pt.
[2023-01-07 08:00] VITALS: BP 140/78; PULSE 73; RESP 16; TEMP 36.8; O2SAT 93
[2023-01-07] MEDS: QUEtiapine Fumarate 25 MG TABLET 75 MG PO ×2 (08:12→15:25)
[2023-01-07] MEDS: lamoTRIgine 100 MG TABLET 150 MG PO ×2 (08:12→20:14)
[2023-01-07] MEDS: cloNIDine HCL 0.1 MG TABLET 0.05 MG PO ×3 (08:12→20:08)
[2023-01-07] MEDS: Simethicone 80 MG TAB.CHEW PO ×3 (08:12→20:14)
[2023-01-07] MEDS: Sennosides/Docusate Sodium TABLET 1 TAB PO ×2 (08:13→20:16)
[2023-01-07] MEDS: Aspirin Enteric Coated 81 MG TABLET.DR PO (08:13)
[2023-01-07] MEDS: Thiamine HCL 100 MG TABLET PO (08:13)
[2023-01-07] MEDS: Acetaminophen 325 MG TABLET 650 MG PO ×3 (08:13→20:14)
[2023-01-07] MEDS: Divalproex Sodium Sprinkles 125 MG CAP.DR.SPR 500 MG PO ×2 (08:13→15:26)
--- NOTE | 2023-01-07 11:14 | P.PNPSI_ITS ---
Subjective Subjective Date of Service: 01/07/23 Reason For Visit: DEMENTIA Subjective Notes: Conditional Voluntary Interim History: The nursing staff reported the patient had been more clear, he had been medication and meal compliant and he had a sleep study that showed according to respiratory therapy, obstructive sleep apnea recommended outpatient follow-up. On interview the patient is order re-entered only to self. Today the social worker masters reported that he could be discharged tomorrow if he is medically cleared. Mental Status Exam Mental Status Exam Patient Appearance: Appropriate Patient Orientation: Person and Situation Level of Consciousness: Awake and Appropriate Patient Behavior: Cooperative Mood Description: Calm Affect Description: Constricted Patient Cognition Impaired: Yes Ability to Follow Directions: Good Speech Pattern: Clear Hallucinations: None Delusions: Not Present Thought Process: Distracted and Linear Thought Content: positive for [place] Judgement: Fair Diagnostics Vital Signs (24Hr): Vital Signs - 24 hr 01/06/23 15:28 01/06/23 18:00 01/07/23 08:00 Temperature 97.7 F 98.3 F Pulse Rate 91 69 73 Respiratory Rate 18 16 Blood Pressure 116/74 121/75 140/78 H Pulse Oximetry 94 93 Oxygen Delivery Method Room Air BMI result Body Mass Index 29.0 Labs 01/03/23 14:34 01/03/23 14:34 Imaging Radiology Impressions: ITS Impressions Head CT 11/12/22 19:17 IMPRESSION: 1. No acute intracranial pathology. 2. There is ventriculomegaly disproportionate to the extent of sulcal widening. This can be seen in the setting of normal pressure hydrocephalus. Recommend clinical correlation. Consider MRI evaluation if clinically appropriate. Chest X-Ray 11/13/22 14:13 IMPRESSION: No acute parenchymal disease. No radiopaque foreign bodies. KUB X-Ray 11/13/22 14:13 IMPRESSION: No metallic radiopaque foreign bodies identified within the abdomen. 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 Background chronic microangiopathy. 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 Head CT 12/09/22 17:32 IMPRESSION: Cerebral atrophy and mild periventricular and central white matter diminished attenuation which is nonspecific but likely represent microvascular disease. No acute intracranial abnormality. Chest X-Ray 12/31/22 16:47 IMPRESSION: * Superior mediastinum appears widened new from recent prior however this may be exaggerated by technique. Recommend repeat PA and lateral radiographs however if there is there is clinical concern for emergent mediastinal pathology, CT chest could be obtained. * Low lung volumes with streaky bibasilar opacities which may reflect atelectasis. Venous Duplex 12/31/22 17:15 IMPRESSION: Limited exam. No DVT demonstrated in the bilateral lower extremity. Calf veins and left popliteal vein not well visualized. Chest X-Ray 01/01/23 12:27 IMPRESSION: 1. Ectatic thoracic aorta. 2. Clear lungs. Chest CTA 01/02/23 13:41 IMPRESSION: Upper normal-size thoracic aorta. No aneurysm or dissection. Fleischner guidelines were followed. KUB X-Ray 01/03/23 18:50 IMPRESSION: Unremarkable examination. No evidence of bowel obstruction. Medications Medications Current Medications Acetaminophen (Acetaminophen 325 Mg Tablet) 650 mg PO TID [facility] Last Admin: 01/07/23 08:13 Dose: 650 mg Al Hydroxide/Mg Hydroxide (Magnesium Hydrox/Alum Hydrox 30 Ml Oral.Susp) 30 ml PO Q6H PRN PRN Reason: Heartburn/Nausea Aspirin (Aspirin Enteric Coated 81 Mg Tablet.) 81 mg PO DAILY [facility] Last Admin: 01/07/23 08:13 Dose: 81 mg Atorvastatin Calcium (Atorvastatin Calcium 40 Mg Tablet) 40 mg PO BEDTIME [facility] Last Admin: 01/06/23 21:02 Dose: 40 mg Clonidine HCl (Clonidine Hcl 0.1 Mg Tablet) 0.05 mg PO TID [facility]; Protocol Last Admin: 01/07/23 08:12 Dose: 0.05 mg Divalproex Sodium (Divalproex Sodium Sprinkles 125 Mg ) 500 mg PO BID@0800,1500 [facility] Last Admin: 01/07/23 08:13 Dose: 500 mg Divalproex Sodium (Divalproex Sodium Sprinkles 125 Mg ) 1,000 mg PO BEDTIME [facility] Last Admin: 01/06/23 21:38 Dose: 1,000 mg Enoxaparin Sodium (Enoxaparin Sodium 40 Mg/0.4 Ml Syringe) 40 mg SUBCUT Q24H [facility] Last Admin: 01/06/23 11:17 Dose: 40 mg Lamotrigine (Lamotrigine 100 Mg Tablet) 150 mg PO BID [facility] Last Admin: 01/07/23 08:12 Dose: 150 mg Magnesium Hydroxide (Milk Of Magnesia 30 Ml Oral.Susp) 30 ml PO DAILY PRN PRN Reason: Constipation Last Admin: 12/17/22 14:48 Dose: 30 ml Olanzapine (Olanzapine 5 Mg Tablet) 5 mg PO Q6H PRN PRN Reason: psychotic agitation Last Admin: 01/06/23 21:05 Dose: 5 mg Quetiapine Fumarate (Quetiapine Fumarate 25 Mg Tablet) 75 mg PO BID@0800,1500 [facility] Last Admin: 01/07/23 08:12 Dose: 75 mg Quetiapine Fumarate (Quetiapine Fumarate 200 Mg Tablet) 200 mg PO DAILY@1900 [facility] Last Admin: 01/06/23 18:44 Dose: 200 mg Senna/Docusate Sodium (Sennosides/Docusate Sodium Tablet) 1 tab PO BID [facility] Last Admin: 01/07/23 08:13 Dose: 1 tab Simethicone (Simethicone 80 Mg Tab.Chew) 80 mg PO TID [facility] Last Admin: 01/07/23 08:12 Dose: 80 mg Tamsulosin HCl (Tamsulosin Hcl 0.4 Mg Capsule) 0.4 mg PO BEDTIME [facility] Last Admin: 01/06/23 21:02 Dose: 0.4 mg Thiamine HCl (Thiamine Hcl 100 Mg Tablet) 100 mg PO DAILY [facility] Last Admin: 01/07/23 08:13 Dose: 100 mg Trolamine Salicylate (Trolamine Salicylate 10 % Cream 85 Gm Tube) 1 appl TOPICAL QID PRN; Protocol PRN Reason: hip pain Allergies Allergies Allergy/AdvReac Type Severity Reaction Status Date / Time No Known Allergies Allergy Verified 11/12/22 15:27 Assessment & Plan Assessment & Plan (1) Neurodegenerative cognitive impairment: Status: Acute Code(s): G31.9 - Degenerative disease of nervous system, unspecified Assessment and Plan: 71 years old man who probably has degenerative dementia, moderate to severe, with significant behavioral component. Precise previous history is not available. 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 This type of infarct could be cardioembolic or from carotid artery. Because of significant underlying dementia, he would not be a candidate for any surgical intervention and for that reason I do not think exploring carotid artery stenosis is a reasonable idea. Continue his baseline medications. His examination is not suggestive of normal-pressure hydrocephalus despite his imaging revealing some ventriculomegaly. This type of patient typically require combination of medicines including some antipsychotics and mood stabilizers to manage day behavioral symptoms. He is also at relatively high risk for seizure disorder but also has been taking lamotrigine 100 mg twice a day, which would cover this condition even if he suffered from it. Now that his mental status has improved compared to his emergency room arrival, I do not think an EEG would be useful. Plan Plan 01/03- continues to present with delirum superimposed on dementia for past week or so. Medical work up reassuring in that is not showing acute infections, electrolyte imbalances, stable renal and liver function. No signs of GI bleeding. Ammonia level wnl. Pt complaint of pain- hip and also abdomen. He does have degenerative changes bilat on greater trocanter. Will schedule tylenol. KUB did show stool and gas- started on simethicome as he also appear to report pain when inspecting abdomen (in different quadrants and intermittent- possible bloating). Other sources of delirum include medication- especially those with anticholinergic s/s- will d/c vistaril. 01/04 slightly more organized. less c/o of pain. He was straight cath, bladder scan 400 but this was not a PVR. Cr and BUn do not show s/s of hydronephrosis. continue monitor BM. pain. 01/05 the patient's condition is going back to baseline, looking for an early discharge. 01/06 were changing the Seroquel on a different schedule to avoid . 01/07 keep same treatment. Reason for continued inpatient stay Substantial Risk for: inability to function, rapid decompensation and med/psych decompensation Time Spent With Patient Time: Total time managing care of this patient today __20__ minutes.
[2023-01-07] MEDS: Enoxaparin Sodium 40 MG/0.4 ML SYRINGE SUBCUT (12:20)
[2023-01-07 15:20] VITALS: BP 114/79; PULSE 86
[2023-01-07 18:00] VITALS: BP 137/89; PULSE 83; RESP 20; TEMP 36.6; O2SAT 95
[2023-01-07] MEDS: Divalproex Sodium Sprinkles 125 MG CAP.DR.SPR 1000 MG PO (20:00)
[2023-01-07] MEDS: QUEtiapine Fumarate 200 MG TABLET PO (20:08)
[2023-01-07] MEDS: Atorvastatin Calcium 40 MG TABLET PO (20:14)
[2023-01-07] MEDS: Tamsulosin HCL 0.4 MG CAPSULE PO (20:16)
[2023-01-08] MEDS: Divalproex Sodium Sprinkles 125 MG CAP.DR.SPR 500 MG PO ×2 (08:08→16:05)
[2023-01-08] MEDS: cloNIDine HCL 0.1 MG TABLET 0.05 MG PO ×3 (08:09→19:59)
[2023-01-08] MEDS: Acetaminophen 325 MG TABLET 650 MG PO ×3 (08:09→20:00)
[2023-01-08] MEDS: Aspirin Enteric Coated 81 MG TABLET.DR PO (08:09)
[2023-01-08] MEDS: QUEtiapine Fumarate 25 MG TABLET 75 MG PO ×2 (08:09→16:05)
[2023-01-08] MEDS: Simethicone 80 MG TAB.CHEW PO ×3 (08:09→19:59)
[2023-01-08] MEDS: Sennosides/Docusate Sodium TABLET 1 TAB PO ×2 (08:09→19:57)
[2023-01-08] MEDS: lamoTRIgine 100 MG TABLET 150 MG PO ×2 (08:10→19:57)
[2023-01-08] MEDS: Thiamine HCL 100 MG TABLET PO (08:10)
--- NOTE | 2023-01-08 12:58 | P.PNPSI_ITS ---
Subjective Subjective Date of Service: 01/08/23 Reason For Visit: DEMENTIA Subjective Notes: Conditional Voluntary Interim History: The nursing staff reported the patient was compliant with treatment, no episodes of agitation. The oncology social work reported that he can be discharged next Thursday there was a delay on the transfer process. On interview the patient denies new symptoms, waiting for placement. Mental Status Exam Mental Status Exam Patient Appearance: Appropriate Patient Orientation: Person and Situation Level of Consciousness: Awake and Appropriate Patient Behavior: Guarded and Passive Mood Description: Calm Affect Description: Constricted Patient Cognition Impaired: Yes Ability to Follow Directions: Good Speech Pattern: Clear Hallucinations: None Delusions: Not Present Thought Process: Illogical, Distracted and Slowed Thinking Thought Content: positive for Alexander and positive for Poverty of Content Judgement: Fair Diagnostics Vital Signs (24Hr): Vital Signs - 24 hr 01/07/23 15:20 01/07/23 18:00 Temperature 97.9 F Pulse Rate 86 83 Respiratory Rate 20 Blood Pressure 114/79 137/89 Pulse Oximetry 95 Oxygen Delivery Method Room Air BMI result Body Mass Index 29.0 Labs 01/03/23 14:34 01/03/23 14:34 Imaging Radiology Impressions: ITS Impressions Head CT 11/12/22 19:17 IMPRESSION: 1. No acute intracranial pathology. 2. There is ventriculomegaly disproportionate to the extent of sulcal widening. This can be seen in the setting of normal pressure hydrocephalus. Recommend clinical correlation. Consider MRI evaluation if clinically appropriate. Chest X-Ray 11/13/22 14:13 IMPRESSION: No acute parenchymal disease. No radiopaque foreign bodies. KUB X-Ray 11/13/22 14:13 IMPRESSION: No metallic radiopaque foreign bodies identified within the abdomen. 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 Background chronic microangiopathy. 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 Head CT 12/09/22 17:32 IMPRESSION: Cerebral atrophy and mild periventricular and central white matter diminished attenuation which is nonspecific but likely represent microvascular disease. No acute intracranial abnormality. Chest X-Ray 12/31/22 16:47 IMPRESSION: * Superior mediastinum appears widened new from recent prior however this may be exaggerated by technique. Recommend repeat PA and lateral radiographs however if there is there is clinical concern for emergent mediastinal pathology, CT chest could be obtained. * Low lung volumes with streaky bibasilar opacities which may reflect atelectasis. Venous Duplex 12/31/22 17:15 IMPRESSION: Limited exam. No DVT demonstrated in the bilateral lower extremity. Calf veins and left popliteal vein not well visualized. Chest X-Ray 01/01/23 12:27 IMPRESSION: 1. Ectatic thoracic aorta. 2. Clear lungs. Chest CTA 01/02/23 13:41 IMPRESSION: Upper normal-size thoracic aorta. No aneurysm or dissection. Fleischner guidelines were followed. KUB X-Ray 01/03/23 18:50 IMPRESSION: Unremarkable examination. No evidence of bowel obstruction. Medications Medications Current Medications Acetaminophen (Acetaminophen 325 Mg Tablet) 650 mg PO TID [facility] Last Admin: 01/08/23 08:09 Dose: 650 mg Al Hydroxide/Mg Hydroxide (Magnesium Hydrox/Alum Hydrox 30 Ml Oral.Susp) 30 ml PO Q6H PRN PRN Reason: Heartburn/Nausea Aspirin (Aspirin Enteric Coated 81 Mg Tablet.) 81 mg PO DAILY [facility] Last Admin: 01/08/23 08:09 Dose: 81 mg Atorvastatin Calcium (Atorvastatin Calcium 40 Mg Tablet) 40 mg PO BEDTIME [facility] Last Admin: 01/07/23 20:14 Dose: 40 mg Clonidine HCl (Clonidine Hcl 0.1 Mg Tablet) 0.05 mg PO TID [facility]; Protocol Last Admin: 01/08/23 08:09 Dose: 0.05 mg Divalproex Sodium (Divalproex Sodium Sprinkles 125 Mg ) 500 mg PO BID@0800,1500 [facility] Last Admin: 01/08/23 08:08 Dose: 500 mg Divalproex Sodium (Divalproex Sodium Sprinkles 125 Mg ) 1,000 mg PO BEDTIME [facility] Last Admin: 01/07/23 20:00 Dose: 1,000 mg Enoxaparin Sodium (Enoxaparin Sodium 40 Mg/0.4 Ml Syringe) 40 mg SUBCUT Q24H [facility] Last Admin: 01/07/23 12:20 Dose: 40 mg Lamotrigine (Lamotrigine 100 Mg Tablet) 150 mg PO BID [facility] Last Admin: 01/08/23 08:10 Dose: 150 mg Magnesium Hydroxide (Milk Of Magnesia 30 Ml Oral.Susp) 30 ml PO DAILY PRN PRN Reason: Constipation Last Admin: 12/17/22 14:48 Dose: 30 ml Olanzapine (Olanzapine 5 Mg Tablet) 5 mg PO Q6H PRN PRN Reason: psychotic agitation Last Admin: 01/06/23 21:05 Dose: 5 mg Quetiapine Fumarate (Quetiapine Fumarate 25 Mg Tablet) 75 mg PO BID@0800,1500 [facility] Last Admin: 01/08/23 08:09 Dose: 75 mg Quetiapine Fumarate (Quetiapine Fumarate 200 Mg Tablet) 200 mg PO DAILY@1900 [facility] Last Admin: 01/07/23 20:08 Dose: 200 mg Senna/Docusate Sodium (Sennosides/Docusate Sodium Tablet) 1 tab PO BID [facility] Last Admin: 01/08/23 08:09 Dose: 1 tab Simethicone (Simethicone 80 Mg Tab.Chew) 80 mg PO TID [facility] Last Admin: 01/08/23 08:09 Dose: 80 mg Tamsulosin HCl (Tamsulosin Hcl 0.4 Mg Capsule) 0.4 mg PO BEDTIME [facility] Last Admin: 01/07/23 20:16 Dose: 0.4 mg Thiamine HCl (Thiamine Hcl 100 Mg Tablet) 100 mg PO DAILY [facility] Last Admin: 01/08/23 08:10 Dose: 100 mg Trolamine Salicylate (Trolamine Salicylate 10 % Cream 85 Gm Tube) 1 appl TOPICAL QID PRN; Protocol PRN Reason: hip pain Allergies Allergies Allergy/AdvReac Type Severity Reaction Status Date / Time No Known Allergies Allergy Verified 11/12/22 15:27 Assessment & Plan Assessment & Plan (1) Neurodegenerative cognitive impairment: Status: Acute Code(s): G31.9 - Degenerative disease of nervous system, unspecified Assessment and Plan: 71 years old man who probably has degenerative dementia, moderate to severe, with significant behavioral component. Precise previous history is not available. 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 This type of infarct could be cardioembolic or from carotid artery. Because of significant underlying dementia, he would not be a candidate for any surgical intervention and for that reason I do not think exploring carotid artery stenosis is a reasonable idea. Continue his baseline medications. His examination is not suggestive of normal-pressure hydrocephalus despite his imaging revealing some ventriculomegaly. This type of patient typically require combination of medicines including some antipsychotics and mood stabilizers to manage day behavioral symptoms. He is also at relatively high risk for seizure disorder but also has been taking lamotrigine 100 mg twice a day, which would cover this condition even if he suffered from it. Now that his mental status has improved compared to his emergency room arrival, I do not think an EEG would be useful. Plan Plan 01/03- continues to present with delirum superimposed on dementia for past week or so. Medical work up reassuring in that is not showing acute infections, electrolyte imbalances, stable renal and liver function. No signs of GI bleeding. Ammonia level wnl. Pt complaint of pain- hip and also abdomen. He does have degenerative changes bilat on greater trocanter. Will schedule tylenol. KUB did show stool and gas- started on simethicome as he also appear to report pain when inspecting abdomen (in different quadrants and intermittent- possible bloating). Other sources of delirum include medication- especially those with anticholinergic s/s- will d/c vistaril. 01/04 slightly more organized. less c/o of pain. He was straight cath, bladder scan 400 but this was not a PVR. Cr and BUn do not show s/s of hydronephrosis. continue monitor BM. pain. 01/05 the patient's condition is going back to baseline, looking for an early discharge. 01/06 were changing the Seroquel on a different schedule to avoid . 01/07 keep same treatment. 01/08 keep same treatment Reason for continued inpatient stay Substantial Risk for: inability to function, rapid decompensation and med/psych decompensation Time Spent With Patient Time: Total time managing care of this patient today __20__ minutes.
[2023-01-08 18:00] VITALS: BP 122/75; PULSE 104; RESP 16; TEMP 36.5; O2SAT 96; BMI 29.7
[2023-01-08] MEDS: QUEtiapine Fumarate 200 MG TABLET PO (18:25)
[2023-01-08] MEDS: Divalproex Sodium Sprinkles 125 MG CAP.DR.SPR 1000 MG PO (19:58)
[2023-01-08] MEDS: Atorvastatin Calcium 40 MG TABLET PO (19:59)
[2023-01-08] MEDS: OLANZapine 5 MG TABLET PO (19:59)
[2023-01-08] MEDS: Tamsulosin HCL 0.4 MG CAPSULE PO (20:06)
[2023-01-09 08:00] VITALS: BP 118/67; PULSE 81; RESP 18; TEMP 36.3; O2SAT 94
[2023-01-09] MEDS: Thiamine HCL 100 MG TABLET PO (08:40)
[2023-01-09] MEDS: Divalproex Sodium Sprinkles 125 MG CAP.DR.SPR 500 MG PO ×2 (08:40→14:34)
[2023-01-09] MEDS: Acetaminophen 325 MG TABLET 650 MG PO ×3 (08:40→21:34)
[2023-01-09] MEDS: Simethicone 80 MG TAB.CHEW PO ×3 (08:40→21:34)
[2023-01-09] MEDS: cloNIDine HCL 0.1 MG TABLET 0.05 MG PO ×3 (08:41→21:35)
[2023-01-09] MEDS: Sennosides/Docusate Sodium TABLET 1 TAB PO ×2 (08:41→21:35)
[2023-01-09] MEDS: QUEtiapine Fumarate 25 MG TABLET 75 MG PO ×2 (08:41→14:35)
[2023-01-09] MEDS: lamoTRIgine 100 MG TABLET 150 MG PO ×2 (08:41→21:35)
[2023-01-09] MEDS: Aspirin 81 MG TAB.CHEW PO (08:41)
[2023-01-09] MEDS: Enoxaparin Sodium 40 MG/0.4 ML SYRINGE SUBCUT (11:46)
--- NOTE | 2023-01-09 12:01 | P.PNPSI_ITS ---
Subjective Subjective Date of Service: 01/09/23 Reason For Visit: DEMENTIA Subjective Notes: Conditional Voluntary Interim History: The staff reported no changes in his mental status agitated at times but redirectable. The social worker assistant reported that he is going to be discharged next Thursday to the care home facility. On interview the patient denies new symptoms, pleasantly confused, waiting for placement. Mental Status Exam Mental Status Exam Patient Appearance: Appropriate Patient Orientation: Person and Situation Level of Consciousness: Awake and Appropriate Patient Behavior: Guarded and Passive Mood Description: Withdrawn Affect Description: Constricted Patient Cognition Impaired: Yes Ability to Follow Directions: Fair Speech Pattern: Clear Hallucinations: None Delusions: Not Present Thought Process: Distracted and Evasive Thought Content: positive for [place] and positive for Poverty of Content Judgement: Fair Diagnostics Vital Signs (24Hr): Vital Signs - 24 hr 01/08/23 18:00 01/09/23 08:00 Temperature 97.7 F 97.3 F Pulse Rate 104 H 81 Respiratory Rate 16 18 Blood Pressure 122/75 118/67 Pulse Oximetry 96 94 Oxygen Delivery Method Room Air Room Air BMI result Body Mass Index 29.7 Labs 01/03/23 14:34 01/03/23 14:34 Imaging Radiology Impressions: ITS Impressions Head CT 11/12/22 19:17 IMPRESSION: 1. No acute intracranial pathology. 2. There is ventriculomegaly disproportionate to the extent of sulcal widening. This can be seen in the setting of normal pressure hydrocephalus. Recommend clinical correlation. Consider MRI evaluation if clinically appropriate. Chest X-Ray 11/13/22 14:13 IMPRESSION: No acute parenchymal disease. No radiopaque foreign bodies. KUB X-Ray 11/13/22 14:13 IMPRESSION: No metallic radiopaque foreign bodies identified within the abdomen. 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 Background chronic microangiopathy. 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 Head CT 12/09/22 17:32 IMPRESSION: Cerebral atrophy and mild periventricular and central white matter diminished attenuation which is nonspecific but likely represent microvascular disease. No acute intracranial abnormality. Chest X-Ray 12/31/22 16:47 IMPRESSION: * Superior mediastinum appears widened new from recent prior however this may be exaggerated by technique. Recommend repeat PA and lateral radiographs however if there is there is clinical concern for emergent mediastinal pathology, CT chest could be obtained. * Low lung volumes with streaky bibasilar opacities which may reflect atelectasis. Venous Duplex 12/31/22 17:15 IMPRESSION: Limited exam. No DVT demonstrated in the bilateral lower extremity. Calf veins and left popliteal vein not well visualized. Chest X-Ray 01/01/23 12:27 IMPRESSION: 1. Ectatic thoracic aorta. 2. Clear lungs. Chest CTA 01/02/23 13:41 IMPRESSION: Upper normal-size thoracic aorta. No aneurysm or dissection. Fleischner guidelines were followed. KUB X-Ray 01/03/23 18:50 IMPRESSION: Unremarkable examination. No evidence of bowel obstruction. Medications Medications Current Medications Acetaminophen (Acetaminophen 325 Mg Tablet) 650 mg PO TID [facility] Last Admin: 01/09/23 08:40 Dose: 650 mg Al Hydroxide/Mg Hydroxide (Magnesium Hydrox/Alum Hydrox 30 Ml Oral.Susp) 30 ml PO Q6H PRN PRN Reason: Heartburn/Nausea Aspirin (Aspirin 81 Mg Tab.Chew) 81 mg PO DAILY [facility] Last Admin: 01/09/23 08:41 Dose: 81 mg Atorvastatin Calcium (Atorvastatin Calcium 40 Mg Tablet) 40 mg PO BEDTIME [facility] Last Admin: 01/08/23 19:59 Dose: 40 mg Clonidine HCl (Clonidine Hcl 0.1 Mg Tablet) 0.05 mg PO TID [facility]; Protocol Last Admin: 01/09/23 08:41 Dose: 0.05 mg Divalproex Sodium (Divalproex Sodium Sprinkles 125 Mg ) 500 mg PO BID@0800,1500 [facility] Last Admin: 01/09/23 08:40 Dose: 500 mg Divalproex Sodium (Divalproex Sodium Sprinkles 125 Mg ) 1,000 mg PO BEDTIME [facility] Last Admin: 01/08/23 19:58 Dose: 1,000 mg Enoxaparin Sodium (Enoxaparin Sodium 40 Mg/0.4 Ml Syringe) 40 mg SUBCUT Q24H [facility] Last Admin: 01/09/23 11:46 Dose: 40 mg Lamotrigine (Lamotrigine 100 Mg Tablet) 150 mg PO BID [facility] Last Admin: 01/09/23 08:41 Dose: 150 mg Magnesium Hydroxide (Milk Of Magnesia 30 Ml Oral.Susp) 30 ml PO DAILY PRN PRN Reason: Constipation Last Admin: 12/17/22 14:48 Dose: 30 ml Olanzapine (Olanzapine 5 Mg Tablet) 5 mg PO Q6H PRN PRN Reason: psychotic agitation Last Admin: 01/08/23 19:59 Dose: 5 mg Quetiapine Fumarate (Quetiapine Fumarate 25 Mg Tablet) 75 mg PO BID@0800,1500 [facility] Last Admin: 01/09/23 08:41 Dose: 75 mg Quetiapine Fumarate (Quetiapine Fumarate 200 Mg Tablet) 200 mg PO DAILY@1900 [facility] Last Admin: 01/08/23 18:25 Dose: 200 mg Senna/Docusate Sodium (Sennosides/Docusate Sodium Tablet) 1 tab PO BID [facility] Last Admin: 01/09/23 08:41 Dose: 1 tab Simethicone (Simethicone 80 Mg Tab.Chew) 80 mg PO TID [facility] Last Admin: 01/09/23 08:40 Dose: 80 mg Tamsulosin HCl (Tamsulosin Hcl 0.4 Mg Capsule) 0.4 mg PO BEDTIME [facility] Last Admin: 01/08/23 20:06 Dose: 0.4 mg Thiamine HCl (Thiamine Hcl 100 Mg Tablet) 100 mg PO DAILY [facility] Last Admin: 01/09/23 08:40 Dose: 100 mg Trolamine Salicylate (Trolamine Salicylate 10 % Cream 85 Gm Tube) 1 appl TOPICAL QID PRN; Protocol PRN Reason: hip pain Allergies Allergies Allergy/AdvReac Type Severity Reaction Status Date / Time No Known Allergies Allergy Verified 11/12/22 15:27 Assessment & Plan Assessment & Plan (1) Neurodegenerative cognitive impairment: Status: Acute Code(s): G31.9 - Degenerative disease of nervous system, unspecified Assessment and Plan: 71 years old man who probably has degenerative dementia, moderate to severe, with significant behavioral component. Precise previous history is not available. 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 This type of infarct could be cardioembolic or from carotid artery. Because of significant underlying dementia, he would not be a candidate for any surgical intervention and for that reason I do not think exploring carotid artery stenosis is a reasonable idea. Continue his baseline medications. His examination is not suggestive of normal-pressure hydrocephalus despite his imaging revealing some ventriculomegaly. This type of patient typically require combination of medicines including some antipsychotics and mood stabilizers to manage day behavioral symptoms. He is also at relatively high risk for seizure disorder but also has been taking lamotrigine 100 mg twice a day, which would cover this condition even if he suffered from it. Now that his mental status has improved compared to his emergency room arrival, I do not think an EEG would be useful. Plan Plan 01/03- continues to present with delirum superimposed on dementia for past week or so. Medical work up reassuring in that is not showing acute infections, electrolyte imbalances, stable renal and liver function. No signs of GI bleeding. Ammonia level wnl. Pt complaint of pain- hip and also abdomen. He does have degenerative changes bilat on greater trocanter. Will schedule tylenol. KUB did show stool and gas- started on simethicome as he also appear to report pain when inspecting abdomen (in different quadrants and intermittent- possible bloating). Other sources of delirum include medication- especially those with anticholinergic s/s- will d/c vistaril. 01/04 slightly more organized. less c/o of pain. He was straight cath, bladder scan 400 but this was not a PVR. Cr and BUn do not show s/s of hydronephrosis. continue monitor BM. pain. 01/05 the patient's condition is going back to baseline, looking for an early discharge. 01/06 were changing the Seroquel on a different schedule to avoid . 01/07 keep same treatment. 01/08 keep same treatment 01/09 keeps a treatment Reason for continued inpatient stay Substantial Risk for: inability to function, rapid decompensation and med/psych decompensation Time Spent With Patient Time: Total time managing care of this patient today _20___ minutes.
[2023-01-09 14:35] VITALS: BP 125/83
[2023-01-09] MEDS: OLANZapine 5 MG TABLET PO (17:43)
[2023-01-09 18:00] VITALS: BP 127/70; PULSE 80; RESP 18; TEMP 36.2; O2SAT 96
[2023-01-09] MEDS: Divalproex Sodium Sprinkles 125 MG CAP.DR.SPR 1000 MG PO (21:33)
[2023-01-09] MEDS: Tamsulosin HCL 0.4 MG CAPSULE PO (21:34)
[2023-01-09] MEDS: Atorvastatin Calcium 40 MG TABLET PO (21:35)
[2023-01-09] MEDS: QUEtiapine Fumarate 200 MG TABLET PO (21:35)
--- NOTE | 2023-01-10 07:28 | P.PNPSI_ITS ---
Subjective Subjective Date of Service: 01/10/23 Reason For Visit: DEMENTIA Subjective Notes: Conditional Voluntary Interim History: The nursing staff reported the patient had been compliant with medications, he slept well last night he needed Zyprexa. 17:00. The respiratory therapist reported that he will need CPAP as an outpatient. On interview the patient is pleasantly confused, to be discharged to snf facility on Thursday. Mental Status Exam Mental Status Exam Patient Appearance: Appropriate Patient Orientation: Person Level of Consciousness: Awake Patient Behavior: Guarded and Passive Mood Description: Withdrawn Affect Description: Labile Patient Cognition Impaired: Yes Ability to Follow Directions: Good Speech Pattern: Clear Hallucinations: None Delusions: Not Present Thought Process: Illogical, Distracted and Evasive Thought Content: positive for [place] and positive for Poverty of Content Judgement: Fair Diagnostics Vital Signs (24Hr): Vital Signs - 24 hr 01/09/23 08:00 01/09/23 14:35 01/09/23 18:00 Temperature 97.3 F 97.2 F Pulse Rate 81 80 Respiratory Rate 18 18 Blood Pressure 118/67 125/83 127/70 Pulse Oximetry 94 96 Oxygen Delivery Method Room Air Room Air BMI result Body Mass Index 29.7 Labs 01/03/23 14:34 01/03/23 14:34 Imaging Radiology Impressions: ITS Impressions Head CT 11/12/22 19:17 IMPRESSION: 1. No acute intracranial pathology. 2. There is ventriculomegaly disproportionate to the extent of sulcal widening. This can be seen in the setting of normal pressure hydrocephalus. Recommend clinical correlation. Consider MRI evaluation if clinically appropriate. Chest X-Ray 11/13/22 14:13 IMPRESSION: No acute parenchymal disease. No radiopaque foreign bodies. KUB X-Ray 11/13/22 14:13 IMPRESSION: No metallic radiopaque foreign bodies identified within the abdomen. 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 Background chronic microangiopathy. 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 Head CT 12/09/22 17:32 IMPRESSION: Cerebral atrophy and mild periventricular and central white matter diminished attenuation which is nonspecific but likely represent microvascular disease. No acute intracranial abnormality. Chest X-Ray 12/31/22 16:47 IMPRESSION: * Superior mediastinum appears widened new from recent prior however this may be exaggerated by technique. Recommend repeat PA and lateral radiographs however if there is there is clinical concern for emergent mediastinal pathology, CT chest could be obtained. * Low lung volumes with streaky bibasilar opacities which may reflect atelectasis. Venous Duplex 12/31/22 17:15 IMPRESSION: Limited exam. No DVT demonstrated in the bilateral lower extremity. Calf veins and left popliteal vein not well visualized. Chest X-Ray 01/01/23 12:27 IMPRESSION: 1. Ectatic thoracic aorta. 2. Clear lungs. Chest CTA 01/02/23 13:41 IMPRESSION: Upper normal-size thoracic aorta. No aneurysm or dissection. Fleischner guidelines were followed. KUB X-Ray 01/03/23 18:50 IMPRESSION: Unremarkable examination. No evidence of bowel obstruction. Medications Medications Current Medications Acetaminophen (Acetaminophen 325 Mg Tablet) 650 mg PO TID [facility] Last Admin: 01/09/23 21:34 Dose: 650 mg Al Hydroxide/Mg Hydroxide (Magnesium Hydrox/Alum Hydrox 30 Ml Oral.Susp) 30 ml PO Q6H PRN PRN Reason: Heartburn/Nausea Aspirin (Aspirin 81 Mg Tab.Chew) 81 mg PO DAILY [facility] Last Admin: 01/09/23 08:41 Dose: 81 mg Atorvastatin Calcium (Atorvastatin Calcium 40 Mg Tablet) 40 mg PO BEDTIME [facility] Last Admin: 01/09/23 21:35 Dose: 40 mg Clonidine HCl (Clonidine Hcl 0.1 Mg Tablet) 0.05 mg PO TID [facility]; Protocol Last Admin: 01/09/23 21:35 Dose: 0.05 mg Divalproex Sodium (Divalproex Sodium Sprinkles 125 Mg Spr) 500 mg PO BID@0800,1500 [facility] Last Admin: 01/09/23 14:34 Dose: 500 mg Divalproex Sodium (Divalproex Sodium Sprinkles 125 Mg Spr) 1,000 mg PO BEDTIME [facility] Last Admin: 01/09/23 21:33 Dose: 1,000 mg Enoxaparin Sodium (Enoxaparin Sodium 40 Mg/0.4 Ml Syringe) 40 mg SUBCUT Q24H [facility] Last Admin: 01/09/23 11:46 Dose: 40 mg Lamotrigine (Lamotrigine 100 Mg Tablet) 150 mg PO BID [facility] Last Admin: 01/09/23 21:35 Dose: 150 mg Magnesium Hydroxide (Milk Of Magnesia 30 Ml Oral.Susp) 30 ml PO DAILY PRN PRN Reason: Constipation Last Admin: 12/17/22 14:48 Dose: 30 ml Olanzapine (Olanzapine 5 Mg Tablet) 5 mg PO Q6H PRN PRN Reason: psychotic agitation Last Admin: 01/09/23 17:43 Dose: 5 mg Quetiapine Fumarate (Quetiapine Fumarate 25 Mg Tablet) 75 mg PO BID@0800,1500 [facility] Last Admin: 01/09/23 14:35 Dose: 75 mg Quetiapine Fumarate (Quetiapine Fumarate 200 Mg Tablet) 200 mg PO DAILY@1900 [facility] Last Admin: 01/09/23 21:35 Dose: 200 mg Senna/Docusate Sodium (Sennosides/Docusate Sodium Tablet) 1 tab PO BID [facility] Last Admin: 01/09/23 21:35 Dose: 1 tab Simethicone (Simethicone 80 Mg Tab.Chew) 80 mg PO TID [facility] Last Admin: 01/09/23 21:34 Dose: 80 mg Tamsulosin HCl (Tamsulosin Hcl 0.4 Mg Capsule) 0.4 mg PO BEDTIME [facility] Last Admin: 01/09/23 21:34 Dose: 0.4 mg Thiamine HCl (Thiamine Hcl 100 Mg Tablet) 100 mg PO DAILY [facility] Last Admin: 01/09/23 08:40 Dose: 100 mg Trolamine Salicylate (Trolamine Salicylate 10 % Cream 85 Gm Tube) 1 appl TOPICAL QID PRN; Protocol PRN Reason: hip pain Allergies Allergies Allergy/AdvReac Type Severity Reaction Status Date / Time No Known Allergies Allergy Verified 11/12/22 15:27 Assessment & Plan Assessment & Plan (1) Neurodegenerative cognitive impairment: Status: Acute Code(s): G31.9 - Degenerative disease of nervous system, unspecified Assessment and Plan: 71 years old man who probably has degenerative dementia, moderate to severe, with significant behavioral component. Precise previous history is not available. 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 This type of infarct could be cardioembolic or from carotid artery. Because of significant underlying dementia, he would not be a candidate for any surgical intervention and for that reason I do not think exploring carotid artery stenosis is a reasonable idea. Continue his baseline medications. His examination is not suggestive of normal-pressure hydrocephalus despite his imaging revealing some ventriculomegaly. This type of patient typically require combination of medicines including some antipsychotics and mood stabilizers to manage day behavioral symptoms. He is also at relatively high risk for seizure disorder but also has been taking lamotrigine 100 mg twice a day, which would cover this condition even if he suffered from it. Now that his mental status has improved compared to his emergency room arrival, I do not think an EEG would be useful. Plan Plan 01/03- continues to present with delirum superimposed on dementia for past week or so. Medical work up reassuring in that is not showing acute infections, electrolyte imbalances, stable renal and liver function. No signs of GI bleeding. Ammonia level wnl. Pt complaint of pain- hip and also abdomen. He does have degenerative changes bilat on greater trocanter. Will schedule tylenol. KUB did show stool and gas- started on simethicome as he also appear to report pain when inspecting abdomen (in different quadrants and intermittent- possible bloating). Other sources of delirum include medication- especially those with anticholinergic s/s- will d/c vistaril. 01/04 slightly more organized. less c/o of pain. He was straight cath, bladder scan 400 but this was not a PVR. Cr and BUn do not show s/s of hydronephrosis. continue monitor BM. pain. 01/05 the patient's condition is going back to baseline, looking for an early discharge. 01/06 were changing the Seroquel on a different schedule to avoid . 01/07 keep same treatment. 01/08 keep same treatment 01/09 keeps a treatment 01/10 keep same treatment, discharge next Thursday to snf facility Reason for continued inpatient stay Substantial Risk for: inability to function, rapid decompensation and med/psych decompensation Time Spent With Patient Time: Total time managing care of this patient today __20__ minutes.
[2023-01-10 08:00] VITALS: BP 133/79; PULSE 98; RESP 18; TEMP 36.9; O2SAT 95
[2023-01-10] MEDS: QUEtiapine Fumarate 25 MG TABLET 75 MG PO (08:21)
[2023-01-10] MEDS: OLANZapine 5 MG TABLET PO (08:22)
[2023-01-10] MEDS: Divalproex Sodium Sprinkles 125 MG CAP.DR.SPR 500 MG PO ×2 (08:22→14:50)
[2023-01-10] MEDS: Aspirin 81 MG TAB.CHEW PO (08:22)
[2023-01-10] MEDS: Simethicone 80 MG TAB.CHEW PO ×3 (08:22→20:07)
[2023-01-10] MEDS: Acetaminophen 325 MG TABLET 650 MG PO ×3 (08:22→20:07)
[2023-01-10] MEDS: Sennosides/Docusate Sodium TABLET 1 TAB PO ×2 (08:22→20:07)
[2023-01-10] MEDS: lamoTRIgine 100 MG TABLET 150 MG PO ×2 (08:22→20:06)
[2023-01-10] MEDS: Thiamine HCL 100 MG TABLET PO (08:23)
[2023-01-10] MEDS: cloNIDine HCL 0.1 MG TABLET 0.05 MG PO ×3 (08:23→20:07)
[2023-01-10] MEDS: OLANZapine ODT 10 MG TAB.RAPDIS 5 MG TRANSLINGU (10:27)
[2023-01-10] MEDS: Enoxaparin Sodium 40 MG/0.4 ML SYRINGE SUBCUT (11:44)
[2023-01-10] MEDS: OLANZapine ODT 10 MG TAB.RAPDIS TRANSLINGU (12:07)
[2023-01-10 14:55] VITALS: BP 124/69
[2023-01-10 18:00] VITALS: BP 120/81; PULSE 78; RESP 18; TEMP 36.4; O2SAT 98
[2023-01-10] MEDS: OLANZapine 7.5 MG TABLET PO (20:06)
[2023-01-10] MEDS: Tamsulosin HCL 0.4 MG CAPSULE PO (20:06)
[2023-01-10] MEDS: Divalproex Sodium Sprinkles 125 MG CAP.DR.SPR 1000 MG PO (20:06)
[2023-01-10] MEDS: Atorvastatin Calcium 40 MG TABLET PO (20:07)
[2023-01-11] MEDS: OLANZapine 5 MG TABLET PO ×2 (05:00→11:12)
[2023-01-11 07:56] VITALS: BP 113/75; PULSE 86; RESP 18; TEMP 36.9; O2SAT 94
[2023-01-11] MEDS: Divalproex Sodium Sprinkles 125 MG CAP.DR.SPR 500 MG PO ×2 (07:58→14:50)
[2023-01-11] MEDS: OLANZapine 2.5 MG TABLET PO ×2 (07:58→12:38)
[2023-01-11] MEDS: cloNIDine HCL 0.1 MG TABLET 0.05 MG PO ×3 (07:59→20:02)
[2023-01-11] MEDS: Aspirin 81 MG TAB.CHEW PO (07:59)
[2023-01-11] MEDS: lamoTRIgine 100 MG TABLET 150 MG PO ×2 (07:59→20:01)
[2023-01-11] MEDS: Acetaminophen 325 MG TABLET 650 MG PO ×3 (07:59→20:02)
[2023-01-11] MEDS: Thiamine HCL 100 MG TABLET PO (07:59)
[2023-01-11] MEDS: Simethicone 80 MG TAB.CHEW PO ×3 (07:59→20:02)
[2023-01-11] MEDS: Sennosides/Docusate Sodium TABLET 1 TAB PO ×2 (07:59→20:02)
--- NOTE | 2023-01-11 08:22 | HO.PSYCHPN ---
Subjective Subjective Date of Service: 01/11/23 Reason For Visit: DEMENTIA Subjective Notes: Conditional Voluntary Interim History: The staff reported the patient had been agitated yesterday are nearly the whole day. In total he received over 20 mg of olanzapine in 24 hours. He slept poorly on and off and he seems responding to internal stimuli talking to himself restless at night. He slept only 2 or 3 hours. Review the chart and it is clear that Seroquel has not been working for him so we decided to change to Zyprexa that helps him better he had been started on 2.5 b.i.d. and 7.5 p.o. q.h.s.. We are going to observe his behavior today and see if he goes back to baseline on Zyprexa faster. Mental Status Exam Mental Status Exam Patient Appearance: Appropriate Patient Orientation: Person Level of Consciousness: Awake Patient Behavior: Guarded and Passive Mood Description: Apprehensive Affect Description: Labile Patient Cognition Impaired: Yes Ability to Follow Directions: Good Speech Pattern: Garbled Hallucinations: Auditory Delusions: Paranoid Ideation Thought Process: Distracted and Evasive Thought Content: positive for [place] and positive for Poverty of Content Judgement: Poor Diagnostics Vital Signs (24Hr): Vital Signs - 24 hr 01/10/23 14:55 01/10/23 18:00 01/11/23 07:56 Temperature 97.5 F 98.5 F Pulse Rate 78 86 Respiratory Rate 18 18 Blood Pressure 124/69 120/81 113/75 Pulse Oximetry 98 94 Oxygen Delivery Method Room Air Room Air BMI result Body Mass Index 29.7 Labs 01/03/23 14:34 01/03/23 14:34 Imaging Radiology Impressions: ITS Impressions Head CT 11/12/22 19:17 IMPRESSION: 1. No acute intracranial pathology. 2. There is ventriculomegaly disproportionate to the extent of sulcal widening. This can be seen in the setting of normal pressure hydrocephalus. Recommend clinical correlation. Consider MRI evaluation if clinically appropriate. Chest X-Ray 11/13/22 14:13 IMPRESSION: No acute parenchymal disease. No radiopaque foreign bodies. KUB X-Ray 11/13/22 14:13 IMPRESSION: No metallic radiopaque foreign bodies identified within the abdomen. 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 Background chronic microangiopathy. 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 Head CT 12/09/22 17:32 IMPRESSION: Cerebral atrophy and mild periventricular and central white matter diminished attenuation which is nonspecific but likely represent microvascular disease. No acute intracranial abnormality. Chest X-Ray 12/31/22 16:47 IMPRESSION: * Superior mediastinum appears widened new from recent prior however this may be exaggerated by technique. Recommend repeat PA and lateral radiographs however if there is there is clinical concern for emergent mediastinal pathology, CT chest could be obtained. * Low lung volumes with streaky bibasilar opacities which may reflect atelectasis. Venous Duplex 12/31/22 17:15 IMPRESSION: Limited exam. No DVT demonstrated in the bilateral lower extremity. Calf veins and left popliteal vein not well visualized. Chest X-Ray 01/01/23 12:27 IMPRESSION: 1. Ectatic thoracic aorta. 2. Clear lungs. Chest CTA 01/02/23 13:41 IMPRESSION: Upper normal-size thoracic aorta. No aneurysm or dissection. Fleischner guidelines were followed. KUB X-Ray 01/03/23 18:50 IMPRESSION: Unremarkable examination. No evidence of bowel obstruction. Medications Medications Current Medications Acetaminophen (Acetaminophen 325 Mg Tablet) 650 mg PO TID [facility] Last Admin: 01/11/23 07:59 Dose: 650 mg Al Hydroxide/Mg Hydroxide (Magnesium Hydrox/Alum Hydrox 30 Ml Oral.Susp) 30 ml PO Q6H PRN PRN Reason: Heartburn/Nausea Aspirin (Aspirin 81 Mg Tab.Chew) 81 mg PO DAILY [facility] Last Admin: 01/11/23 07:59 Dose: 81 mg Atorvastatin Calcium (Atorvastatin Calcium 40 Mg Tablet) 40 mg PO BEDTIME [facility] Last Admin: 01/10/23 20:07 Dose: 40 mg Clonidine HCl (Clonidine Hcl 0.1 Mg Tablet) 0.05 mg PO TID [facility]; Protocol Last Admin: 01/11/23 07:59 Dose: 0.05 mg Divalproex Sodium (Divalproex Sodium Sprinkles 125 Mg ) 500 mg PO BID@0800,1500 [facility] Last Admin: 01/11/23 07:58 Dose: 500 mg Divalproex Sodium (Divalproex Sodium Sprinkles 125 Mg ) 1,000 mg PO BEDTIME [facility] Last Admin: 01/10/23 20:06 Dose: 1,000 mg Enoxaparin Sodium (Enoxaparin Sodium 40 Mg/0.4 Ml Syringe) 40 mg SUBCUT Q24H [facility] Last Admin: 01/10/23 11:44 Dose: 40 mg Lamotrigine (Lamotrigine 100 Mg Tablet) 150 mg PO BID [facility] Last Admin: 01/11/23 07:59 Dose: 150 mg Magnesium Hydroxide (Milk Of Magnesia 30 Ml Oral.Susp) 30 ml PO DAILY PRN PRN Reason: Constipation Last Admin: 12/17/22 14:48 Dose: 30 ml Olanzapine (Olanzapine 5 Mg Tablet) 5 mg PO Q6H PRN PRN Reason: psychotic agitation Last Admin: 01/11/23 05:00 Dose: 5 mg Olanzapine (Olanzapine 2.5 Mg Tablet) 2.5 mg PO BID@0830,1330 [facility] Last Admin: 01/11/23 07:58 Dose: 2.5 mg Olanzapine (Olanzapine 7.5 Mg Tablet) 7.5 mg PO BEDTIME [facility] Last Admin: 01/10/23 20:06 Dose: 7.5 mg Senna/Docusate Sodium (Sennosides/Docusate Sodium Tablet) 1 tab PO BID [facility] Last Admin: 01/11/23 07:59 Dose: 1 tab Simethicone (Simethicone 80 Mg Tab.Chew) 80 mg PO TID [facility] Last Admin: 01/11/23 07:59 Dose: 80 mg Tamsulosin HCl (Tamsulosin Hcl 0.4 Mg Capsule) 0.4 mg PO BEDTIME [facility] Last Admin: 01/10/23 20:06 Dose: 0.4 mg Thiamine HCl (Thiamine Hcl 100 Mg Tablet) 100 mg PO DAILY [facility] Last Admin: 01/11/23 07:59 Dose: 100 mg Trolamine Salicylate (Trolamine Salicylate 10 % Cream 85 Gm Tube) 1 appl TOPICAL QID PRN; Protocol PRN Reason: hip pain Allergies Allergies Allergy/AdvReac Type Severity Reaction Status Date / Time No Known Allergies Allergy Verified 11/12/22 15:27 Assessment & Plan Assessment & Plan (1) Neurodegenerative cognitive impairment: Status: Acute Code(s): G31.9 - Degenerative disease of nervous system, unspecified Assessment and Plan: 71 years old man who probably has degenerative dementia, moderate to severe, with significant behavioral component. Precise previous history is not available. 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 This type of infarct could be cardioembolic or from carotid artery. Because of significant underlying dementia, he would not be a candidate for any surgical intervention and for that reason I do not think exploring carotid artery stenosis is a reasonable idea. Continue his baseline medications. His examination is not suggestive of normal-pressure hydrocephalus despite his imaging revealing some ventriculomegaly. This type of patient typically require combination of medicines including some antipsychotics and mood stabilizers to manage day behavioral symptoms. He is also at relatively high risk for seizure disorder but also has been taking lamotrigine 100 mg twice a day, which would cover this condition even if he suffered from it. Now that his mental status has improved compared to his emergency room arrival, I do not think an EEG would be useful. Plan Plan 01/03- continues to present with delirum superimposed on dementia for past week or so. Medical work up reassuring in that is not showing acute infections, electrolyte imbalances, stable renal and liver function. No signs of GI bleeding. Ammonia level wnl. Pt complaint of pain- hip and also abdomen. He does have degenerative changes bilat on greater trocanter. Will schedule tylenol. KUB did show stool and gas- started on simethicome as he also appear to report pain when inspecting abdomen (in different quadrants and intermittent- possible bloating). Other sources of delirum include medication- especially those with anticholinergic s/s- will d/c vistaril. 01/04 slightly more organized. less c/o of pain. He was straight cath, bladder scan 400 but this was not a PVR. Cr and BUn do not show s/s of hydronephrosis. continue monitor BM. pain. 01/05 the patient's condition is going back to baseline, looking for an early discharge. 01/06 were changing the Seroquel on a different schedule to avoid . 01/07 keep same treatment. 01/08 keep same treatment 01/09 keeps a treatment 01/10 keep same treatment, discharge next Thursday to long term facility. 01/11 change Seroquel to Zyprexa 2.5 p.o. b.i.d. and 7.5 p.o. q.h.s. to target impulsivity and psychotic behavior. Reason for continued inpatient stay Substantial Risk for: inability to function, rapid decompensation and med/psych decompensation Time Spent With Patient Time: Total time managing care of this patient today __20__ minutes.
[2023-01-11] MEDS: Enoxaparin Sodium 40 MG/0.4 ML SYRINGE SUBCUT (12:38)
[2023-01-11] MEDS: OLANZapine ODT 10 MG TAB.RAPDIS TRANSLINGU (13:38)
[2023-01-11 14:45] VITALS: BP 123/75; PULSE 89
[2023-01-11 19:35] VITALS: BP 124/78; PULSE 88; RESP 18; TEMP 36.1; O2SAT 98
[2023-01-11] MEDS: Divalproex Sodium Sprinkles 125 MG CAP.DR.SPR 1000 MG PO (20:01)
[2023-01-11] MEDS: Tamsulosin HCL 0.4 MG CAPSULE PO (20:02)
[2023-01-11] MEDS: OLANZapine 7.5 MG TABLET PO (20:02)
[2023-01-11] MEDS: Atorvastatin Calcium 40 MG TABLET PO (20:02)
--- NOTE | 2023-01-11 21:56 | PC.NURSE ---
Provider notified that patient had already received 25 mg of zyprexa throughout the day, and was still due for his 7.5mg dose. Due to patients increasing irritability, provider OK'ed 2100 dose of zyprexa.
[2023-01-12 07:45] VITALS: BP 119/76; PULSE 90; RESP 18; TEMP 36.1; O2SAT 95
[2023-01-12] MEDS: Simethicone 80 MG TAB.CHEW PO ×3 (08:37→20:10)
[2023-01-12] MEDS: Sennosides/Docusate Sodium TABLET 1 TAB PO (08:37)
[2023-01-12] MEDS: Divalproex Sodium Sprinkles 125 MG CAP.DR.SPR 500 MG PO ×2 (08:37→14:39)
[2023-01-12] MEDS: Aspirin 81 MG TAB.CHEW PO (08:38)
[2023-01-12] MEDS: cloNIDine HCL 0.1 MG TABLET 0.05 MG PO ×3 (08:38→20:11)
[2023-01-12] MEDS: Acetaminophen 325 MG TABLET 650 MG PO ×3 (08:38→20:12)
[2023-01-12] MEDS: Thiamine HCL 100 MG TABLET PO (08:39)
[2023-01-12] MEDS: OLANZapine 2.5 MG TABLET PO ×2 (08:39→13:23)
--- NOTE | 2023-01-12 08:39 | PC.RT ---
pt does qualify for Cpap machine due to Sleep study and diagnosis of MATHEW. Pt mahin need Auto Cpap 5-[address] Resendiz's order. All paperwork has been faxed to [employer]. [place] just waiting for the discharge summary and a contact to the [facility] in [place], [place] where pt is being dc'd to. Will discuss with [employer] dental sales representative today.
[2023-01-12] MEDS: lamoTRIgine 100 MG TABLET 150 MG PO ×2 (08:41→20:11)
--- NOTE | 2023-01-12 11:01 | P.PNPSI_ITS ---
Subjective Subjective Date of Service: 01/12/23 Reason For Visit: DEMENTIA Subjective Notes: Conditional Voluntary Interim History: The nursing staff reported the patient had been very agitated yesterday and he has received over the weekend several doses of Zyprexa. We decided to change Seroquel to Zyprexa sings it was not working for him. On interview the patient remains confused but less agitated than yesterday. Mental Status Exam Mental Status Exam Patient Appearance: Appropriate Patient Orientation: Person and Situation Level of Consciousness: Awake and Appropriate Patient Behavior: Guarded, Passive and Suspicious Mood Description: Withdrawn Affect Description: Constricted Patient Cognition Impaired: Yes Ability to Follow Directions: Good Speech Pattern: Clear Hallucinations: None Delusions: Not Present Thought Process: Distracted and Evasive Thought Content: positive for [place] and positive for Circumstantial Judgement: Fair Diagnostics Vital Signs (24Hr): Vital Signs - 24 hr 01/11/23 14:45 01/11/23 19:35 01/12/23 07:45 Temperature 97.0 F 96.9 F Pulse Rate 89 88 90 Respiratory Rate 18 18 Blood Pressure 123/75 124/78 119/76 Pulse Oximetry 98 95 Oxygen Delivery Method Room Air Room Air BMI result Body Mass Index 29.7 Labs 01/03/23 14:34 01/03/23 14:34 Imaging Radiology Impressions: ITS Impressions Head CT 11/12/22 19:17 IMPRESSION: 1. No acute intracranial pathology. 2. There is ventriculomegaly disproportionate to the extent of sulcal widening. This can be seen in the setting of normal pressure hydrocephalus. Recommend clinical correlation. Consider MRI evaluation if clinically appropriate. Chest X-Ray 11/13/22 14:13 IMPRESSION: No acute parenchymal disease. No radiopaque foreign bodies. KUB X-Ray 11/13/22 14:13 IMPRESSION: No metallic radiopaque foreign bodies identified within the abdomen. 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 Background chronic microangiopathy. 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 Head CT 12/09/22 17:32 IMPRESSION: Cerebral atrophy and mild periventricular and central white matter diminished attenuation which is nonspecific but likely represent microvascular disease. No acute intracranial abnormality. Chest X-Ray 12/31/22 16:47 IMPRESSION: * Superior mediastinum appears widened new from recent prior however this may be exaggerated by technique. Recommend repeat PA and lateral radiographs however if there is there is clinical concern for emergent mediastinal pathology, CT chest could be obtained. * Low lung volumes with streaky bibasilar opacities which may reflect atelectasis. Venous Duplex 12/31/22 17:15 IMPRESSION: Limited exam. No DVT demonstrated in the bilateral lower extremity. Calf veins and left popliteal vein not well visualized. Chest X-Ray 01/01/23 12:27 IMPRESSION: 1. Ectatic thoracic aorta. 2. Clear lungs. Chest CTA 01/02/23 13:41 IMPRESSION: Upper normal-size thoracic aorta. No aneurysm or dissection. Fleischner guidelines were followed. KUB X-Ray 01/03/23 18:50 IMPRESSION: Unremarkable examination. No evidence of bowel obstruction. Medications Medications Current Medications Acetaminophen (Acetaminophen 325 Mg Tablet) 650 mg PO TID [facility] Last Admin: 01/12/23 08:38 Dose: 650 mg Al Hydroxide/Mg Hydroxide (Magnesium Hydrox/Alum Hydrox 30 Ml Oral.Susp) 30 ml PO Q6H PRN PRN Reason: Heartburn/Nausea Aspirin (Aspirin 81 Mg Tab.Chew) 81 mg PO DAILY [facility] Last Admin: 01/12/23 08:38 Dose: 81 mg Atorvastatin Calcium (Atorvastatin Calcium 40 Mg Tablet) 40 mg PO BEDTIME [facility] Last Admin: 01/11/23 20:02 Dose: 40 mg Clonidine HCl (Clonidine Hcl 0.1 Mg Tablet) 0.05 mg PO TID [facility]; Protocol Last Admin: 01/12/23 08:38 Dose: 0.05 mg Divalproex Sodium (Divalproex Sodium Sprinkles 125 Mg ) 500 mg PO BID@0800,1500 [facility] Last Admin: 01/12/23 08:37 Dose: 500 mg Divalproex Sodium (Divalproex Sodium Sprinkles 125 Mg ) 1,000 mg PO BEDTIME [facility] Last Admin: 01/11/23 20:01 Dose: 1,000 mg Enoxaparin Sodium (Enoxaparin Sodium 40 Mg/0.4 Ml Syringe) 40 mg SUBCUT Q24H [facility] Last Admin: 01/11/23 12:38 Dose: 40 mg Lamotrigine (Lamotrigine 100 Mg Tablet) 150 mg PO BID [facility] Last Admin: 01/12/23 08:41 Dose: 150 mg Magnesium Hydroxide (Milk Of Magnesia 30 Ml Oral.Susp) 30 ml PO DAILY PRN PRN Reason: Constipation Last Admin: 12/17/22 14:48 Dose: 30 ml Olanzapine (Olanzapine 5 Mg Tablet) 5 mg PO Q6H PRN PRN Reason: psychotic agitation Last Admin: 01/11/23 11:12 Dose: 5 mg Olanzapine (Olanzapine 2.5 Mg Tablet) 2.5 mg PO BID@0830,1330 [facility] Last Admin: 01/12/23 08:39 Dose: 2.5 mg Olanzapine (Olanzapine 7.5 Mg Tablet) 7.5 mg PO BEDTIME [facility] Last Admin: 01/11/23 20:02 Dose: 7.5 mg Senna/Docusate Sodium (Sennosides/Docusate Sodium Tablet) 1 tab PO BID [facility] Last Admin: 01/12/23 08:37 Dose: 1 tab Simethicone (Simethicone 80 Mg Tab.Chew) 80 mg PO TID [facility] Last Admin: 01/12/23 08:37 Dose: 80 mg Tamsulosin HCl (Tamsulosin Hcl 0.4 Mg Capsule) 0.4 mg PO BEDTIME [facility] Last Admin: 01/11/23 20:02 Dose: 0.4 mg Thiamine HCl (Thiamine Hcl 100 Mg Tablet) 100 mg PO DAILY [facility] Last Admin: 01/12/23 08:39 Dose: 100 mg Trolamine Salicylate (Trolamine Salicylate 10 % Cream 85 Gm Tube) 1 appl TOPICAL QID PRN; Protocol PRN Reason: hip pain Allergies Allergies Allergy/AdvReac Type Severity Reaction Status Date / Time No Known Allergies Allergy Verified 11/12/22 15:27 Assessment & Plan Assessment & Plan (1) Neurodegenerative cognitive impairment: Status: Acute Code(s): G31.9 - Degenerative disease of nervous system, unspecified Assessment and Plan: 71 years old man who probably has degenerative dementia, moderate to severe, with significant behavioral component. Precise previous history is not available. 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 This type of infarct could be cardioembolic or from carotid artery. Because of significant underlying dementia, he would not be a candidate for any surgical intervention and for that reason I do not think exploring carotid artery stenosis is a reasonable idea. Continue his baseline medications. His examination is not suggestive of normal-pressure hydrocephalus despite his imaging revealing some ventriculomegaly. This type of patient typically require combination of medicines including some antipsychotics and mood stabilizers to manage day behavioral symptoms. He is also at relatively high risk for seizure disorder but also has been taking lamotrigine 100 mg twice a day, which would cover this condition even if he suffered from it. Now that his mental status has improved compared to his emergency room arrival, I do not think an EEG would be useful. Plan Plan 01/03- continues to present with delirum superimposed on dementia for past week or so. Medical work up reassuring in that is not showing acute infections, electrolyte imbalances, stable renal and liver function. No signs of GI bleeding. Ammonia level wnl. Pt complaint of pain- hip and also abdomen. He does have degenerative changes bilat on greater trocanter. Will schedule tylenol. KUB did show stool and gas- started on simethicome as he also appear to report pain when inspecting abdomen (in different quadrants and intermittent- possible bloating). Other sources of delirum include medication- especially those with anticholinergic s/s- will d/c vistaril. 01/04 slightly more organized. less c/o of pain. He was straight cath, bladder scan 400 but this was not a PVR. Cr and BUn do not show s/s of hydronephrosis. continue monitor BM. pain. 01/05 the patient's condition is going back to baseline, looking for an early discharge. 01/06 were changing the Seroquel on a different schedule to avoid . 01/07 keep same treatment. 01/08 keep same treatment 01/09 keeps a treatment 01/10 keep same treatment, discharge next Thursday to [facility]. 01/11 change Seroquel to Zyprexa 2.5 p.o. b.i.d. and 7.5 p.o. q.h.s. to target impulsivity and psychotic behavior. 01/12 we change Seroquel to Zyprexa, the patient looks less agitated at this moment. We are going to wait 24-48 hours to discharge him to a [facility] facility. Reason for continued inpatient stay Substantial Risk for: inability to function, rapid decompensation and med/psych decompensation Time Spent With Patient Time: Total time managing care of this patient today __20__ minutes.
[2023-01-12] MEDS: Enoxaparin Sodium 40 MG/0.4 ML SYRINGE SUBCUT (11:26)
[2023-01-12 14:35] VITALS: BP 122/84; PULSE 99
[2023-01-12] MEDS: OLANZapine 5 MG TABLET PO (17:29)
--- NOTE | 2023-01-12 17:40 | PC.NURSE ---
Addendum entered by Erin Farah RN 01/12/23 18:28: [employer] updated. New order for Moxifloxacin HCL 0.5% TID x7 days obtained. Original Note: Patient's right eye is reddened with small amount of white drainage. Patient denies pain/itch. Area cleansed with soap and water.
[2023-01-12 18:00] VITALS: BP 118/74; PULSE 90; RESP 18; TEMP 36.5; O2SAT 96
--- NOTE | 2023-01-12 18:14 | PM.EVENT ---
Event Note Date of Service: 01/12/23 Event Note: received message from RN- pt having white drainage and redness on right eye. No pain or itchiness. Suspect bacterial conjuntivitis. will start moxifloxacin 0.5% 1 drop R eye TID x 7 days. Time Spent With Patient Time: Total time managing care of this patient today ____ minutes.
[2023-01-12] MEDS: Atorvastatin Calcium 40 MG TABLET PO (20:11)
[2023-01-12] MEDS: Divalproex Sodium Sprinkles 125 MG CAP.DR.SPR 1000 MG PO (20:11)
[2023-01-12] MEDS: OLANZapine 7.5 MG TABLET PO (20:12)
[2023-01-12] MEDS: Tamsulosin HCL 0.4 MG CAPSULE PO (20:12)
[2023-01-13] MEDS: Sennosides/Docusate Sodium TABLET 1 TAB PO ×2 (01:13→08:39)
[2023-01-13] MEDS: Moxifloxacin HCl 0.5 % Oph Sol 3 ML DRPBTL 1 DROP EYE-RIGHT ×2 (04:12→08:51)
[2023-01-13 08:00] VITALS: BP 123/88; PULSE 107; RESP 16; TEMP 36.6; O2SAT 96
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
[2023-01-13] MEDS: Simethicone 80 MG TAB.CHEW PO (08:39)
[2023-01-13] MEDS: Acetaminophen 325 MG TABLET 650 MG PO (08:40)
[2023-01-13] MEDS: Aspirin 81 MG TAB.CHEW PO (08:40)
[2023-01-13] MEDS: cloNIDine HCL 0.1 MG TABLET 0.05 MG PO (08:41)
[2023-01-13] MEDS: OLANZapine 2.5 MG TABLET PO (08:42)
[2023-01-13] MEDS: Thiamine HCL 100 MG TABLET PO (08:42)
[2023-01-13] MEDS: lamoTRIgine 100 MG TABLET 150 MG PO (08:43)
[2023-01-13] MEDS: Divalproex Sodium Sprinkles 125 MG CAP.DR.SPR 500 MG PO (08:44)
[2023-01-13] MEDS: Enoxaparin Sodium 40 MG/0.4 ML SYRINGE SUBCUT (11:38)
== END 2023-01-13 11:52 | DRG 884 ==
PROVIDERS: Clinical Nurse Specialist Psychiatric/Mental Health, Adult; Social Worker; Admitting Provider Psychiatry & Neurology Psychiatry; Visit Provider Psychiatry & Neurology Psychiatry
DX: F03.C11 Unspecified dementia, severe, with agitation (principal); F05 Delirium due to known physiological condition; E66.2 Morbid (severe) obesity with alveolar hypoventilation; J98.11 Atelectasis; F10.21 Alcohol dependence, in remission; G40.909 Epilepsy, unspecified, not intractable, without status epilepticus; I95.2 Hypotension due to drugs; M16.0 Bilateral primary osteoarthritis of hip; T46.5X5A Adverse effect of other antihypertensive drugs, initial encounter; H10.9 Unspecified conjunctivitis; N40.0 Benign prostatic hyperplasia without lower urinary tract symptoms; F29 Unspecified psychosis not due to a substance or known physiological condition; F32.A Depression, unspecified; Z78.1 Physical restraint status; Z75.1 Person awaiting admission to adequate facility elsewhere; Z68.29 Body mass index [BMI] 29.0-29.9, adult; Z87.820 Personal history of traumatic brain injury; Z74.01 Bed confinement status; Z87.891 Personal history of nicotine dependence; Z79.82 Long term (current) use of aspirin; Z79.899 Other long term (current) drug therapy
CPT/HCPCS: 36415; 70450; 70551; 71045; 71046; 71275; 74018; 80048; 80053; 80061; 80076; 80164; 80175; 81001; 81003; 82140; 82947; 83036; 85025; 92950; 93970; 94799; 95806; J1650; J3230; Q9967

== ENCOUNTER 2022-11-12 15:10 | Outpatient (BNV) | payer BC, SELFPAY | END 2023-01-06 10:31 | PROVIDERS: Admitting Provider Psychiatry & Neurology Psychiatry; Visit Provider Internal Medicine | DX: G47.33 Obstructive sleep apnea (adult) (pediatric) (principal) | CPT/HCPCS: 95806 ==

== ENCOUNTER → 2022-11-12 15:10 | Outpatient (BNV) | payer OTHER, SELFPAY | PROVIDERS: Admitting Provider Psychiatry & Neurology Psychiatry; Visit Provider Student in an Organized Health Care Education/Training Program | DX: R29.6 Repeated falls (principal); W19.XXXA Unspecified fall, initial encounter | CPT/HCPCS: 99222; 99499 ==

== ENCOUNTER → 2022-11-12 15:10 | Outpatient (BNV) | payer SELFPAY | PROVIDERS: Admitting Provider Psychiatry & Neurology Psychiatry; Visit Provider Psychiatry & Neurology Psychiatry | DX: F03.918 Unspecified dementia, unspecified severity, with other behavioral disturbance (principal); G31.9 Degenerative disease of nervous system, unspecified | CPT/HCPCS: 90792; 99231; 99232; 99233; 99238; 99499 ==